=== PATIENT | male | born 1950 | race Caucasian/White ===

== ENCOUNTER 2018-01-15 11:02 | Inpatient (IN) | payer MEDICARE ==
--- NOTE | 2018-01-15 11:24 | ED ---
Shortness of Breath - HPI Summary HPI Summary: This pt is a 67 y/o male presenting to [facility] referred from pulmonology c/o worsening SOB and weight gain. Pt reports he has chronic SOB but this worsening episode began about 3 weeks ago. He additionally notes chills and white clear phlegm. Pt states he has gained around 50 lbs over the last 4-6 weeks (was 482 lbs and now is 530 lbs). Denies fever, cough, chest pain. SOB is aggravated with lying down and it is alleviated with sitting down. Pt states he sleeps sitting in a recliner at night. Pt is currently on 2- 3L of [place] O2 at home at all times. He takes Lasix 40 mg once a day. He has had tests done to be fitted for a BiPAP. His PCP is Dr. Tidwell. - History of Current Complaint Chief Complaint: EDShortnessOfBreath Time Seen by Provider: 01/15/18 11:15 Hx Obtained From: Patient Onset/Duration: Lasting Days, Still Present Timing: Constant Current Severity: Severe Dyspnea At: Rest Aggrevating Factors: Recumbent Position Alleviating Factors: Upright Position Associated Signs & Symptoms: Negative - Allergy/Home Medications Allergies/Adverse Reactions: Allergies Allergy/AdvReac Type Severity Reaction Status Date / Time canagliflozin Allergy Unknown Verified 01/15/18 11:26 Reaction Details Sulfa (Sulfonamide Allergy Unknown Verified 01/15/18 11:26 Antibiotics) Reaction Details Home Medications: Home Medications Albuterol HFA INHALER* [Ventolin HFA Inhaler*] 2 puff INH Q4H PRN 01/15/18 [ History Confirmed 01/15/18] Multivitamins/Minerals TAB* [Theragran/minerals TAB*] 1 tab PO DAILY 01/15/18 [ History Confirmed 01/15/18] Potassium Chlor TAB* [Klor Con ER TAB*] 20 meq PO QAM 01/15/18 [History Confirmed 01/15/18] Ramipril CAP* [Altace CAP*] 5 mg PO QAM 01/15/18 [History Confirmed 01/15/18] glipiZIDE [Glipizide ER] 10 mg PO QAM 01/15/18 [History Confirmed 01/15/18] PMH/Surg Hx/FS Hx/Imm Hx Endocrine/Hematology History: Reports: Hx Diabetes - type 2 Cardiovascular History: Reports: Hx Congestive Heart Failure, Hx Hypertension Respiratory History: Reports: Hx Chronic Obstructive Pulmonary Disease (COPD) History: Denies: Hx Acute Renal Failure, Hx Chronic Renal Failure - Surgical History Surgery Procedure, Year, and Place: Abd surgery on 08/03/14 Infectious Disease History: No Infectious Disease History: Denies: Traveled Outside the [place] in Last 30 Days - Family History Known Family History: Negative: Renal Disease - Social History Alcohol Use: None Substance Use Type: Reports: None Smoking Status (MU): Never Smoked Tobacco Review of Systems Constitutional: Other - weight gain Positive: Chills. Negative: Fever Negative: Chest Pain Positive: Shortness Of Breath. Negative: Cough Skin: Negative Neurological: Negative All Other Systems Reviewed And Are Negative: Yes Physical Exam - Summary Physical Exam Summary: VITAL SIGNS: Reviewed. GENERAL: Patient is an obese male currently on 2L of NC O2. HEAD AND FACE: No signs of trauma. No ecchymosis, hematomas or skull depressions. No sinus tenderness. EYES: PERRLA, EOMI x 2, No injected conjunctiva, no nystagmus. EARS: Hearing grossly intact. Ear canals and tympanic membranes are within normal limits. MOUTH: Oropharynx within normal limits. NECK: Supple, trachea is midline, no adenopathy, no JVD, no carotid bruit, no c- spine tenderness, neck with full ROM. CHEST: Symmetric, no tenderness at palpation LUNGS: Decreased breath sounds bilaterally especially at the bases of the lungs. CVS: Regular rate and rhythm, S1 and S2 present, no murmurs or gallops appreciated. Distant heart sounds. ABDOMEN: Soft, non-tender. No signs of distention. No rebound no guarding, and no masses palpated. Bowel sounds are normal. EXTREMITIES: FROM in all major joints, no cyanosis or clubbing. Pt has 4+ edema. NEURO: Alert and oriented x 3. No acute neurological deficits. Speech is normal and follows commands. SKIN: Dry and warm Triage Information Reviewed: Yes Vital Signs On Initial Exam: Initial Vitals Temp Pulse Resp BP Pulse Ox 98.4 F 79 18 163/55 98 01/15/18 11:08 01/15/18 11:08 01/15/18 11:08 01/15/18 11:08 01/15/18 11:08 Vital Signs Reviewed: Yes Diagnostics - Vital Signs Vital Signs Temp Pulse Resp BP Pulse Ox 01/15/18 11:08 98.4 F 79 18 163/55 98 - Laboratory Result Diagrams: 01/15/18 11:55 01/15/18 11:55 Lab Statement: Any lab studies that have been ordered have been reviewed, and results considered in the medical decision making process. - Radiology Chest XR Xray Interpretation: No Acute Changes - IMPRESSION: Cardiomegaly and likely prominent vascular markings due to body habitus. No definite pneumonia. Dr. López has reviewed this radiology report. Radiology Interpretation Completed By: Radiologist - EKG 11:36 Cardiac Rate: NL - at 74 bpm EKG Rhythm: Sinus Rhythm EKG Interpretation: RBBB. Left ventricular hypertrophy. - Additional Comments Diagnostic Additional Comments: Venous Doppler Study, bilateral lower extremities IMPRESSION: No right lower extremity deep vein thrombosis. No left lower extremity deep vein thrombosis. Dr. López has reviewed this radiology report. Course/Dx - Course Assessment/Plan: This patient is a 67-year-old male who has past medical history significant for morbid obesity, fluid retention, dyslipidemia, chronic pain, hypertension, and COPD. The patient presents to the emergency room with a chief complaint of having shortness of breath and bilateral extremity edema. He reports that in the last 3 weeks he has gained 53 pounds. He also reports that he takes Lasix however it is not helping. Test results without any significant abnormality except for slight anemia, carbon dioxide of 35, glucose 132. Chest x-ray impression, cardiomegaly and likely prominent vascular markings due to his body habitus. No definite pneumonia. Bilateral lower extremity ultrasound negative for DVT. Because of the bilateral lower extremity edema I gave the patient Lasix 40 mg IV. I believe that the patient would benefit from diuresis since he has gained 53 pounds. Therefore I discussed my physical exam and findings with Dr. Currie who is the hospitalist and he accepted the patient for admission. Patient is hemodynamically stable alert and oriented 3. - Diagnoses Provider Diagnoses: Bilateral lower extremity edema - Physician Notifications Discussed Care of Patient With: Frank Currie Time Discussed With Above Provider: 12:37 Instructed by Provider To: Admit As Inpatient Discharge - Sign-Out/Discharge Documenting (check all that apply): Patient Departure - Admit to [facility] - Discharge Plan Condition: Stable Disposition: ADMITTED TO [facility] - Billing Disposition and Condition Condition: STABLE Disposition: Admitted to [facility] - Attestation Statements Document Initiated by Stephibmadeleine: Yes Documenting Scribe: Eryn Park Provider For Whom Yulia is Documenting (Include Credential): Arnulfo López MD Scribe Attestation: Eryn Sandhu, scribed for Arnulfo López MD on 01/16/18 at 0811. Scribe Documentation Reviewed: Yes Provider Attestation: The documentation as recorded by the stephibEryn salvador accurately reflects the service I personally performed and the decisions made by me, Arnulfo López MD
[2018-01-15 12:12] LABS: ABS Basophils 0 10^3/ul (0-0.2); ABS Eosinophils 0.2 10^3/ul (0-0.6); ABS Lymphocytes 1.1 10^3/ul (1.0-4.8); ABS Monocytes 0.9 10^3/ul (0-0.8); ABS Nucleated RBC 0 10^3/ul; Eosinophil % 3.2 % (0-6); Hematocrit 41 % (42-52); Hemoglobin 13.7 g/dl (14.0-18.0); Lymphocyte % 17.7 % (25-47); Mean Corpuscular HGB Conc 34 g/dl (31-36); Mean Corpuscular Hemoglobin 33 pg (27-31); Mean Corpuscular Volume 99 fL (80-94); Mean Platelet Volume 8.1 um3 (7.4-10.4); Nucleated Red Blood Cells % 0.1; Platelet Count 120 10^3/ul (150-450); Red Blood Count 4.12 10^6/ul (4.00-5.40); Red Cell Distribution Width 14 % (10.5-15); White Blood Count 6.2 10^3/ul (3.5-10.8)
--- OUTSIDE RECORDS SUMMARY | 2018-01-15 12:13 | XMS REPORT ---
:1950 External Reference #:[id number] Author Organization [email or web address] Address [address] [place] [address] [place] [address] Phone [phone] Care Team Providers Name Role Phone Kolton Tidwell MD Primary Care Physician Unavailable Payers Type Date Identification Numbers Payment Provider Subscriber Medicare Primary Policy Number: [id number] Medicare Diego Levy PayID: [id number] [facility] [address] [place] [address] Problems Description No Information Family History Date Family Member(s) Problem(s) Comments General Hypertension General Diabetes General Congestive Heart Failure (CHF) General Macular degeneration Father Hypertension Father Diabetes Mother Diabetes Mother due to CHF () First Brother 62 First Brother due to Diabetes () First Brother due to Cancer () Social History Type Date Description Comments Marital Status Lives With Occupation Retired Occupation disabled Occupation [employer] business 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 Cigarette Use Never Smoked Cigarettes ETOH Use Denies alcohol use Smoking Patient has never smoked Recreational Drug Use Never Used Drugs Daily Caffeine Consumes on average 1 cup of Sometimes 2 regular coffee per day Daily Caffeine Occasional iced tea Unsweetened Exercise Type/Frequency Does not exercise General Hx Text Do you follow a special diet: no regular Do you have problems with snoring,daytime : yes fatigue, occasional snoring Allergies, Adverse Reactions, Alerts Date Description Reaction Status Severity Comments 03/29/2017 Sulfa Antibiotics active 04/15/2017 Canagliflozin Urticaria, dizzy active 04/15/2017 Glipizide Urticaria, headache, inactive Moderate to Severe eye problem, breathing problem Medications Medication Date Status Form Strength Qnty SIG Indications Ordering Provider Isosorbide 04/15 Active Tablets 60mg 90tab take one R07.9 Benoit S. Mononitrate ER /2017 ER 24HR s by mouth Meyer, once daily DO FACC in the morning Symbicort 03/27 Active Aerosol 80-4.5mcg 2 puff Unknown /2016 /Act twice a day Nystatin Active Cream [id number] topically Unknown / t/GM twice a day as needed Atorvastatin Active Tablets 40mg 1 by mouth Unknown Calcium /0000 every day in the evening Proventil HFA Active Aerosol 108(90Bas inhale two Unknown / e) puffs by mcg/Act mouth four times a day as needed Ramipril Active Capsules 5mg 1 by mouth Unknown / every day in the morning Vitamin C Active Capsules 500mg 1 by mouth Unknown / every day in the evening Ropinirole HCL Active Tablets 0.5mg 1 tablet Unknown / daily in the evening Protonix Active Packet 40mg 1 tab by Unknown /0000 mouth every day in the morning Multivitamin Adult Active Tablets 1 by mouth Unknown / every day in the evening Tamsulosin HCL Active Capsules 0.4mg 1 by mouth Unknown /0000 every day in the evening Hydrocodone Active Tablets 10-325mg take 1 Unknown Bitartrate/Acetamin /0000 tablet po ophen every 4 to 6 hours prn Alprazolam Active Tablets 0.5mg take 1 Unknown /0000 Dispers tablet po every 4 hours as need Loratadine Active Tablets 10mg 1 by mouth Unknown /0000 every day in the morning Aspirin Adult Low Active Tablets 81mg 1 by mouth Unknown Dose /0000 DR every day Fluoxetine HCL Active Tablets 20mg 1 by mouth Unknown (PMDD) /0000 every day Am Glipizide XL Active Tablets 10mg 1 by mouth Unknown /0000 ER 24HR daily in the morning Furosemide Active Tablets 40mg 1 by mouth Unknown /0000 every day as needed Potassium Chloride Active Tablets 20Meq Take One Unknown Brenda ER / ER Tablet By Mouth Every Day in the morning Zolpidem Tartrate Active Tablets 5mg take 1 Unknown /0000 tablet by mouth at bedtime as needed -- maximum daily dose of 1 per day Bydureon Hx Pen 2mg inject 2 Unknown /0000 mg sc - weekly 11/07 Zinc 00 Hx 50mg 1 caplet Unknown /0000 po daily - 05/24 Hydrochlorothiazide Hx Tablets 25mg 1 by mouth Unknown /0000 every day - 11/24 Glipizide ER Hx Tablets 10mg Unknown /0000 ER 24HR - 04/14 Iron 00 Hx Tablets 240(27Fe) 1 by mouth Unknown /0000 mg every day - PM 05/14 Vital Signs Date Vital Result Comment 01/15/2018 Height 71 inches 5'11" Weight 532.00 lb Heart Rate 76 /min BP Systolic Sitting 126 mmHg BP Diastolic Sitting 62 mmHg Respiratory Rate 14 /min O2 % BldC Oximetry 93 % on 2L BMI (Body Mass Index) 74.2 kg/m2 11/28/2017 Height 71 inches 5'11" Weight 486.00 lb Heart Rate 74 /min BP Systolic Sitting 120 mmHg Lue large cuff BP Diastolic Sitting 82 mmHg Lue large cuff Respiratory Rate 16 /min O2 % BldC Oximetry 95 % BMI (Body Mass Index) 67.8 kg/m2 11/25/2017 Height 71 inches 5'11" Weight 482.00 lb Per pt, pt on scooter Heart Rate 74 /min BP Systolic Sitting 134 mmHg R forearm reg cuff BP Diastolic Sitting 76 mmHg R forearm reg cuff Respiratory Rate 14 /min O2 % BldC Oximetry 93 % On Ra BMI (Body Mass Index) 67.2 kg/m2 Neck Circumference in inches 20.5 06/03/2017 Height 71 inches 5'11" Weight 444.00 lb Per patient Heart Rate 84 /min BP Systolic Sitting 122 mmHg Rfa lrg cuff BP Diastolic Sitting 78 mmHg Rfa lrg cuff Respiratory Rate 18 /min BMI (Body Mass Index) 61.9 kg/m2 04/15/2017 Heart Rate 86 /min BP Systolic 170 mmHg Rue lrg cuff BP Diastolic 70 mmHg Rue lrg cuff BP Systolic Sitting 142 mmHg Lue lrg cuff BP Diastolic Sitting 62 mmHg Lue lrg cuff BP Systolic Standing 126 mmHg Lue lrg cuff BP Diastolic Standing 60 mmHg Lue lrg cuff Respiratory Rate 18 /min Results Description No Information Procedures Date CPT Code Description Status 11/27/2017 15128 Sleep Study Unattended,HRT Rate,Oxygen Sat,Resp Completed Effort/Airflow 05/15/2017 56862 Myocardial Perfusion Imaging Tomographic (Spect) Completed Multiple Studies 04/22/2017 56051 Treadmill Interp/Report Only Completed 04/22/2017 74280 Stress Test Supervsn W/Out I/R Completed 04/15/2017 42025 EKG Tracing & Interpretation Completed Encounters Type Date Location Provider CPT E/M Dx Office Visit 01/15/2018 [facility] [address] G47.33 10:00a [facility] E66.2 I50.9 Office Visit 11/28/2017 9:15a [facility] [place] [address] G47.33 [facility] E66.2 Office Visit 11/25/2017 9:30a [facility] [place] [address] R06.83 [facility] R40.0 R09.02 E66.01 Z68.44 Z99.81 Office Visit 06/03/2017 2:40p [facility] 86656 R07.9 [facility] FACC E66.01 I10 R06.02 E78.5 E11.69 I45.2 Office Visit 04/15/2017 3:00p [facility] [address] R07.9 [facility] FACC E66.01 E11.69 I10 E78.5 R06.02 R94.31 Office Visit 09/14/2014 1:32p [facility] DELFIN Malin 96247 536.42 Hospitalists Plan of Care Future Appointment(s):02/28/2018 9:30 am - Tina Alvares MD at [facility]01/15/2018 - Tina Alvares MDG47.33 Obstructive sleep apnea (adult) (pediatric)New Orders:Sleep-HomecareFollow up:6 ttidxW34.2 Morbid (severe) obesity with alveolar [id number] Heart failure, unspecified
[2018-01-15 12:27] LABS: EGFR Non-African American 76.5 (>60)
[2018-01-15] MEDS ORDERED: Furosemide IV* 10 MG/ML VIAL (40 MG) IV SLOW PU ONE (12:35)
--- NOTE | 2018-01-15 12:39 | RAD ---
Indication: Shortness of breath. 2 views the chest and shape cardiomegaly. Prominent interstitial markings are noted likely due to body habitus. No definite pleural fluid, pneumonia or pneumothorax is noted. IMPRESSION: Cardiomegaly and likely prominent vascular markings due to body habitus. No definite pneumonia.
--- NOTE | 2018-01-15 13:56 | RAD ---
HISTORY: B/L LE edema COMPARISONS: None relevant TECHNIQUE: Multiple transverse and longitudinal ultrasound images were obtained of the bilateral lower extremities from the level of the common femoral vein inferiorly through to the infrapopliteal veins using grayscale, color Doppler, and spectral Doppler imaging with and without compression and with augmentation. FINDINGS: The study is limited by patient body habitus. VEINS: The venous system of the bilateral lower extremities is compressible throughout its course, with normal flow on color Doppler imaging and normal response to augmentation on spectral Doppler imaging. SOFT TISSUES: Unremarkable. OTHER FINDINGS: None. IMPRESSION: NO RIGHT LOWER EXTREMITY DEEP VEIN THROMBOSIS. NO LEFT LOWER EXTREMITY DEEP VEIN THROMBOSIS.
[2018-01-15 14:25] LABS: Urine Appearance Clear; Urine Blood Negative (Negative); Urine Color Straw; Urine Ketones Negative (Negative); Urine Protein Negative (Negative); Urine Specific Gravity 1.006 (1.010-1.030); Urine Urobilinogen Negative (Negative)
[2018-01-15] MEDS ORDERED: Albuterol 2.5 MG/3 ML NEB.SOL* (0.083%) INH PRN (14:46)
[2018-01-15] MEDS ORDERED: Dextrose 50% Syringe 50 ML* 25 GM/50 ML SYRINGE IV PUSH PRN (14:49)
[2018-01-15] MEDS ORDERED: Nystatin CREAM* 30 GM TOPICAL PRN (14:50)
[2018-01-15] MEDS ORDERED: ALPRAZolam TAB* 0.5 MG PO PRN (14:50)
[2018-01-15] MEDS: Hydrocodone/Acetamin 10/325 1 TAB PO PRN (16:45)
[2018-01-15] MEDS: Insulin LISPRO* 1 UNITS UNIT SUBCUT SCH ×2 (17:02→21:41)
[2018-01-15] MEDS: Atorvastatin* 40 MG TAB PO SCH (17:32)
[2018-01-15] MEDS: Furosemide IV* 10 MG/ML 10 ML VIAL (100 MG) IV SCH (17:32)
--- NOTE | 2018-01-15 20:29 | HP ---
CC: Dr. Tidwell; Dr. Alvares; Dr. Benoit Meyer; Dr. Carlitos Mercado; Olvin Og NP * HISTORY AND PHYSICAL: DATE OF ADMISSION: 01/15/18 PRIMARY CARE PROVIDER: Dr. Tidwell. PRECISION HONER: Dr. Alvares. RICE DRYER MECHANIC: Dr. Benoit Meyer. ATTENDING PHYSICIAN: Dr. Carlitos Mercado * (report dictated by Dori Burns NP). CHIEF COMPLAINT: 1. Lower extremity edema. 2. Worsening shortness of breath. HISTORY OF PRESENT ILLNESS: Mr. Levy is a 67-year-old male with a past medical history of diabetes mellitus, type 2; CHF; hypertension; COPD; super morbid obesity; obstructive sleep apnea; restless legs syndrome; BPH; lymphedema ; chronic back pain; pulmonary hypertension; and hypoventilation syndrome, who presents to the emergency room today after being referred by Dr. Alvares's office. He was seen in her office this morning as he was supposed to start on BiPAP today, though he and his noted that he has had increasing shortness of breath and increasing leg edema in recent weeks. He has reportedly gained 50 pounds over the last 6 weeks. He notes that during this time, his shortness of breath, which is chronic, has been significantly worse and the severity of this shortness of breath has correlated with the increasing edema. He also reports occasional chills, though no fever, and occasional coughing with exertion with a small amount of white sputum. He reports that the shortness of breath is worse with lying, alleviated with sitting. He also notes that he becomes dizzy when lying down and has had difficulty sleeping. Of note, he does sleep in a recliner and is on 2 L of oxygen at baseline. He and his report that both his legs and his abdomen appear to be more edematous and the patient reports some generalized weakness stating that his legs feel "heavy." He was hospitalized at [facility] in September for 1 night for similar symptoms, at which point, he started Lasix 40 mg daily, which he states he has been taking religiously. He does also report some worsening of his chronic back pain and occasional double vision on waking that lasts no longer than 1 to 2 minutes , though no actual changes in vision. In the emergency room, he received 1 dose of Lasix 40 mg IV. He is currently on 3 L of oxygen and he had a chest x-ray that showed cardiomegaly, but no definite acute findings. Because of his worsening edema and shortness of breath , the hospitalist service was asked to evaluate for admission. PAST MEDICAL HISTORY: 1. Diabetes mellitus, type 2. 2. Congestive heart failure. 3. Hypertension. 4. COPD. 5. Super morbid obesity. 6. Obstructive sleep apnea (has not yet started BiPAP). 7. Restless legs syndrome. 8. BPH. 9. Lymphedema. 10. Back pain. 11. Pulmonary hypertension. 12. Hypoventilation syndrome. PAST SURGICAL HISTORY: 1. Multiple abdominal surgeries in 2015 (the patient states 10) due to a perforated peptic ulcer and subsequent complication. 2. Hernia repair. HOME MEDICATIONS: 1. Multivitamin 1 tab p.o. daily. 2. Ascorbic acid 500 mg p.o. daily. 3. Loratadine 10 mg p.o. daily. 4. Aspirin 81 mg p.o. daily. 5. Nystatin cream 1 application topical b.i.d. p.r.n. 6. Hydrocodone/acetaminophen 10/325 mg 1 tab p.o. q.4 hours p.r.n. 7. Requip 0.5 mg p.o. at bedtime. 8. Alprazolam 0.5 mg p.o. q.4 hours p.r.n. 9. Tamsulosin 0.4 mg p.o. daily. 10. Lipitor 40 mg p.o. daily. 11. Pantoprazole 40 mg p.o. daily. 12. Imdur 60 mg p.o. daily. 13. Fluoxetine 20 mg p.o. daily. 14. Glipizide 10 mg p.o. daily. 15. Ramipril 5 mg p.o. daily. 16. Potassium chloride 20 mEq p.o. daily. 17. Symbicort 80/4.5 two puffs b.i.d. 18. Albuterol MDI 2 puffs q.4 hours p.r.n. ALLERGIES: SULFA (hives) and INVOKANA (rash). FAMILY HISTORY: The patient's mother at 74 of congestive heart failure. The patient's father at 95 of sepsis. The patient's brother at 62 of cancer, unknown type. Mother, father, and brother also had diabetes mellitus, type 2. SOCIAL HISTORY: The patient denies any tobacco, alcohol, or recreational drug use. 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 He lives at home with his , Camila, who will be his surrogate decision maker in the event he is unable to make decisions for himself. REVIEW OF SYSTEMS: I performed a 14-point review of systems. All pertinent positives and negatives are mentioned in the history of present illness. Remaining review of systems is negative. PHYSICAL EXAMINATION GENERAL APPEARANCE: The patient is a morbidly obese white male, sitting in bed , in no acute distress, appears stated age. VITAL SIGNS: Temperature 98.4, heart rate 72, respiratory rate 17, oxygen saturation 96% on 3 L nasal cannula, blood pressure 140/61. HEENT: Visual castro grossly intact. Pupils equal, round, and reactive to light and accommodation. Extraocular movements intact. Hearing grossly intact. Mucous membranes moist without erythema or exudate. NECK: Full range of motion. Trachea midline. No lymphadenopathy. RESPIRATORY: Chest with symmetrical expansion. No deformities on the posterior chest wall. Lung sounds with fine crackles in bilateral bases, otherwise clear to auscultation throughout. CARDIOVASCULAR: Regular rate and rhythm. No murmurs, rubs, or gallops. No JVD. ABDOMEN: Large. Soft, nontender. Bowel sounds normoactive x4. Significant old scarring across span of the abdomen. EXTREMITIES: There is +2 pitting edema to the bilateral lower legs. Legs are slightly tender to palpation. No significant discoloration. DP pulses are 1+ and symmetric. Sensation intact. MUSCULOSKELETAL: There is no clubbing or cyanosis noted. The patient exhibits good strength in all extremities. NEUROLOGICAL: Cranial nerves II through XII grossly intact. The patient is alert and oriented x4. PSYCH: The patient is calm and cooperative. SKIN: Grossly intact. DIAGNOSTIC STUDIES/LAB DATA: WBC is 6.2, RBC is 4.12, hemoglobin 13.7, hematocrit 41, platelets 120. Sodium 141, potassium 4.2, chloride 100, carbon dioxide 35, BUN 15, creatinine 0.98, glucose 132, lactate 1.4. Troponin 0.00. BNP 31. No acute findings on urinalysis. Chest x-ray read as cardiomegaly and likely permanent vascular markings due to body habitus, no definite pneumonia. Bilateral lower extremity ultrasound read as no right or left lower extremity deep vein thrombosis. EKG shows sinus rhythm with a rate of 74 with left ventricular hypertrophy. ASSESSMENT AND PLAN: Mr. Levy is a 67-year-old male with past medical history significant for diabetes mellitus, type 2; congestive heart failure; hypertension; chronic obstructive pulmonary disease; super morbid obesity; obstructive sleep apnea; restless legs syndrome; benign prostatic hyperplasia; lymphedema; pulmonary hypertension; hypoventilation syndrome; and back pain, who presents to the emergency room with concerns for increasing lower extremity edema and worsening shortness of breath over the last 6 weeks and was found to be in congestive heart failure exacerbation. The patient will be admitted inpatient for the followin. Congestive heart failure exacerbation. It appears as though the patient is in right-sided congestive heart failure as he does have a history of pulmonary hypertension. His BNP is only 31, although this is likely falsely low due to his obesity. We will diurese him with Lasix 80 mg IV b.i.d. for the time being. I will place him on a 1.5 L fluid restriction. I will check 2 more [address] I will place him on daily weights and strict I's and O's. I have requested records from his September 2017 hospitalization at [facility] during which time it appears he had an echocardiogram, although the findings are unclear. We will also repeat an echo here. I do not feel we need to consult Cardiology at this time, but we may need to if we are unable to diurese him effectively. 2. Diabetes mellitus, type 2. The patient's last A1c at his primary from 08/19 was 7.7%. It appears he is moderately well controlled. I will hold his glipizide at this point and place him on fingersticks a.c. and h.s. as well as sliding scale insulin for BMI greater than 30. 3. Hypertension. Blood pressure appears to be controlled in the emergency room. I will continue his ramipril. 4. Obstructive sleep apnea. The patient has just been recently diagnosed with obstructive sleep apnea and has completed a sleep study. He saw Dr. Alvares this morning with plan to pear picker his BiPAP machine later today. We will start that in the hospital today with a hospital unit. I have ordered settings per Dr. Alvares's note: BiPAP with an IPAP of 14 and EPAP of 10. 5. Lymphedema. The patient reports using a leg compression device at home. I will order him SCDs for use in the hospital. 6. Morbid obesity. BMI 70. The patient has been counseled on his weight. 7. Restless legs syndrome. Continue Requip. 8. Benign prostatic hyperplasia. Continue Flomax. 9. Hypoventilation syndrome. As above. 10. Pulmonary hypertension. As above. 11. Back pain. Continue [place]. 12. Code status is full code. 13. DVT prophylaxis. On the DVT Risk Assessment, the patient scores a 4 putting him at high risk. I will place him on subcu heparin as well as the SCDs mentioned above. TIME SPENT: Time for this admission was approximately 80 minutes, greater than half of that was spent with the patient and caregiver discussing medications, past medical history, events leading up to his arrival today and performing the physical examination. The case has been reviewed with my attending, Dr. Mercado, who agrees with the plan of care. DORI UBRNS, SECURITY SUPERVISOR [id number]/CPS #: [id number] JEANNIE
[2018-01-15] MEDS ORDERED: Morphine VIAL* 4 MG/ML VIAL (1 ml vial) IV ONE (20:31)
[2018-01-15] MEDS: Ropinirole TAB* 0.5 MG TAB PO SCH (21:40)
[2018-01-15] MEDS: Heparin VIAL(*) 5000 UNITS/ML VIAL (FIVE THOUSAND) SUBCUT SCH (21:44)
[2018-01-15] MEDS: ceFAZolin 2 GM PREMIX in ORs 2 GM/50 ML BAG IVPB SCH (21:49)
--- NOTE | 2018-01-15 23:58 | HP ---
H&P (Free Text) History and Physical: 67 yo male PMH super morbid obesity, obesity hypoventilation syndrome, chronic hypoxic respiratory failure, JO ANN presenting with 50lb weight gain in 6 weeks despite lasix 40mg po daily. 2+ pitting edema, orthopnea and increased oxygen requirement likely secondary to acute congestive heart failure exacerbation. Aggressive diuresis, strict io, daily weights. Repeat ECHO or obtain from OSH. Full code. inpatient status given anticipating several days of diuresis. Agree with H&P including assessment and plan of Dori Burns RHEUMATOLOGY NURSE.
[2018-01-16] MEDS: ceFAZolin 2 GM PREMIX in ORs 2 GM/50 ML BAG IVPB SCH ×3 (05:00→20:47)
[2018-01-16] MEDS: Heparin VIAL(*) 5000 UNITS/ML VIAL (FIVE THOUSAND) SUBCUT SCH ×3 (05:21→23:29)
[2018-01-16] MEDS: Furosemide IV* 10 MG/ML 10 ML VIAL (100 MG) IV SCH ×2 (07:24→16:28)
[2018-01-16] MEDS: CMC:Pantoprazole TAB (NF) 40 MG TAB PO SCH (07:24)
[2018-01-16] MEDS: Hydrocodone/Acetamin 10/325 1 TAB PO PRN ×2 (07:24→20:37)
[2018-01-16] MEDS: Aspirin EC TAB* 81 MG TAB.EC PO SCH (07:24)
[2018-01-16] MEDS: Multivitamins/Minerals TAB PO SCH (07:24)
[2018-01-16] MEDS: Ascorbic Acid TAB* 500 MG PO SCH (07:24)
[2018-01-16] MEDS: Isosorbide Mononitrate ER TAB* 60 MG PO SCH (07:25)
[2018-01-16] MEDS: Potassium Chlor TAB* 20 MEQ TAB.ER PO SCH (07:25)
[2018-01-16] MEDS: Tamsulosin CAP* 0.4 MG PO SCH (07:25)
[2018-01-16] MEDS: FLUoxetine CAP* 20 MG PO SCH (07:25)
[2018-01-16] MEDS: Ramipril CAP* 5 MG PO SCH (07:25)
[2018-01-16] MEDS: Cetirizine* 10 MG TAB PO SCH (07:25)
[2018-01-16] MEDS: Insulin LISPRO* 1 UNITS UNIT SUBCUT SCH ×4 (07:39→20:38)
[2018-01-16 08:19] LABS: ABS Basophils 0.1 10^3/ul (0-0.2); ABS Eosinophils 0.2 10^3/ul (0-0.6); ABS Lymphocytes 1.1 10^3/ul (1.0-4.8); ABS Monocytes 0.8 10^3/ul (0-0.8); ABS Neutrophils 2.7 10^3/ul (1.5-7.7); ABS Nucleated RBC 0 10^3/ul; Hematocrit 42 % (42-52); Hemoglobin 14.2 g/dl (14.0-18.0); Lymphocyte % 22.8 % (25-47); Mean Corpuscular HGB Conc 34 g/dl (31-36); Mean Corpuscular Hemoglobin 34 pg (27-31); Mean Corpuscular Volume 99 fL (80-94); Mean Platelet Volume 7.7 um3 (7.4-10.4); Nucleated Red Blood Cells % 0.1; Platelet Count 116 10^3/ul (150-450); Red Cell Distribution Width 14 % (10.5-15); White Blood Count 4.8 10^3/ul (3.5-10.8)
[2018-01-16 08:40] LABS: EGFR Non-African American 71.5 (>60)
[2018-01-16] MEDS ORDERED: Perflutren Lipid Microsphere* 3 ML VIAL ONE (08:55)
--- NOTE | 2018-01-16 12:22 | ECHO ---
Patient: DAYRON NAIK [facility] Rec#: [id number] : 1950 Date: 01/16/2018 Age: 67y Height: 180 cm / 70.9 in Weight: 235 kg / 517.9 lbs Sex: M BSA: 3.2 Room#: 453 Admit Date#: 01/15/2018 Type: Inpatient Referring: Dori Burns Reading: Dylon Jerry MD Agriculture Intern: Heather Mahajan RN RDCS CC: Kolton Tidwell MD Transthoracic Echocardiogram Indication: CHF BP: 127/55 HR: 66 Rhythm: NSR Findings History: HTN, DM, CHF, COPD, super morbid obesity, JO ANN, hypoventilation syndrome, PHTN. Technical Comments: The study is technically limited due to patient body habitus. Left Ventricle: The left ventricular chamber size is normal. Moderate concentric left ventricular hypertrophy is observed. Global left ventricular wall motion and contractility are within normal limits. There is normal left ventricular systolic function. The estimated ejection fraction is 60-65%. There is a left ventricular septal wall motion abnormality observed, possibly due to the presence of a right bundle branch block. Abnormal left ventricular diastolic function is observed. Abnormal left ventricular diastolic filling is observed, consistent with impaired relaxation. Left Atrium: The left atrial chamber size is normal. Right Ventricle: The right ventricle is not well visualized. The right ventricle is mildly dilated. The right ventricular global systolic function is mildly to moderately reduced. Right Atrium: The right atrium is not well visualized. Aortic Valve: The aortic valve structure is not well visualized. The aortic valve leaflets are mildly thickened. There is no evidence of aortic regurgitation. There is no evidence of aortic stenosis. Mitral Valve: The mitral valve leaflets are mildly thickened. There is no evidence of mitral regurgitation. There is no evidence of mitral stenosis. Tricuspid Valve: The tricuspid valve structure is not well visualized. There is no evidence of tricuspid valve regurgitation. Pulmonic Valve: The pulmonic valve structure is not well visualized. There is no evidence of pulmonic regurgitation. There is no pulmonic stenosis. Pericardium: There is no significant pericardial effusion. A pericardial fat pad is visualized. Aorta: There is no dilatation of the ascending aorta. There is no dilatation of the aortic arch. There is mild dilatation of the aortic root. Pulmonary Artery: The main pulmonary artery is not well visualized. Venous: The venous system is not well visualized. The inferior vena cava is not visualized. Contrast: Definity was used to optimize study. A total of 7 ml of Definity was given IV. Summary: There was not any prior study for comparison. Conclusions The study is technically limited due to patient body habitus. Moderate concentric left ventricular hypertrophy is observed. The estimated ejection fraction is 60-65%. There is a left ventricular septal wall motion abnormality observed, possibly due to the presence of a right bundle branch block. Abnormal left ventricular diastolic filling is observed, consistent with impaired relaxation. The aortic valve leaflets are mildly thickened. There is mild dilatation of the aortic root. The right ventricular global systolic function is mildly to moderately reduced. The right ventricle is mildly dilated. No significant valvular dysfunction. Measurements Name Value Normal Range RVIDd (AP) 2D 3.1 cm (0.9 - 2.6) IVSd (2D) 1.7 cm (0.6 - 1) LVPWd (2D) 1.4 cm (0.6 - 1) LVIDd (2D) 4.7 cm (3.6 - 5.4) Aortic Annulus 2.4 cm (1.4 - 2.6) Ao root diameter (2D) 3.6 cm (2.1 - 3.5) Ascending Ao 3.2 cm (2.1 - 3.4) Aortic arch 2.6 cm (1.8 - 3.4) LA dimension (AP) 2D 3.6 cm (2.3 - 3.8) LAd ISD 4CH 6 cm (2.9 - 5.3) LA ISD 4CH W 4.7 cm (2.5 - 4.5) Name Value Normal Range LA ESV BP (A/L) index 30.3 ml/m2 - Name Value Normal Range MV E-wave Vmax 1 m/sec - MV deceleration time 183 msec - MV A-wave Vmax 0.84 m/sec - LV septal e' Vmax 0.08 m/sec - LV lateral e' Vmax 0.11 m/sec - LV E:e' septal ratio 12.5 ratio - LV E:e' lateral ratio 9.1 ratio - Name Value Normal Range AV Vmax 1.5 m/sec - AV VTI 33.8 cm - AV peak gradient 9 mmHg - AV mean gradient 5 mmHg - LVOT Vmax 1.2 m/sec - LVOT VTI 27.2 cm - LVOT peak gradient 6 mmHg - LVOT mean gradient 3 mmHg - RUBEN Vmax 0.85 m/sec - Name Value Normal Range PV Vmax 0.99 m/sec -
[2018-01-16] MEDS: Morphine INJ* 2 MG/ML 1 ML SYRINGE (TWO MG - NEW SYRINGE VERSION) IV PRN ×2 (15:20→23:29)
[2018-01-16] MEDS: Gabapentin CAP(*) 100 MG PO SCH ×2 (16:03→20:37)
[2018-01-16] MEDS: Atorvastatin* 40 MG TAB PO SCH (16:28)
--- NOTE | 2018-01-16 18:23 | PN ---
Subjective Date of Service: 01/16/18 Interval History: Pt seen and examined. Meds and labs reviewed. There were earlier reports that pt may have expressed some SI last night. This was clarified to pt in presence of and med student Margarito where pt mentioned he does not have SI/HI CC: 910 Chronic back pain. ROS: Denied MONTEZ/dizziness, F/C, N/V, CP, SOB, increased cough, sputum production , abd pain, diarrhea, constipation, dysuria, myalgias, arthralgias, throat pain , and new skin lesions. The rest of the 14 point ROS are unremarkable. PHYSICAL EXAM: GEN APPEARANCE: Awake, not in acute distress HEENT: NC/AT, PERRLA, moist oral mucosa, (-) throat erythema NECK: Soft, supple, (-) cervical LAD, (-)JVD HEART: S1S2 WNL, RRR, No MRG CHEST: CTA, BL, GAE, No W/R/R ABD: Soft, ND/NT, NABS 4x Q EXT: No C/C/BLLE 3+--pt and mentions this has improved SKIN: Warm to touch PSYCH: No active psychosis, hallucinations, depression, SI/HI Objective Active Medications: Acetaminophen (Tylenol Tab*) 975 mg PO BID [facility] Hydrocodone Bitart/Acetaminophen ([place] 10/325 (Nf)) 1 tab PO Q4HR PRN PRN Reason: PAIN Last Admin: 01/16/18 07:24 Dose: 1 tab Albuterol (Ventolin 2.5 Mg/3 Ml Neb.Malia*) 2.5 mg INH Q2H PRN PRN Reason: SOB/WHEEZING Alprazolam (Xanax Tab*) 0.5 mg PO Q4H PRN PRN Reason: ANXIETY Last Admin: 01/16/18 03:10 Dose: 0.5 mg Ascorbic Acid (Vitamin C Tab*) 500 mg PO DAILY [facility] Last Admin: 01/16/18 07:24 Dose: 500 mg Aspirin (Aspirin Ec Tab*) 81 mg PO DAILY [facility] Last Admin: 01/16/18 07:24 Dose: 81 mg Atorvastatin Calcium (Lipitor*) 40 mg PO QPM [facility] Last Admin: 01/16/18 16:28 Dose: 40 mg Cetirizine HCl (Zyrtec*) 10 mg PO DAILY [facility] Last Admin: 01/16/18 07:25 Dose: 10 mg Dextrose (D50w Syringe 50 Ml*) 12.5 gm IV PUSH .FOR FS < 60 - SS PRN PRN Reason: FS < 60 Fluoxetine HCl (Prozac Cap*) 20 mg PO QAM [facility] Last Admin: 01/16/18 07:25 Dose: 20 mg Furosemide (Lasix Iv*) 80 mg IV 0800,1700 [facility] Last Admin: 01/16/18 16:28 Dose: 80 mg Gabapentin (Neurontin Cap(*)) 200 mg PO TID [facility] Last Admin: 01/16/18 16:03 Dose: 200 mg Heparin Sodium (Porcine) (Heparin Vial(*)) 5,000 units SUBCUT Q8HR [facility] Last Admin: 01/16/18 14:06 Dose: 5,000 units Cefazolin Sodium/Dextrose (Kefzol 2 Gm Premix(*)) 2 gm in 50 mls @ 100 mls/hr IVPB Q8H [facility] Last Admin: 01/16/18 12:28 Dose: 100 mls/hr Insulin Human Lispro (Humalog*) 0 units SUBCUT ACHS [facility]; Protocol Last Admin: 01/16/18 16:28 Dose: 3 units Isosorbide Mononitrate (Imdur Er Tab*) 60 mg PO DAILY [facility] Last Admin: 01/16/18 07:25 Dose: 60 mg Morphine Sulfate (Morphine Inj ((Syringe))*) 0.5 mg IV Q6H PRN PRN Reason: PAIN Stop: 01/17/18 15:01 Last Admin: 01/16/18 15:20 Dose: 0.5 mg Multivitamins/Minerals (Theragran/Minerals Tab*) 1 tab PO DAILY [facility] Last Admin: 01/16/18 07:24 Dose: 1 tab Nystatin (Nystatin Cream*) 1 applic TOPICAL BID PRN PRN Reason: SKIN Pantoprazole Sodium (Protonix Tab (Nf)) 40 mg PO DAILY [facility] Last Admin: 01/16/18 07:24 Dose: 40 mg Potassium Chloride (Klor Con Er Tab*) 20 meq PO QAM [facility] Last Admin: 01/16/18 07:25 Dose: 20 meq Ramipril (Altace Cap*) 5 mg PO QAM [facility] Last Admin: 01/16/18 07:25 Dose: 5 mg Ropinirole HCl (Requip Tab*) 0.5 mg PO BEDTIME [facility] Last Admin: 01/15/18 21:40 Dose: 0.5 mg Tamsulosin HCl (Flomax Cap*) 0.4 mg PO DAILY [facility] Last Admin: 01/16/18 07:25 Dose: 0.4 mg Vital Signs - 8 hr 01/16/18 01/16/18 01/16/18 11:02 11:38 15:20 Temperature 97.5 F 98.1 F Pulse Rate 75 69 Respiratory 18 18 18 Rate Blood Pressure 149/55 117/67 (mmHg) O2 Sat by Pulse 98 97 Oximetry 01/16/18 01/16/18 16:03 16:17 Temperature Pulse Rate Respiratory 18 18 Rate Blood Pressure (mmHg) O2 Sat by Pulse Oximetry Oxygen Devices in Use Now: Nasal Cannula Result Diagrams: 01/16/18 08:01 01/16/18 08:01 Assess/Plan/Problems-Billing Assessment: - Patient Problems (1) CHF (congestive heart failure) Current Visit: Yes Status: Acute Code(s): I50.9 - HEART FAILURE, UNSPECIFIED SNOMED Code(s): 63965952 Comment: -Continue aggressive diuresis -Pt advised life-style modifications and to track is sodium intake to <1.5 g/ day but not less than 1 g/day (2) Diabetes 1.5, managed as type 2 Current Visit: Yes Status: Acute Code(s): E10.9 - TYPE 1 DIABETES MELLITUS WITHOUT COMPLICATIONS SNOMED Code(s): 136066772 Comment: -Well controlled -Continue ISS (3) Hypertension Current Visit: Yes Status: Acute Code(s): I10 - ESSENTIAL (PRIMARY) HYPERTENSION SNOMED Code(s): 99380759 Comment: -Well-controlled -Continue current regimen (4) RLS (restless legs syndrome) Current Visit: Yes Status: Acute Comment: -Continue Ropinorole (5) DVT prophylaxis Current Visit: Yes Status: Acute Code(s): WST8993 - SNOMED Code(s): 080079984 Comment: -Continue Heparin SQ Status and Disposition: -For PT eval
[2018-01-16] MEDS: Acetaminophen TAB* 325 MG PO SCH (20:38)
[2018-01-16] MEDS: Ropinirole TAB* 0.5 MG TAB PO SCH (20:38)
[2018-01-17] MEDS: Heparin VIAL(*) 5000 UNITS/ML VIAL (FIVE THOUSAND) SUBCUT SCH ×2 (05:22→14:14)
[2018-01-17] MEDS: ceFAZolin 2 GM PREMIX in ORs 2 GM/50 ML BAG IVPB SCH ×2 (05:23→12:19)
[2018-01-17] MEDS: Insulin LISPRO* 1 UNITS UNIT SUBCUT SCH ×3 (08:06→17:27)
[2018-01-17] MEDS: FLUoxetine CAP* 20 MG PO SCH (08:07)
[2018-01-17] MEDS: Acetaminophen TAB* 325 MG PO SCH (08:07)
[2018-01-17] MEDS: Furosemide IV* 10 MG/ML 10 ML VIAL (100 MG) IV SCH (08:07)
[2018-01-17] MEDS: Gabapentin CAP(*) 100 MG PO SCH ×2 (08:08→14:13)
[2018-01-17] MEDS: Ascorbic Acid TAB* 500 MG PO SCH (08:08)
[2018-01-17] MEDS: Aspirin EC TAB* 81 MG TAB.EC PO SCH (08:08)
[2018-01-17] MEDS: Potassium Chlor TAB* 20 MEQ TAB.ER PO SCH (08:08)
[2018-01-17] MEDS: Multivitamins/Minerals TAB PO SCH (08:08)
[2018-01-17] MEDS: Isosorbide Mononitrate ER TAB* 60 MG PO SCH (08:08)
[2018-01-17] MEDS: CMC:Pantoprazole TAB (NF) 40 MG TAB PO SCH (08:09)
[2018-01-17] MEDS: Cetirizine* 10 MG TAB PO SCH (08:09)
[2018-01-17] MEDS: Ramipril CAP* 5 MG PO SCH (08:09)
[2018-01-17] MEDS: Tamsulosin CAP* 0.4 MG PO SCH (08:09)
[2018-01-17] MEDS: Atorvastatin* 40 MG TAB PO SCH (17:27)
[2018-01-17 18:01] VITALS: BP 139/60
[2018-01-17] MEDS ORDERED: ceFAZolin* 2 GM in NS 100 MLS Q8HR IVPB SCH (21:00)
--- NOTE | 2018-01-17 22:33 | DS ---
CC: Dr. Carlitos Mercado; Dr. López; Dr. Kolton Tidwell DISCHARGE SUMMARY: DATE OF ADMISSION: DATE OF DISCHARGE: 01/17/18 DISCHARGE DIAGNOSES: 1. Congestive heart failure exacerbation, diastolic dysfunction with an ejection fraction of 60 to 6 5%. 2. Left medial thigh cellulitis, mild, improved. 3. Diabetes mellitus, type 2, well controlled. 4. Hypertension, well controlled. 5. History of restless leg syndrome, well controlled. 6. History of chronic back pain, chronic pain uncontrolled, which has improved with addition of dipesh pentin. DISCHARGE MEDICATIONS: As follows: 1. Alprazolam 0.5 mg p.o. q.4 p.r.n. 2. Ascorbic acid 500 mg p.o. daily. 3. Aspirin 81 mg p.o. daily. 4. Atorvastatin 40 mg p.o. q.p.m. 5. Fluoxetine 20 mg p.o. q.p.m. 6. Hydrocodone/acetaminophen 10/325 p.o. q.4 p.r.n. 7. Isosorbide mononitrate 60 mg p.o. daily. 8. Loratadine 10 mg p.o. daily. 9. Multivitamins one tab p.o. daily. 10. Nystatin cream 1 application topically b.i.d. 11. Pantoprazole 40 mg p.o. daily. 12. Potassium chloride 20 mEq p.o. q.a.m. 13. Ramipril 5 mg p.o. q.a.m. 14. Ropinirole 0.5 mg p.o. q.h.s. 15. Tamsulosin 0.4 mg p.o. daily. 16. Albuterol HFA inhaler 2 puffs inhalation q.4 p.r.n. 17. Symbicort 80/4.5 mcg 2 puffs inhalation b.i.d. 18. Doxycycline 100 mg p.o. b.i.d. for 10 days. 19. Gabapentin 200 mg p.o. t.i.d. 20. Floranex 2 tablets p.o. daily. 21. Metformin 1000 mg p.o. b.i.d. 22. Metolazone 5 mg p.o. daily. 23. Torsemide 40 mg p.o. daily. HISTORY OF PRESENT ILLNESS/HOSPITAL COURSE: The patient is a 67-year-old gentleman with hi story of diabetes mellitus, CHF, hypertension, COPD, and morbid obesity, who presented to the emergen cy room on 01/15/18, after being referred by Dr. Alvares's office. He was seen in her office in the [facility] after just completing a sleep study, which he qualified for, for BiPAP at 14/10 q.h.s. and at that time the recommendation was for him to be at 2 L. In the office, he reportedly had gained 50 po unds over the last 6 weeks and presented with severe lower extremity edema at 4+. Although despite t his, his presenting BNP was only 31 likely due to the diastolic failure instead of the systolic failu re and more right- sided than left-sided. He has had history of dyspnea on exertion and orthopnea, w hich is consistent with CHF exacerbation per clinical criteria despite having normal BNP. He was agg ressively diuresed for 2 days in the hospital and prior to leaving the hospital, he had an ambulatory sats done, which would require him to be at least 6 L of nasal cannula that we will defer titration to either Dr. Alvares's office or his PCP's office. He did well, ambulating at 6 L with 91% or above saturation and ambulation. The patient has been evaluated by physical therapy and the patient and wi fe at bedside although initially had some reservations of him not being discharged to rehab. A reassessment of physical therapy confirms that the patient does not need rehabilitation, but may need BNS and home PT. He had been advised to follow up and/or call his PCP within 3 days post discharge. He was also advise d that if his symptoms resume or develop any new onset or feeling unwell for any reason, to call his PCP first and if his PCP cannot entertain him due to scheduling issues alone, to call care connect in if his issue is nonemergent. He was advised to call my office regarding any questions, concerns , or further clarifications regarding his discharge plans and/or prescriptions and to take his prescr iptions as prescribed. PHYSICAL EXAMINATION: Reveals the most recent vital signs of records with blood pressure of 143/77, 98.4 degrees Fahrenheit, 69 beats per minute heart rate, 19 per minute respiratory rate, saturating a t 98% at room air. General Appearance: The patient is awake, alert, and oriented x3, not in acute d istress, morbidly obese. HEENT: Normocephalic, atraumatic. PERRLA. Extraocular muscles intact. Ne gative for icterus. Moist oral mucosa. Negative throat erythema. Neck is soft, supple with no cerv ical lymphadenopathy. No JVD. Heart: S1, S2 within normal limits. Regular rate and rhythm. No mur murs, rubs, and gallops. Chest: Clear to auscultation bilaterally. Good air entry. No wheezes, ra les, or rhonchi. Abdomen: Soft, nondistended, nontender. Normoactive bowel sounds x4. Extremities: With 3+ bilateral lower extremity edema. He mentions that he also has history of lymphedema and is currently slowly getting back to his baseline. Psychiatric: No active psychosis, depression, suicida l or homicidal ideations. Skin: Warm to touch. TIME SPENT: The total time spent evaluating the patient, reviewing pertinent data and appropriate do cumentation is 50 minutes. [id number]/[facility] #: [id number]
--- NOTE | 2018-01-17 23:40 | DS ---
DISCHARGE SUMMARY: DATE OF SERVICE: 01/17/18 ADDENDUM: DISCHARGE MEDICATIONS: Please replace metformin with glipizide 10 mg p.o. daily. HISTORY OF PRESENT ILLNESS/NARRATIVE: The patient clarified that he has been tried on metformin in t he past, but has had severe diarrhea with it and hence was placed back on glipizide. Of note, the pa salvador had been on glipizide for many years until it was thought that he may be allergic to this, whic h was momentarily discontinued and had been placed back by his primary care physician and has done we ll with glipizide. [id number]/[facility] #: [id number]
== END 2018-01-17 18:21 | disposition home or self-care (01) | DRG 292 ==
LOC: ED 11:02 → MEDTELE 14:56
PROVIDERS: ADMIT Internal Medicine; ATTEND Student in an Organized Health Care Education/Training Program
PROC: 5A09357 Assistance with Respiratory Ventilation, Less than 24 Consecutive Hours, Continuous Positive Airway Pressure (ICD-10-PCS; principal; 2018-01-17)
DX: I11.0 Hypertensive heart disease with heart failure (principal); E66.2 Morbid (severe) obesity with alveolar hypoventilation; J96.11 Chronic respiratory failure with hypoxia; L03.116 Cellulitis of left lower limb; Z68.45 Body mass index [BMI] 70 or greater, adult; I50.33 Acute on chronic diastolic (congestive) heart failure; E11.9 Type 2 diabetes mellitus without complications; E78.5 Hyperlipidemia, unspecified; G89.29 Other chronic pain; J44.9 Chronic obstructive pulmonary disease, unspecified; G25.81 Restless legs syndrome; M54.9 Dorsalgia, unspecified; I27.20 Pulmonary hypertension, unspecified; H53.2 Diplopia; Z82.49 Family history of ischemic heart disease and other diseases of the circulatory system; Z88.8 Allergy status to other drugs, medicaments and biological substances; Z88.2 Allergy status to sulfonamides; Z83.3 Family history of diabetes mellitus; Z80.9 Family history of malignant neoplasm, unspecified; Z79.84 Long term (current) use of oral hypoglycemic drugs; Z79.82 Long term (current) use of aspirin
CPT/HCPCS: 36415; 71046; 80048; 80053; 81003; 82550; 82553; 83605; 83880; 84484; 85025; 86140; 93005; 93306; 93970; 94660; 99284; A9270-GY; C8929; G8978-GP-CI; G8979-GP-CI; G8980-GP-CI; J0690; J1644; J1940; J2270

== ENCOUNTER 2019-04-18 12:44 | Inpatient (IN) | payer MEDICARE ==
--- NOTE | 2019-04-18 13:06 | ED ---
Lower Extremity - HPI Summary HPI Summary: This patient is a 69 year old male with a Hx of CHF and COPD presenting to [facility] with a chief complaint of inability to ambulate secondary to bilateral lower extremity edema. The patient lost his balance and fell and was unable to get up. He noticed he had a lot more fluid in his legs than normal and had difficulty with his ambulation. He states he fell at home and was uable to get up so he called EMS. EMS was able to get him off the floor but he felt that he would not be able to safely ambulate at home so he decided to come to ED. He state he fractured 3 toes on his left foot one month ago 2/2 mechanical fall. He reports increased back pain after his fall in his lower back. No new focal weakness. Complaint w medications. - History of Current Complaint Stated Complaint: UNABLE TO AMBULATE PER EMS Time Seen by Provider: 04/18/19 12:54 Hx Obtained From: Patient Mechanism Of Injury: Fall From A Standing Position - Allergies/Home Medications Allergies/Adverse Reactions: Allergies Allergy/AdvReac Type Severity Reaction Status Date / Time canagliflozin Allergy Unknown Verified 01/15/18 11:26 Reaction Details Sulfa (Sulfonamide Allergy Unknown Verified 01/15/18 11:26 Antibiotics) Reaction Details Home Medications: Home Medications Insulin GLARGINE(*) [Lantus(*)] 50 units SUBCUT DAILY 04/18/19 [History Confirmed 04/18/19] Oxybutynin Chloride 5 mg PO DAILY 04/18/19 [History Confirmed 04/18/19] PMH/Surg Hx/FS Hx/Imm Hx Endocrine/Hematology History: Reports: Hx Diabetes - type 2, Hx Anemia Cardiovascular History: Reports: Hx Congestive Heart Failure, Hx Hypercholesterolemia, Hx Hypertension Respiratory History: Reports: Hx Chronic Obstructive Pulmonary Disease (COPD), Other Respiratory Problems/Disorders - PARALYZED DIAPHRAM ( LEFT) PER PT. / MULTIPLE ABD SURGERIES GI History: Reports: Hx Gastroesophageal Reflux Disease, Hx Gastrointestinal Bleed, Other GI Disorders - gastric ulcer perf, multiple feeding tubes, infections post surgery History: Denies: Hx Acute Renal Failure, Hx Chronic Renal Failure Musculoskeletal History: Reports: Hx Arthritis Sensory History: Reports: Hx Contacts or Glasses, Hx Hearing Problem Denies: Hx Hearing Aid Opthamlomology History: Reports: Hx Contacts or Glasses Psychiatric History: Reports: Hx Anxiety - Surgical History Surgery Procedure, Year, and Place: Abd surgery on 08/03/14 - Family History Known Family History: Negative: Renal Disease - Social History Alcohol Use: None Substance Use Type: Reports: None Smoking Status (MU): Never Smoked Tobacco Review of Systems Negative: Fever Positive: Edema - Making him unable to ambulate, Other - Back pain All Other Systems Reviewed And Are Negative: Yes Physical Exam - Summary Physical Exam Summary: Constitutional: Morbidly Obese Male Skin: Warm, Dry, scant erythema of shins HENT: Normocephalic; Atraumatic. Dry mucous membranes. Eyes: Conjunctiva normal Neck: Musculoskeletal ROM normal neck. (-) JVD, (-) Stridor, (-) Nuchal rigidity Cardio: Rhythm regular, rate normal, Heart sounds normal; Intact distal pulses; Radial pulses are 2+ and symmetric. (-) Murmur Pulmonary/Chest wall: Effort normal. (-) Respiratory distress, (-) Wheezes, (-) Rales Abd: Soft, (-) tenderness, (-) Guarding, (-) Rebound. Multiple old scars. Pitting edema to the lower abdomen. Musculoskeletal: 3+ edema at the bilateral lower extremities, left greater than right. Tenderness over the L toes 3/4/5. Lymph: (-) Cervical adenopathy Neuro: Alert, Oriented x3 Psych: Mood and affect Normal Triage Information Reviewed: Yes Vital Signs Reviewed: Yes Procedures - Sedation Patient Received Moderate/Deep Sedation with Procedure: No Diagnostics - Laboratory Result Diagrams: 04/18/19 15:43 04/18/19 15:42 Lab Statement: Any lab studies that have been ordered have been reviewed, and results considered in the medical decision making process. - Radiology Lumbar Spine XR Radiology Interpretation Completed By: Radiologist Summary of Radiographic Findings: 1. No displaced fracture by radiograph. 2. Multilevel spondylosis as above. ED Provider has reviewed this report. CXR Radiology Interpretation Completed By: Radiologist Summary of Radiographic Findings: 1. Low lung volume selevation of left hemidiaphragm. 2. No new airspace opacification. 3. Cardiomegaly. ED Provider has reviewed this report. - EKG 1307 Cardiac Rate: NL - 83 BPM EKG Rhythm: Sinus Rhythm EKG Comparison: No Significant Change Summary of EKG Findings: RBBB, LAFB. When compared to 01/15/18, there is no significant changed. ED Provider has reviewed and interpreted this EKG. Lower Extremity Course/Dx - Course Course Of Treatment: 69 -year-old male with a history of CHF, morbid obesity presents with mechanical fall and LE edema. Physical exam morbidly obese male, tenderness of the lower back, significant edema to the legs and lower abdomen. Suspect CHF exacerbation. We'll check labs, x-rays of chest and lumbar spine. on torsemide 40 PO, given 80 lasix IV. XR w/o fracture but patient unable to ambulate given significant swelling in LE. Plan for admit to [facility] [place], diuresis and possible PT/OT. - Diagnoses Provider Diagnoses: CHF (congestive heart failure), Fall Discharge ED - Sign-Out/Discharge Documenting (check all that apply): Patient Departure - Admission, accepted by Dr. Wesley, Hospitalist - Discharge Plan Condition: Stable Disposition: ADMITTED TO [facility] - Billing Disposition and Condition Condition: STABLE Disposition: Admitted to [facility] - Attestation Statements Document Initiated by Yulia: Yes Documenting Scribe: Bry Cuadra Provider For Whom Yulia is Documenting (Include Credential): Barry Jack MD Scribe Attestation: IBry, scribed for Barry Jack MD on 04/19/19 at 1103. Scribe Documentation Reviewed: Yes Provider Attestation: The documentation as recorded by the Bry thibodeaux accurately reflects the service I personally performed and the decisions made by , Barry Jack MD Status of Scribe Document: Viewed
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
[2019-04-18 15:13] LABS: Troponin I 0.01 ng/mL (<0.03)
[2019-04-18 15:24] LABS: CO2 Carbon Dioxide 24 mmol/L (22-32); Calcium 8.5 mg/dL (8.6-10.3); Chloride 98 mmol/L (101-111); Sodium 137 mmol/L (135-145)
[2019-04-18 15:29] LABS: Alkaline Phosphatase 43 U/L (34-104); BUN/Creatinine Ratio 19.1 (8-20); Blood Urea Nitrogen 21 mg/dL (6-24); EGFR African American 80.5 (>60); EGFR Non-African American 66.6 (>60); Glucose 163 mg/dL (70-100)
[2019-04-18] MEDS ORDERED: Furosemide IV* 10 MG/ML 10 ML VIAL (100 MG) IV ONE (15:36)
[2019-04-18 15:41] LABS: Anion Gap 15 mmol/L (2-11)
[2019-04-18 15:42] LABS: ALT QNS U/L (7-52); Total Protein QNS g/dL (6.4-8.9)
[2019-04-18 15:56] LABS: ABS Eosinophils 0.1 10^3/ul (0-0.6); Eosinophil % 1.4 %; Hematocrit 36 % (42-52); Hemoglobin 12.6 g/dL (14.0-18.0); Lymphocyte % 9.9 %; Mean Corpuscular HGB Conc 35 g/dL (31-36); Mean Corpuscular Hemoglobin 34 pg (27-31); Mean Corpuscular Volume 99 fL (80-94); Mean Platelet Volume 7.2 fL (7.4-10.4); Platelet Count 150 10^3/uL (150-450); Red Blood Count 3.65 10^6 /uL (4.18-5.48); Red Cell Distribution Width 14 % (10-15); White Blood Count 10.3 10^3/uL (3.5-10.8)
[2019-04-18 16:08] LABS: Potassium Redraw 3.7 mmol/L (3.5-5.0)
[2019-04-18 16:14] LABS: Total Protein 6.8 g/dL (6.4-8.9)
[2019-04-18] MEDS ORDERED: Albuterol HFA INHALER* 8 gm MDI INH PRN (17:35)
[2019-04-18] MEDS ORDERED: Ondansetron INJ* 2 MG/ML VIAL IV PRN (17:40)
[2019-04-18] MEDS ORDERED: Ketorolac INJ* 30 MG/ML 1 ML VIAL IV PUSH ONE (17:54)
[2019-04-18] MEDS ORDERED: Morphine 4 MG/ML VIAL (1 ml) 4 MG/ML VIAL IV ONE (18:13)
[2019-04-18] MEDS ORDERED: Dextrose 50% VIAL 50 ml IV PUSH PRN (18:16)
[2019-04-18] MEDS ORDERED: Ketorolac INJ* 30 MG/ML 1 ML VIAL ONE (19:46)
--- NOTE | 2019-04-18 20:29 | HP ---
CC: Dr. Tidwell; Dr. Alvares; Dr. Benoit Meyer * MEDICINE HISTORY AND PHYSICAL: DATE OF ADMISSION: 04/18/19 PROVIDER: Shannon Taylor NP ATTENDING PHYSICIAN: Dr. Savanah Wesley * (dictated by Shannon Taylor NP). PRIMARY CARE PROVIDER: Dr. Tidwell. OUTPATIENT DATA PROCESSING MECHANIC: Dr. Alvares. OUTPATIENT BRAND INSPECTOR: Dr. Benoit Meyer. CHIEF COMPLAINT: Fall, inability to ambulate, bilateral lower extremity edema. HISTORY OF PRESENT ILLNESS: Mr. Levy is a 69-year-old male who was brought in by EMS services following a fall today where he attempted to get out of his recliner in order to change clothes. He went to sit on a different chair, but lost his balance. He states that he fell backwards, may have twisted his back and fell down and was unable to get off of the floor independently. He reports severe back pain and required assistance from the EMT and firefighters to get up and was transported subsequently to the hospital for further evaluation. He does report right foot pain as well where he tore a part of his toe during the course of the fall. He states that he was able to move the left leg, but the right leg was difficult to move into a position to help him stand. Denies any pain in the leg currently. He does report that he previously had a bariatric lift chair, but this is broken and he has been having difficulty getting it fixed to help him with his day-to-day activities. He does report he has home services through [facility] where he receives nursing, PT and OT, although he recently was discharged from OT services. He utilizes a walker at baseline. He reports that this is his fourth fall since June. He had 2 falls since February including the one today as well as one in September where he had a head injury. He feels like he has progressively been weakening. He also reports that his bilateral lower extremities have been becoming progressively larger and more full of fluid. Of note, he did last fall on 03/02/19 and he reports that at that time he significantly injured his left foot and has 3 toes with multiple fractures and sustained multiple skin tears at that time, which are healing. Here in the ER, Mr. Levy had evaluation, which included x-rays of the lumbar spine which do not show any displaced fractures, but did show multilevel spondylosis. His EKG showed sinus rhythm with right bundle branch block and left anterior fascicular block, but no significant ST or T-wave changes. He did receive 80 mg of IV Lasix and has just started to have some diuresis. Given his concern for fluid overload as well as recurrent falls and weakness, Hospital Medicine was consulted for admission. PAST MEDICAL HISTORY: 1. Congestive heart failure. 2. COPD. 3. Chronic hypoxic respiratory failure, chronically on 3 L nasal cannula, which he increases to 5 L when he is participating in activity. 4. Obesity hypoventilation syndrome. 5. Type 2 diabetes, on insulin. 6. Anemia. 7. Obstructive sleep apnea, on BiPAP. 8. Restless legs syndrome. 9. BPH. 10. Lymphedema. 11. Hypertension. 12. Hypercholesterolemia. 13. GERD. 14. Chronic back pain. 15. Super morbid obesity. PAST SURGICAL HISTORY: Includes multiple abdominal surgeries in 2014. He does report a history of panniculectomy as well as perforated peptic ulcer with complications and hernia repair with complications. He has had two bowel resections and he reports at least 10 abdominal surgeries. HOME MEDICATIONS: 1. Glipizide 10 mg daily. 2. Furosemide 40 mg daily. 3. Tamsulosin 0.4 mg daily. 4. Ropinirole 0.5 mg at bedtime. 5. Ramipril 5 mg q.a.m. 6. Potassium chloride 20 mEq q.a.m. 7. Pantoprazole 40 mg daily. 8. Xylocaine 1 application topical b.i.d. p.r.n. 9. Multivitamin 1 tab daily. 10. Zaroxolyn 5 mg daily. 11. Loratadine 10 mg daily. 12. Floranex 2 chews daily. 13. Imdur ER 60 mg daily. 14. Clifton 10/325 one tab q.4 hours p.r.n. 15. Fluoxetine 20 mg q.a.m. 16. Symbicort 80/4.5 two puffs inhaled b.i.d. 17. Atorvastatin 40 mg q.p.m. 18. Aspirin 81 mg daily. 19. Ascorbic acid 500 mg daily. 20. Albuterol inhaler 2 puffs inhaled q.4 hours p.r.n. 21. Alprazolam 0.5 mg q.4 hours p.r.n. 22. Insulin glargine 50 units subcu daily. 23. Oxybutynin 5 mg ER 1 tab daily. ALLERGIES: Include CANAGLIFLOZIN and SULFA. FAMILY HISTORY: The patient's mother of congestive heart failure. Father of sepsis. His brother of cancer at age 62. Mother, father and brother also had diabetes type 2. SOCIAL HISTORY: He denies any history of tobacco, alcohol, or recreational drug use. 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 Endorses asbestos exposure and secondhand smoke while working. He lives at home, again receives home nursing, PT and OT services through [facility]. He utilizes a walker and he lives with his , Camila, who is also his surrogate decision maker in the event of emergency or impaired capacity. REVIEW OF SYSTEMS: A 14-point review of systems was completed with the patient. All pertinent positives and negatives as per HPI. All those not mentioned are negative. PHYSICAL EXAMINATION GENERAL: This is a 69-year-old male seen lying in the ED stretcher, in no acute distress. VITAL SIGNS: Temperature 97.7, pulse rate 84, respiratory rate 20, blood pressure 147/66, and O2 saturation 98% on 3 L nasal cannula. HEENT: Head is atraumatic, normocephalic. Glasses in place. Pupils are equal , round, and reactive to light and accommodation. Extraocular movements are intact. Oral mucosa is somewhat dry. NECK: Supple with full range of motion. No JVD noted. LUNGS: Clear to auscultation anteriorly. Unable to have the patient roll in the stretcher due to body habitus. CARDIAC: Regular rate and rhythm. Normal S1, S2 heart sounds. No murmur appreciated. Extremities are edematous with pitting edema. There is brisk capillary refill. ABDOMEN: Soft, nontender. There are multiple abdominal scars. Bowel sounds are present. MUSCULOSKELETAL: No clubbing or cyanosis. NEURO: He is alert and oriented x3. Speech is clear. No focal deficits noted. SKIN: There are some chronic stasis changes of the lower extremities. There is old bleeding noted to the toes of the left foot. On the right foot, there is dry blood that was relatively recent, most notably to the right fifth toe. The toenail appears to have been removed. Bleeding has stopped. No tenderness with palpation of the toe joint. DIAGNOSTIC STUDIES/LAB DATA: CBC: WBC 10.3, hemoglobin 12.6, hematocrit 36, platelet count 150,000. CMP: Sodium 137, potassium 3.7, chloride 98, carbon dioxide 24, BUN 21, creatinine 1.10, glucose 163, calcium 8.5, total bilirubin 0.7, AST 29, ALT 20, alk phos 43. Troponin 0.01. BNP 47. Total protein 6.8, albumin 3.0. Chest x-ray shows low lung volume and elevation of the left hemidiaphragm, no new airspace opacification and cardiomegaly. Lumbar x-ray and EKG as per above. Old medical records were reviewed. ASSESSMENT AND PLAN: This is a 69-year-old gentleman with a past medical history significant for type 2 diabetes, congestive heart failure, hypertension , chronic obstructive pulmonary disease, obstructive sleep apnea, restless legs syndrome, benign prostatic hypertrophy, lymphedema, pulmonary hypertension, hypoventilation syndrome, back pain and super morbid obesity, who presents today with concerns for increased lower extremity edema, weakness and recurrent falls. He will be admitted to inpatient for the followin. Congestive heart failure exacerbation. His BNP is reading at 47, although this may be possibly low due to his BMI. We will continue diuresis with Lasix 80 mg IV and I will order tomorrow's dose and give him b.i.d. dosing and any further IV diuretics I will defer to his provider tomorrow. He is denying chest pain. Initial troponin was negative. We will monitor daily weights and I' s and O's. Plan is for fluid restriction. He is on his baseline oxygen. He is not in any distress. At this point in time, we will start with Lasix and continue from there. 2. Back pain. Lumbar spine x-rays are negative for an acute fracture. We will give him Toradol and morphine x1 dose to help with pain, and he can continue on his Clifton as per his home dosing. 3. Weakness and recurrent falls. He is obviously deconditioned and would likely benefit from consideration of short-term rehab. I will order PT and OT consults, and he will be up with assistance only. 4. Type 2 diabetes. He is on Lantus 50 units and glipizide at home. There is no A1c on record. We will add one to his ER labs. We will drop his Lantus down to 40 units as he is here in the hospital and assess his control. We will also add lispro sliding scale insulin and hold his home glipizide, and he can resume this on discharge. 5. Hypertension. Appears to be well controlled at this time. Continue home ramipril. 6. Obstructive sleep apnea. He is on BiPAP at home, which we will continue here in the hospital. 7. Lymphedema. He has not been using his leg compression devices due to recent wounds. We can resume these once the skin integrity is improved in his lower extremities, and he should continue his leg pumps at home when discharged. 8. Restless legs syndrome. Continue ropinirole. 9. Benign prostatic hypertrophy. Continue Flomax. 10. Hypoventilation syndrome. Continue respiratory support with oxygen and BiPAP. 11. Gastroesophageal reflux disease. Continue pantoprazole. 12. FEN: He is ordered a consistent carbohydrate diet. 13. DVT prophylaxis: Subcu heparin. 14. Code status: He is a full code. TIME SPENT: Approximately 70 minutes were spent on this admission with greater than half that time spent [id number] with the patient obtaining history and physical, performing physical examination, and reviewing the plan of care. Plan of care was also reviewed with my attending, Dr. Wesley, who is in agreement. [place]ANNON [place]AYL[place] NP [id number]/CPS #: [id number] JEANNIE
[2019-04-18] MEDS: Insulin LISPRO* 1 UNITS UNIT SUBCUT SCH (23:05)
[2019-04-18] MEDS: Atorvastatin* 40 MG TAB PO SCH (23:06)
[2019-04-18] MEDS: ALPRAZolam TAB* 0.5 MG PO PRN (23:06)
[2019-04-18] MEDS: Hydrocodone/Acetamin 10/325 1 TAB PO PRN (23:06)
[2019-04-18] MEDS: Ropinirole TAB* 0.5 MG TAB PO SCH (23:06)
[2019-04-18] MEDS: Heparin VIAL(*) 5000 UNITS/ML VIAL (FIVE THOUSAND) SUBCUT SCH (23:07)
[2019-04-19] MEDS: Hydrocodone/Acetamin 10/325 1 TAB PO PRN ×2 (04:41→20:42)
[2019-04-19] MEDS: Mometasone/Formoter 100/5 MDI INH SCH ×2 (06:33→08:21)
[2019-04-19] MEDS: Heparin VIAL(*) 5000 UNITS/ML VIAL (FIVE THOUSAND) SUBCUT SCH ×3 (06:58→22:21)
[2019-04-19] MEDS: Insulin GLARGINE(*) 1 UNITS UNIT SUBCUT SCH (08:01)
[2019-04-19] MEDS: Metolazone TAB* 5 MG PO SCH ×2 (08:02→09:48)
[2019-04-19] MEDS: Acetaminophen TAB* 325 MG PO PRN ×3 (08:02→17:09)
[2019-04-19] MEDS: Insulin LISPRO* 1 UNITS UNIT SUBCUT SCH ×4 (08:02→22:21)
[2019-04-19] MEDS: Tamsulosin CAP* 0.4 MG PO SCH (09:46)
[2019-04-19] MEDS: Furosemide IV* 10 MG/ML VIAL (40 MG) IV SLOW PU SCH ×2 (09:46→13:54)
[2019-04-19] MEDS: FLUoxetine CAP* 20 MG PO SCH (09:46)
[2019-04-19] MEDS: Aspirin EC TAB* 81 MG TAB.EC PO SCH (09:46)
[2019-04-19] MEDS: Multivitamins/Minerals TAB PO SCH (09:47)
[2019-04-19] MEDS: Ascorbic Acid TAB* 500 MG PO SCH (09:47)
[2019-04-19] MEDS: Isosorbide Mononitrate ER TAB* 60 MG PO SCH (09:47)
[2019-04-19] MEDS: Ramipril CAP* 5 MG PO SCH (09:47)
[2019-04-19] MEDS: Oxybutynin TAB* 5 MG PO SCH (09:47)
[2019-04-19] MEDS: Potassium Chlor TAB* 20 MEQ TAB.ER PO SCH (09:47)
[2019-04-19] MEDS: Cetirizine* 10 MG TAB PO SCH (09:47)
[2019-04-19] MEDS: NON FORMULARY MED* (L. Acidophilus/L.Bulgaricus [Floranex Tablet] 2 CHW) PO SCH (09:48)
[2019-04-19] MEDS: Pantoprazole TAB * 40 MG TAB PO SCH (09:48)
--- NOTE | 2019-04-19 12:32 | PN ---
Subjective Date of Service: 04/19/19 Interval History: Patient seen at bedside. Stated he did not sleep well last night because he did not have his cpap and because his back hurt him. Has baseline 4/10 pain to his back. Currently rates pain at 2/10. Slightly short of breath at rest. Stated his legs looks bigger than they usually do. Family History: Unchanged from Admission Social History: Unchanged from Admission Past Medical History: Unchanged from Admission Objective Active Medications: Acetaminophen (Tylenol Tab*) 650 mg PO Q4H PRN PRN Reason: MILD PAIN or TEMP > 100.4 Last Admin: 04/19/19 08:02 Dose: 650 mg Hydrocodone Bitart/Acetaminophen ([place] 10/325 (Nf)) 1 tab PO Q4HR PRN PRN Reason: PAIN Last Admin: 04/19/19 04:41 Dose: 1 tab Albuterol (Ventolin Hfa Inhaler*) 2 puff INH Q4H PRN PRN Reason: SHORTNESS OF BREATH Alprazolam (Xanax Tab*) 0.5 mg PO Q4H PRN PRN Reason: ANXIETY Last Admin: 04/18/19 23:06 Dose: 0.5 mg Ascorbic Acid (Vitamin C Tab*) 500 mg PO DAILY [facility] Last Admin: 04/19/19 09:47 Dose: 500 mg Aspirin (Aspirin Ec Tab*) 81 mg PO DAILY [facility] Last Admin: 04/19/19 09:46 Dose: 81 mg Atorvastatin Calcium (Lipitor*) 40 mg PO QPM [facility] Last Admin: 04/18/19 23:06 Dose: 40 mg Cetirizine HCl (Zyrtec*) 10 mg PO DAILY [facility] Last Admin: 04/19/19 09:47 Dose: 10 mg Dextrose (Dextrose 50% Vial 50 Ml*) 25 ml IV PUSH .FOR FS < 60 - SS PRN PRN Reason: FS < 60 Fluoxetine HCl (Prozac Cap*) 20 mg PO QAM [facility] Last Admin: 04/19/19 09:46 Dose: 20 mg Furosemide (Lasix Iv*) 80 mg IV SLOW PU BID@0800,1400 [facility] Stop: 04/19/19 14:01 Last Admin: 04/19/19 09:46 Dose: 80 mg Heparin Sodium (Porcine) (Heparin Vial(*)) 5,000 units SUBCUT Q8HR [facility] Last Admin: 04/19/19 06:58 Dose: 5,000 units Insulin Glargine (Lantus(*)) 40 units SUBCUT Q24H [facility] Last Admin: 04/19/19 08:01 Dose: 40 units Insulin Human Lispro (Humalog*) 0 units SUBCUT AC [facility]; Protocol Last Admin: 04/19/19 08:02 Dose: 3 units Isosorbide Mononitrate (Imdur Er Tab*) 60 mg PO DAILY [facility] Last Admin: 04/19/19 09:47 Dose: 60 mg Metolazone (Zaroxolyn Tab*) 5 mg PO DAILY [facility] Last Admin: 04/19/19 09:48 Dose: Not Given Mometasone Furoate/Formoterol Fumar (Dulera 100/5 Mdi*) 2 puff INH BID [facility] Last Admin: 04/19/19 08:21 Dose: 2 puff Multivitamins/Minerals (Theragran/Minerals Tab*) 1 tab PO DAILY [facility] Last Admin: 04/19/19 09:47 Dose: 1 tab Non-Formulary Medication (L. Acidophilus/L.Bulgaricus [Floranex Tablet]) 2 chw PO DAILY [facility] Last Admin: 04/19/19 09:48 Dose: Not Given Ondansetron HCl (Zofran Inj*) 4 mg IV Q6H PRN PRN Reason: NAUSEA/VOMITING Oxybutynin Chloride (Ditropan Tab*) 5 mg PO DAILY [facility] Last Admin: 04/19/19 09:47 Dose: 5 mg Pantoprazole Sodium (Protonix Tab*) 40 mg PO DAILY [facility] Last Admin: 04/19/19 09:48 Dose: 40 mg Potassium Chloride (Klor Con Er Tab*) 20 meq PO QAM [facility] Last Admin: 04/19/19 09:47 Dose: 20 meq Ramipril (Altace Cap*) 5 mg PO QAM [facility] Last Admin: 04/19/19 09:47 Dose: 5 mg Ropinirole HCl (Requip Tab*) 0.5 mg PO BEDTIME [facility] Last Admin: 04/18/19 23:06 Dose: 0.5 mg Tamsulosin HCl (Flomax Cap*) 0.4 mg PO DAILY [facility] Last Admin: 04/19/19 09:46 Dose: 0.4 mg Vital Signs - 8 hr 04/19/19 04/19/1904/19/19 04:41 04:42 06:58 Temperature Pulse Rate Respiratory 16 16 16 Rate Blood Pressure (mmHg) O2 Sat by Pulse Oximetry 04/19/19 04/19/19 04/19/19 07:15 08:00 08:25 Temperature 97.2 F Pulse Rate 82 81 Respiratory 20 20 15 Rate Blood Pressure 137/47 (mmHg) O2 Sat by Pulse 100 99 Oximetry Oxygen Devices in Use Now: Nasal Cannula Appearance: Obese gentlemen in mild distress. Eyes: No Scleral Icterus, PERRLA Ears/Nose/Mouth/Throat: NL Teeth, Lips, Gums, Clear Oropharnyx, Mucous Membranes Moist Neck: NL Appearance and Movements; NL JVP Respiratory: Symmetrical Chest Expansion and Respiratory Effort, Clear to Auscultation Cardiovascular: NL Sounds; No Murmurs; No JVD, RRR, No Edema, - - Chest tender to palpation. Abdominal: NL Sounds; No Tenderness; No Distention Lymphatic: No Cervical Adenopathy Extremities: No Clubbing, Cyanosis, - - +4 non-pitting edema to bilateral lower extremities. Skin: No Rash or Ulcers, No Nodules or Sclerosis, - - Left lower anterior blake reddened, no open area or weeping noted. Neurological: Alert and Oriented x 3 Lines/Tubes/Other Access: Clean, Dry and Intact Peripheral IV Result Diagrams: 04/19/19 13:30 04/19/19 13:30 Assess/Plan/Problems-Billing Assessment: This is a 69 yo male with a PMH significant for CHF, COPD and DM2 who was admitted 02/16/19 for fall and CHF exacerbation. Will require subacute rehab. - Patient Problems (1) Acute exacerbation of CHF (congestive heart failure) Current Visit: Yes Status: Acute Code(s): I50.9 - HEART FAILURE, UNSPECIFIED SNOMED Code(s): 550998776 Comment: -BNP was 47. However, swelling to bilateral lower extremities worsened, increasingly short of breath at rest. -Daily weights ordered. Diuresed with metazalone and furosemide. Will recheck electrolytes and I+O's again tomorrow. Restart torsemide tomorrow at increased dose of 60mg from his usual 40mg. Continue metazalone. -Continue isosorbide and ASA. (2) Fall Current Visit: Yes Status: Acute Comment: -Originally fell on 03/02/19, breaking three toes to left foot. Fell again on 04/18/19 without any injury. -Due to deconditioning, PT/OT ordered. PMRU consult placed. Will need short term rehab which he and his is understanding of. -Lumbar xray negative for any fractures. (3) Diabetes type 2, controlled Current Visit: Yes Status: Acute Code(s): E11.9 - TYPE 2 DIABETES MELLITUS WITHOUT COMPLICATIONS SNOMED Code(s): 11179043 Comment: -Awaiting Hgb A1C, difficulty drawing labs due to lack of veins. -Continue blood glucose checks ACHS with sliding scale lispro and scheduled lantus. -Consistent carb diet. (4) Hypertension Current Visit: No Status: Acute Code(s): I10 - ESSENTIAL (PRIMARY) HYPERTENSION SNOMED Code(s): 22312960 Comment: -Well controlled. Continue ramipril, furosemide, potassium, and metazolone. (5) RLS (restless legs syndrome) Current Visit: No Status: Acute Comment: -Continue Ropinorole (6) Obstructive sleep apnea Current Visit: Yes Status: Acute Code(s): G47.33 - OBSTRUCTIVE SLEEP APNEA ( ADULT) (PEDIATRIC) SNOMED Code(s): 61206912 Comment: -May use home CPAP. (7) BPH (benign prostatic hyperplasia) Current Visit: Yes Status: Acute Code(s): N40.0 - BENIGN PROSTATIC HYPERPLASIA WITHOUT LOWER URINRY TRACT SYMP SNOMED Code(s): 081815092 Comment: -Continue tamsulosin. (8) Chronic back pain Current Visit: Yes Status: Acute Code(s): M54.9 - DORSALGIA, UNSPECIFIED; G89.29 - OTHER CHRONIC PAIN SNOMED Code(s): 405016194 Comment: -No fractures noted after fall. Continue hydrocodone and tylenol. (9) Anxiety Current Visit: Yes Status: Acute Code(s): F41.9 - ANXIETY DISORDER, UNSPECIFIED SNOMED Code(s): 06904583 Comment: -States he feels somewhat anxious. Continue alprazolam and fluoxitine. (10) Overactive bladder Current Visit: Yes Status: Acute Code(s): N32.81 - OVERACTIVE BLADDER SNOMED Code(s): 309263133 Comment: -Continue oxybutynin. (11) GERD (gastroesophageal reflux disease) Current Visit: Yes Status: Acute Code(s): K21.9 - GASTRO-ESOPHAGEAL REFLUX DISEASE WITHOUT ESOPHAGITIS SNOMED Code(s): 399864998 Comment: -No current signs or symptoms. Continue pantoprazole. (12) COPD (chronic obstructive pulmonary disease) Current Visit: Yes Status: Acute Code(s): J44.9 - CHRONIC OBSTRUCTIVE PULMONARY DISEASE, UNSPECIFIED SNOMED Code(s): 02367254 Comment: -No signs of exacerbation. Normally wears 3L via nc at all times, will bump it up to 5L during activity. -Continue albuterol, dulera, and cetirizine. (13) DVT prophylaxis Current Visit: No Status: Acute Code(s): ZFE9798 - SNOMED Code(s): 883608591 Comment: -Continue Heparin SQ (14) Full code status Current Visit: Yes Status: Acute Code(s): Z78.9 - OTHER SPECIFIED HEALTH STATUS SNOMED Code(s): 798600286 Status and Disposition: Condition: Fair Disposition: Admit inpatient, awaiting STR placement. Attending: Savanah Wesley
[2019-04-19 13:41] LABS: ABS Eosinophils 0.1 10^3/ul (0-0.6); ABS Lymphocytes 1.1 10^3/ul (1.0-4.8); ABS Neutrophils 4.6 10^3/ul (1.5-7.7); Eosinophil % 2.2 %; Hematocrit 34 % (42-52); Hemoglobin 11.6 g/dL (14.0-18.0); Lymphocyte % 16.3 %; Mean Corpuscular HGB Conc 34 g/dL (31-36); Mean Corpuscular Hemoglobin 34 pg (27-31); Mean Corpuscular Volume 99 fL (80-94); Mean Platelet Volume 7.4 fL (7.4-10.4); Nucleated Red Blood Cells % 0.1; Platelet Count 138 10^3/uL (150-450); Red Blood Count 3.47 10^6 /uL (4.18-5.48); Red Cell Distribution Width 14 % (10-15); White Blood Count 6.9 10^3/uL (3.5-10.8)
[2019-04-19 14:00] LABS: BUN/Creatinine Ratio 16.8 (8-20); Calcium 8.6 mg/dL (8.6-10.3); EGFR African American 73.6 (>60); EGFR Non-African American 60.8 (>60); Potassium 3.5 mmol/L (3.5-5.0)
[2019-04-19] MEDS: Atorvastatin* 40 MG TAB PO SCH (17:11)
[2019-04-19] MEDS: Ropinirole TAB* 0.5 MG TAB PO SCH (20:42)
[2019-04-19] MEDS: ALPRAZolam TAB* 0.5 MG PO PRN (20:42)
[2019-04-19] MEDS: Nystatin TOP POWDER* 15 GM BTL TOPICAL SCH (22:27)
[2019-04-20] MEDS: Hydrocodone/Acetamin 10/325 1 TAB PO PRN ×3 (02:53→21:34)
[2019-04-20] MEDS: Acetaminophen TAB* 325 MG PO PRN (05:03)
[2019-04-20] MEDS: Heparin VIAL(*) 5000 UNITS/ML VIAL (FIVE THOUSAND) SUBCUT SCH ×3 (05:15→21:35)
[2019-04-20 07:06] LABS: BUN/Creatinine Ratio 15.9 (8-20); Calcium 8.6 mg/dL (8.6-10.3); EGFR Non-African American 51.2 (>60); Potassium 3.3 mmol/L (3.5-5.0)
[2019-04-20] MEDS: Mometasone/Formoter 100/5 MDI INH SCH ×3 (07:11→21:37)
[2019-04-20 08:55] LABS: Magnesium 1.1 mg/dL (1.9-2.7)
[2019-04-20] MEDS ORDERED: Torsemide TAB* 20 MG PO SCH (09:00)
[2019-04-20] MEDS ORDERED: Magnesium Sulf 4 GM/100 ML IV* 4,000 MG/100 ML BAG IVPB ONE (09:02)
[2019-04-20] MEDS ORDERED: Potassium Chlor TAB* 20 MEQ TAB.ER PO ONE (09:02)
[2019-04-20] MEDS: Insulin GLARGINE(*) 1 UNITS UNIT SUBCUT SCH (09:17)
[2019-04-20] MEDS: Insulin LISPRO* 1 UNITS UNIT SUBCUT SCH ×4 (09:17→21:35)
[2019-04-20] MEDS: Nystatin TOP POWDER* 15 GM BTL TOPICAL SCH ×2 (09:18→21:34)
[2019-04-20] MEDS: Torsemide TAB* 20 MG PO SCH (09:18)
[2019-04-20] MEDS: Isosorbide Mononitrate ER TAB* 60 MG PO SCH (09:19)
[2019-04-20] MEDS: glipiZIDE TAB.XL* 5 MG PO SCH (09:19)
[2019-04-20] MEDS: Ascorbic Acid TAB* 500 MG PO SCH (09:19)
[2019-04-20] MEDS: Ramipril CAP* 5 MG PO SCH (09:19)
[2019-04-20] MEDS: Aspirin EC TAB* 81 MG TAB.EC PO SCH (09:19)
[2019-04-20] MEDS: Oxybutynin TAB* 5 MG PO SCH (09:19)
[2019-04-20] MEDS: Pantoprazole TAB * 40 MG TAB PO SCH (09:19)
[2019-04-20] MEDS: Potassium Chlor TAB* 20 MEQ TAB.ER PO SCH (09:19)
[2019-04-20] MEDS: Tamsulosin CAP* 0.4 MG PO SCH (09:19)
[2019-04-20] MEDS: Cetirizine* 10 MG TAB PO SCH (09:19)
[2019-04-20] MEDS: FLUoxetine CAP* 20 MG PO SCH (09:19)
[2019-04-20] MEDS: Multivitamins/Minerals TAB PO SCH (09:19)
[2019-04-20] MEDS: NON FORMULARY MED* (L. Acidophilus/L.Bulgaricus [Floranex Tablet] 2 CHW) PO SCH (09:20)
--- NOTE | 2019-04-20 10:00 | PN ---
Subjective Date of Service: 04/20/19 Interval History: Patient seen at bedside. Stated he slept better last night because he had his home cpap. Not as short of breath as he was yesterday at rest. He is concerned that he is not making as much urine after diuresis as he has in the past and that he feels his legs still appear more edematous than normal. Family had brought in his lymphedema leg pumps from home which he stated he intended to use 3-4 times today. Unable to tolerate more than 30 minutes on the pump last night because of the pain it created in his right 5th toe where is nail got ripped prior to admission. Suggested he premedicate with pain medication. Family History: Unchanged from Admission Social History: Unchanged from Admission Past Medical History: Unchanged from Admission Objective Active Medications: Acetaminophen (Tylenol Tab*) 650 mg PO Q4H PRN PRN Reason: MILD PAIN or TEMP > 100.4 Last Admin: 04/20/19 05:03 Dose: 650 mg Hydrocodone Bitart/Acetaminophen ([place] 10/325 (Nf)) 1 tab PO Q4HR PRN PRN Reason: PAIN Last Admin: 04/20/19 02:53 Dose: 1 tab Albuterol (Ventolin Hfa Inhaler*) 2 puff INH Q4H PRN PRN Reason: SHORTNESS OF BREATH Alprazolam (Xanax Tab*) 0.5 mg PO Q4H PRN PRN Reason: ANXIETY Last Admin: 04/19/19 20:42 Dose: 0.5 mg Ascorbic Acid (Vitamin C Tab*) 500 mg PO DAILY [facility] Last Admin: 04/20/19 09:19 Dose: 500 mg Aspirin (Aspirin Ec Tab*) 81 mg PO DAILY [facility] Last Admin: 04/20/19 09:19 Dose: 81 mg Atorvastatin Calcium (Lipitor*) 40 mg PO QPM [facility] Last Admin: 04/19/19 17:11 Dose: 40 mg Cetirizine HCl (Zyrtec*) 10 mg PO DAILY [facility] Last Admin: 04/20/19 09:19 Dose: 10 mg Dextrose (Dextrose 50% Vial 50 Ml*) 25 ml IV PUSH .FOR FS < 60 - SS PRN PRN Reason: FS < 60 Fluoxetine HCl (Prozac Cap*) 20 mg PO QAM [facility] Last Admin: 04/20/19 09:19 Dose: 20 mg Glipizide (Glucotrol Xl*) 10 mg PO DAILY [facility] Last Admin: 04/20/19 09:19 Dose: 10 mg Heparin Sodium (Porcine) (Heparin Vial(*)) 5,000 units SUBCUT Q8HR [facility] Last Admin: 04/20/19 05:15 Dose: 5,000 units Heparin Sodium (Porcine) (Heparin Flush Picc/Ml/Cvc(*)) 1 - 3 ml FLUSH 0600, 1800 [facility]; Protocol Magnesium Sulfate (Magnesium Sulf 4 Gm/100 Ml Iv*) 4,000 mg in 100 mls @ 33.333 mls/hr IVPB ONCE ONE Stop: 04/20/19 12:01 Insulin Glargine (Lantus(*)) 40 units SUBCUT Q24H [facility] Last Admin: 04/20/19 09:17 Dose: 40 units Insulin Human Lispro (Humalog*) 0 units SUBCUT ACHS [facility]; Protocol Last Admin: 04/20/19 09:17 Dose: 6 units Isosorbide Mononitrate (Imdur Er Tab*) 60 mg PO DAILY [facility] Last Admin: 04/20/19 09:19 Dose: 60 mg Metolazone (Zaroxolyn Tab*) 5 mg PO DAILY [facility] Mometasone Furoate/Formoterol Fumar (Dulera 100/5 Mdi*) 2 puff INH BID [facility] Last Admin: 04/20/19 09:27 Dose: 2 puff Multivitamins/Minerals (Theragran/Minerals Tab*) 1 tab PO DAILY [facility] Last Admin: 04/20/19 09:19 Dose: 1 tab Non-Formulary Medication (L. Acidophilus/L.Bulgaricus [Floranex Tablet]) 2 chw PO DAILY [facility] Last Admin: 04/20/19 09:20 Dose: Not Given Nystatin (Nystatin Top Powder*) 1 applic TOPICAL BID [facility] Last Admin: 04/20/19 09:18 Dose: 1 applic Ondansetron HCl (Zofran Inj*) 4 mg IV Q6H PRN PRN Reason: NAUSEA/VOMITING Oxybutynin Chloride (Ditropan Tab*) 5 mg PO DAILY [facility] Last Admin: 04/20/19 09:19 Dose: 5 mg Pantoprazole Sodium (Protonix Tab*) 40 mg PO DAILY [facility] Last Admin: 04/20/19 09:19 Dose: 40 mg Potassium Chloride (Klor Con Er Tab*) 20 meq PO QAM [facility] Last Admin: 04/20/19 09:19 Dose: 20 meq Ramipril (Altace Cap*) 5 mg PO QAM [facility] Last Admin: 04/20/19 09:19 Dose: 5 mg Ropinirole HCl (Requip Tab*) 0.5 mg PO BEDTIME [facility] Last Admin: 04/19/19 20:42 Dose: 0.5 mg Tamsulosin HCl (Flomax Cap*) 0.4 mg PO DAILY [facility] Last Admin: 04/20/19 09:19 Dose: 0.4 mg Torsemide (Demadex*) 60 mg PO DAILY [facility] Last Admin: 04/20/19 09:18 Dose: 60 mg Vital Signs - 8 hr 04/20/19 04/20/19 04/20/19 02:53 03:09 05:03 Temperature 97.6 F Pulse Rate 77 Respiratory 14 20 20 Rate Blood Pressure 126/46 (mmHg) O2 Sat by Pulse 95 Oximetry 04/20/19 09:31 Temperature Pulse Rate 71 Respiratory 16 Rate Blood Pressure (mmHg) O2 Sat by Pulse 93 Oximetry Oxygen Devices in Use Now: Nasal Cannula Appearance: This is an obese gentleman seen sitting up in bed, no acute distress noted. Eyes: No Scleral Icterus, PERRLA Ears/Nose/Mouth/Throat: NL Teeth, Lips, Gums, Clear Oropharnyx, Mucous Membranes Moist Neck: NL Appearance and Movements; NL JVP, Trachea Midline Respiratory: Symmetrical Chest Expansion and Respiratory Effort, Clear to Auscultation, - - Difficult to auscultate bases due to body habitus, though no crackles heard. Cardiovascular: NL Sounds; No Murmurs; No JVD, - - non-pitting edema to bilateral legs. Abdominal: NL Sounds; No Tenderness; No Distention Lymphatic: No Cervical Adenopathy Extremities: No Clubbing, Cyanosis, - Skin: No Nodules or Sclerosis, - - [place] area of warm skin to anterior left lower extremity that is mor pink than yesterday though not tender to touch/ palpation. Neurological: Alert and Oriented x 3, NL Sensation Lines/Tubes/Other Access: Clean, Dry and Intact Other Access - Midline to right upper extremity Nutrition: Taking PO's Result Diagrams: 04/19/19 13:30 04/20/19 06:36 Assess/Plan/Problems-Billing Assessment: This is a 69 yo male with a PMH significant for CHF, COPD and DM2 who was admitted 02/16/19 for fall and CHF exacerbation. Will require subacute rehab. - Patient Problems (1) Acute on chronic diastolic (congestive) heart failure Current Visit: Yes Status: Acute Code(s): I50.33 - ACUTE ON CHRONIC DIASTOLIC (CONGESTIVE) HEART FAILURE SNOMED Code(s): 584314293 Comment: -BNP was 47. However, swelling to bilateral lower extremities worsened, increasingly short of breath at rest. -Daily weights. Starting PO torsemide at a higher dose today along with metazalone. Ordered one additional dose of IV furosemide. -Continue isosorbide and ASA. -Magnesium 1.1 and potassium 3.3. Repleted with magnesium 4mg IV and 40mEq potassium PO. No arrythmias noted on monitor, though t-waves peaked. Will recheck BMP in am. (2) Fall Current Visit: Yes Status: Acute Comment: -Originally fell on 03/02/19, breaking three toes to left foot. Fell again on 04/18/19 without any injury. -Due to deconditioning, PT/OT ordered. PMRU consult placed. Will need short term rehab which he and his is understanding of. -Lumbar xray negative for any fractures. (3) Diabetes type 2, controlled Current Visit: Yes Status: Acute Code(s): E11.9 - TYPE 2 DIABETES MELLITUS WITHOUT COMPLICATIONS SNOMED Code(s): 31072688 Comment: -Awaiting Hgb A1C, difficulty drawing labs due to lack of veins. -Continue blood glucose checks ACHS with sliding scale lispro and scheduled lantus. Restarted glipizide today. -Consistent carb diet. (4) Hypertension Current Visit: No Status: Acute Code(s): I10 - ESSENTIAL (PRIMARY) HYPERTENSION SNOMED Code(s): 44502167 Comment: -Well controlled. Continue ramipril, furosemide, potassium, and metazolone. (5) RLS (restless legs syndrome) Current Visit: No Status: Acute Comment: -Continue Ropinorole (6) Obstructive sleep apnea Current Visit: Yes Status: Acute Code(s): G47.33 - OBSTRUCTIVE SLEEP APNEA ( ADULT) (PEDIATRIC) SNOMED Code(s): 41757591 Comment: -May use home CPAP. (7) BPH (benign prostatic hyperplasia) Current Visit: Yes Status: Acute Code(s): N40.0 - BENIGN PROSTATIC HYPERPLASIA WITHOUT LOWER URINRY TRACT SYMP SNOMED Code(s): 045571779 Comment: -Continue tamsulosin. (8) Chronic back pain Current Visit: Yes Status: Acute Code(s): M54.9 - DORSALGIA, UNSPECIFIED; G89.29 - OTHER CHRONIC PAIN SNOMED Code(s): 066553316 Comment: -No fractures noted after fall. Continue hydrocodone and tylenol. (9) Anxiety Current Visit: Yes Status: Acute Code(s): F41.9 - ANXIETY DISORDER, UNSPECIFIED SNOMED Code(s): 92660789 Comment: -States he feels somewhat anxious. Continue alprazolam and fluoxitine. (10) Overactive bladder Current Visit: Yes Status: Acute Code(s): N32.81 - OVERACTIVE BLADDER SNOMED Code(s): 195012594 Comment: -Continue oxybutynin. (11) GERD (gastroesophageal reflux disease) Current Visit: Yes Status: Acute Code(s): K21.9 - GASTRO-ESOPHAGEAL REFLUX DISEASE WITHOUT ESOPHAGITIS SNOMED Code(s): 887806911 Comment: -No current signs or symptoms. Continue pantoprazole. (12) COPD (chronic obstructive pulmonary disease) Current Visit: Yes Status: Acute Code(s): J44.9 - CHRONIC OBSTRUCTIVE PULMONARY DISEASE, UNSPECIFIED SNOMED Code(s): 61640221 Comment: -No signs of exacerbation. Normally wears 3L via nc at all times, will bump it up to 5L during activity. -Continue albuterol, dulera, and cetirizine. Wearing 4L NC. (13) DVT prophylaxis Current Visit: No Status: Acute Code(s): XUH6482 - SNOMED Code(s): 052188355 Comment: -Continue Heparin SQ (14) Full code status Current Visit: Yes Status: Acute Code(s): Z78.9 - OTHER SPECIFIED HEALTH STATUS SNOMED Code(s): 389323848 Status and Disposition: Condition: Fair Disposition: Admit inpatient, awaiting STR placement. Attending: Maxi Martínez
[2019-04-20] MEDS: Metolazone TAB* 5 MG PO SCH (10:37)
[2019-04-20] MEDS ORDERED: Furosemide IV* 10 MG/ML 10 ML VIAL (100 MG) IV ONE (14:48)
[2019-04-20] MEDS: Atorvastatin* 40 MG TAB PO SCH (17:43)
[2019-04-20 19:15] LABS: Urine Appearance Clear; Urine Bilirubin Negative (Negative); Urine Blood Negative (Negative); Urine Color Yellow; Urine Glucose Negative (Negative); Urine Ketones Negative (Negative); Urine Nitrite Negative (Negative); Urine Protein Negative (Negative); Urine Specific Gravity 1.006 (1.010-1.030); Urine Urobilinogen Negative (Negative)
[2019-04-20] MEDS ORDERED: Polyethylene Glycol 3350* 17 GM PACKET PO PRN (20:20)
[2019-04-20] MEDS: ALPRAZolam TAB* 0.5 MG PO PRN (21:35)
[2019-04-20] MEDS: Ropinirole TAB* 0.5 MG TAB PO SCH (21:35)
[2019-04-21] MEDS: Hydrocodone/Acetamin 10/325 1 TAB PO PRN ×3 (04:17→22:16)
[2019-04-21] MEDS: Heparin VIAL(*) 5000 UNITS/ML VIAL (FIVE THOUSAND) SUBCUT SCH ×3 (05:50→22:02)
[2019-04-21 06:32] LABS: BUN/Creatinine Ratio 19.4 (8-20); Calcium 8.6 mg/dL (8.6-10.3); EGFR African American 70.1 (>60); Potassium 3.3 mmol/L (3.5-5.0)
[2019-04-21] MEDS: NON FORMULARY MED* (L. Acidophilus/L.Bulgaricus [Floranex Tablet] 2 CHW) PO SCH (07:48)
[2019-04-21] MEDS: Metolazone TAB* 5 MG PO SCH (08:02)
[2019-04-21] MEDS: Insulin LISPRO* 1 UNITS UNIT SUBCUT SCH ×4 (08:02→22:01)
[2019-04-21] MEDS: Insulin GLARGINE(*) 1 UNITS UNIT SUBCUT SCH (08:02)
[2019-04-21 08:10] LABS: Magnesium 1.4 mg/dL (1.9-2.7)
[2019-04-21] MEDS: Cetirizine* 10 MG TAB PO SCH (08:52)
[2019-04-21] MEDS: Pantoprazole TAB * 40 MG TAB PO SCH (08:52)
[2019-04-21] MEDS: Multivitamins/Minerals TAB PO SCH (08:52)
[2019-04-21] MEDS: Aspirin EC TAB* 81 MG TAB.EC PO SCH (08:52)
[2019-04-21] MEDS: Potassium Chlor TAB* 20 MEQ TAB.ER PO SCH (08:52)
[2019-04-21] MEDS: Tamsulosin CAP* 0.4 MG PO SCH (08:53)
[2019-04-21] MEDS: glipiZIDE TAB.XL* 5 MG PO SCH (08:53)
[2019-04-21] MEDS: Ascorbic Acid TAB* 500 MG PO SCH (08:53)
[2019-04-21] MEDS: Ramipril CAP* 5 MG PO SCH (08:53)
[2019-04-21] MEDS: Oxybutynin TAB* 5 MG PO SCH (08:53)
[2019-04-21] MEDS: Torsemide TAB* 20 MG PO SCH (08:53)
[2019-04-21] MEDS: Isosorbide Mononitrate ER TAB* 60 MG PO SCH (08:53)
[2019-04-21] MEDS: FLUoxetine CAP* 20 MG PO SCH (09:04)
[2019-04-21] MEDS ORDERED: Potassium Chlor TAB* 20 MEQ TAB.ER PO ONE (09:04)
[2019-04-21] MEDS: Mometasone/Formoter 100/5 MDI INH SCH ×2 (09:07→20:08)
[2019-04-21] MEDS: Nystatin TOP POWDER* 15 GM BTL TOPICAL SCH ×2 (09:11→22:02)
[2019-04-21] MEDS ORDERED: Magnesium Sulf 4 GM/100 ML IV* 4,000 MG/100 ML BAG IVPB ONE (09:30)
[2019-04-21] MEDS ORDERED: Magnesium Hydroxide LIQ* 30 ML UDC PO ONE (11:46)
[2019-04-21] MEDS ORDERED: Bisacodyl SUPP* 10 MG SUPP PR PRN (11:47)
[2019-04-21] MEDS: Polyethylene Glycol 3350* 17 GM PACKET PO SCH ×3 (12:48→22:20)
--- NOTE | 2019-04-21 15:42 | PN ---
Subjective Date of Service: 04/21/19 Interval History: Patient was evaluated at bedside. Breathing improved from yesterday. Bilateral lower extremities not as hard though still edematous. Patient stated he would continue to use his lymphedema leg pumps. Had gotten out of bed with physical therapy and taken a few steps at bedside. Does not feel short of breath at rest. Denies chest pain, palpitations, headaches, lightheadedness, dizziness, abdominal pain, nausea, vomiting. Family History: Unchanged from Admission Social History: Unchanged from Admission Past Medical History: Unchanged from Admission Objective Active Medications: Acetaminophen (Tylenol Tab*) 650 mg PO Q4H PRN PRN Reason: MILD PAIN or TEMP > 100.4 Last Admin: 04/20/19 05:03 Dose: 650 mg Hydrocodone Bitart/Acetaminophen ([place] 10/325 (Nf)) 1 tab PO Q4HR PRN PRN Reason: PAIN Last Admin: 04/21/19 09:10 Dose: 1 tab Albuterol (Ventolin Hfa Inhaler*) 2 puff INH Q4H PRN PRN Reason: SHORTNESS OF BREATH Alprazolam (Xanax Tab*) 0.5 mg PO Q4H PRN PRN Reason: ANXIETY Last Admin: 04/20/19 21:35 Dose: 0.5 mg Ascorbic Acid (Vitamin C Tab*) 500 mg PO DAILY [facility] Last Admin: 04/21/19 08:53 Dose: 500 mg Aspirin (Aspirin Ec Tab*) 81 mg PO DAILY [facility] Last Admin: 04/21/19 08:52 Dose: 81 mg Atorvastatin Calcium (Lipitor*) 40 mg PO QPM [facility] Last Admin: 04/20/19 17:43 Dose: 40 mg Bisacodyl (Dulcolax Supp*) 10 mg [place] DAILY PRN PRN Reason: CONSTIPATION Cetirizine HCl (Zyrtec*) 10 mg PO DAILY [facility] Last Admin: 04/21/19 08:52 Dose: 10 mg Dextrose (Dextrose 50% Vial 50 Ml*) 25 ml IV PUSH .FOR FS < 60 - SS PRN PRN Reason: FS < 60 Fluoxetine HCl (Prozac Cap*) 20 mg PO QAM [facility] Last Admin: 04/21/19 09:04 Dose: 20 mg Glipizide (Glucotrol Xl*) 10 mg PO DAILY [facility] Last Admin: 04/21/19 08:53 Dose: 10 mg Heparin Sodium (Porcine) (Heparin Vial(*)) 5,000 units SUBCUT Q8HR [facility] Last Admin: 04/21/19 14:33 Dose: 5,000 units Heparin Sodium (Porcine) (Heparin Flush Picc/Ml/Cvc(*)) 1 - 3 ml FLUSH 0600, 1800 [facility]; Protocol Last Admin: 04/21/19 05:50 Dose: 1 ml Insulin Glargine (Lantus(*)) 40 units SUBCUT Q24H [facility] Last Admin: 04/21/19 08:02 Dose: 40 units Insulin Human Lispro (Humalog*) 0 units SUBCUT ACHS [facility]; Protocol Last Admin: 04/21/19 12:48 Dose: 6 units Isosorbide Mononitrate (Imdur Er Tab*) 60 mg PO DAILY [facility] Last Admin: 04/21/19 08:53 Dose: 60 mg Metolazone (Zaroxolyn Tab*) 5 mg PO DAILY [facility] Last Admin: 04/21/19 08:02 Dose: 5 mg Mometasone Furoate/Formoterol Fumar (Dulera 100/5 Mdi*) 2 puff INH BID [facility] Last Admin: 04/21/19 09:07 Dose: 2 puff Multivitamins/Minerals (Theragran/Minerals Tab*) 1 tab PO DAILY [facility] Last Admin: 04/21/19 08:52 Dose: 1 tab Non-Formulary Medication (L. Acidophilus/L.Bulgaricus [Floranex Tablet]) 2 chw PO DAILY [facility] Last Admin: 04/21/19 07:48 Dose: Not Given Nystatin (Nystatin Top Powder*) 1 applic TOPICAL BID [facility] Last Admin: 04/21/19 09:11 Dose: 1 applic Ondansetron HCl (Zofran Inj*) 4 mg IV Q6H PRN PRN Reason: NAUSEA/VOMITING Oxybutynin Chloride (Ditropan Tab*) 5 mg PO DAILY [facility] Last Admin: 04/21/19 08:53 Dose: 5 mg Pantoprazole Sodium (Protonix Tab*) 40 mg PO DAILY [facility] Last Admin: 04/21/19 08:52 Dose: 40 mg Polyethylene Glycol/Electrolytes (Miralax*) 17 gm PO BID [facility] Last Admin: 04/21/19 12:48 Dose: 17 gm Potassium Chloride (Klor Con Er Tab*) 20 meq PO QAM [facility] Last Admin: 04/21/19 08:52 Dose: 20 meq Ramipril (Altace Cap*) 5 mg PO QAM [facility] Last Admin: 04/21/19 08:53 Dose: 5 mg Ropinirole HCl (Requip Tab*) 0.5 mg PO BEDTIME [facility] Last Admin: 04/20/19 21:35 Dose: 0.5 mg Tamsulosin HCl (Flomax Cap*) 0.4 mg PO DAILY [facility] Last Admin: 04/21/19 08:53 Dose: 0.4 mg Torsemide (Demadex*) 60 mg PO DAILY [facility] Last Admin: 04/21/19 08:53 Dose: 60 mg Vital Signs - 8 hr 04/21/19 04/21/19 04/21/19 08:05 09:10 11:10 Temperature 97.6 F Pulse Rate 78 Respiratory 20 20 20 Rate Blood Pressure 113/36 (mmHg) O2 Sat by Pulse 97 Oximetry Oxygen Devices in Use Now: Nasal Cannula Appearance: This is an obese gentleman seen resting in bed. No acute distress noted. Eyes: No Scleral Icterus, PERRLA Ears/Nose/Mouth/Throat: NL Teeth, Lips, Gums, Clear Oropharnyx, Mucous Membranes Moist Neck: NL Appearance and Movements; NL JVP, Trachea Midline Respiratory: Symmetrical Chest Expansion and Respiratory Effort, Clear to Auscultation, - - Slightly diminished throughout due to body habitus. Cardiovascular: NL Sounds; No Murmurs; No JVD, No Edema Abdominal: NL Sounds; No Tenderness; No Distention Lymphatic: No Cervical Adenopathy Extremities: No Clubbing, Cyanosis, - - +4 non-pitting edema to bilateral lower extremities, legs less hard than yesterday. Skin: No Rash or Ulcers, No Nodules or Sclerosis Lines/Tubes/Other Access: Clean, Dry and Intact Other Access - Midline to right upper extremity Result Diagrams: 04/19/19 13:30 04/21/19 06:00 Assess/Plan/Problems-Billing Assessment: This is a 69 yo male with a PMH significant for CHF, COPD and DM2 who was admitted 02/16/19 for fall and CHF exacerbation. Will require subacute rehab. - Patient Problems (1) Acute on chronic diastolic (congestive) heart failure Current Visit: Yes Status: Acute Code(s): I50.33 - ACUTE ON CHRONIC DIASTOLIC (CONGESTIVE) HEART FAILURE SNOMED Code(s): 769517291 Comment: -BNP was 48. No longer requires IV diuresis. Lungs clear though diminished, no longer short of breath at rest. Likely this happened as a result of a diet high in sodium including TV dinners and canned soup. -Daily weights. Continue torsemide and metazalone. -Continue isosorbide and ASA. -Magnesium 1.4 and potassium 3.3. Repleted with magnesium 4mg IV and 40mEq potassium PO. No arrythmias noted on monitor. Will recheck BMP and mag in am. -Mccloud had been placed for monitoring of I&O's yesterday. D/C in AM as we are no actively diuresing anymore. (2) Fall Current Visit: Yes Status: Acute Comment: -Originally fell on 03/02/19, breaking three toes to left foot. Fell again on 04/18/19 without any injury. -Due to deconditioning, PT/OT ordered. PMRU consult placed. Will need short term rehab which he and his is understanding of. -Lumbar xray negative for any fractures. (3) Diabetes type 2, controlled Current Visit: Yes Status: Acute Code(s): E11.9 - TYPE 2 DIABETES MELLITUS WITHOUT COMPLICATIONS SNOMED Code(s): 29255513 Comment: -Hgb A1C 8.9%. Will titrate lantus up. -Continue blood glucose checks ACHS with sliding scale lispro and scheduled lantus and glipizide -Consistent carb diet. (4) Hypertension Current Visit: No Status: Acute Code(s): I10 - ESSENTIAL (PRIMARY) HYPERTENSION SNOMED Code(s): 41785662 Comment: -Well controlled. Continue ramipril, torsemide, potassium, and metazolone. (5) RLS (restless legs syndrome) Current Visit: No Status: Acute Comment: -Continue Ropinorole (6) Obstructive sleep apnea Current Visit: Yes Status: Acute Code(s): G47.33 - OBSTRUCTIVE SLEEP APNEA ( ADULT) (PEDIATRIC) SNOMED Code(s): 35021576 Comment: -May use home CPAP. (7) BPH (benign prostatic hyperplasia) Current Visit: Yes Status: Acute Code(s): N40.0 - BENIGN PROSTATIC HYPERPLASIA WITHOUT LOWER URINRY TRACT SYMP SNOMED Code(s): 482505939 Comment: -Continue tamsulosin. (8) Chronic back pain Current Visit: Yes Status: Acute Code(s): M54.9 - DORSALGIA, UNSPECIFIED; G89.29 - OTHER CHRONIC PAIN SNOMED Code(s): 004386354 Comment: -No fractures noted after fall. Continue hydrocodone and tylenol. (9) Anxiety Current Visit: Yes Status: Acute Code(s): F41.9 - ANXIETY DISORDER, UNSPECIFIED SNOMED Code(s): 34483334 Comment: -Continue alprazolam and fluoxitine. (10) Overactive bladder Current Visit: Yes Status: Acute Code(s): N32.81 - OVERACTIVE BLADDER SNOMED Code(s): 144880583 Comment: -Continue oxybutynin. (11) GERD (gastroesophageal reflux disease) Current Visit: Yes Status: Acute Code(s): K21.9 - GASTRO-ESOPHAGEAL REFLUX DISEASE WITHOUT ESOPHAGITIS SNOMED Code(s): 802508171 Comment: -No current signs or symptoms. Continue pantoprazole. (12) COPD (chronic obstructive pulmonary disease) Current Visit: Yes Status: Acute Code(s): J44.9 - CHRONIC OBSTRUCTIVE PULMONARY DISEASE, UNSPECIFIED SNOMED Code(s): 29921019 Comment: -No signs of exacerbation. Normally wears 3L via nc at all times, will bump it up to 5L during activity. -Continue albuterol, dulera, and cetirizine. Wearing 4L NC. (13) DVT prophylaxis Current Visit: No Status: Acute Code(s): HCX4724 - SNOMED Code(s): 367689906 Comment: -Continue Heparin SQ (14) Full code status Current Visit: Yes Status: Acute Code(s): Z78.9 - OTHER SPECIFIED HEALTH STATUS SNOMED Code(s): 835769850 Status and Disposition: Condition: Fair Disposition: Admit inpatient, awaiting STR placement. Attending: Saritha Silva
[2019-04-21] MEDS: Atorvastatin* 40 MG TAB PO SCH (17:47)
[2019-04-21] MEDS: Ropinirole TAB* 0.5 MG TAB PO SCH (22:01)
[2019-04-22] MEDS: Heparin VIAL(*) 5000 UNITS/ML VIAL (FIVE THOUSAND) SUBCUT SCH ×3 (07:49→22:23)
[2019-04-22] MEDS ORDERED: Insulin GLARGINE(*) 1 UNITS UNIT SUBCUT SCH ×2 (08:00→21:00)
[2019-04-22] MEDS: Mometasone/Formoter 100/5 MDI INH SCH ×2 (08:01→21:20)
[2019-04-22 08:16] LABS: BUN/Creatinine Ratio 21.1 (8-20); Calcium 8.5 mg/dL (8.6-10.3); EGFR African American 70.8 (>60); EGFR Non-African American 58.5 (>60); Magnesium 1.7 mg/dL (1.9-2.7); Potassium 3.4 mmol/L (3.5-5.0)
[2019-04-22] MEDS: Insulin LISPRO* 1 UNITS UNIT SUBCUT SCH ×4 (09:38→22:23)
[2019-04-22] MEDS: NON FORMULARY MED* (L. Acidophilus/L.Bulgaricus [Floranex Tablet] 2 CHW) PO SCH (09:41)
[2019-04-22] MEDS: Potassium Chlor TAB* 20 MEQ TAB.ER PO SCH (09:42)
[2019-04-22] MEDS: Hydrocodone/Acetamin 10/325 1 TAB PO PRN ×2 (09:42→22:22)
[2019-04-22] MEDS: Torsemide TAB* 20 MG PO SCH (09:43)
[2019-04-22] MEDS: Ascorbic Acid TAB* 500 MG PO SCH (09:43)
[2019-04-22] MEDS: Isosorbide Mononitrate ER TAB* 60 MG PO SCH (09:43)
[2019-04-22] MEDS: Ramipril CAP* 5 MG PO SCH (09:43)
[2019-04-22] MEDS: glipiZIDE TAB.XL* 5 MG PO SCH (09:44)
[2019-04-22] MEDS: Cetirizine* 10 MG TAB PO SCH (09:44)
[2019-04-22] MEDS: Metolazone TAB* 5 MG PO SCH (09:44)
[2019-04-22] MEDS: Tamsulosin CAP* 0.4 MG PO SCH (09:44)
[2019-04-22] MEDS: Oxybutynin TAB* 5 MG PO SCH (09:44)
[2019-04-22] MEDS: FLUoxetine CAP* 20 MG PO SCH (09:44)
[2019-04-22] MEDS: Aspirin EC TAB* 81 MG TAB.EC PO SCH (09:44)
[2019-04-22] MEDS: Pantoprazole TAB * 40 MG TAB PO SCH (09:44)
[2019-04-22] MEDS: Multivitamins/Minerals TAB PO SCH (09:45)
[2019-04-22] MEDS: Polyethylene Glycol 3350* 17 GM PACKET PO SCH ×2 (09:46→22:23)
[2019-04-22] MEDS: Nystatin TOP POWDER* 15 GM BTL TOPICAL SCH ×2 (11:27→22:24)
[2019-04-22] MEDS ORDERED: Magnesium Sulf 4 GM/100 ML IV* 4,000 MG/100 ML BAG IVPB ONE (13:46)
[2019-04-22] MEDS ORDERED: Potassium Chlor TAB* 20 MEQ TAB.ER PO ONE (13:47)
[2019-04-22] MEDS: Atorvastatin* 40 MG TAB PO SCH (17:22)
--- NOTE | 2019-04-22 19:27 | PN ---
Subjective Date of Service: 04/22/19 Interval History: Sitting up in chair. Stated he was able to stand up from the bed without any trouble and walker into the bathroom with a walker and assistance. Denies shortness of breath at rest. He was pleased at how much less edematous his feet appeared. Family History: Unchanged from Admission Social History: Unchanged from Admission Past Medical History: Unchanged from Admission Objective Active Medications: Acetaminophen (Tylenol Tab*) 650 mg PO Q4H PRN PRN Reason: MILD PAIN or TEMP > 100.4 Last Admin: 04/20/19 05:03 Dose: 650 mg Hydrocodone Bitart/Acetaminophen ([place] 10/325 (Nf)) 1 tab PO Q4HR PRN PRN Reason: PAIN Last Admin: 04/22/19 09:42 Dose: 1 tab Albuterol (Ventolin Hfa Inhaler*) 2 puff INH Q4H PRN PRN Reason: SHORTNESS OF BREATH Alprazolam (Xanax Tab*) 0.5 mg PO Q4H PRN PRN Reason: ANXIETY Last Admin: 04/20/19 21:35 Dose: 0.5 mg Ascorbic Acid (Vitamin C Tab*) 500 mg PO DAILY [facility] Last Admin: 04/22/19 09:43 Dose: 500 mg Aspirin (Aspirin Ec Tab*) 81 mg PO DAILY [facility] Last Admin: 04/22/19 09:44 Dose: 81 mg Atorvastatin Calcium (Lipitor*) 40 mg PO QPM [facility] Last Admin: 04/22/19 17:22 Dose: 40 mg Bisacodyl (Dulcolax Supp*) 10 mg [place] DAILY PRN PRN Reason: CONSTIPATION Cetirizine HCl (Zyrtec*) 10 mg PO DAILY [facility] Last Admin: 04/22/19 09:44 Dose: 10 mg Dextrose (Dextrose 50% Vial 50 Ml*) 25 ml IV PUSH .FOR FS < 60 - SS PRN PRN Reason: FS < 60 Fluoxetine HCl (Prozac Cap*) 20 mg PO QAM [facility] Last Admin: 04/22/19 09:44 Dose: 20 mg Glipizide (Glucotrol Xl*) 10 mg PO DAILY [facility] Last Admin: 04/22/19 09:44 Dose: 10 mg Heparin Sodium (Porcine) (Heparin Vial(*)) 5,000 units SUBCUT Q8HR [facility] Last Admin: 04/22/19 12:51 Dose: 5,000 units Heparin Sodium (Porcine) (Heparin Flush Picc/Ml/Cvc(*)) 1 - 3 ml FLUSH 0600, 1800 [facility]; Protocol Last Admin: 04/22/19 17:38 Dose: Not Given Insulin Glargine (Lantus(*)) 50 units SUBCUT Q24H [facility] Last Admin: 04/22/19 09:39 Dose: 50 unit Insulin Human Lispro (Humalog*) 0 units SUBCUT ACHS [facility]; Protocol Last Admin: 04/22/19 17:22 Dose: 6 units Isosorbide Mononitrate (Imdur Er Tab*) 60 mg PO DAILY [facility] Last Admin: 04/22/19 09:43 Dose: 60 mg Metolazone (Zaroxolyn Tab*) 5 mg PO DAILY [facility] Last Admin: 04/22/19 09:44 Dose: 5 mg Mometasone Furoate/Formoterol Fumar (Dulera 100/5 Mdi*) 2 puff INH BID [facility] Last Admin: 04/22/19 08:01 Dose: 2 puff Multivitamins/Minerals (Theragran/Minerals Tab*) 1 tab PO DAILY [facility] Last Admin: 04/22/19 09:45 Dose: 1 tab Non-Formulary Medication (L. Acidophilus/L.Bulgaricus [Floranex Tablet]) 2 chw PO DAILY [facility] Last Admin: 04/22/19 09:41 Dose: Not Given Nystatin (Nystatin Top Powder*) 1 applic TOPICAL BID [facility] Last Admin: 04/22/19 11:27 Dose: 1 applic Ondansetron HCl (Zofran Inj*) 4 mg IV Q6H PRN PRN Reason: NAUSEA/VOMITING Oxybutynin Chloride (Ditropan Tab*) 5 mg PO DAILY [facility] Last Admin: 04/22/19 09:44 Dose: 5 mg Pantoprazole Sodium (Protonix Tab*) 40 mg PO DAILY [facility] Last Admin: 04/22/19 09:44 Dose: 40 mg Polyethylene Glycol/Electrolytes (Miralax*) 17 gm PO BID [facility] Last Admin: 04/22/19 09:46 Dose: 17 gm Potassium Chloride (Klor Con Er Tab*) 20 meq PO QAM [facility] Last Admin: 04/22/19 09:42 Dose: 20 meq Ramipril (Altace Cap*) 5 mg PO QAM [facility] Last Admin: 04/22/19 09:43 Dose: 5 mg Ropinirole HCl (Requip Tab*) 0.5 mg PO BEDTIME [facility] Last Admin: 04/21/19 22:01 Dose: 0.5 mg Tamsulosin HCl (Flomax Cap*) 0.4 mg PO DAILY [facility] Last Admin: 04/22/19 09:44 Dose: 0.4 mg Torsemide (Demadex*) 60 mg PO DAILY [facility] Last Admin: 04/22/19 09:43 Dose: 60 mg Vital Signs - 8 hr 04/22/19 04/22/19 04/22/19 11:45 12:52 15:15 Temperature 98 F 97.9 F Pulse Rate 74 74 Respiratory 20 18 17 Rate Blood Pressure 136/45 114/41 (mmHg) O2 Sat by Pulse 97 96 Oximetry Oxygen Devices in Use Now: Nasal Cannula, CPAP Appearance: This is an obese gentleman seen sitting up in a chair. No acute distress. Eyes: No Scleral Icterus, PERRLA Ears/Nose/Mouth/Throat: NL Teeth, Lips, Gums, Clear Oropharnyx, Mucous Membranes Moist Neck: NL Appearance and Movements; NL JVP, Trachea Midline Respiratory: Symmetrical Chest Expansion and Respiratory Effort, Clear to Auscultation Cardiovascular: NL Sounds; No Murmurs; No JVD, RRR, - - +3 non-pitting edema to bilateral lower extremities. Abdominal: NL Sounds; No Tenderness; No Distention Lymphatic: No Cervical Adenopathy Extremities: No Clubbing, Cyanosis, - - +3 non-pitting BLE edema Skin: No Rash or Ulcers, No Nodules or Sclerosis Neurological: Alert and Oriented x 3 Lines/Tubes/Other Access: Clean, Dry and Intact Peripheral IV Result Diagrams: 04/19/19 13:30 04/22/19 07:52 Assess/Plan/Problems-Billing Assessment: This is a 69 yo male with a PMH significant for CHF, COPD and DM2 who was admitted 02/16/19 for fall and CHF exacerbation. Will require subacute rehab. - Patient Problems (1) Acute on chronic diastolic (congestive) heart failure Current Visit: Yes Status: Acute Code(s): I50.33 - ACUTE ON CHRONIC DIASTOLIC (CONGESTIVE) HEART FAILURE SNOMED Code(s): 350889815 Comment: -BNP was 48. No longer requires IV diuresis. Lungs clear though diminished, no longer short of breath at rest. Likely this happened as a result of a diet high in sodium including TV dinners and canned soup. -Daily weights. Continue torsemide and metazalone. -Continue isosorbide and ASA. -Magnesium 1.4 and potassium 3.3. Repleted with magnesium 4mg IV and 40mEq potassium PO. No arrythmias noted on monitor. Will recheck BMP and mag in am. -Mccloud had been placed for monitoring of I&O's yesterday. D/C in AM as we are no actively diuresing anymore. (2) Fall Current Visit: Yes Status: Acute Comment: -Originally fell on 03/02/19, breaking three toes to left foot. Fell again on 04/18/19 without any injury. -Due to deconditioning, PT/OT ordered. PMRU consult placed. Will need short term rehab which he and his is understanding of. -Lumbar xray negative for any fractures. (3) Diabetes type 2, controlled Current Visit: Yes Status: Acute Code(s): E11.9 - TYPE 2 DIABETES MELLITUS WITHOUT COMPLICATIONS SNOMED Code(s): 10751766 Comment: -Hgb A1C 8.9%. Will titrate lantus up. -Continue blood glucose checks ACHS with sliding scale lispro and scheduled lantus and glipizide -Consistent carb diet. (4) Hypertension Current Visit: No Status: Acute Code(s): I10 - ESSENTIAL (PRIMARY) HYPERTENSION SNOMED Code(s): 17564631 Comment: -Well controlled. Continue ramipril, torsemide, potassium, and metazolone. (5) RLS (restless legs syndrome) Current Visit: No Status: Acute Comment: -Continue Ropinorole (6) Obstructive sleep apnea Current Visit: Yes Status: Acute Code(s): G47.33 - OBSTRUCTIVE SLEEP APNEA ( ADULT) (PEDIATRIC) SNOMED Code(s): 64491617 Comment: -May use home CPAP. (7) BPH (benign prostatic hyperplasia) Current Visit: Yes Status: Acute Code(s): N40.0 - BENIGN PROSTATIC HYPERPLASIA WITHOUT LOWER URINRY TRACT SYMP SNOMED Code(s): 084533123 Comment: -Continue tamsulosin. (8) Chronic back pain Current Visit: Yes Status: Acute Code(s): M54.9 - DORSALGIA, UNSPECIFIED; G89.29 - OTHER CHRONIC PAIN SNOMED Code(s): 177202210 Comment: -No fractures noted after fall. Continue hydrocodone and tylenol. (9) Anxiety Current Visit: Yes Status: Acute Code(s): F41.9 - ANXIETY DISORDER, UNSPECIFIED SNOMED Code(s): 92462299 Comment: -Continue alprazolam and fluoxitine. (10) Overactive bladder Current Visit: Yes Status: Acute Code(s): N32.81 - OVERACTIVE BLADDER SNOMED Code(s): 368859281 Comment: -Continue oxybutynin. (11) GERD (gastroesophageal reflux disease) Current Visit: Yes Status: Acute Code(s): K21.9 - GASTRO-ESOPHAGEAL REFLUX DISEASE WITHOUT ESOPHAGITIS SNOMED Code(s): 901590078 Comment: -No current signs or symptoms. Continue pantoprazole. (12) COPD (chronic obstructive pulmonary disease) Current Visit: Yes Status: Acute Code(s): J44.9 - CHRONIC OBSTRUCTIVE PULMONARY DISEASE, UNSPECIFIED SNOMED Code(s): 32549377 Comment: -No signs of exacerbation. Normally wears 3L via nc at all times, will bump it up to 5L during activity. -Continue albuterol, dulera, and cetirizine. Wearing 4L NC. (13) DVT prophylaxis Current Visit: No Status: Acute Code(s): CIC2066 - SNOMED Code(s): 959143229 Comment: -Continue Heparin SQ (14) Full code status Current Visit: Yes Status: Acute Code(s): Z78.9 - OTHER SPECIFIED HEALTH STATUS SNOMED Code(s): 499211170 Status and Disposition: Condition: Fair Disposition: Admit inpatient, awaiting STR placement. Attending: Saritha Silva
[2019-04-22] MEDS: Ropinirole TAB* 0.5 MG TAB PO SCH (22:22)
[2019-04-23] MEDS: Heparin VIAL(*) 5000 UNITS/ML VIAL (FIVE THOUSAND) SUBCUT SCH ×3 (05:59→22:24)
[2019-04-23 06:32] LABS: Calcium 8.9 mg/dL (8.6-10.3); EGFR African American 71.5 (>60); EGFR Non-African American 59.1 (>60); Magnesium 1.9 mg/dL (1.9-2.7); Potassium 3.6 mmol/L (3.5-5.0)
[2019-04-23] MEDS ORDERED: Insulin GLARGINE(*) 1 UNITS UNIT SUBCUT SCH (08:00)
[2019-04-23] MEDS: Mometasone/Formoter 100/5 MDI INH SCH ×2 (08:08→19:39)
[2019-04-23] MEDS ORDERED: Potassium Chloride* LIQUID 20 MEQ/15 ML UDC PO ONE (08:50)
[2019-04-23] MEDS ORDERED: Magnesium Sulfate 1 GM IV* 1 GM/100 ML BAG IV ONE (09:00)
[2019-04-23] MEDS: Polyethylene Glycol 3350* 17 GM PACKET PO SCH ×2 (09:57→20:59)
[2019-04-23] MEDS: Isosorbide Mononitrate ER TAB* 60 MG PO SCH (09:58)
[2019-04-23] MEDS: Torsemide TAB* 20 MG PO SCH (09:58)
[2019-04-23] MEDS: Ramipril CAP* 5 MG PO SCH (09:59)
[2019-04-23] MEDS: FLUoxetine CAP* 20 MG PO SCH (10:00)
[2019-04-23] MEDS: Cetirizine* 10 MG TAB PO SCH (10:01)
[2019-04-23] MEDS: Tamsulosin CAP* 0.4 MG PO SCH (10:01)
[2019-04-23] MEDS: Ascorbic Acid TAB* 500 MG PO SCH (10:01)
[2019-04-23] MEDS: Pantoprazole TAB * 40 MG TAB PO SCH (10:01)
[2019-04-23] MEDS: Multivitamins/Minerals TAB PO SCH (10:01)
[2019-04-23] MEDS: Oxybutynin TAB* 5 MG PO SCH (10:03)
[2019-04-23] MEDS: glipiZIDE TAB.XL* 5 MG PO SCH (10:03)
[2019-04-23] MEDS: Metolazone TAB* 5 MG PO SCH (10:03)
[2019-04-23] MEDS: Insulin LISPRO* 1 UNITS UNIT SUBCUT SCH ×5 (10:04→22:24)
[2019-04-23] MEDS: NON FORMULARY MED* (L. Acidophilus/L.Bulgaricus [Floranex Tablet] 2 CHW) PO SCH (10:04)
[2019-04-23] MEDS: Aspirin EC TAB* 81 MG TAB.EC PO SCH (10:06)
[2019-04-23] MEDS ORDERED: Potassium Chlor TAB* 20 MEQ TAB.ER PO ONE (10:25)
[2019-04-23] MEDS: Potassium Chlor TAB* 20 MEQ TAB.ER PO SCH (10:31)
[2019-04-23] MEDS: Nystatin TOP POWDER* 15 GM BTL TOPICAL SCH ×2 (10:34→20:59)
[2019-04-23 17:17] LABS: Folate 14.42 ng/mL (>3.99)
[2019-04-23] MEDS: Atorvastatin* 40 MG TAB PO SCH (18:00)
--- NOTE | 2019-04-23 18:39 | PN ---
Subjective Date of Service: 04/23/19 Interval History: Patient is feeling tired today. Patient states he slept well. Patient denies F/C , N/V, abdominal pain, diarrhea, dysuria, dizziness, or other pain. patient was able to get up to the chair with 2 person assist. Family History: Unchanged from Admission Social History: Unchanged from Admission Past Medical History: Unchanged from Admission Objective Active Medications: Acetaminophen (Tylenol Tab*) 650 mg PO Q4H PRN PRN Reason: MILD PAIN or TEMP > 100.4 Last Admin: 04/20/19 05:03 Dose: 650 mg Hydrocodone Bitart/Acetaminophen ([place] 10/325 (Nf)) 1 tab PO Q4HR PRN PRN Reason: PAIN Last Admin: 04/22/19 22:22 Dose: 1 tab Albuterol (Ventolin Hfa Inhaler*) 2 puff INH Q4H PRN PRN Reason: SHORTNESS OF BREATH Alprazolam (Xanax Tab*) 0.5 mg PO Q4H PRN PRN Reason: ANXIETY Last Admin: 04/20/19 21:35 Dose: 0.5 mg Ascorbic Acid (Vitamin C Tab*) 500 mg PO DAILY [facility] Last Admin: 04/23/19 10:01 Dose: 500 mg Aspirin (Aspirin Ec Tab*) 81 mg PO DAILY [facility] Last Admin: 04/23/19 10:06 Dose: 81 mg Atorvastatin Calcium (Lipitor*) 40 mg PO QPM [facility] Last Admin: 04/23/19 18:00 Dose: 40 mg Bisacodyl (Dulcolax Supp*) 10 mg NC DAILY PRN PRN Reason: CONSTIPATION Cetirizine HCl (Zyrtec*) 10 mg PO DAILY [facility] Last Admin: 04/23/19 10:01 Dose: 10 mg Dextrose (Dextrose 50% Vial 50 Ml*) 25 ml IV PUSH .FOR FS < 60 - SS PRN PRN Reason: FS < 60 Fluoxetine HCl (Prozac Cap*) 20 mg PO QAM [facility] Last Admin: 04/23/19 10:00 Dose: 20 mg Glipizide (Glucotrol Xl*) 10 mg PO DAILY [facility] Last Admin: 04/23/19 10:03 Dose: 10 mg Heparin Sodium (Porcine) (Heparin Vial(*)) 5,000 units SUBCUT Q8HR [facility] Last Admin: 04/23/19 12:54 Dose: 5,000 units Heparin Sodium (Porcine) (Heparin Flush Picc/Ml/Cvc(*)) 1 - 3 ml FLUSH 0600, 1800 [facility]; Protocol Last Admin: 04/23/19 18:00 Dose: 1 ml Insulin Glargine (Lantus(*)) 65 units SUBCUT Q24HR@0800 [facility] Insulin Human Lispro (Humalog*) 0 units SUBCUT ACHS [facility]; Protocol Last Admin: 04/23/19 18:04 Dose: 9 units Insulin Human Lispro (Humalog*) 5 units SUBCUT AC [facility] Last Admin: 04/23/19 18:02 Dose: 5 unit Isosorbide Mononitrate (Imdur Er Tab*) 60 mg PO DAILY [facility] Last Admin: 04/23/19 09:58 Dose: 60 mg Lactobacillus Rhamnosus (Lactobacillus Acidophilus*) 2 tab PO DAILY [facility] Metolazone (Zaroxolyn Tab*) 5 mg PO DAILY [facility] Last Admin: 04/23/19 10:03 Dose: 5 mg Mometasone Furoate/Formoterol Fumar (Dulera 100/5 Mdi*) 2 puff INH BID [facility] Last Admin: 04/23/19 08:08 Dose: 2 puff Multivitamins/Minerals (Theragran/Minerals Tab*) 1 tab PO DAILY [facility] Last Admin: 04/23/19 10:01 Dose: 1 tab Nystatin (Nystatin Top Powder*) 1 applic TOPICAL BID [facility] Last Admin: 04/23/19 10:34 Dose: 1 applic Ondansetron HCl (Zofran Inj*) 4 mg IV Q6H PRN PRN Reason: NAUSEA/VOMITING Oxybutynin Chloride (Ditropan Tab*) 5 mg PO DAILY [facility] Last Admin: 04/23/19 10:03 Dose: 5 mg Pantoprazole Sodium (Protonix Tab*) 40 mg PO DAILY [facility] Last Admin: 04/23/19 10:01 Dose: 40 mg Polyethylene Glycol/Electrolytes (Miralax*) 17 gm PO BID [facility] Last Admin: 04/23/19 09:57 Dose: 17 gm Potassium Chloride (Klor Con Er Tab*) 20 meq PO QAM [facility] Last Admin: 04/23/19 10:31 Dose: 20 meq Ramipril (Altace Cap*) 5 mg PO QAM [facility] Last Admin: 04/23/19 09:59 Dose: 5 mg Ropinirole HCl (Requip Tab*) 0.5 mg PO BEDTIME [facility] Last Admin: 04/22/19 22:22 Dose: 0.5 mg Tamsulosin HCl (Flomax Cap*) 0.4 mg PO DAILY [facility] Last Admin: 04/23/19 10:01 Dose: 0.4 mg Torsemide (Demadex*) 40 mg PO DAILY [facility] Vital Signs - 8 hr 04/23/19 04/23/19 11:47 15:26 Temperature 97.3 F 97.7 F Pulse Rate 77 77 Respiratory 16 20 Rate Blood Pressure 119/50 112/38 (mmHg) O2 Sat by Pulse 97 100 Oximetry Oxygen Devices in Use Now: Nasal Cannula Appearance: Patient is a 69yo male who appears stated age, is morbidly obese, and is sitting in the bed in NAD. Eyes: No Scleral Icterus, PERRLA Ears/Nose/Mouth/Throat: NL Teeth, Lips, Gums, Clear Oropharnyx Neck: NL Appearance and Movements; NL JVP, Trachea Midline Respiratory: Symmetrical Chest Expansion and Respiratory Effort, Clear to Auscultation Cardiovascular: NL Sounds; No Murmurs; No JVD, - - 3+ B/L LE edema. Abdominal: NL Sounds; No Tenderness; No Distention, No Hepatosplenomegaly Lymphatic: No Cervical Adenopathy Extremities: No Clubbing, Cyanosis Skin: No Nodules or Sclerosis, - - LE erythema. Neurological: Alert and Oriented x 3, NL Sensation, NL Muscle Strength and Tone , - - CN II-XII intact. Result Diagrams: 04/19/19 13:30 04/23/19 06:04 Assess/Plan/Problems-Billing Assessment: This is a 69 yo male with a PMH significant for CHF, COPD and DM2 who was admitted 02/16/19 for fall and CHF exacerbation who is improving. - Patient Problems (1) Acute exacerbation of CHF (congestive heart failure) Current Visit: Yes Status: Acute Code(s): I50.9 - HEART FAILURE, UNSPECIFIED SNOMED Code(s): 200981679 Comment: -BNP was 47. Clinically in HF exacerbation -Daily weights. Decreased back to home dose torsemide. -Continue isosorbide and ASA. - Continue Electrolyte replacement. (2) COPD (chronic obstructive pulmonary disease) Current Visit: Yes Status: Acute Code(s): J44.9 - CHRONIC OBSTRUCTIVE PULMONARY DISEASE, UNSPECIFIED SNOMED Code(s): 74836913 Comment: -No signs of exacerbation. Normally wears 3L via nc at all times, will bump it up to 5L during activity. -Continue albuterol, dulera, and cetirizine. Wearing 4L NC. (3) Anxiety Current Visit: Yes Status: Acute Code(s): F41.9 - ANXIETY DISORDER, UNSPECIFIED SNOMED Code(s): 98982958 Comment: -Continue alprazolam and fluoxetine. (4) BPH (benign prostatic hyperplasia) Current Visit: Yes Status: Acute Code(s): N40.0 - BENIGN PROSTATIC HYPERPLASIA WITHOUT LOWER URINRY TRACT SYMP SNOMED Code(s): 505318564 Comment: -Continue tamsulosin. (5) Chronic back pain Current Visit: Yes Status: Acute Code(s): M54.9 - DORSALGIA, UNSPECIFIED; G89.29 - OTHER CHRONIC PAIN SNOMED Code(s): 244255098 Comment: -No fractures noted after fall. Continue hydrocodone and tylenol. (6) Diabetes type 2, controlled Current Visit: Yes Status: Acute Code(s): E11.9 - TYPE 2 DIABETES MELLITUS WITHOUT COMPLICATIONS SNOMED Code(s): 11457669 Comment: -Hgb A1C 8.9%. Will titrate lantus up. -Continue blood glucose checks ACHS with sliding scale lispro and scheduled lantus and glipizide -Consistent carb diet. (7) Fall Current Visit: Yes Status: Acute Comment: -Originally fell on 03/02/19, breaking three toes to left foot. Fell again on without any injury. -Due to deconditioning, PT/OT ordered. PMRU consult placed. Will need short term rehab which he and his is understanding of. -Lumbar xray negative for any fractures. (8) GERD (gastroesophageal reflux disease) Current Visit: Yes Status: Acute Code(s): K21.9 - GASTRO-ESOPHAGEAL REFLUX DISEASE WITHOUT ESOPHAGITIS SNOMED Code(s): 624427514 Comment: -No current signs or symptoms. Continue pantoprazole. (9) Obstructive sleep apnea Current Visit: Yes Status: Acute Code(s): G47.33 - OBSTRUCTIVE SLEEP APNEA ( ADULT) (PEDIATRIC) SNOMED Code(s): 27503607 Comment: -May use home CPAP. (10) Overactive bladder Current Visit: Yes Status: Acute Code(s): N32.81 - OVERACTIVE BLADDER SNOMED Code(s): 021234626 Comment: -Continue oxybutynin. (11) Hypertension Current Visit: No Status: Acute Code(s): I10 - ESSENTIAL (PRIMARY) HYPERTENSION SNOMED Code(s): 00070909 Comment: -Well controlled. Continue ramipril, torsemide, potassium, and metazolone. (12) RLS (restless legs syndrome) Current Visit: No Status: Acute Comment: -Continue Ropinorole (13) DVT prophylaxis Current Visit: No Status: Acute Code(s): BBH6101 - SNOMED Code(s): 000312414 Comment: -Continue Heparin SQ Status and Disposition: Condition: Fair Disposition: Admit inpatient, awaiting STR placement.
[2019-04-23] MEDS: Hydrocodone/Acetamin 10/325 1 TAB PO PRN (20:58)
[2019-04-23] MEDS: Ropinirole TAB* 0.5 MG TAB PO SCH (20:59)
[2019-04-24] MEDS: Heparin VIAL(*) 5000 UNITS/ML VIAL (FIVE THOUSAND) SUBCUT SCH ×3 (05:26→21:24)
[2019-04-24] MEDS: Mometasone/Formoter 100/5 MDI INH SCH ×2 (09:50→20:37)
[2019-04-24] MEDS: Insulin LISPRO* 1 UNITS UNIT SUBCUT SCH ×7 (09:59→21:24)
[2019-04-24] MEDS: Insulin GLARGINE(*) 1 UNITS UNIT SUBCUT SCH (10:00)
[2019-04-24] MEDS: Ascorbic Acid TAB* 500 MG PO SCH (10:07)
[2019-04-24] MEDS: Lactobacillus Acidophilus* 1 TAB PO SCH (10:07)
[2019-04-24] MEDS: Ramipril CAP* 5 MG PO SCH (10:07)
[2019-04-24] MEDS: Torsemide TAB* 20 MG PO SCH (10:08)
[2019-04-24] MEDS: Multivitamins/Minerals TAB PO SCH (10:09)
[2019-04-24] MEDS: Oxybutynin TAB* 5 MG PO SCH (10:09)
[2019-04-24] MEDS: Metolazone TAB* 5 MG PO SCH (10:09)
[2019-04-24] MEDS: Cetirizine* 10 MG TAB PO SCH (10:09)
[2019-04-24] MEDS: Aspirin EC TAB* 81 MG TAB.EC PO SCH (10:09)
[2019-04-24] MEDS: FLUoxetine CAP* 20 MG PO SCH (10:09)
[2019-04-24] MEDS: Tamsulosin CAP* 0.4 MG PO SCH (10:10)
[2019-04-24] MEDS: Potassium Chlor TAB* 20 MEQ TAB.ER PO SCH (10:10)
[2019-04-24] MEDS: Pantoprazole TAB * 40 MG TAB PO SCH (10:10)
[2019-04-24] MEDS: glipiZIDE TAB.XL* 5 MG PO SCH (10:10)
[2019-04-24] MEDS: Isosorbide Mononitrate ER TAB* 60 MG PO SCH (10:10)
[2019-04-24] MEDS: Nystatin TOP POWDER* 15 GM BTL TOPICAL SCH ×2 (10:11→21:28)
[2019-04-24] MEDS: Hydrocodone/Acetamin 10/325 1 TAB PO PRN ×2 (10:29→21:24)
[2019-04-24] MEDS: Polyethylene Glycol 3350* 17 GM PACKET PO SCH ×2 (10:30→21:24)
[2019-04-24 12:01] LABS: ABS Eosinophils 0.2 10^3/ul (0-0.6); ABS Lymphocytes 1.1 10^3/ul (1.0-4.8); ABS Monocytes 0.7 10^3/ul (0-0.8); Eosinophil % 4.8 %; Hematocrit 32 % (42-52); Hemoglobin 10.9 g/dL (14.0-18.0); Lymphocyte % 20.9 %; Mean Corpuscular HGB Conc 34 g/dL (31-36); Mean Corpuscular Hemoglobin 34 pg (27-31); Mean Corpuscular Volume 99 fL (80-94); Mean Platelet Volume 7.4 fL (7.4-10.4); Platelet Count 154 10^3/uL (150-450); Red Blood Count 3.26 10^6 /uL (4.18-5.48); Red Cell Distribution Width 14 % (10-15); White Blood Count 5.1 10^3/uL (3.5-10.8)
[2019-04-24 12:32] LABS: BUN/Creatinine Ratio 21.7 (8-20); Calcium 8.6 mg/dL (8.6-10.3); EGFR African American 72.9 (>60); EGFR Non-African American 60.2 (>60); Magnesium 1.6 mg/dL (1.9-2.7); Potassium 3.8 mmol/L (3.5-5.0)
[2019-04-24] MEDS ORDERED: Magnesium Sulfate 2 GM IV* 2 GM/50 ML BAG IVPB ONE (13:49)
[2019-04-24] MEDS: Acetaminophen TAB* 325 MG PO PRN (16:28)
--- NOTE | 2019-04-24 17:22 | PN ---
Subjective Date of Service: 04/24/19 Family History: Unchanged from Admission Social History: Unchanged from Admission Past Medical History: Unchanged from Admission Objective Active Medications: Acetaminophen (Tylenol Tab*) 650 mg PO Q4H PRN PRN Reason: MILD PAIN or TEMP > 100.4 Last Admin: 04/24/19 16:28 Dose: 650 mg Hydrocodone Bitart/Acetaminophen ([place] 10/325 (Nf)) 1 tab PO Q4HR PRN PRN Reason: PAIN Last Admin: 04/24/19 10:29 Dose: 1 tab Albuterol (Ventolin Hfa Inhaler*) 2 puff INH Q4H PRN PRN Reason: SHORTNESS OF BREATH Alprazolam (Xanax Tab*) 0.5 mg PO Q4H PRN PRN Reason: ANXIETY Last Admin: 04/20/19 21:35 Dose: 0.5 mg Ascorbic Acid (Vitamin C Tab*) 500 mg PO DAILY [facility] Last Admin: 04/24/19 10:07 Dose: 500 mg Aspirin (Aspirin Ec Tab*) 81 mg PO DAILY [facility] Last Admin: 04/24/19 10:09 Dose: 81 mg Atorvastatin Calcium (Lipitor*) 40 mg PO QPM [facility] Last Admin: 04/23/19 18:00 Dose: 40 mg Bisacodyl (Dulcolax Supp*) 10 mg [place] DAILY PRN PRN Reason: CONSTIPATION Cetirizine HCl (Zyrtec*) 10 mg PO DAILY [facility] Last Admin: 04/24/19 10:09 Dose: 10 mg Dextrose (Dextrose 50% Vial 50 Ml*) 25 ml IV PUSH .FOR FS < 60 - SS PRN PRN Reason: FS < 60 Fluoxetine HCl (Prozac Cap*) 20 mg PO QAM [facility] Last Admin: 04/24/19 10:09 Dose: 20 mg Glipizide (Glucotrol Xl*) 10 mg PO DAILY [facility] Last Admin: 04/24/19 10:10 Dose: 10 mg Heparin Sodium (Porcine) (Heparin Vial(*)) 5,000 units SUBCUT Q8HR [facility] Last Admin: 04/24/19 12:58 Dose: 5,000 units Heparin Sodium (Porcine) (Heparin Flush Picc/Ml/Cvc(*)) 1 - 3 ml FLUSH 0600, 1800 [facility]; Protocol Last Admin: 04/24/19 05:27 Dose: 1 ml Insulin Glargine (Lantus(*)) 65 units SUBCUT Q24HR@0800 [facility] Last Admin: 04/24/19 10:00 Dose: 65 units Insulin Human Lispro (Humalog*) 0 units SUBCUT ACHS [facility]; Protocol Last Admin: 04/24/19 12:56 Dose: 6 units Insulin Human Lispro (Humalog*) 5 units SUBCUT AC [facility] Last Admin: 04/24/19 12:57 Dose: 5 unit Isosorbide Mononitrate (Imdur Er Tab*) 60 mg PO DAILY [facility] Last Admin: 04/24/19 10:10 Dose: 60 mg Lactobacillus Rhamnosus (Lactobacillus Acidophilus*) 2 tab PO DAILY [facility] Last Admin: 04/24/19 10:07 Dose: 2 tab Metolazone (Zaroxolyn Tab*) 5 mg PO DAILY [facility] Last Admin: 04/24/19 10:09 Dose: 5 mg Mometasone Furoate/Formoterol Fumar (Dulera 100/5 Mdi*) 2 puff INH BID [facility] Last Admin: 04/24/19 09:50 Dose: Not Given Multivitamins/Minerals (Theragran/Minerals Tab*) 1 tab PO DAILY [facility] Last Admin: 04/24/19 10:09 Dose: 1 tab Nystatin (Nystatin Top Powder*) 1 applic TOPICAL BID [facility] Last Admin: 04/24/19 10:11 Dose: 1 applic Ondansetron HCl (Zofran Inj*) 4 mg IV Q6H PRN PRN Reason: NAUSEA/VOMITING Oxybutynin Chloride (Ditropan Tab*) 5 mg PO DAILY [facility] Last Admin: 04/24/19 10:09 Dose: 5 mg Pantoprazole Sodium (Protonix Tab*) 40 mg PO DAILY [facility] Last Admin: 04/24/19 10:10 Dose: 40 mg Polyethylene Glycol/Electrolytes (Miralax*) 17 gm PO BID [facility] Last Admin: 04/24/19 10:30 Dose: 17 gm Potassium Chloride (Klor Con Er Tab*) 20 meq PO QAM [facility] Last Admin: 04/24/19 10:10 Dose: 20 meq Ramipril (Altace Cap*) 5 mg PO QAM [facility] Last Admin: 04/24/19 10:07 Dose: 5 mg Ropinirole HCl (Requip Tab*) 0.5 mg PO BEDTIME [facility] Last Admin: 04/23/19 20:59 Dose: 0.5 mg Tamsulosin HCl (Flomax Cap*) 0.4 mg PO DAILY [facility] Last Admin: 04/24/19 10:10 Dose: 0.4 mg Torsemide (Demadex*) 40 mg PO DAILY [facility] Last Admin: 04/24/19 10:08 Dose: 40 mg Vital Signs - 8 hr 04/24/19 04/24/19 04/24/19 10:00 10:29 11:15 Temperature 98 F Pulse Rate 75 Respiratory 18 18 20 Rate Blood Pressure 127/42 (mmHg) O2 Sat by Pulse 96 Oximetry 04/24/19 04/24/19 12:56 15:15 Temperature 98.2 F Pulse Rate 77 Respiratory 16 16 Rate Blood Pressure 153/55 (mmHg) O2 Sat by Pulse 94 Oximetry Oxygen Devices in Use Now: Nasal Cannula Result Diagrams: 04/24/19 11:50 04/24/19 11:50 Assess/Plan/Problems-Billing Assessment: This is a 69 yo male with a PMH significant for CHF, COPD and DM2 who was admitted 02/16/19 for fall and CHF exacerbation who is improving. - Patient Problems (1) Acute exacerbation of CHF (congestive heart failure) Current Visit: Yes Status: Acute Code(s): I50.9 - HEART FAILURE, UNSPECIFIED SNOMED Code(s): 539579951 Comment: -BNP was 47. Clinically in HF exacerbation -Daily weights. Decreased back to home dose torsemide. -Continue isosorbide and ASA. - Continue Electrolyte replacement. (2) COPD (chronic obstructive pulmonary disease) Current Visit: Yes Status: Acute Code(s): J44.9 - CHRONIC OBSTRUCTIVE PULMONARY DISEASE, UNSPECIFIED SNOMED Code(s): 96143308 Comment: -No signs of exacerbation. Normally wears 3L via nc at all times, will bump it up to 5L during activity. -Continue albuterol, dulera, and cetirizine. Wearing 4L NC. (3) Anxiety Current Visit: Yes Status: Acute Code(s): F41.9 - ANXIETY DISORDER, UNSPECIFIED SNOMED Code(s): 76425413 Comment: -Continue alprazolam and fluoxetine. (4) BPH (benign prostatic hyperplasia) Current Visit: Yes Status: Acute Code(s): N40.0 - BENIGN PROSTATIC HYPERPLASIA WITHOUT LOWER URINRY TRACT SYMP SNOMED Code(s): 241230668 Comment: -Continue tamsulosin. (5) Chronic back pain Current Visit: Yes Status: Acute Code(s): M54.9 - DORSALGIA, UNSPECIFIED; G89.29 - OTHER CHRONIC PAIN SNOMED Code(s): 841585342 Comment: -No fractures noted after fall. Continue hydrocodone and tylenol. (6) Diabetes type 2, controlled Current Visit: Yes Status: Acute Code(s): E11.9 - TYPE 2 DIABETES MELLITUS WITHOUT COMPLICATIONS SNOMED Code(s): 30433857 Comment: -Hgb A1C 8.9%. Will titrate lantus up. -Continue blood glucose checks ACHS with sliding scale lispro and scheduled lantus and glipizide -Consistent carb diet. (7) Fall Current Visit: Yes Status: Acute Comment: -Originally fell on 03/02/19, breaking three toes to left foot. Fell again on without any injury. -Due to deconditioning, PT/OT ordered. PMRU consult placed. Will need short term rehab which he and his is understanding of. -Lumbar xray negative for any fractures. (8) GERD (gastroesophageal reflux disease) Current Visit: Yes Status: Acute Code(s): K21.9 - GASTRO-ESOPHAGEAL REFLUX DISEASE WITHOUT ESOPHAGITIS SNOMED Code(s): 150932301 Comment: -No current signs or symptoms. Continue pantoprazole. (9) Obstructive sleep apnea Current Visit: Yes Status: Acute Code(s): G47.33 - OBSTRUCTIVE SLEEP APNEA ( ADULT) (PEDIATRIC) SNOMED Code(s): 64161061 Comment: -May use home CPAP. (10) Overactive bladder Current Visit: Yes Status: Acute Code(s): N32.81 - OVERACTIVE BLADDER SNOMED Code(s): 173104096 Comment: -Continue oxybutynin. (11) Hypertension Current Visit: No Status: Acute Code(s): I10 - ESSENTIAL (PRIMARY) HYPERTENSION SNOMED Code(s): 07916290 Comment: -Well controlled. Continue ramipril, torsemide, potassium, and metazolone. (12) RLS (restless legs syndrome) Current Visit: No Status: Acute Comment: -Continue Ropinorole (13) DVT prophylaxis Current Visit: No Status: Acute Code(s): PAU6658 - SNOMED Code(s): 422682598 Comment: -Continue Heparin SQ Status and Disposition: Condition: Fair Disposition: Admit inpatient, awaiting STR placement.
[2019-04-24] MEDS: Atorvastatin* 40 MG TAB PO SCH (17:36)
[2019-04-24] MEDS: Ropinirole TAB* 0.5 MG TAB PO SCH (21:24)
[2019-04-25] MEDS: Heparin VIAL(*) 5000 UNITS/ML VIAL (FIVE THOUSAND) SUBCUT SCH ×2 (05:39→14:30)
[2019-04-25] MEDS: Insulin LISPRO* 1 UNITS UNIT SUBCUT SCH ×4 (08:47→12:18)
[2019-04-25] MEDS: Insulin GLARGINE(*) 1 UNITS UNIT SUBCUT SCH (08:48)
[2019-04-25] MEDS: Lactobacillus Acidophilus* 1 TAB PO SCH (08:50)
[2019-04-25] MEDS: Torsemide TAB* 20 MG PO SCH (08:50)
[2019-04-25] MEDS: Metolazone TAB* 5 MG PO SCH (08:50)
[2019-04-25] MEDS: glipiZIDE TAB.XL* 5 MG PO SCH (08:50)
[2019-04-25] MEDS: Aspirin EC TAB* 81 MG TAB.EC PO SCH (08:50)
[2019-04-25] MEDS: Isosorbide Mononitrate ER TAB* 60 MG PO SCH (08:50)
[2019-04-25] MEDS: Ascorbic Acid TAB* 500 MG PO SCH (08:51)
[2019-04-25] MEDS: Potassium Chlor TAB* 20 MEQ TAB.ER PO SCH (08:51)
[2019-04-25] MEDS: Oxybutynin TAB* 5 MG PO SCH (08:51)
[2019-04-25] MEDS: Cetirizine* 10 MG TAB PO SCH (08:51)
[2019-04-25] MEDS: FLUoxetine CAP* 20 MG PO SCH (08:51)
[2019-04-25] MEDS: Tamsulosin CAP* 0.4 MG PO SCH (08:51)
[2019-04-25] MEDS: Pantoprazole TAB * 40 MG TAB PO SCH (08:51)
[2019-04-25] MEDS: Ramipril CAP* 5 MG PO SCH (08:54)
[2019-04-25] MEDS: Multivitamins/Minerals TAB PO SCH (08:55)
[2019-04-25] MEDS: Mometasone/Formoter 100/5 MDI INH SCH (08:57)
[2019-04-25] MEDS: Polyethylene Glycol 3350* 17 GM PACKET PO SCH (08:57)
[2019-04-25] MEDS: Hydrocodone/Acetamin 10/325 1 TAB PO PRN (09:41)
[2019-04-25] MEDS: Nystatin TOP POWDER* 15 GM BTL TOPICAL SCH (09:41)
[2019-04-25 11:58] VITALS: BP 155/50
[2019-04-25] MEDS: Acetaminophen TAB* 325 MG PO PRN (12:44)
--- NOTE | 2019-04-25 16:50 | DS ---
CC: Dr. Kolton Tidwell * DISCHARGE SUMMARY/ADMISSION HISTORY AND PHYSICAL TO SWING STATUS: DATE OF ADMISSION: 04/18/19 DATE OF TRANSITION TO SWING STATUS: 04/25/19 PRIMARY CARE PROVIDER: Dr. Kolton Tidwell. MY ATTENDING WHILE IN THE HOSPITAL: Dr. Liz Sexton.* (DICTATED BY DELFIN TREADWELL) CHIEF DIAGNOSIS MANAGED DURING THIS HOSPITALIZATION: Heart failure with preserved ejection fraction exacerbation, improved. SECONDARY DISCHARGE DIAGNOSES: 1. Chronic obstructive pulmonary disease with chronic hypoxic respiratory failure, on 3 L nasal cannula. 2. Obesity hypoventilation syndrome. 3. Type 2 diabetes mellitus. 4. Mild anemia. 5. Obstructive sleep apnea, compliant with BiPAP. 6. Restless legs syndrome. 7. Benign prostatic hypertrophy. 8. Lymphedema. 9. Hypertension. 10. Hypercholesterolemia. 11. Gastroesophageal reflux disease. 12. Chronic back pain. 13. Morbid obesity. STUDIES DONE WHILE IN THE HOSPITAL: Chest x-ray from 04/18/19 read as low lung volumes and elevation of the left hemidiaphragm, no new airspace opacification, cardiomegaly. Lumbar spine x-ray read as no displaced fracture by radiograph, multilevel spondylosis as above. INPATIENT MEDICATIONS AT THE TIME OF DISCHARGE: 1. Tylenol 650 mg p.o. q.4 hours as needed. 2. Albuterol 2 puffs inhalation q.4 hours as needed. 3. Ascorbic acid 500 mg p.o. daily. 4. Aspirin 81 mg p.o. daily. 5. Lipitor 40 mg p.o. daily. 6. Dulcolax 10 mg [place] daily as needed. 7. Cetirizine 10 mg p.o. daily. 8. Dextrose 25 g IV push as needed. 9. Fluoxetine 20 mg p.o. daily. 10. Glipizide 10 mg p.o. daily. 11. Heparin flush for midline. 12. Heparin subcu 5,000 units q.8 hours. 13. Insulin glargine 65 units subcutaneous q.24 hours. 14. Insulin lispro sliding scale. 15. Insulin lispro 5 units scheduled with meals. 16. Isosorbide mononitrate 60 mg p.o. daily. 17. Lactobacillus acidophilus 2 tabs p.o. daily. 18. Metolazone 5 mg p.o. daily. 19. Mometasone and formoterol 2 puffs inhalation b.i.d. 20. Multivitamin 1 tab p.o. daily. 21. Nystatin 1 application topical b.i.d. 22. Zofran 4 mg IV q.6 hours as needed. 23. Oxybutynin 5 mg p.o. daily. 24. Pantoprazole 40 mg p.o. daily. 25. Polyethylene glycol 17 g p.o. b.i.d. 26. Potassium chloride 20 mEq p.o. daily. 27. Ramipril 5 mg p.o. daily. 28. Ropinirole 0.5 mg p.o. at bedtime. 29. Tamsulosin 0.4 mg p.o. daily. 30. Torsemide 40 mg p.o. daily. 31. Alprazolam 0.5 mg p.o. q.4 hours as needed. 32. [place] 10/325 one tab p.o. q.4 hours as needed. HOSPITAL COURSE: This is a brief summary of the patient's presentation. For more details, please see the history and physical from Nella Tejada NP, on 04/18/19. In brief, the patient is a 69-year-old male with past medical history significant for the above, who presented to the emergency department with several days of worsening lower extremity edema, shortness of breath, and a fall with inability to get off the floor. In the emergency department, the patient had imaging and physical exam consistent with heart failure exacerbation. The patient was given IV Lasix and admitted to the hospital. The patient had his torsemide increased and had his metolazone continued. The patient diuresed very well with a persistently negative fluid balance totaling approximately 6 L and a 3-pound weight loss during this hospitalization. The patient was initially needing oxygen above his baseline rate at 4 to 5 L and was able to be weaned down to 3 L. The patient's creatinine was initially 1.1 and increased slightly to approximately 1.2 with diuresis. The patient worked with Physical Therapy and was found to have physical therapy needs. The patient had his electrolytes replaced due to diuresis as needed. An acceptable choice for the patient's rehab upon his hospitalization was unable to be found and the patient was stable and amenable for transition to swing status on 04/25/19 awaiting [facility] facility placement. PHYSICAL EXAM ON THE DAY OF DISCHARGE: General: The patient is a 69-year-old male, who appears older than stated age. He is morbidly obese and is sitting comfortably in bed, in no acute distress. Vital Signs: At the time of evaluation, temperature 97.5, pulse rate 70, respiratory rate 20, oxygen saturation 97% on 3 L, blood pressure 155/50. HEENT: Head normocephalic, atraumatic. Sclerae anicteric. No conjunctival injection. Nasal mucosa moist. Oral mucosa moist. No pharyngeal erythema, discharge, or exudate. Neck: Supple, nontender. No lymphadenopathy. Exam limited by body habitus. Cardiac: Regular rate and rhythm. No clicks, murmurs, gallops, or rubs. Pulses are 2 + in the bilateral dorsalis pedis, posterior tibialis, and radial areas. 3+ pitting edema in the bilateral lower extremities with slight erythema. No bilateral calf tenderness. Respiratory: Clear to auscultation bilaterally. No wheezes, rales or rhonchi. Good air exchange. Abdomen: Soft, nontender, nondistended. Bowel sounds present and normoactive in all 4 quadrants. No hepatosplenomegaly. No abdominal bruits auscultated. No hepatojugular reflux. Skin: Erythema as above, otherwise intact. Neuro: Cranial nerves II through XII intact. No focal deficits. Alert and oriented x3. Psychiatric: Pleasant and cooperative. DISCHARGE PLAN BY PROBLEM: 1. [id number] heart failure with preserved ejection fraction, improved. The patient has been reverted to his previous dosing of his home diuretics including 40 mg of torsemide daily and 5 mg of metolazone. The patient still has significant lymphedema, which is a chronic finding in his lower legs, but appears to be near his dry weight otherwise with regards to improvement in his lower extremity swelling and resolution of his pulmonary edema. The patient should continue with strict I's and O's and daily weights and should avoid high salt foods. The patient is on 1.5 L of fluid restriction, which he does not find burdensome and should continue on an ongoing basis. The patient should follow up with outpatient instrument checker. 2. Hypertension. Continue the patient's Imdur and diuretics as above as well as the patient's ramipril. The patient is currently generally normotensive. 3. Diabetes mellitus type 2. Continue the patient's long and short-acting insulin as well as glipizide. Continue aggressive addition of scheduled mealtime insulin based on the sliding scale results. 4. COPD. Continue the patient's Dulera and albuterol inhaler as needed. Consider addition of tiotropium outpatient and follow up with gis mapping technician. 5. Anxiety/depression. Continue the patient's Xanax, fluoxetine. 6. BPH. Continue the patient's Flomax. 7. Hyperlipidemia. Continue the patient's atorvastatin. CONDITION AT THE TIME OF DISCHARGE: Stable. DISPOSITION AT THE TIME OF DISCHARGE: Swing status. TIME SPENT: Approximately 60 minutes was spent on the discharge of this patient. DELFIN TREADWELL [id number]/CPS #: [id number]
== END 2019-04-25 14:00 | disposition swing bed (61) | DRG 292 ==
LOC: ED 12:44 → MEDTELE 17:40
PROVIDERS: ADMIT Internal Medicine; ATTEND Internal Medicine
DX: I11.0 Hypertensive heart disease with heart failure (principal); J96.11 Chronic respiratory failure with hypoxia; E66.2 Morbid (severe) obesity with alveolar hypoventilation; Z68.45 Body mass index [BMI] 70 or greater, adult; I50.33 Acute on chronic diastolic (congestive) heart failure; J44.9 Chronic obstructive pulmonary disease, unspecified; E11.9 Type 2 diabetes mellitus without complications; D64.9 Anemia, unspecified; G25.81 Restless legs syndrome; N40.0 Benign prostatic hyperplasia without lower urinary tract symptoms; I89.0 Lymphedema, not elsewhere classified; E78.00 Pure hypercholesterolemia, unspecified; K21.9 Gastro-esophageal reflux disease without esophagitis; G89.29 Other chronic pain; M54.9 Dorsalgia, unspecified; F41.9 Anxiety disorder, unspecified; F32.9 Major depressive disorder, single episode, unspecified; E78.5 Hyperlipidemia, unspecified; I45.10 Unspecified right bundle-branch block; I44.4 Left anterior fascicular block; M19.90 Unspecified osteoarthritis, unspecified site; N32.81 Overactive bladder; R29.6 Repeated falls; Z99.81 Dependence on supplemental oxygen; Z87.11 Personal history of peptic ulcer disease; Z88.2 Allergy status to sulfonamides; Z88.8 Allergy status to other drugs, medicaments and biological substances; Z79.82 Long term (current) use of aspirin; Z79.4 Long term (current) use of insulin; Z79.899 Other long term (current) drug therapy; Z28.21 Immunization not carried out because of patient refusal
CPT/HCPCS: 36415; 71045; 72110; 80048; 80053; 81003; 82607; 82746; 83036; 83735; 83880; 84155; 84460; 84484; 85025; 93005; 94640; 94660; 99285; A9270-GY; G8978-GP-CM; G8979-GP-CK; J1644; J1885; J1940; J2270; J3475

== ENCOUNTER 2019-04-25 15:31 | Inpatient (IN) | payer MEDICARE ==
[2019-04-25] MEDS ORDERED: Nystatin CREAM* 15 GM TUBE TOPICAL PRN (15:50)
[2019-04-25] MEDS ORDERED: Albuterol HFA INHALER* 8 gm MDI INH PRN (15:50)
[2019-04-25] MEDS ORDERED: Acetaminophen TAB* 325 MG PO PRN (15:53)
[2019-04-25] MEDS ORDERED: Ondansetron INJ* 2 MG/ML VIAL IV PRN (15:53)
[2019-04-25] MEDS ORDERED: Dextrose 50% VIAL 50 ml IV PUSH PRN (15:57)
[2019-04-25] MEDS: Enoxaparin(*) 40 MG/0.4 ML SYR SUBCUT SCH (17:25)
[2019-04-25] MEDS: Atorvastatin* 40 MG TAB PO SCH (17:25)
[2019-04-25] MEDS: Insulin LISPRO* 1 UNITS UNIT SUBCUT SCH ×3 (17:25→21:33)
[2019-04-25] MEDS: Mometasone/Formoter 100/5 MDI INH SCH (21:04)
[2019-04-25] MEDS: Ropinirole TAB* 0.5 MG TAB PO SCH (21:32)
[2019-04-25] MEDS: HYDROcodone/ACETAMIN 5-325 MG* 1 TAB PO PRN (21:32)
[2019-04-25] MEDS: ALPRAZolam TAB* 0.5 MG PO PRN (23:47)
[2019-04-26 06:26] LABS: ABS Eosinophils 0.3 10^3/ul (0-0.6); ABS Monocytes 0.7 10^3/ul (0-0.8); ABS Neutrophils 2.5 10^3/ul (1.5-7.7); Eosinophil % 5.6 %; Hematocrit 31 % (42-52); Hemoglobin 10.8 g/dL (14.0-18.0); Lymphocyte % 23.2 %; Mean Corpuscular HGB Conc 34 g/dL (31-36); Mean Corpuscular Hemoglobin 34 pg (27-31); Mean Corpuscular Volume 98 fL (80-94); Mean Platelet Volume 7.2 fL (7.4-10.4); Nucleated Red Blood Cells % 0.1; Platelet Count 151 10^3/uL (150-450); Red Blood Count 3.19 10^6 /uL (4.18-5.48); Red Cell Distribution Width 14 % (10-15); White Blood Count 4.5 10^3/uL (3.5-10.8)
[2019-04-26 06:45] LABS: BUN/Creatinine Ratio 22.5 (8-20); Calcium 8.9 mg/dL (8.6-10.3); EGFR African American 72.9 (>60); EGFR Non-African American 60.2 (>60); Magnesium 1.6 mg/dL (1.9-2.7); Potassium 3.5 mmol/L (3.5-5.0)
[2019-04-26] MEDS: Mometasone/Formoter 100/5 MDI INH SCH ×2 (07:26→19:07)
[2019-04-26] MEDS ORDERED: Magnesium Sulfate IV* 3 GM in NS 0.9% 100 ML* 100 ML IVPB ONE (07:49)
[2019-04-26] MEDS: Magnesium Oxide TAB* 400 MG PO SCH (09:00)
[2019-04-26] MEDS: Lactobacillus Acidophilus* 1 TAB PO SCH (09:01)
[2019-04-26] MEDS: Cetirizine* 10 MG TAB PO SCH (09:01)
[2019-04-26] MEDS: Aspirin EC TAB* 81 MG TAB.EC PO SCH (09:01)
[2019-04-26] MEDS: Oxybutynin TAB* 5 MG PO SCH (09:02)
[2019-04-26] MEDS: Potassium Chlor TAB* 20 MEQ TAB.ER PO SCH (09:02)
[2019-04-26] MEDS: Ramipril CAP* 5 MG PO SCH (09:02)
[2019-04-26] MEDS: Ascorbic Acid TAB* 500 MG PO SCH (09:02)
[2019-04-26] MEDS: Pantoprazole TAB * 40 MG TAB PO SCH (09:02)
[2019-04-26] MEDS: Multivitamins/Minerals TAB PO SCH (09:02)
[2019-04-26] MEDS: Tamsulosin CAP* 0.4 MG PO SCH (09:02)
[2019-04-26] MEDS: Isosorbide Mononitrate ER TAB* 60 MG PO SCH (09:03)
[2019-04-26] MEDS: FLUoxetine CAP* 20 MG PO SCH (09:03)
[2019-04-26] MEDS: Torsemide TAB* 20 MG PO SCH (09:03)
[2019-04-26] MEDS: glipiZIDE TAB.XL* 5 MG PO SCH (09:03)
[2019-04-26] MEDS: Insulin GLARGINE(*) 1 UNITS UNIT SUBCUT SCH (09:05)
[2019-04-26] MEDS: Insulin LISPRO* 1 UNITS UNIT SUBCUT SCH ×7 (09:05→22:05)
[2019-04-26] MEDS: Metolazone TAB* 5 MG PO SCH (09:05)
[2019-04-26] MEDS: Enoxaparin(*) 40 MG/0.4 ML SYR SUBCUT SCH (17:14)
[2019-04-26] MEDS: Atorvastatin* 40 MG TAB PO SCH (18:22)
[2019-04-26] MEDS: Ropinirole TAB* 0.5 MG TAB PO SCH (22:04)
[2019-04-26] MEDS: HYDROcodone/ACETAMIN 5-325 MG* 1 TAB PO PRN (22:04)
[2019-04-26] MEDS: ALPRAZolam TAB* 0.5 MG PO PRN (22:04)
[2019-04-27] MEDS: HYDROcodone/ACETAMIN 5-325 MG* 1 TAB PO PRN ×2 (06:21→20:46)
[2019-04-27] MEDS: Mometasone/Formoter 100/5 MDI INH SCH ×2 (07:44→21:07)
[2019-04-27] MEDS: Insulin LISPRO* 1 UNITS UNIT SUBCUT SCH ×7 (08:57→20:42)
[2019-04-27] MEDS: Insulin GLARGINE(*) 1 UNITS UNIT SUBCUT SCH (08:57)
[2019-04-27] MEDS: Ascorbic Acid TAB* 500 MG PO SCH (08:58)
[2019-04-27] MEDS: Pantoprazole TAB * 40 MG TAB PO SCH (08:58)
[2019-04-27] MEDS: Torsemide TAB* 20 MG PO SCH (08:59)
[2019-04-27] MEDS: glipiZIDE TAB.XL* 5 MG PO SCH (08:59)
[2019-04-27] MEDS: Magnesium Oxide TAB* 400 MG PO SCH (08:59)
[2019-04-27] MEDS: Ramipril CAP* 5 MG PO SCH (09:00)
[2019-04-27] MEDS: Isosorbide Mononitrate ER TAB* 60 MG PO SCH (09:00)
[2019-04-27] MEDS: FLUoxetine CAP* 20 MG PO SCH (09:00)
[2019-04-27] MEDS: Lactobacillus Acidophilus* 1 TAB PO SCH (09:00)
[2019-04-27] MEDS: Oxybutynin TAB* 5 MG PO SCH (09:00)
[2019-04-27] MEDS: Potassium Chlor TAB* 20 MEQ TAB.ER PO SCH (09:00)
[2019-04-27] MEDS: Tamsulosin CAP* 0.4 MG PO SCH (09:00)
[2019-04-27] MEDS: Cetirizine* 10 MG TAB PO SCH (09:00)
[2019-04-27] MEDS: Aspirin EC TAB* 81 MG TAB.EC PO SCH (09:01)
[2019-04-27] MEDS: Metolazone TAB* 5 MG PO SCH (09:01)
[2019-04-27] MEDS: Multivitamins/Minerals TAB PO SCH (09:01)
[2019-04-27] MEDS: Enoxaparin(*) 40 MG/0.4 ML SYR SUBCUT SCH (17:32)
[2019-04-27] MEDS: Atorvastatin* 40 MG TAB PO SCH (17:32)
[2019-04-27] MEDS: Ropinirole TAB* 0.5 MG TAB PO SCH (20:41)
[2019-04-28 06:26] LABS: ABS Eosinophils 0.3 10^3/ul (0-0.6); ABS Lymphocytes 1.2 10^3/ul (1.0-4.8); ABS Monocytes 0.8 10^3/ul (0-0.8); ABS Neutrophils 2.3 10^3/ul (1.5-7.7); Hematocrit 34 % (42-52); Hemoglobin 11.6 g/dL (14.0-18.0); Mean Corpuscular HGB Conc 34 g/dL (31-36); Mean Corpuscular Hemoglobin 34 pg (27-31); Mean Corpuscular Volume 98 fL (80-94); Mean Platelet Volume 7.4 fL (7.4-10.4); Nucleated Red Blood Cells % 0.1; Platelet Count 155 10^3/uL (150-450); Red Blood Count 3.44 10^6 /uL (4.18-5.48); Red Cell Distribution Width 14 % (10-15); White Blood Count 4.6 10^3/uL (3.5-10.8)
[2019-04-28 07:03] LABS: BUN/Creatinine Ratio 22.7 (8-20); Calcium 9.3 mg/dL (8.6-10.3); EGFR African American 67.6 (>60); EGFR Non-African American 55.9 (>60); Magnesium 1.6 mg/dL (1.9-2.7); Potassium 3.4 mmol/L (3.5-5.0)
[2019-04-28] MEDS ORDERED: Magnesium Sulfate 2 GM IV* 2 GM/50 ML BAG IVPB ONE (07:28)
[2019-04-28] MEDS: Insulin LISPRO* 1 UNITS UNIT SUBCUT SCH ×7 (08:32→21:05)
[2019-04-28] MEDS: Pantoprazole TAB * 40 MG TAB PO SCH (08:58)
[2019-04-28] MEDS: glipiZIDE TAB.XL* 5 MG PO SCH (08:58)
[2019-04-28] MEDS: Multivitamins/Minerals TAB PO SCH (08:58)
[2019-04-28] MEDS: Ramipril CAP* 5 MG PO SCH (08:58)
[2019-04-28] MEDS: Metolazone TAB* 5 MG PO SCH (08:58)
[2019-04-28] MEDS: Ascorbic Acid TAB* 500 MG PO SCH (08:58)
[2019-04-28] MEDS: Insulin GLARGINE(*) 1 UNITS UNIT SUBCUT SCH (08:59)
[2019-04-28] MEDS: Potassium Chlor TAB* 20 MEQ TAB.ER PO SCH (09:00)
[2019-04-28] MEDS: Isosorbide Mononitrate ER TAB* 60 MG PO SCH (09:00)
[2019-04-28] MEDS: Torsemide TAB* 20 MG PO SCH (09:00)
[2019-04-28] MEDS: Magnesium Oxide TAB* 400 MG PO SCH (09:00)
[2019-04-28] MEDS: Tamsulosin CAP* 0.4 MG PO SCH (09:00)
[2019-04-28] MEDS: Cetirizine* 10 MG TAB PO SCH (09:00)
[2019-04-28] MEDS: Aspirin EC TAB* 81 MG TAB.EC PO SCH (09:00)
[2019-04-28] MEDS: Lactobacillus Acidophilus* 1 TAB PO SCH (09:00)
[2019-04-28] MEDS: Oxybutynin TAB* 5 MG PO SCH (09:00)
[2019-04-28] MEDS: FLUoxetine CAP* 20 MG PO SCH (09:00)
[2019-04-28] MEDS: HYDROcodone/ACETAMIN 5-325 MG* 1 TAB PO PRN ×2 (09:06→21:04)
[2019-04-28] MEDS: Mometasone/Formoter 100/5 MDI INH SCH ×2 (09:17→19:17)
[2019-04-28] MEDS: Enoxaparin(*) 40 MG/0.4 ML SYR SUBCUT SCH (14:38)
[2019-04-28] MEDS: Atorvastatin* 40 MG TAB PO SCH (16:59)
[2019-04-28] MEDS: Ropinirole TAB* 0.5 MG TAB PO SCH (21:05)
[2019-04-29] MEDS: ALPRAZolam TAB* 0.5 MG PO PRN (01:38)
[2019-04-29] MEDS: Mometasone/Formoter 100/5 MDI INH SCH ×2 (07:32→19:36)
[2019-04-29] MEDS: Insulin GLARGINE(*) 1 UNITS UNIT SUBCUT SCH (09:23)
[2019-04-29] MEDS: Insulin LISPRO* 1 UNITS UNIT SUBCUT SCH ×7 (09:24→20:41)
[2019-04-29] MEDS: Lactobacillus Acidophilus* 1 TAB PO SCH (09:24)
[2019-04-29] MEDS: Metolazone TAB* 5 MG PO SCH (09:24)
[2019-04-29] MEDS: Cetirizine* 10 MG TAB PO SCH (09:25)
[2019-04-29] MEDS: glipiZIDE TAB.XL* 5 MG PO SCH (09:25)
[2019-04-29] MEDS: Ramipril CAP* 5 MG PO SCH (09:25)
[2019-04-29] MEDS: Multivitamins/Minerals TAB PO SCH (09:25)
[2019-04-29] MEDS: Ascorbic Acid TAB* 500 MG PO SCH (09:25)
[2019-04-29] MEDS: FLUoxetine CAP* 20 MG PO SCH (09:25)
[2019-04-29] MEDS: Aspirin EC TAB* 81 MG TAB.EC PO SCH (09:25)
[2019-04-29] MEDS: Isosorbide Mononitrate ER TAB* 60 MG PO SCH (09:25)
[2019-04-29] MEDS: Magnesium Oxide TAB* 400 MG PO SCH (09:25)
[2019-04-29] MEDS: Tamsulosin CAP* 0.4 MG PO SCH (09:25)
[2019-04-29] MEDS: Oxybutynin TAB* 5 MG PO SCH (09:26)
[2019-04-29] MEDS: Torsemide TAB* 20 MG PO SCH (09:26)
[2019-04-29] MEDS: Pantoprazole TAB * 40 MG TAB PO SCH (09:26)
[2019-04-29] MEDS: Potassium Chlor TAB* 20 MEQ TAB.ER PO SCH (09:26)
[2019-04-29] MEDS: HYDROcodone/ACETAMIN 5-325 MG* 1 TAB PO PRN ×2 (16:17→20:40)
[2019-04-29] MEDS: Enoxaparin(*) 40 MG/0.4 ML SYR SUBCUT SCH (16:17)
[2019-04-29] MEDS: Atorvastatin* 40 MG TAB PO SCH (17:24)
[2019-04-29] MEDS: Ropinirole TAB* 0.5 MG TAB PO SCH (20:41)
[2019-04-30] MEDS: ALPRAZolam TAB* 0.5 MG PO PRN ×2 (02:52→14:14)
[2019-04-30] MEDS: HYDROcodone/ACETAMIN 5-325 MG* 1 TAB PO PRN ×2 (02:52→09:13)
[2019-04-30] MEDS: Mometasone/Formoter 100/5 MDI INH SCH (07:46)
[2019-04-30] MEDS: Insulin GLARGINE(*) 1 UNITS UNIT SUBCUT SCH (09:09)
[2019-04-30] MEDS: Insulin LISPRO* 1 UNITS UNIT SUBCUT SCH ×3 (09:09→13:06)
[2019-04-30] MEDS: Ramipril CAP* 5 MG PO SCH (09:12)
[2019-04-30] MEDS: Metolazone TAB* 5 MG PO SCH (09:12)
[2019-04-30] MEDS: Tamsulosin CAP* 0.4 MG PO SCH (09:12)
[2019-04-30] MEDS: Torsemide TAB* 20 MG PO SCH (09:12)
[2019-04-30] MEDS: Ascorbic Acid TAB* 500 MG PO SCH (09:12)
[2019-04-30] MEDS: Isosorbide Mononitrate ER TAB* 60 MG PO SCH (09:13)
[2019-04-30] MEDS: Lactobacillus Acidophilus* 1 TAB PO SCH (09:13)
[2019-04-30] MEDS: Oxybutynin TAB* 5 MG PO SCH (09:13)
[2019-04-30] MEDS: glipiZIDE TAB.XL* 5 MG PO SCH (09:13)
[2019-04-30] MEDS: Potassium Chlor TAB* 20 MEQ TAB.ER PO SCH (09:13)
[2019-04-30] MEDS: Pantoprazole TAB * 40 MG TAB PO SCH (09:13)
[2019-04-30] MEDS: Aspirin EC TAB* 81 MG TAB.EC PO SCH (09:13)
[2019-04-30] MEDS: FLUoxetine CAP* 20 MG PO SCH (09:13)
[2019-04-30] MEDS: Cetirizine* 10 MG TAB PO SCH (09:13)
[2019-04-30] MEDS: Multivitamins/Minerals TAB PO SCH (09:13)
[2019-04-30] MEDS: Magnesium Oxide TAB* 400 MG PO SCH (09:13)
[2019-04-30 10:34] VITALS: BP 132/54
--- NOTE | 2019-04-30 11:38 | DS ---
CC: Dr. Kolton Tidwell * DATE OF ADMISSION: 04/25/2019. DATE OF DISCHARGE: 04/30/2019. PRIMARY CARE PHYSICIAN: Dr. Kolton Tidwell. ATTENDING PHYSICIAN: Dr. Darnell Smyth * (dictated by DELFIN Chauhan). PRIMARY DIAGNOSIS: 1. Acute on chronic diastolic heart failure. SECONDARY DIAGNOSES: 1. COPD. 2. Chronic hypoxic respiratory failure one 3 liters NC at all times. 3. Obesity hypoventilation syndrome. 4. Diabetes mellitus type 2, insulin dependent. 5. Obstructive sleep apnea, BiPAP. 6. Hypertension. 7. Hyperlipidemia. 8. Morbid obesity. 9. Mild anemia. 10. Restless leg syndrome. 11. Benign prostatic hypertrophy. 12. Lymphedema. 13. GERD. 14. Chronic back pain. 15. Heart failure, preserved ejection fraction. DISCHARGE MEDICATIONS: Home Medications: 1. Albuterol HFA inhaler two puffs inhalation q.4 hours prn. 2. Alprazolam 0.5 mg p.o. q.4 hours prn. 3. Ascorbic acid 500 mg p.o. daily. 4. Aspirin 81 mg p.o. daily. 5. Atorvastatin 40 mg p.o. at bedtime. 6. Symbicort 80/4.5 two puffs inhalation b.i.d. 7. Fluoxetine 20 mg p.o. daily. 8. Glipizide 10 mg p.o. daily. 9. Hydrocodone/acetaminophen 10/325 one tab p.o. q.4 hours prn. 10. Isosorbide Mononitrate ER 60 mg p.o. daily. 11. Floranex tab two chews p.o. daily. 12. Loratadine 10 mg p.o. daily. 13. Metolazone 5 mg p.o. daily. 14. Multivitamin/minerals one tab p.o. daily. 15. Nystatin one application topically b.i.d. prn. 16. Oxybutynin 5 mg p.o. daily. 17. Pantoprazole 40 mg p.o. daily. 18. Potassium Chloride 20 mEq p.o. daily. 19. Ramipril 5 mg p.o. daily. 20. Ropinirole 0.5 mg p.o. at bedtime. 21. Tamsulosin 0.4 mg p.o. daily. 22. Torsemide 40 mg p.o. daily. Dunmor Medications: 1. Insulin Lispro 5 units subcu a.c. 2. Magnesium Oxide 800 mg p.o. daily. Changed Home Medications: 1. Insulin Glargine increased to 63 units subcu daily. HISTORY OF PRESENT ILLNESS/HOSPITAL COURSE: Mr. Levy is a 69-year-old male with a past medical history of heart failure, preserved ejection fraction, hypertension, hyperlipidemia, diabetes mellitus type 2 insulin dependent, COPD on 3 liters nasal cannula, obesity, and hypoventilation syndrome who presented to the ER on April 18 with complaints of shortness of breath, lower extremity edema, and recent fall. He was admitted to the hospital from April 18 to April 20. For full and complete details, please see the discharge summary dictated by DELFIN Waggoner. In short, the patient was admitted for this time with the diagnosis of acute exacerbation of heart failure with preserved ejection fraction. He was treated with IV Lasix and achieved a three pound weight loss during this time. His oxygen requirements decreased back to his baseline of 3 liters at the time of discharge. He was assessed by Physical Therapy and was found to be a candidate for snf facility and subacute rehab. He was transitioned to swing status from April 25 to April 30 while awaiting placement at a snf facility. During that time, the patient was continued on his home diuretics of Torsemide 40 and metolazone 5 with good results. He adhered to a heart-healthy, low salt diet and a 1.5 liter fluid restriction with good tolerance. His blood sugars were well-controlled with increase in Glargine to 63 units. He also received Glipizide 5 units a.c. in addition to sliding scale. At the time of discharge, Mr. Levy states he is tired. He is breathing "okay" and feels that he is back to baseline. He does complain of shortness of breath, but again feels he is back to baseline and is currently requiring his baseline 3 liters of oxygen. He states that the swelling in his lower extremities is "way better" and has returned to normal. He had a bowel movement yesterday. He complains of low back pain that he states is chronic and rated at 6/10 currently. Mr. Levy is stable for discharge to [facility]. Vital signs: Temperature 98.7 oral, heart rate 70, respiratory rate 20, oxygen saturation 97 percent, blood pressure 122/42. PHYSICAL EXAMINATION: General: Mr. Levy is a well-developed, well- nourished, obese, 69-year-old male who is lying in bed with the head of the bed elevated. He appears to be in no acute distress. He moves with some difficulty. HEENT: PERRL, EOMI. Sclerae is nonicteric. Hearing is grossly intact. Oral mucous membranes are mildly dry. There are no lesions. The pharynx is clear. The tongue is at midline. Palate elevates symmetrically. Cardiovascular: Regular rate and rhythm with S1, S2 present without murmurs, rubs, clicks, or gallops. There is no JVD. There is bilateral lower extremity lymphedema with trace pitting. Pulmonary: Symmetrical chest expansion without use of accessory muscles. Clear to auscultation bilaterally without rales, rhonchi, or wheeze. No digital clubbing or cyanosis. Abdomen: Obese. There is a large scar in the upper abdomen. Bowel sounds in all quadrants. Soft, nontender to palpation. Musculoskeletal: Upper extremities with full range of motion. Bilateral lower extremity with limited range of motion due to inability to fully flex the hips due to abdomen impeding movement. Neuro: The patient is awake. He is alert and oriented times three. Cranial nerves II through XII are grossly intact. Strength is 5/5 bilaterally in the upper and lower extremities. Founder [employer] Chief [employer] strength is equal. DISCHARGE PLAN: Mr. Levy will be discharged to [facility]. Medications as above. DIET: 1. Heart-healthy, avoid sodium. 2. 1.5 liter fluid restriction. CONDITION ON DISCHARGE: Fair. ACTIVITY: As tolerated. EDUCATION: 1. Follow-up with primary care provider at discharge from [facility]. 2. Follow-up with Pulmonology at discharge from [facility]. 3. Follow-up with Cardiology at discharge from [facility]. 4. Continue fingersticks a.c. and at bedtime. This is a summarized report of a complex medical history and hospital stay. For further details, please see the entire medical record. TIME SPENT: Approximately 35 minutes were spent on this discharge, greater than half that time was spent [id number] with the patient discussing discharge plans and instructions. NATHALIE ACKERMAN, DELFIN [id number]/[facility] #: [id number] JEANNIE
== END 2019-04-30 14:25 | DRG 292 ==
LOC: MEDTELE 15:31 → MED 04-27 19:50
PROVIDERS: ADMIT Internal Medicine; ATTEND Internal Medicine
DX: I11.0 Hypertensive heart disease with heart failure (principal); E66.2 Morbid (severe) obesity with alveolar hypoventilation; Z68.44 Body mass index [BMI] 60.0-69.9, adult; J96.11 Chronic respiratory failure with hypoxia; I50.33 Acute on chronic diastolic (congestive) heart failure; N40.0 Benign prostatic hyperplasia without lower urinary tract symptoms; K21.9 Gastro-esophageal reflux disease without esophagitis; E11.9 Type 2 diabetes mellitus without complications; G25.81 Restless legs syndrome; E78.00 Pure hypercholesterolemia, unspecified; I89.0 Lymphedema, not elsewhere classified; G89.29 Other chronic pain; M54.9 Dorsalgia, unspecified; J44.9 Chronic obstructive pulmonary disease, unspecified; F41.9 Anxiety disorder, unspecified; F32.9 Major depressive disorder, single episode, unspecified; E78.5 Hyperlipidemia, unspecified; D64.9 Anemia, unspecified; Z99.81 Dependence on supplemental oxygen; Z79.82 Long term (current) use of aspirin; Z79.899 Other long term (current) drug therapy; Z79.4 Long term (current) use of insulin
CPT/HCPCS: 36415; 80048; 83735; 85025; 94640; A9270-GY; G8978-GP-CK; G8979-GP-CI; J1650; J3475

== ENCOUNTER 2019-05-24 17:11 | Inpatient (IN) | payer MEDICARE ==
--- NOTE | 2019-05-24 17:34 | ED ---
Shortness of Breath - HPI Summary HPI Summary: This pt is a 69 Y/O M with a CC of SOB that started yesterday. He states that he takes 3 L while at home due to a Hx of COPD. He states that he has had a fever at 101.7 F with a productive cough and nausea. He states that his cough produces yellow sputum and he is currently having episodes of hematuria. He states that he has a bad headache. He rates his headache a 10/10 in severity. He denies any CP, diarrhea, and vomiting. He has no aggravating or alleviating factors. He has a PMHx of kidney stones, COPD, Type 2 diabetes, and CHF. - History of Current Complaint Chief Complaint: EDShortnessOfBreath Time Seen by Provider: 05/24/19 17:24 Hx Obtained From: Patient Onset/Duration: Sudden Onset, Lasting Days - 1, Still Present Timing: Constant Current Severity: Mild Dyspnea At: Rest Aggravating Factors: Nothing Alleviating Factors: Nothing Associated Signs & Symptoms: Negative - CP, diarrhea, and vomiting, Cough ( Productive) - yellow sputum, Fever - 101.7 F Related History: Obesity - Allergy/Home Medications Allergies/Adverse Reactions: Allergies Allergy/AdvReac Type Severity Reaction Status Date / Time canagliflozin Allergy Unknown Verified 01/15/18 11:26 Reaction Details Sulfa (Sulfonamide Allergy Unknown Verified 01/15/18 11:26 Antibiotics) Reaction Details PMH/Surg Hx/FS Hx/Imm Hx Previously Healthy: Yes Endocrine/Hematology History: Reports: Hx Diabetes - type 2, Hx Anemia Cardiovascular History: Reports: Hx Congestive Heart Failure, Hx Hypercholesterolemia, Hx Hypertension Respiratory History: Reports: Hx Asthma, Hx Chronic Obstructive Pulmonary Disease (COPD), Other Respiratory Problems/Disorders - PARALYZED DIAPHRAM ( LEFT ) PER PT. / MULTIPLE ABD SURGERIES GI History: Reports: Hx Gastroesophageal Reflux Disease, Hx Gastrointestinal Bleed, Other GI Disorders - gastric ulcer perf, multiple feeding tubes, infections post surgery History: Denies: Hx Acute Renal Failure, Hx Chronic Renal Failure Musculoskeletal History: Reports: Hx Arthritis Sensory History: Reports: Hx Hearing Problem Denies: Hx Contacts or Glasses, Hx Hearing Aid Opthamlomology History: Denies: Hx Contacts or Glasses Psychiatric History: Reports: Hx Anxiety - Cancer History Hx Chemotherapy: No Hx Radiation Therapy: No - Surgical History Surgical History: Yes Surgery Procedure, Year, and Place: Abd surgery on 08/03/14 Infectious Disease History: No Infectious Disease History: Denies: Traveled Outside the [place] in Last 30 Days - Family History Known Family History: Negative: Renal Disease - Social History Occupation: Retired Lives: Alone Alcohol Use: None Hx Substance Use: Yes Substance Use Type: Reports: Prescribed Substance Use Comment - Amount & Last Used: hydrocodone Hx Tobacco Use: No Smoking Status (MU): Never Smoked Tobacco Review of Systems Positive: Fever - 101.7 F Negative: Chest Pain Positive: Shortness Of Breath, Cough - productive, yellpw sputum Positive: Nausea. Negative: Vomiting, Diarrhea Positive: hematuria Positive: Headache All Other Systems Reviewed And Are Negative: Yes Physical Exam - Summary Physical Exam Summary: VITAL SIGNS: Reviewed. GENERAL: Morbidly obese male on 2 L without respiratory distress who is lying comfortable in the stretcher. Patient is not in any acute respiratory distress. HEAD AND FACE: No signs of trauma. No ecchymosis, hematomas or skull depressions. No sinus tenderness. EYES: PERRLA, EOMI x 2, No injected conjunctiva, no nystagmus. EARS: Hearing grossly intact. Ear canals and tympanic membranes are within normal limits. MOUTH: Oropharynx within normal limits. NECK: Supple, trachea is midline, no adenopathy, no JVD, no carotid bruit, no c- spine tenderness, neck with full ROM. CHEST: Symmetric, no tenderness at palpation LUNGS: Diffuse bilateral wheezing, crackles on the base of the lungs. No wheezing. CVS: Regular rate and rhythm, S1 and S2 present, no murmurs or gallops appreciated. ABDOMEN: Soft, non-tender. No signs of distention. No rebound no guarding, and no masses palpated. Bowel sounds are normal. EXTREMITIES: FROM in all major joints, 2+ pitting edema in lower extremities. no cyanosis or clubbing. NEURO: Alert and oriented x 3. No acute neurological deficits. Speech is normal and follows commands. SKIN: Dry and warm Triage Information Reviewed: Yes Vital Signs On Initial Exam: Initial Vitals Temp Pulse Resp BP Pulse Ox 99.6 F 87 25 137/45 95 05/24/19 17:17 05/24/19 17:17 05/24/19 17:17 05/24/19 17:17 05/24/19 17:17 Vital Signs Reviewed: Yes Procedures - Sedation Patient Received Moderate/Deep Sedation with Procedure: No Diagnostics - Vital Signs Vital Signs Temp Pulse Resp BP Pulse Ox 05/24/19 17:17 99.6 F 87 25 137/45 95 - Laboratory Result Diagrams: 05/24/19 17:24 05/24/19 17:24 Lab Statement: Any lab studies that have been ordered have been reviewed, and results considered in the medical decision making process. - Radiology CXR Radiology Interpretation Completed By: ED Physician Summary of Radiographic Findings: Nothing of the L node, questionable R lower lobe infiltrate. Pending offical review. - EKG 1731 Cardiac Rate: NL - 92 BPM EKG Rhythm: Sinus Rhythm ST Segment: Normal EKG Comparison: No Significant Change - 04/18/19 Summary of EKG Findings: An EKG at 1731 reveals NSR 92 BPM with a RBBB, nml intervals. No STEMI. No acute changes from 04/18/19. Interpreted by Dr. López, 04/2020 1733. Course/Dx - Diagnoses Provider Diagnoses: COPD exacerbation, PNA (pneumonia) - Physician Notifications Discussed Care of Patient With: Sarithaeber Silva Time Discussed With Above Provider: 18:38 Instructed by Provider To: Admit As Inpatient Admit/Transition Orders Completed By ED Provider: Yes Discharge ED - Sign-Out/Discharge Documenting (check all that apply): Patient Departure - admitted - Discharge Plan Condition: Stable Disposition: ADMITTED TO [facility] Referrals: Kolton Tidwell MD [Primary Care Provider] - - Attestation Statements Document Initiated by Scribe: Yes Documenting Scribe: Melvin Krishnamurthy Provider For Whom Scribe is Documenting (Include Credential): Arnulfo López MD Scribe Attestation: Melvin Sandhu, scribed for Arnulfo López MD on 05/24/19 at 1837. Status of Scribe Document: Ready
[2019-05-24] MEDS ORDERED: methylPREDNISolone 125 MG* 2 ML VIAL IV ONE (17:38)
[2019-05-24] MEDS ORDERED: Albuterol/Ipratropium NEB.SOL* Albuterol 2.5 MG/Ipratropium 0.5 MG 3 ML INH ONE (17:38)
[2019-05-24 18:13] LABS: ABS Lymphocytes 0.5 10^3/ul (1.0-4.8); ABS Neutrophils 6.6 10^3/ul (1.5-7.7); Eosinophil % 0.2 %; Hematocrit 39 % (42-52); Hemoglobin 13.5 g/dL (14.0-18.0); Lymphocyte % 6.5 %; Mean Corpuscular HGB Conc 35 g/dL (31-36); Mean Corpuscular Hemoglobin 33 pg (27-31); Mean Corpuscular Volume 95 fL (80-94); Mean Platelet Volume 7.7 fL (7.4-10.4); Platelet Count 141 10^3/uL (150-450); Red Blood Count 4.04 10^6 /uL (4.18-5.48); Red Cell Distribution Width 15 % (10-15); White Blood Count 8.2 10^3/uL (3.5-10.8)
[2019-05-24 18:30] LABS: ALT 41 U/L (7-52); AST 38 U/L (13-39); Albumin 3.6 g/dL (3.2-5.2); Albumin/Globulin Ratio 0.9 (1-3); Alkaline Phosphatase 59 U/L (34-104); Anion Gap 10 mmol/L (2-11); BUN/Creatinine Ratio 28.9 (8-20); Blood Urea Nitrogen 48 mg/dL (6-24); C Reactive Protein 82.46 mg/L (<8.01); CO2 Carbon Dioxide 29 mmol/L (22-32); Calcium 9.3 mg/dL (8.6-10.3); Chloride 92 mmol/L (101-111); Creatine Kinase 130 U/L (10-223); EGFR African American 50.1 (>60); EGFR Non-African American 41.4 (>60); Globulin 4.2 g/dL (2-4); Glucose 215 mg/dL (70-100); Potassium 3.1 mmol/L (3.5-5.0); Sodium 131 mmol/L (135-145); Total Protein 7.8 g/dL (6.4-8.9)
[2019-05-24] MEDS ORDERED: Potassium Chlor TAB* 20 MEQ TAB.ER PO ONE ×2 (18:34→21:00)
[2019-05-24 18:35] LABS: CKMB ng/mL 0.7 ng/mL (0.6-6.3)
[2019-05-24] MEDS ORDERED: cefTRIAXone(*) 1 GM in NS 0.9% 50 ML* 50 ML IVPB ONE (18:35)
[2019-05-24] MEDS ORDERED: Azithromycin 500 mg/250 ml NS 500 MG/250 ML BAG IVPB ONE (18:36)
[2019-05-24 18:38] LABS: Troponin I 0.04 ng/mL (<0.03)
[2019-05-24] MEDS ORDERED: Aspirin 81 mg CHEW TAB* 81 MG TAB.CHEW PO ONE (18:42)
[2019-05-24 18:55] LABS: Magnesium 1.5 mg/dL (1.9-2.7)
[2019-05-24] MEDS ORDERED: NS 0.9% 1000 ML** 2,000 ML IV ONE (19:03)
[2019-05-24] MEDS ORDERED: Magnesium Sulf 4 GM/100 ML IV* 4,000 MG/100 ML BAG IVPB ONE (19:23)
[2019-05-24] MEDS ORDERED: HYDROcodone/ACETAMIN 5-325 MG* 1 TAB PO PRN (19:26)
[2019-05-24] MEDS ORDERED: Albuterol HFA INHALER* 8 gm MDI INH PRN (19:29)
[2019-05-24] MEDS ORDERED: Acetaminophen TAB* 325 MG PO PRN (20:01)
[2019-05-24] MEDS ORDERED: PROCHLORPERAZINE INJ 5 MG/ML 2 ML VIAL IV PRN (20:04)
[2019-05-24 20:44] LABS: Troponin I 0.03 ng/mL (<0.03)
[2019-05-24] MEDS: ALPRAZolam TAB* 0.5 MG PO PRN (21:10)
[2019-05-24] MEDS: HYDROcodone/ACETAMIN 5-325 MG* 1 TAB PO PRN (21:10)
[2019-05-24] MEDS: Enoxaparin(*) 40 MG/0.4 ML SYR SUBCUT SCH (21:12)
[2019-05-24 21:40] LABS: Influenza A Molecular NEGATIVE (Negative); Influenza B Molecular NEGATIVE (Negative)
[2019-05-24] MEDS: Albuterol/Ipratropium NEB.SOL* Albuterol 2.5 MG/Ipratropium 0.5 MG 3 ML INH SCH (23:05)
[2019-05-24] MEDS: Mometasone/Formoter 100/5 MDI INH SCH (23:10)
[2019-05-24 23:43] LABS: Urine Appearance Cloudy; Urine Bilirubin Negative (Negative); Urine Blood 2+ (Negative); Urine Color Yellow; Urine Glucose Negative (Negative); Urine Ketones Negative (Negative); Urine Nitrite Positive (Negative); Urine Protein Negative (Negative); Urine Specific Gravity 1.008 (1.010-1.030); Urine Urobilinogen Negative (Negative)
--- NOTE | 2019-05-24 23:45 | HP ---
ADMISSION HISTORY AND PHYSICAL: DATE OF ADMISSION: 05/24/19 PRIMARY CARE PHYSICIAN: Dr. Tidwell. PROVIDER: Saroj Lao NP ATTENDING PHYSICIAN: Dr. Patel.* (DICTATED BY SAROJ LAO NP) CHIEF COMPLAINT: Shortness of breath, fever, productive cough. HISTORY OF PRESENT ILLNESS: This is a 69-year-old male with a past medical history significant for CHF, COPD, and diabetes, type 2, who presented to the emergency room today for a 1-day history of shortness of breath, productive cough producing yellow sputum, weakness, and fatigue. Of note, he passed a kidney stone on Saturday with dry heaves before and continued dry heaves up until today. On this past 05/19/19, he returned home from several weeks' stay at [facility] after having been admitted to [facility] from 04/18/19 through 04/30/19 after having fallen with weakness and bilateral lower extremity edema. He was not sure of any sick contacts, but he did note that some of his therapists at [facility] were coughing in his room, but otherwise, no overly sick contacts. In the emergency room, labs were drawn, chest x-ray was done. He received azithromycin, ceftriaxone through the IV. 2 L of normal saline was ordered. He also received 324 of aspirin and DuoNeb treatment and methylprednisolone after which, he stated he felt mildly better. His breathing was less labored. He did state that he was in 10/10 pain to his back and his neck as he has chronic back pain that was exacerbated by the ambulance ride. Hospitalists were asked to evaluate the patient for admission. PAST MEDICAL HISTORY: CHF with preserved ejection fraction of 60% to 65% on an echo from 2018; COPD, on 3 to 5 L depending on his activity level; obesity with hypoventilation syndrome; diabetes, type 2; anemia; obstructive sleep apnea with CPAP; restless legs syndrome; lymphedema; hypercholesterolemia; GERD; chronic back pain; nephrolithiasis. PAST SURGICAL HISTORY: Panniculectomy; repair of peptic ulcer with complications; hernia repair with complications; at least 2 bowel resections, but overall a total of over 10 separate abdominal surgeries. MEDICATIONS: Home medications: 1. Glipizide 10 mg p.o. daily. 2. Torsemide 40 mg p.o. daily. 3. Tamsulosin 0.4 mg p.o. daily. 4. Ropinirole 0.5 mg p.o. at bedtime. 5. Ramipril 5 mg p.o. q.a.m. 6. Potassium chloride 20 mEq p.o. q.a.m. 7. Pantoprazole 40 mg p.o. daily. 8. Oxybutynin 5 mg p.o. daily. 9. Nystatin cream 1 topically b.i.d. p.r.n. 10. Multivitamin 1 tab p.o. daily. 11. Metolazone 5 mg p.o. daily. 12. Magnesium oxide 800 mg p.o. daily. 13. Loratadine 10 mg p.o. daily. 14. Acidophilus 2 chewable p.o. daily. 15. Isosorbide mononitrate 60 mg p.o. daily. 16. Insulin lispro 5 units subcu a.c. 17. Insulin glargine 63 units subcu daily. 18. Hydrocodone/acetaminophen 10/325 mg 1 p.o. q.4 hours p.r.n. 19. Fluoxetine 20 mg p.o. q.a.m. 20. Budesonide/formoterol 80/4.5 two puffs inhalation b.i.d. 21. Atorvastatin 40 mg p.o. q.p.m. 22. Aspirin 81 mg p.o. daily. 23. Ascorbic acid 500 mg p.o. daily. 24. Albuterol 2 puffs inhalation q.4 hours p.r.n. 25. Alprazolam 0.5 mg p.o. q.4 hours p.r.n. ALLERGIES: To CANAGLIFLOZIN and SULFA. FAMILY HISTORY: Significant for mother, father, and brother having diabetes, type 2. Mother due to congestive heart failure. Father secondary to sepsis. Brother secondary to cancer. SOCIAL HISTORY: Denies any tobacco, EtOH, or substance use. 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 He is and has 2 children. REVIEW OF SYSTEMS: A 14-point system review was performed, which was positive urinary incontinence. No appetite for the past few days with minimal fluid and food intake. Shortness of breath, productive cough with yellow sputum, fever, chills, headache, nausea, weakness, and fatigue. He is negative for chest pain , vomiting. PHYSICAL EXAMINATION GENERAL: This is a well-developed, morbidly obese gentleman seen resting in the stretcher, in mild distress. VITAL SIGNS: 99.6 Fahrenheit, 87 pulse, 25 respirations, 95% oxygen on 3 L, 137 /45 blood pressure. HEENT: Conjunctivae pink and moist. PERRLA. EOMs intact. Oropharynx clear. Mucous membranes dry. NECK: Obese and supple. RESPIRATORY: Lung sounds difficult to auscultate due to body habitus, though diminished in bilateral bases, on 3 L of oxygen via nasal cannula with no accessory muscle use noted. CARDIAC: S1, S2 present. Heart rate regular. No murmurs, gallops, or rubs appreciated. ABDOMEN: Large, soft, nontender, nondistended with normoactive bowel sounds x4. MUSCULOSKELETAL: No clubbing or cyanosis of the digits. Full range of motion of all extremities. He has moderate nonpitting edema to bilateral lower extremities, which are soft and supple, however, left is greater than right. NEURO: No focal deficits appreciated. Sensation intact to light touch. PSYCH: Alert and oriented x3. Thought content organized. SKIN: Noted red scaly patches to bilateral cheeks and nose. DIAGNOSTIC STUDIES/LAB DATA: Still awaiting Radiology reading of the chest x- ray. RBC 4.04, hemoglobin 13.5, hematocrit 39, MCV 95, MCH 33, platelet count 141. AB.52, CO2 of 32, PO2 of 136, HCO3 of 27.8, O2 saturation 100%, base excess 3.7. Sodium 131, potassium 3.1, chloride 92, BUN 48, creatinine 1.66, BUN/ creatinine ratio 28.9, GFR 41.4, glucose 215, lactic acid 2.3, magnesium 1.5. Total bilirubin 1.2. Troponin 0.04. C-reactive protein 82.46. B-natriuretic peptide 41. ASSESSMENT AND PLAN: My impression is this is a 69-year-old male with a past medical history significant for congestive heart failure, chronic obstructive pulmonary disease, and diabetes, type 2, who is admitted on 05/24/19 for sepsis secondary to pneumonia, possibly urosepsis. 1. Sepsis as evidenced by lactic acid greater than 2, respiratory rate of 25, still waiting official read of the chest x-ray. However, due to shortness of breath, productive cough, and initial fever, this is why I think this more likely due to pneumonia; however, the patient did pass a kidney stone at home on Saturday, so there is a possibility that this sepsis could also be secondary to a urinary tract infection. So, we will send urinalysis as well as check urine for legionella antigen and Streptococcus pneumoniae antigen. In the emergency room, he did receive ceftriaxone and azithromycin, which we will continue during his stay as well as Mucinex and prednisone. We will draw serial lactic acid at 8:30. However, the patient is normotensive, I do not believe that he will need any vasopressin. So, I feel that he is safe to be admitted to the floor. Due to the fact that the patient tends to become deconditioned quickly and recently came from rehab, I will order Physical Therapy to see him tomorrow. Please order DuoNeb as needed and we will do a burst dosing of prednisone of 40 mg daily for 5 days. 2. Electrolyte imbalances. Magnesium was 1.5, potassium 3.2. The patient chronically has issues with keeping these levels within normal limits. This is probably secondary to compromised kidney function. Ordered 4 g of IV magnesium with p.o. supplementation of potassium to follow. We will redraw BMP in the a.m. 3. Elevated troponin. Troponin is 0.04. EKG shows some ST depression. We will trend troponins every 3 hours until they decrease. I feel that this is likely secondary to ischemic demand. This should improve with IV fluids. We will recheck troponin and EKG at 2030. 4. Congestive heart failure with preserved ejection fraction. We should do daily weights. We will hold metolazone and torsemide as we are currently trying to rehydrate the patient. 5. Chronic obstructive pulmonary disease. Normally, he wears 3 L of oxygen at baseline, though we will increase it to 5 depending on the level of his activity. I do not believe that he is in acute exacerbation despite the presence of possible pneumonia, as he is not having any increased oxygen demand. Continue DuoNeb and cetirizine. 6. Obstructive sleep apnea. The patient is to continue using his home CPAP. 7. Chronic back pain. This is from a previous injury that has gone back years. He takes hydrocodone on an as needed basis at home. We will reorder for here. 8. Overactive bladder. According to his family members, this has progressively gotten worse in the past month where he will stand up and void sometimes without knowing that he has done so. We will continue the oxybutynin. He should follow up with Urology on an outpatient basis. However, family members told me that this is not something that he wishes to pursue. 9. Diabetes, type 2. His glucose was slightly elevated upon admission. We will continue his glipizide, Lantus, and lispro with fingersticks a.c. and h.s. and a consistent carb diet. 10. Hypercholesterolemia. We will continue atorvastatin. 11. Anxiety. Continue sertraline and alprazolam. 12. Restless legs syndrome. Continue Requip. 13. Gastroesophageal reflux disease. He has no signs or symptoms of indigestion at this time. Continue his Protonix. 14. Hypertension. Due to elevated creatinine function and blood pressure being within normal range, I am inclined to hold his ramipril until I see an increase in his creatinine or unless his blood pressure becomes out of control. I am also holding furosemide and metolazone due to rehydration attempts at the moment. 15. Coronary artery disease. Continue baby aspirin and isosorbide mononitrate. 16. Benign prostatic hyperplasia. Continue tamsulosin. 17. DVT prophylaxis. Initiated Lovenox. 18. Code status is full code. 19. Disposition is to admit inpatient to [address] [place] [address]. CONDITION: Guarded. TIME SPENT: Time spent on the patient is 60 minutes with half of that spent face- to-face. Plan of care was discussed with my attending and they agree. SAROJ LAO, LISA [id number]/[facility] #: [id number] JEANNIE
[2019-05-24 23:50] LABS: Urine Bacteria Absent (Absent); Urine Red Blood Cell 2+(6-10/hpf) (Absent); Urine White Blood Cell 3+(>20/hpf) (Absent)
[2019-05-25] MEDS: Ropinirole TAB* 0.5 MG TAB PO SCH ×2 (00:20→21:05)
[2019-05-25] MEDS: guaiFENesin ER TAB 600 MG PO SCH ×3 (00:20→21:05)
[2019-05-25] MEDS: NS 0.9% 1000 ML** 1,000 ML IV SCH ×2 (00:20→13:00)
[2019-05-25] MEDS: Albuterol/Ipratropium NEB.SOL* Albuterol 2.5 MG/Ipratropium 0.5 MG 3 ML INH SCH ×2 (03:10→07:37)
[2019-05-25 05:55] LABS: Hematocrit 35 % (42-52); Hemoglobin 12.6 g/dL (14.0-18.0); Mean Corpuscular HGB Conc 36 g/dL (31-36); Mean Corpuscular Hemoglobin 35 pg (27-31); Mean Corpuscular Volume 96 fL (80-94); Mean Platelet Volume 7.7 fL (7.4-10.4); Platelet Count 117 10^3/uL (150-450); Red Blood Count 3.63 10^6 /uL (4.18-5.48); Red Cell Distribution Width 15 % (10-15); White Blood Count 4.8 10^3/uL (3.5-10.8)
[2019-05-25 06:11] LABS: BUN/Creatinine Ratio 32.1 (8-20); Calcium 8.3 mg/dL (8.6-10.3); EGFR African American 53.8 (>60); EGFR Non-African American 44.5 (>60); Potassium 3.5 mmol/L (3.5-5.0)
[2019-05-25] MEDS ORDERED: Insulin LISPRO* 1 UNITS UNIT SUBCUT SCH (07:30)
[2019-05-25] MEDS: Mometasone/Formoter 100/5 MDI INH SCH ×2 (07:36→20:11)
[2019-05-25] MEDS ORDERED: Dextrose 50% VIAL 50 ml IV PUSH PRN (08:08)
[2019-05-25] MEDS: Insulin LISPRO* 1 UNITS UNIT SUBCUT SCH ×4 (08:45→21:09)
[2019-05-25] MEDS: Insulin GLARGINE(*) 1 UNITS UNIT SUBCUT SCH (08:46)
[2019-05-25] MEDS: Isosorbide Mononitrate ER TAB* 60 MG PO SCH (08:47)
[2019-05-25] MEDS: glipiZIDE TAB.XL* 5 MG PO SCH (08:47)
[2019-05-25] MEDS: Cetirizine* 10 MG TAB PO SCH (08:48)
[2019-05-25] MEDS: Tamsulosin CAP* 0.4 MG PO SCH (08:49)
[2019-05-25] MEDS: Pantoprazole TAB * 40 MG TAB PO SCH (08:49)
[2019-05-25] MEDS: Lactobacillus Acidophilus* 1 TAB PO SCH (08:49)
[2019-05-25] MEDS: Ascorbic Acid TAB* 500 MG PO SCH (08:49)
[2019-05-25] MEDS: FLUoxetine CAP* 20 MG PO SCH (08:50)
[2019-05-25] MEDS: Multivitamins/Minerals TAB PO SCH (08:50)
[2019-05-25] MEDS: Potassium Chlor TAB* 20 MEQ TAB.ER PO SCH ×3 (08:50→21:47)
[2019-05-25] MEDS: Magnesium Oxide TAB* 400 MG PO SCH (08:50)
[2019-05-25] MEDS: Aspirin EC TAB* 81 MG TAB.EC PO SCH (08:50)
[2019-05-25] MEDS: Oxybutynin XL TAB* 5 MG PO SCH (08:53)
[2019-05-25] MEDS ORDERED: Ramipril CAP* 5 MG PO SCH (09:00)
[2019-05-25] MEDS ORDERED: Insulin GLARGINE(*) 1 UNITS UNIT SUBCUT SCH (09:00)
[2019-05-25] MEDS ORDERED: Albuterol/Ipratropium NEB.SOL* Albuterol 2.5 MG/Ipratropium 0.5 MG 3 ML INH PRN (09:15)
[2019-05-25] MEDS: HYDROcodone/ACETAMIN 5-325 MG* 1 TAB PO PRN ×2 (13:05→21:24)
[2019-05-25] MEDS: Atorvastatin* 40 MG TAB PO SCH (17:27)
[2019-05-25] MEDS: cefTRIAXone(*) 1 GM in NS 0.9% 50 ML* 50 ML IVPB SCH (17:27)
[2019-05-25] MEDS: Azithromycin 500 mg/250 ml NS 500 MG/250 ML BAG IVPB SCH (18:21)
--- NOTE | 2019-05-25 20:21 | PN ---
Subjective Date of Service: 05/25/19 Interval History: Drowsy this afternoon after hydrocodone administration, falling asleep during conversation, though easily arousable. Shortness of breath present though improving. Denies fever, chills, lightheadedness, chest pain, palpitations, abdominal pain, nausea, vomiting, issues moving bowel or bladder. Family History: Unchanged from Admission Social History: Unchanged from Admission Past Medical History: Unchanged from Admission Objective Active Medications: Acetaminophen (Tylenol Tab*) 650 mg PO Q4H PRN PRN Reason: MILD PAIN or TEMP > 100.4 Hydrocodone Bitart/Acetaminophen ([place] 5-325 Tab*) 2 tab PO Q4H PRN PRN Reason: PAIN - SEVERE Last Admin: 05/25/19 13:05 Dose: 2 tab Hydrocodone Bitart/Acetaminophen ([place] 5-325 Tab*) 1 tab PO Q4H PRN PRN Reason: PAIN - MODERATE Last Admin: 05/25/19 00:21 Dose: 1 tab Albuterol/Ipratropium (Duoneb (Albuterol 2.5 Mg/Ipratropium 0.5 Mg)) 1 neb INH [id number] AWAKE PRN PRN Reason: SOB/WHEEZING Alprazolam (Xanax Tab*) 0.5 mg PO Q4H PRN PRN Reason: ANXIETY Last Admin: 05/24/19 21:10 Dose: 0.5 mg Ascorbic Acid (Vitamin C Tab*) 500 mg PO DAILY [facility] Last Admin: 05/25/19 08:49 Dose: 500 mg Aspirin (Aspirin Ec Tab*) 81 mg PO DAILY [facility] Last Admin: 05/25/19 08:50 Dose: 81 mg Atorvastatin Calcium (Lipitor*) 40 mg PO QPM [facility] Last Admin: 05/25/19 17:27 Dose: 40 mg Cetirizine HCl (Zyrtec*) 10 mg PO DAILY [facility] Last Admin: 05/25/19 08:48 Dose: 10 mg Dextrose (Dextrose 50% Vial 50 Ml*) 25 ml IV PUSH .FOR FS < 60 - SS PRN PRN Reason: FS < 60 Enoxaparin Sodium (Lovenox(*)) 40 mg SUBCUT Q24H [facility] Last Admin: 05/24/19 21:12 Dose: 40 mg Fluoxetine HCl (Prozac Cap*) 20 mg PO QAM [facility] Last Admin: 05/25/19 08:50 Dose: 20 mg Glipizide (Glucotrol Xl*) 10 mg PO DAILY [facility] Last Admin: 05/25/19 08:47 Dose: 10 mg Guaifenesin (Mucinex*) 600 mg PO BID [facility] Last Admin: 05/25/19 08:47 Dose: 600 mg Sodium Chloride (Ns 0.9% 1000 Ml) 1,000 mls @ 100 mls/hr IV PER RATE [facility] Last Admin: 05/25/19 13:00 Dose: 100 mls/hr Azithromycin (Zithromax 500 Mg/250 Ml) 500 mg in 250 mls @ 250 mls/hr IVPB Q24H [facility] Last Admin: 05/25/19 18:21 Dose: 250 mls/hr Ceftriaxone Sodium 1 gm/ (Sodium Chloride) 50 mls @ 100 mls/hr IVPB Q24H [facility] Last Admin: 05/25/19 17:27 Dose: 100 mls/hr Insulin Glargine (Lantus(*)) 70 units SUBCUT DAILY [facility] Last Admin: 05/25/19 08:46 Dose: 70 unit Insulin Human Lispro (Humalog*) 0 units SUBCUT ACHS [facility]; Protocol Last Admin: 05/25/19 17:26 Dose: 15 unit Isosorbide Mononitrate (Imdur Er Tab*) 60 mg PO DAILY [facility] Last Admin: 05/25/19 08:47 Dose: 60 mg Lactobacillus Rhamnosus (Lactobacillus Acidophilus*) 2 tab PO DAILY [facility] Last Admin: 05/25/19 08:49 Dose: 2 tab Magnesium Oxide (Magox 400 Tab*) 800 mg PO DAILY [facility] Last Admin: 05/25/19 08:50 Dose: 800 mg Mometasone Furoate/Formoterol Fumar (Dulera 100/5 Mdi*) 2 puff INH BID [facility] Last Admin: 05/25/19 07:36 Dose: Not Given Multivitamins/Minerals (Theragran/Minerals Tab*) 1 tab PO DAILY [facility] Last Admin: 05/25/19 08:50 Dose: 1 tab Oxybutynin Chloride (Ditropan Xl Tab*) 5 mg PO DAILY [facility] Last Admin: 05/25/19 08:53 Dose: 5 mg Pantoprazole Sodium (Protonix Tab*) 40 mg PO DAILY [facility] Last Admin: 05/25/19 08:49 Dose: 40 mg Potassium Chloride (Klor Con Er Tab*) 20 meq PO QAM [facility] Last Admin: 05/25/19 08:50 Dose: 20 meq Prednisone (Deltasone 20 Mg Tab) 40 mg PO DAILY [facility] Stop: 05/30/19 08:59 Last Admin: 05/25/19 08:48 Dose: 40 mg Prochlorperazine Edisylate (Compazine Inj*) 5 mg IV Q6H PRN PRN Reason: NAUSEA/VOMITING Ropinirole HCl (Requip Tab*) 0.5 mg PO BEDTIME [facility] Last Admin: 05/25/19 00:20 Dose: 0.5 mg Tamsulosin HCl (Flomax Cap*) 0.4 mg PO DAILY [facility] Last Admin: 05/25/19 08:49 Dose: 0.4 mg Vital Signs - 8 hr 05/25/19 05/25/19 05/25/19 13:05 15:05 15:41 Temperature 97.5 F Pulse Rate 65 Respiratory 22 18 20 Rate Blood Pressure 105/41 (mmHg) O2 Sat by Pulse 98 Oximetry Oxygen Devices in Use Now: CPAP Appearance: Well developed obese gentleman seen resting in bed, no acute distress. Eyes: No Scleral Icterus, PERRLA Ears/Nose/Mouth/Throat: NL Teeth, Lips, Gums, Clear Oropharnyx, Mucous Membranes Moist Neck: NL Appearance and Movements; NL JVP, Trachea Midline Respiratory: Symmetrical Chest Expansion and Respiratory Effort, - - Difficult to auscultate due to body habitus, diminished in bases. Cardiovascular: NL Sounds; No Murmurs; No JVD, RRR, No Edema Abdominal: NL Sounds; No Tenderness; No Distention Lymphatic: No Cervical Adenopathy Extremities: No Edema, No Clubbing, Cyanosis Skin: No Rash or Ulcers, No Nodules or Sclerosis Neurological: Alert and Oriented x 3 Lines/Tubes/Other Access: Clean, Dry and Intact Peripheral IV Result Diagrams: 05/25/19 05:40 05/25/19 05:40 Microbiology and Other Data: Microbiology 05/24/19 17:24 Aerobic Blood Culture - Preliminary Blood Venous Anaerobic Blood Culture - Preliminary No Growth Day 1 05/24/19 23:25 Legionella Urinary Antigen - Final Urine Negative Legionella Antigen 05/24/19 23:25 Streptococcus pneumoniae Ag Screen - Final Urine Negative S. pneumo Antigen Assess/Plan/Problems-Billing Assessment: This is a 69 year old man with a past medical history of HTN, CHF, and COPD who was admitted on 05/24/19 for sepsis secondary to pneumonia and UTI. - Patient Problems (1) UTI (urinary tract infection) Current Visit: Yes Status: Acute Comment: -Urine positive for UTI, awaiting micro. Continue ceftriaxone. Is asymptomatic, could have played a part in his admitting sepsis. (2) Pneumonia Current Visit: Yes Status: Acute Code(s): J18.9 - PNEUMONIA, UNSPECIFIED ORGANISM SNOMED Code(s): 124796602 Comment: -Admitted with sepsis secondary to pneumonia. Was short of breath, coughing with yellow sputum production. Sepsis resolving. Lactic acid below 2. -Urine legionella and strep pneumonia negative. -Continue ceftriaxone and azithromycin. -Continue mucinex and nebs prn. (3) Elevated troponin Current Visit: Yes Status: Acute Code(s): R79.89 - OTHER SPECIFIED ABNORMAL FINDINGS OF BLOOD CHEMISTRY SNOMED Code(s): 003867194 Comment: -Mildly bumped, likely secondary to deman ischemia. Has trended down. EKG unremarkable. (4) Electrolyte abnormality Current Visit: Yes Status: Acute Code(s): E87.8 - OTH DISORDERS OF ELECTROLYTE AND FLUID BALANCE, NEC SNOMED Code(s): 202547786 Comment: -Potassium increased to 3.5 today. Ideally would likt to keep levels above 4, ordered another 40meQ once tonight. (5) HLD (hyperlipidemia) Current Visit: Yes Status: Acute Code(s): E78.5 - HYPERLIPIDEMIA, UNSPECIFIED SNOMED Code(s): 55725396 Comment: -Continue atorvastatin. (6) CAD (coronary artery disease) Current Visit: Yes Status: Acute Code(s): I25.10 - ATHSCL HEART DISEASE OF [place] CORONARY ARTERY W/O ANG PCTRS SNOMED Code(s): 53543027 Comment: -Continue aspirin. No current signs or symptoms of ACS. (7) Anxiety Current Visit: No Status: Acute Code(s): F41.9 - ANXIETY DISORDER, UNSPECIFIED SNOMED Code(s): 69735247 Comment: -Continue alprazolam and fluoxetine. (8) BPH (benign prostatic hyperplasia) Current Visit: No Status: Acute Code(s): N40.0 - BENIGN PROSTATIC HYPERPLASIA WITHOUT LOWER URINRY TRACT SYMP SNOMED Code(s): 494824387 Comment: -Continue tamsulosin. (9) CHF (congestive heart failure) Current Visit: No Status: Acute Code(s): I50.9 - HEART FAILURE, UNSPECIFIED SNOMED Code(s): 79702741 Comment: -Not in exacerbation. Metolazone and toresemide held due to need for rehydration secondary to sepsis. (10) COPD (chronic obstructive pulmonary disease) Current Visit: No Status: Acute Code(s): J44.9 - CHRONIC OBSTRUCTIVE PULMONARY DISEASE, UNSPECIFIED SNOMED Code(s): 09413955 Comment: -No signs of exacerbation. Normally wears 3L via nc at all times, will bump it up to 5L during activity. -Continue duonebs, cetirizine and dulera. Wearing 3L NC currently. (11) Chronic back pain Current Visit: No Status: Acute Code(s): M54.9 - DORSALGIA, UNSPECIFIED; G89.29 - OTHER CHRONIC PAIN SNOMED Code(s): 695240613 Comment: - Continue hydrocodone. (12) Diabetes type 2, controlled Current Visit: No Status: Acute Code(s): E11.9 - TYPE 2 DIABETES MELLITUS WITHOUT COMPLICATIONS SNOMED Code(s): 52335175 Comment: -Continue blood glucose checks ACHS with sliding scale lispro and scheduled lantus and glipizide -Consistent carb diet. (13) GERD (gastroesophageal reflux disease) Current Visit: No Status: Acute Code(s): K21.9 - GASTRO-ESOPHAGEAL REFLUX DISEASE WITHOUT ESOPHAGITIS SNOMED Code(s): 373405606 Comment: -No current signs or symptoms. Continue pantoprazole. (14) Hypertension Current Visit: No Status: Acute Code(s): I10 - ESSENTIAL (PRIMARY) HYPERTENSION SNOMED Code(s): 04174699 Comment: -Blood pressures labile between 100-140's. Continuing to hold ramipril, toresemide, potassium, metazolone. (15) Obstructive sleep apnea Current Visit: No Status: Acute Code(s): G47.33 - OBSTRUCTIVE SLEEP APNEA ( ADULT) (PEDIATRIC) SNOMED Code(s): 94647734 Comment: -May use home CPAP. (16) Overactive bladder Current Visit: No Status: Acute Code(s): N32.81 - OVERACTIVE BLADDER SNOMED Code(s): 315792301 Comment: -Continue oxybutynin. (17) RLS (restless legs syndrome) Current Visit: No Status: Acute Comment: -Continue Ropinorole (18) DVT prophylaxis Current Visit: No Status: Acute Code(s): GDS1301 - SNOMED Code(s): 853218528 Comment: -Continue lovenox. (19) Full code status Current Visit: No Status: Acute Code(s): Z78.9 - OTHER SPECIFIED HEALTH STATUS SNOMED Code(s): 348294388
[2019-05-25] MEDS ORDERED: Potassium Chlor TAB* 20 MEQ TAB.ER PO ONE (20:50)
[2019-05-25] MEDS ORDERED: Potassium Chlor TAB* 20 MEQ TAB.ER PO SCH (21:00)
[2019-05-25] MEDS: Enoxaparin(*) 40 MG/0.4 ML SYR SUBCUT SCH (21:09)
[2019-05-25] MEDS: ALPRAZolam TAB* 0.5 MG PO PRN (21:24)
[2019-05-26] MEDS: NS 0.9% 1000 ML** 1,000 ML IV SCH (01:26)
[2019-05-26 06:49] LABS: BUN/Creatinine Ratio 34.9 (8-20); Calcium 8.1 mg/dL (8.6-10.3); EGFR African American 56.8 (>60); EGFR Non-African American 46.9 (>60); Potassium 3.6 mmol/L (3.5-5.0)
[2019-05-26] MEDS: Insulin LISPRO* 1 UNITS UNIT SUBCUT SCH ×4 (08:35→21:11)
[2019-05-26] MEDS: guaiFENesin ER TAB 600 MG PO SCH ×2 (08:36→21:11)
[2019-05-26] MEDS: Aspirin EC TAB* 81 MG TAB.EC PO SCH (08:36)
[2019-05-26] MEDS: Ascorbic Acid TAB* 500 MG PO SCH (08:36)
[2019-05-26] MEDS: Insulin GLARGINE(*) 1 UNITS UNIT SUBCUT SCH (08:36)
[2019-05-26] MEDS: Cetirizine* 10 MG TAB PO SCH (08:37)
[2019-05-26] MEDS: Oxybutynin XL TAB* 5 MG PO SCH (08:37)
[2019-05-26] MEDS: Pantoprazole TAB * 40 MG TAB PO SCH (08:37)
[2019-05-26] MEDS: Magnesium Oxide TAB* 400 MG PO SCH (08:37)
[2019-05-26] MEDS: Isosorbide Mononitrate ER TAB* 60 MG PO SCH (08:37)
[2019-05-26] MEDS: Multivitamins/Minerals TAB PO SCH (08:38)
[2019-05-26] MEDS: Tamsulosin CAP* 0.4 MG PO SCH (08:38)
[2019-05-26] MEDS: glipiZIDE TAB.XL* 5 MG PO SCH (08:38)
[2019-05-26] MEDS: Lactobacillus Acidophilus* 1 TAB PO SCH (08:38)
[2019-05-26] MEDS: FLUoxetine CAP* 20 MG PO SCH (08:39)
[2019-05-26] MEDS: Potassium Chlor TAB* 20 MEQ TAB.ER PO SCH (08:39)
[2019-05-26] MEDS: Mometasone/Formoter 100/5 MDI INH SCH ×2 (09:02→21:29)
[2019-05-26] MEDS ORDERED: Albuterol/Ipratropium NEB.SOL* Albuterol 2.5 MG/Ipratropium 0.5 MG 3 ML INH PRN ×2 (10:57→13:37)
[2019-05-26] MEDS ORDERED: Albuterol/Ipratropium NEB.SOL* Albuterol 2.5 MG/Ipratropium 0.5 MG 3 ML INH SCH (11:00)
[2019-05-26] MEDS ORDERED: Magnesium Hydroxide LIQ* 30 ML UDC PO PRN (11:03)
[2019-05-26] MEDS: Atorvastatin* 40 MG TAB PO SCH (17:15)
[2019-05-26] MEDS: cefTRIAXone(*) 1 GM in NS 0.9% 50 ML* 50 ML IVPB SCH (17:15)
[2019-05-26] MEDS: Azithromycin 500 mg/250 ml NS 500 MG/250 ML BAG IVPB SCH (17:54)
--- NOTE | 2019-05-26 20:23 | PN ---
Subjective Date of Service: 05/26/19 Interval History: Patient's calls the nursing staff to express that patient made verbal comment about suicide to her yesterday. She reports he said "I wish I were with my mom and brother" who are . I discussed this with the patient and he tells me he has multiple reasons to live including enjoying car racing and watching his grandchildren grow up. He endorses that he feels passively suicidal when feeling unwell, and feels better mentally today than yesterday. Does agree to increasing antidepressant dose. Denies active SI/HI. Otherwise denies dyspnea at rest or with exertion, chest pain, fever/chills, abd pain, dysuria. Patient notes that his primarily helps him at home and she is out of town until 05/18/2019. Family History: Unchanged from Admission Social History: Unchanged from Admission Past Medical History: Unchanged from Admission Objective Active Medications: Acetaminophen (Tylenol Tab*) 650 mg PO Q4H PRN PRN Reason: MILD PAIN or TEMP > 100.4 Hydrocodone Bitart/Acetaminophen ([place] 5-325 Tab*) 1 tab PO Q4H PRN PRN Reason: PAIN - SEVERE Albuterol/Ipratropium (Duoneb (Albuterol 2.5 Mg/Ipratropium 0.5 Mg)) 1 neb INH Q4H PRN PRN Reason: scheduled tx not indicated Albuterol/Ipratropium (Duoneb (Albuterol 2.5 Mg/Ipratropium 0.5 Mg)) 1 neb INH [id number] AWAKE PRN PRN Reason: scheduled tx not indicated Alprazolam (Xanax Tab*) 0.5 mg PO Q4H PRN PRN Reason: ANXIETY Last Admin: 05/25/19 21:24 Dose: 0.5 mg Ascorbic Acid (Vitamin C Tab*) 500 mg PO DAILY [facility] Last Admin: 05/26/19 08:36 Dose: 500 mg Aspirin (Aspirin Ec Tab*) 81 mg PO DAILY [facility] Last Admin: 05/26/19 08:36 Dose: 81 mg Atorvastatin Calcium (Lipitor*) 40 mg PO QPM [facility] Last Admin: 05/26/19 17:15 Dose: 40 mg Cetirizine HCl (Zyrtec*) 10 mg PO DAILY [facility] Last Admin: 05/26/19 08:37 Dose: 10 mg Dextrose (Dextrose 50% Vial 50 Ml*) 25 ml IV PUSH .FOR FS < 60 - SS PRN PRN Reason: FS < 60 Enoxaparin Sodium (Lovenox(*)) 40 mg SUBCUT Q24H [facility] Last Admin: 05/25/19 21:09 Dose: 40 mg Fluoxetine HCl (Prozac Cap*) 20 mg PO QAM [facility] Last Admin: 05/26/19 08:39 Dose: 20 mg Guaifenesin (Mucinex*) 600 mg PO BID [facility] Last Admin: 05/26/19 08:36 Dose: 600 mg Azithromycin (Zithromax 500 Mg/250 Ml) 500 mg in 250 mls @ 250 mls/hr IVPB Q24H [facility] Last Admin: 05/26/19 17:54 Dose: 250 mls/hr Ceftriaxone Sodium 1 gm/ (Sodium Chloride) 50 mls @ 100 mls/hr IVPB Q24H [facility] Last Admin: 05/26/19 17:15 Dose: 100 mls/hr Insulin Glargine (Lantus(*)) 70 units SUBCUT DAILY [facility] Last Admin: 05/26/19 08:36 Dose: 70 unit Insulin Human Lispro (Humalog*) 0 units SUBCUT ACHS [facility]; Protocol Last Admin: 05/26/19 17:13 Dose: 12 unit Isosorbide Mononitrate (Imdur Er Tab*) 60 mg PO DAILY [facility] Last Admin: 05/26/19 08:37 Dose: 60 mg Lactobacillus Rhamnosus (Lactobacillus Acidophilus*) 2 tab PO DAILY [facility] Last Admin: 05/26/19 08:38 Dose: 2 tab Magnesium Hydroxide (Milk Of Magnesia Liq*) 30 ml PO Q4H PRN PRN Reason: CONSTIPATION Magnesium Oxide (Magox 400 Tab*) 800 mg PO DAILY [facility] Last Admin: 05/26/19 08:37 Dose: 800 mg Mometasone Furoate/Formoterol Fumar (Dulera 100/5 Mdi*) 2 puff INH BID [facility] Last Admin: 05/26/19 09:02 Dose: 2 puff Multivitamins/Minerals (Theragran/Minerals Tab*) 1 tab PO DAILY [facility] Last Admin: 05/26/19 08:38 Dose: 1 tab Oxybutynin Chloride (Ditropan Xl Tab*) 5 mg PO DAILY [facility] Last Admin: 05/26/19 08:37 Dose: 5 mg Pantoprazole Sodium (Protonix Tab*) 40 mg PO DAILY [facility] Last Admin: 05/26/19 08:37 Dose: 40 mg Potassium Chloride (Klor Con Er Tab*) 20 meq PO QAM [facility] Last Admin: 05/26/19 08:39 Dose: 20 meq Prednisone (Deltasone 20 Mg Tab) 40 mg PO DAILY [facility] Stop: 05/30/19 08:59 Last Admin: 05/26/19 08:39 Dose: 40 mg Prochlorperazine Edisylate (Compazine Inj*) 5 mg IV Q6H PRN PRN Reason: NAUSEA/VOMITING Ropinirole HCl (Requip Tab*) 0.5 mg PO BEDTIME [facility] Last Admin: 05/25/19 21:05 Dose: 0.5 mg Tamsulosin HCl (Flomax Cap*) 0.4 mg PO DAILY [facility] Last Admin: 05/26/19 08:38 Dose: 0.4 mg Vital Signs - 8 hr 05/26/19 05/26/19 15:10 16:57 Temperature 97.4 F Pulse Rate 63 Respiratory 20 Rate Blood Pressure 154/62 (mmHg) O2 Sat by Pulse 95 100 Oximetry Oxygen Devices in Use Now: Nasal Cannula Appearance: Morbidly obese, white male, laying in chair, appearing comfortable and in NAD Eyes: No Scleral Icterus, - - PERRL Ears/Nose/Mouth/Throat: Mucous Membranes Moist Neck: Trachea Midline Respiratory: Symmetrical Chest Expansion and Respiratory Effort, Clear to Auscultation Cardiovascular: NL Sounds; No Murmurs; No JVD, RRR Abdominal: - - abd soft, nontender, nondistended Extremities: No Clubbing, Cyanosis, - - trace edema to bilateral LEs Skin: No Rash or Ulcers Neurological: Alert and Oriented x 3 Result Diagrams: 05/25/19 05:40 05/26/19 06:17 Microbiology and Other Data: Microbiology 05/24/19 17:24 Aerobic Blood Culture - Preliminary Blood Venous Anaerobic Blood Culture - Preliminary No Growth Day 1 05/24/19 23:25 Legionella Urinary Antigen - Final Urine Negative Legionella Antigen 05/24/19 23:25 Streptococcus pneumoniae Ag Screen - Final Urine Negative S. pneumo Antigen Assess/Plan/Problems-Billing Assessment: This is a 69 year old man with a past medical history of HTN, CHF, and COPD who was admitted on 05/24/19 for sepsis secondary to pneumonia and UTI. - Patient Problems (1) UTI (urinary tract infection) Current Visit: Yes Status: Acute Comment: -Urine positive for GNR, likely E. coli given bacteremia as discussed below -has been on empiric abx with ceftriaxone, will continue; awaiting S&S -afebrile, no leukocytosis (2) Pneumonia Current Visit: Yes Status: Acute Code(s): J18.9 - PNEUMONIA, UNSPECIFIED ORGANISM SNOMED Code(s): 750754477 Comment: -Admitted with sepsis secondary to pneumonia. Was short of breath, coughing with yellow sputum production. Sepsis signs resolved. -Urine legionella and strep pneumonia negative. -Continue ceftriaxone and azithromycin. -Continue mucinex and nebs prn (3) Bacteremia Current Visit: Yes Status: Acute Code(s): R78.81 - BACTEREMIA SNOMED Code( s): 2462524 Comment: -blood culture today positive for E. coli, likely source is UTI -continue ceftriaxone, awaiting S&S -no leukocytosis, afebrile (4) Acute and chronic respiratory failure Current Visit: Yes Status: Acute Code(s): J96.20 - ACUTE AND CHR RESP FAILURE, UNSP W HYPOXIA OR HYPERCAPNIA SNOMED Code(s): 22297937 Comment: -COPD exacerbation in setting of PNA -continue prednisone and nebs -respiratory status back to baseline (5) Heart failure with preserved ejection fraction Current Visit: Yes Status: Acute Code(s): I50.30 - UNSPECIFIED DIASTOLIC ( CONGESTIVE) HEART FAILURE SNOMED Code(s): 970781475 Comment: -HFrEF on echo in the past -does have chronic LE edema reportedly related to lymphedema (6) Diabetes mellitus type 2 in obese Current Visit: Yes Status: Acute Code(s): E11.69 - TYPE 2 DIABETES MELLITUS WITH OTHER SPECIFIED COMPLICATION; E66.9 - OBESITY, UNSPECIFIED SNOMED Code(s) : 49048473 Comment: -continue glargine 70U daily and lispro SS (7) Chronic back pain Current Visit: No Status: Acute Code(s): M54.9 - DORSALGIA, UNSPECIFIED; G89.29 - OTHER CHRONIC PAIN SNOMED Code(s): 421707953 Comment: - Continue hydrocodone (8) Obstructive sleep apnea Current Visit: No Status: Acute Code(s): G47.33 - OBSTRUCTIVE SLEEP APNEA ( ADULT) (PEDIATRIC) SNOMED Code(s): 84700980 Comment: - home CPAP (9) Depression Current Visit: Yes Status: Acute Code(s): F32.9 - MAJOR DEPRESSIVE DISORDER , SINGLE EPISODE, UNSPECIFIED SNOMED Code(s): 03023133 Comment: -made passive suicide comment to yesterday. Today has no active SI or HI and in fact states he wishes to live and notes multiple reasons why -increasing fluoxetine and needs outpatient f/u (10) Overactive bladder Current Visit: No Status: Acute Code(s): N32.81 - OVERACTIVE BLADDER SNOMED Code(s): 793282657 Comment: -Continue oxybutynin (11) DVT prophylaxis Current Visit: No Status: Acute Code(s): GXR2436 - SNOMED Code(s): 844996518 Comment: -Continue lovenox (12) Full code status Current Visit: No Status: Acute Code(s): Z78.9 - OTHER SPECIFIED HEALTH STATUS SNOMED Code(s): 443077439 Status and Disposition: ordering OT to evaluate further disposition needs, awaiting sensitivities and remains inpatient
[2019-05-26] MEDS ORDERED: Potassium Chlor TAB* 20 MEQ TAB.ER PO ONE (20:24)
[2019-05-26] MEDS: Enoxaparin(*) 40 MG/0.4 ML SYR SUBCUT SCH (21:11)
[2019-05-26] MEDS: Ropinirole TAB* 0.5 MG TAB PO SCH (21:11)
[2019-05-26] MEDS: ALPRAZolam TAB* 0.5 MG PO PRN (22:21)
[2019-05-26] MEDS: HYDROcodone/ACETAMIN 5-325 MG* 1 TAB PO PRN (22:22)
[2019-05-27 06:58] LABS: BUN/Creatinine Ratio 37.4 (8-20); Calcium 8.4 mg/dL (8.6-10.3); EGFR African American 65.8 (>60); EGFR Non-African American 54.4 (>60); Potassium 3.7 mmol/L (3.5-5.0)
[2019-05-27] MEDS: Mometasone/Formoter 100/5 MDI INH SCH ×2 (08:16→19:52)
[2019-05-27] MEDS: Insulin LISPRO* 1 UNITS UNIT SUBCUT SCH ×4 (09:06→20:38)
[2019-05-27] MEDS: Aspirin EC TAB* 81 MG TAB.EC PO SCH (09:06)
[2019-05-27] MEDS: Insulin GLARGINE(*) 1 UNITS UNIT SUBCUT SCH (09:06)
[2019-05-27] MEDS: HYDROcodone/ACETAMIN 5-325 MG* 1 TAB PO PRN ×2 (09:07→19:30)
[2019-05-27] MEDS: Oxybutynin XL TAB* 5 MG PO SCH (09:07)
[2019-05-27] MEDS: Multivitamins/Minerals TAB PO SCH (09:07)
[2019-05-27] MEDS: Lactobacillus Acidophilus* 1 TAB PO SCH (09:07)
[2019-05-27] MEDS: guaiFENesin ER TAB 600 MG PO SCH ×2 (09:07→20:38)
[2019-05-27] MEDS: Isosorbide Mononitrate ER TAB* 60 MG PO SCH (09:07)
[2019-05-27] MEDS: Ascorbic Acid TAB* 500 MG PO SCH (09:07)
[2019-05-27] MEDS: Magnesium Oxide TAB* 400 MG PO SCH (09:07)
[2019-05-27] MEDS: FLUoxetine CAP* 20 MG PO SCH (09:07)
[2019-05-27] MEDS: Pantoprazole TAB * 40 MG TAB PO SCH (09:07)
[2019-05-27] MEDS: Tamsulosin CAP* 0.4 MG PO SCH (09:07)
[2019-05-27] MEDS: Cetirizine* 10 MG TAB PO SCH (09:07)
[2019-05-27] MEDS: Potassium Chlor TAB* 20 MEQ TAB.ER PO SCH (09:07)
[2019-05-27] MEDS: Atorvastatin* 40 MG TAB PO SCH (17:19)
[2019-05-27] MEDS: cefTRIAXone(*) 1 GM in NS 0.9% 50 ML* 50 ML IVPB SCH (17:19)
[2019-05-27] MEDS: Azithromycin 500 mg/250 ml NS 500 MG/250 ML BAG IVPB SCH (18:11)
--- NOTE | 2019-05-27 18:27 | PN ---
Subjective Date of Service: 05/27/19 Interval History: Patient feeling improved today. He did well with physical therapy and occupational therapy. He is excited to tell me he put his shorts on without help for the first time in many years. He denies SOB at rest or with exertion, chest pain, fever/chills, abd pain, dysuria. Family History: Unchanged from Admission Social History: Unchanged from Admission Past Medical History: Unchanged from Admission Objective Active Medications: Acetaminophen (Tylenol Tab*) 650 mg PO Q4H PRN PRN Reason: MILD PAIN or TEMP > 100.4 Hydrocodone Bitart/Acetaminophen ([place] 5-325 Tab*) 1 tab PO Q4H PRN PRN Reason: PAIN - SEVERE Last Admin: 05/27/19 09:07 Dose: 1 tab Albuterol/Ipratropium (Duoneb (Albuterol 2.5 Mg/Ipratropium 0.5 Mg)) 1 neb INH Q4H PRN PRN Reason: scheduled tx not indicated Albuterol/Ipratropium (Duoneb (Albuterol 2.5 Mg/Ipratropium 0.5 Mg)) 1 neb INH [id number] AWAKE PRN PRN Reason: scheduled tx not indicated Alprazolam (Xanax Tab*) 0.5 mg PO Q4H PRN PRN Reason: ANXIETY Last Admin: 05/26/19 22:21 Dose: 0.5 mg Ascorbic Acid (Vitamin C Tab*) 500 mg PO DAILY [facility] Last Admin: 05/27/19 09:07 Dose: 500 mg Aspirin (Aspirin Ec Tab*) 81 mg PO DAILY [facility] Last Admin: 05/27/19 09:06 Dose: 81 mg Atorvastatin Calcium (Lipitor*) 40 mg PO QPM [facility] Last Admin: 05/27/19 17:19 Dose: 40 mg Cetirizine HCl (Zyrtec*) 10 mg PO DAILY [facility] Last Admin: 05/27/19 09:07 Dose: 10 mg Dextrose (Dextrose 50% Vial 50 Ml*) 25 ml IV PUSH .FOR FS < 60 - SS PRN PRN Reason: FS < 60 Enoxaparin Sodium (Lovenox(*)) 40 mg SUBCUT Q24H [facility] Last Admin: 05/26/19 21:11 Dose: 40 mg Fluoxetine HCl (Prozac Cap*) 40 mg PO QAM [facility] Last Admin: 05/27/19 09:07 Dose: 40 mg Guaifenesin (Mucinex*) 600 mg PO BID [facility] Last Admin: 05/27/19 09:07 Dose: 600 mg Azithromycin (Zithromax 500 Mg/250 Ml) 500 mg in 250 mls @ 250 mls/hr IVPB Q24H [facility] Last Admin: 05/27/19 18:11 Dose: 250 mls/hr Ceftriaxone Sodium 1 gm/ (Sodium Chloride) 50 mls @ 100 mls/hr IVPB Q24H [facility] Last Admin: 05/27/19 17:19 Dose: 100 mls/hr Insulin Glargine (Lantus(*)) 70 units SUBCUT DAILY [facility] Last Admin: 05/27/19 09:06 Dose: 70 unit Insulin Human Lispro (Humalog*) 0 units SUBCUT ACHS [facility]; Protocol Last Admin: 05/27/19 17:19 Dose: 9 unit Isosorbide Mononitrate (Imdur Er Tab*) 60 mg PO DAILY [facility] Last Admin: 05/27/19 09:07 Dose: 60 mg Lactobacillus Rhamnosus (Lactobacillus Acidophilus*) 2 tab PO DAILY [facility] Last Admin: 05/27/19 09:07 Dose: 2 tab Magnesium Hydroxide (Milk Of Magnesia Liq*) 30 ml PO Q4H PRN PRN Reason: CONSTIPATION Last Admin: 05/27/19 09:07 Dose: 30 ml Magnesium Oxide (Magox 400 Tab*) 800 mg PO DAILY [facility] Last Admin: 05/27/19 09:07 Dose: 800 mg Mometasone Furoate/Formoterol Fumar (Dulera 100/5 Mdi*) 2 puff INH BID [facility] Last Admin: 05/27/19 08:16 Dose: 2 puff Multivitamins/Minerals (Theragran/Minerals Tab*) 1 tab PO DAILY [facility] Last Admin: 05/27/19 09:07 Dose: 1 tab Oxybutynin Chloride (Ditropan Xl Tab*) 5 mg PO DAILY [facility] Last Admin: 05/27/19 09:07 Dose: 5 mg Pantoprazole Sodium (Protonix Tab*) 40 mg PO DAILY [facility] Last Admin: 05/27/19 09:07 Dose: 40 mg Potassium Chloride (Klor Con Er Tab*) 20 meq PO QAM [facility] Last Admin: 05/27/19 09:07 Dose: 20 meq Prednisone (Deltasone 20 Mg Tab) 40 mg PO DAILY [facility] Stop: 05/30/19 08:59 Last Admin: 05/27/19 09:06 Dose: 40 mg Prochlorperazine Edisylate (Compazine Inj*) 5 mg IV Q6H PRN PRN Reason: NAUSEA/VOMITING Ropinirole HCl (Requip Tab*) 0.5 mg PO BEDTIME [facility] Last Admin: 05/26/19 21:11 Dose: 0.5 mg Tamsulosin HCl (Flomax Cap*) 0.4 mg PO DAILY [facility] Last Admin: 05/27/19 09:07 Dose: 0.4 mg Vital Signs - 8 hr 05/27/19 05/27/19 05/27/19 11:30 11:39 15:50 Temperature 97.3 F 97.8 F Pulse Rate 63 70 Respiratory 20 18 20 Rate Blood Pressure 145/60 155/56 (mmHg) O2 Sat by Pulse 98 99 Oximetry Oxygen Devices in Use Now: Nasal Cannula Appearance: Morbidly obese, white male, sitting in chair, appearing comfortable and in NAD Eyes: No Scleral Icterus, - - PERRL Ears/Nose/Mouth/Throat: Mucous Membranes Moist Neck: Trachea Midline Respiratory: Symmetrical Chest Expansion and Respiratory Effort, Clear to Auscultation Cardiovascular: RRR Abdominal: - - abd soft Extremities: No Clubbing, Cyanosis, - - trace edema in bilateral LEs Skin: No Rash or Ulcers Neurological: Alert and Oriented x 3, NL Muscle Strength and Tone Result Diagrams: 05/25/19 05:40 05/27/19 06:26 Microbiology and Other Data: Microbiology 05/24/19 17:24 Aerobic Blood Culture - Preliminary Blood Venous Anaerobic Blood Culture - Preliminary No Growth Day 1 05/24/19 23:25 Legionella Urinary Antigen - Final Urine Negative Legionella Antigen 05/24/19 23:25 Streptococcus pneumoniae Ag Screen - Final Urine Negative S. pneumo Antigen Assess/Plan/Problems-Billing Assessment: This is a 69 year old man with a past medical history of HTN, CHF, and COPD who was admitted on 05/24/19 for sepsis secondary to pneumonia and UTI. - Patient Problems (1) UTI (urinary tract infection) Current Visit: Yes Status: Acute Comment: -Urine culture positive for E. coli -continue ceftriaxone -afebrile, no leukocytosis (2) Pneumonia Current Visit: Yes Status: Acute Code(s): J18.9 - PNEUMONIA, UNSPECIFIED ORGANISM SNOMED Code(s): 604355846 Comment: -Admitted with sepsis secondary to pneumonia. Was short of breath, coughing with yellow sputum production. Sepsis signs resolved. -Urine legionella and strep pneumonia negative. -Continue ceftriaxone and azithromycin (today is last day of 500mg azithromycin) -Continue mucinex and nebs prn (3) Bacteremia Current Visit: Yes Status: Acute Code(s): R78.81 - BACTEREMIA SNOMED Code( s): 2689076 Comment: -blood culture today positive for E. coli, likely source is UTI -continue ceftriaxone, sensitive -no leukocytosis, afebrile (4) Acute and chronic respiratory failure Current Visit: Yes Status: Acute Code(s): J96.20 - ACUTE AND CHR RESP FAILURE, UNSP W HYPOXIA OR HYPERCAPNIA SNOMED Code(s): 35804008 Comment: -COPD exacerbation in setting of PNA -continue prednisone and nebs -respiratory status back to baseline (5) Heart failure with preserved ejection fraction Current Visit: Yes Status: Acute Code(s): I50.30 - UNSPECIFIED DIASTOLIC ( CONGESTIVE) HEART FAILURE SNOMED Code(s): 920406033 Comment: -HFrEF on echo in the past -does have chronic LE edema reportedly related to lymphedema (6) Diabetes mellitus type 2 in obese Current Visit: Yes Status: Acute Code(s): E11.69 - TYPE 2 DIABETES MELLITUS WITH OTHER SPECIFIED COMPLICATION; E66.9 - OBESITY, UNSPECIFIED SNOMED Code(s) : 40454477 Comment: -continue glargine 70U daily and lispro SS (7) Chronic back pain Current Visit: No Status: Acute Code(s): M54.9 - DORSALGIA, UNSPECIFIED; G89.29 - OTHER CHRONIC PAIN SNOMED Code(s): 521082632 Comment: - Continue hydrocodone (8) Obstructive sleep apnea Current Visit: No Status: Acute Code(s): G47.33 - OBSTRUCTIVE SLEEP APNEA ( ADULT) (PEDIATRIC) SNOMED Code(s): 22190763 Comment: - home CPAP (9) Depression Current Visit: Yes Status: Acute Code(s): F32.9 - MAJOR DEPRESSIVE DISORDER , SINGLE EPISODE, UNSPECIFIED SNOMED Code(s): 25820071 Comment: -made passive suicide comment to 05/25/19. Today has no active SI or HI and in fact states he wishes to live and notes multiple reasons why -increasing fluoxetine and needs outpatient f/u (10) Overactive bladder Current Visit: No Status: Acute Code(s): N32.81 - OVERACTIVE BLADDER SNOMED Code(s): 550879965 Comment: -Continue oxybutynin (11) DVT prophylaxis Current Visit: No Status: Acute Code(s): GMT4525 - SNOMED Code(s): 486928751 Comment: -Continue lovenox (12) Full code status Current Visit: No Status: Acute Code(s): Z78.9 - OTHER SPECIFIED HEALTH STATUS SNOMED Code(s): 266032806 Status and Disposition: will be discharged tomorrow due to safety with home care with out of town
[2019-05-27] MEDS: Ropinirole TAB* 0.5 MG TAB PO SCH (20:38)
[2019-05-27] MEDS: Enoxaparin(*) 40 MG/0.4 ML SYR SUBCUT SCH (20:38)
[2019-05-27] MEDS: ALPRAZolam TAB* 0.5 MG PO PRN (23:02)
--- NOTE | 2019-05-28 05:03 | DS ---
CC: Dr. Tidwell * DISCHARGE SUMMARY: DATE OF ADMISSION: 05/24/19 ANTICIPATED DATE OF DISCHARGE: 05/28/19 PROVIDER: DELFIN Lyn PRIMARY CARE PROVIDER: Dr. Tidwell. ATTENDING PHYSICIAN WHILE IN THE HOSPITAL: Darnell Smyth MD * (dictated by DELFIN Lyn). PRIMARY DIAGNOSES: 1. Escherichia coli bacteremia secondary to urinary tract infection. 2. Urinary tract infection with Escherichia coli. 3. Pneumonia. 4. Chronic obstructive pulmonary disease exacerbation secondary to pneumonia. 5. Acute kidney injury likely related to acute illness, improved. 6. Sepsis secondary to pneumonia and urinary tract infection. 7. Minimally elevated troponin related to ischemic demand in the setting of acute infection. SECONDARY DIAGNOSES: 1. Diabetes mellitus, type 2. 2. Heart failure, preserved ejection fraction. 3. Chronic lymphedema. 4. Chronic obstructive pulmonary disease, requiring 3 to 5 L of oxygen at home depending on exertion. 5. Obesity hypoventilation syndrome. 6. Morbid obesity. 7. Obstructive sleep apnea with CPAP use. 8. Restless legs syndrome. 9. Hypercholesterolemia. 10. Gastroesophageal reflux disease. 11. Chronic back pain. 12. History of nephrolithiasis. 13. Overactive bladder. PERTINENT STUDIES: Chest x-ray showing low lung volumes with small left basilar infiltrate on 05/24/19. PERTINENT LAB DATA: The patient's white blood cell count on admission was 8.2. Lactic acid was 2.3 at admission and later corrected to 1.6. Troponin was 0.04 at admission which later down trended to 0.03. Urine culture positive for E. coli. Blood culture positive for E. coli. Both overall pansensitive except for resistant to ampicillin. Urine antigens for Strep pneumo and Legionella negative. Initial creatinine 1.66; creatinine on the date of discharge 1.31, which is near his baseline. HISTORY OF PRESENT ILLNESS/HOSPITAL COURSE: Diego Levy is a 69-year-old white male with past medical history significant for morbid obesity; heart failure with preserved ejection fraction; COPD, on 3 to 5 L of oxygen at home; diabetes mellitus, type 2; lymphedema; JO ANN, on CPAP; who presented to the emergency department due to shortness of breath and fever as well as cough. He had been recently discharged from [facility], where he was participating in subacute rehab and he did note to me that there were multiple sick contacts at this facility. For further details, please see history and physical for the details. Ultimately, the patient was admitted with signs of sepsis due to elevated lactic acid as well as tachypnea. His urinalysis was sent for culture and his chest x-ray did demonstrate an infiltrate, and therefore, he was started on empiric azithromycin and ceftriaxone for coverage of pneumonia. At this point, he has received 3 total doses of 500 mg of IV azithromycin, which is a complete regimen and he will be needing further days of cephalosporin coverage given that he was found to be bacteremic. His signs of sepsis did improve, additionally so did his signs of COPD exacerbation which is related to the pneumonia. He was initially requiring more oxygen at rest than his usual and this did improve, and ultimately, he was able to ambulate and rest with his earlier requirement. He was treated with steroids, nebulizers , and his normal home inhalers, and his lungs are clear by the day of discharge. Given that the patient did present with kidney injury, his home losartan and diuretics were held, and ultimately, his creatinine did improve to very close to his baseline. On the day of discharge, his creatinine is 1.31 and his baseline appears to be around 1.2. He was incidentally found to have a troponin elevated to 0.04 at admission, which was without any general symptoms or ischemic changes on EKG, and this is likely ischemic demand in the setting of acute infection and his troponin did downtrend. His oral home medication was held during his hospitalization. He did have some hyperglycemia initially and his insulin was increased, however, this was no longer a problem by the day of discharge. Ultimately, he was evaluated by both Physical Therapy and Occupational Therapy, who did determine him to be safe to go home by the afternoon of 05/27/19, however, due to safety of his return home with his family, I have dictated this discharge in advance for him to be discharged on 05/28/19. The patient's did express to nursing staff over the phone that her had made a passive suicidal comment to her. I did discuss this thoroughly with the patient and he had no active suicidal ideations or homicidal ideations. He does admit that he has passive suicidal thoughts when he is feeling more physically ill, and now that he was feeling more physically improved, he no longer had these thoughts. He did emphasize to me multiple reasons to live and that he wants to watch his grandchildren grow up and enjoys watching racing. He was agreeable to increasing his fluoxetine and he understood that it would be beneficial for him to follow up with this. He should have additional followup after this 1 week followup for further management of his antidepressant. DISCHARGE PLAN: Diet: Low-carb diet. Activity: The patient may return to normal activities as tolerated. The patient should follow up with his primary care provider within 1 week. At this time, it would be of benefit if his CBC is repeated as well as BMP to evaluate his low kidney function. He was advised to continue full prescription of his cefdinir. The patient was advised to please return to the emergency department should he experience any severe shortness of breath, chest pain, abdominal pain, low back pain, fever, chills, loss of consciousness, or other concerning symptoms. I do feel at this point given his improvement in his creatinine and BUN, I think it is reasonable to restart his diuretics and his ramipril; however, this should be monitored as previously mentioned. DISCHARGE MEDICATIONS: New Medications: 1. Prednisone 40 mg p.o. x1 day. 2. Fluoxetine 20 mg p.o. daily. 3. Cefdinir 300 mg p.o. b.i.d. x5 days. Continued Home Medications: 1. Xanax 0.5 mg p.o. q.4 hours p.r.n. anxiety. 2. Albuterol 2 puffs inhaled q.4 hours p.r.n. shortness of breath/wheezing. 3. Vitamin C 500 mg p.o. daily. 4. Aspirin 81 mg p.o. daily. 5. Lipitor 40 mg p.o. daily. 6. Symbicort 2 puffs inhaled b.i.d. 7. Hydrocodone 10 mg/acetaminophen 325 mg 1 tab p.o. q.4 hours p.r.n. pain. 8. Glargine 63 units subcu daily. 9. Lispro 5 units subcu a.c. 10. Imdur 60 mg daily. 11. Acidophilus p.o. daily. 12. Loratadine 10 mg p.o. daily. 13. Magnesium oxide 800 mg p.o. daily. 14. Metolazone 5 mg p.o. daily. 15. Multivitamin 1 tab p.o. daily. 16. Nystatin 1 application topically b.i.d. p.r.n. rash. 17. Pantoprazole 40 mg p.o. daily. 18. Potassium chloride 20 mEq p.o. daily. 19. Ramipril 5 mg p.o. daily. 20. Ropinirole 0.5 mg p.o. at bedtime. 21. Tamsulosin 0.4 mg p.o. daily. 22. Torsemide 40 mg p.o. daily. 23. Glipizide 10 mg p.o. daily. 24. Oxybutynin 5 mg p.o. daily. CONDITION ON DISCHARGE: Stable. DISPOSITION: Home. TIME SPENT: Approximately 45 minutes was spent on this discharge, approximately half that time was spent at bedside evaluating the patient and discussing the plan of care. DELFIN LYN [id number]/[facility] #: [id number] MTDD
[2019-05-28] MEDS: Insulin LISPRO* 1 UNITS UNIT SUBCUT SCH ×2 (07:51→12:37)
[2019-05-28] MEDS: Mometasone/Formoter 100/5 MDI INH SCH (08:10)
[2019-05-28] MEDS: Insulin GLARGINE(*) 1 UNITS UNIT SUBCUT SCH (08:24)
[2019-05-28] MEDS: FLUoxetine CAP* 20 MG PO SCH (08:25)
[2019-05-28] MEDS: guaiFENesin ER TAB 600 MG PO SCH (08:25)
[2019-05-28] MEDS: Ascorbic Acid TAB* 500 MG PO SCH (08:25)
[2019-05-28] MEDS: Aspirin EC TAB* 81 MG TAB.EC PO SCH (08:25)
[2019-05-28] MEDS: Oxybutynin XL TAB* 5 MG PO SCH (08:25)
[2019-05-28] MEDS: Potassium Chlor TAB* 20 MEQ TAB.ER PO SCH (08:25)
[2019-05-28] MEDS: Magnesium Oxide TAB* 400 MG PO SCH (08:25)
[2019-05-28] MEDS: Cetirizine* 10 MG TAB PO SCH (08:25)
[2019-05-28] MEDS: Lactobacillus Acidophilus* 1 TAB PO SCH (08:25)
[2019-05-28] MEDS: Isosorbide Mononitrate ER TAB* 60 MG PO SCH (08:25)
[2019-05-28] MEDS: Pantoprazole TAB * 40 MG TAB PO SCH (08:25)
[2019-05-28] MEDS: Multivitamins/Minerals TAB PO SCH (08:26)
[2019-05-28] MEDS: Tamsulosin CAP* 0.4 MG PO SCH (08:26)
[2019-05-28 11:54] VITALS: BP 154/46
== END 2019-05-28 16:25 | disposition home or self-care (01) | DRG 871 ==
LOC: ED 17:11 → MEDTELE 20:01
PROVIDERS: ADMIT Internal Medicine; ATTEND Internal Medicine
DX: A41.51 Sepsis due to Escherichia coli [E. coli] (principal); J18.9 Pneumonia, unspecified organism; J96.20 Acute and chronic respiratory failure, unspecified whether with hypoxia or hypercapnia; N39.0 Urinary tract infection, site not specified; J44.0 Chronic obstructive pulmonary disease with (acute) lower respiratory infection; J44.1 Chronic obstructive pulmonary disease with (acute) exacerbation; N17.9 Acute kidney failure, unspecified; I24.8 Other forms of acute ischemic heart disease; I50.32 Chronic diastolic (congestive) heart failure; E66.2 Morbid (severe) obesity with alveolar hypoventilation; Z68.44 Body mass index [BMI] 60.0-69.9, adult; E11.9 Type 2 diabetes mellitus without complications; I89.0 Lymphedema, not elsewhere classified; G25.81 Restless legs syndrome; E78.00 Pure hypercholesterolemia, unspecified; K21.9 Gastro-esophageal reflux disease without esophagitis; G89.29 Other chronic pain; M54.9 Dorsalgia, unspecified; N32.81 Overactive bladder; F41.9 Anxiety disorder, unspecified; I11.0 Hypertensive heart disease with heart failure; I25.10 Atherosclerotic heart disease of native coronary artery without angina pectoris; N40.0 Benign prostatic hyperplasia without lower urinary tract symptoms; M19.90 Unspecified osteoarthritis, unspecified site; H91.90 Unspecified hearing loss, unspecified ear; F32.9 Major depressive disorder, single episode, unspecified; Z28.21 Immunization not carried out because of patient refusal; Z99.81 Dependence on supplemental oxygen; Z87.442 Personal history of urinary calculi; Z79.899 Other long term (current) drug therapy; Z79.82 Long term (current) use of aspirin; Z79.4 Long term (current) use of insulin; Z79.51 Long term (current) use of inhaled steroids; Z88.8 Allergy status to other drugs, medicaments and biological substances; Z88.2 Allergy status to sulfonamides
CPT/HCPCS: 36415; 71045; 80048; 80053; 81003; 81015; 82550; 82553; 82803; 82947; 83605; 83735; 83880; 84484; 85025; 85027; 86140; 87040; 87077; 87086; 87186; 87899; 93005; 94640; 99283; A9270-GY; J0456; J0696; J1650; J2930; J3475; J7512

== ENCOUNTER 2019-07-13 11:36 | Inpatient (IN) | payer MEDICARE ==
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
--- OUTSIDE RECORDS SUMMARY | 2019-07-13 11:58 | XMS REPORT | Continuity of Care Document ---
:1950 External Reference #:[id number] Author Name Pamela Jensen (transmitted by agent of provider Evangelista Sow) Address [address] [place] [address] Care Team Providers Name Role Phone [facility], Care Team Information Staff Educator [facility] - Sleep Disorder Care Team Information Staff Educator [phone] Diagnostic HCP/LW on file Care Team Information Staff Educator Unavailable [facility] - Urology Care Team Information Staff Educator [phone] Visitng [facility] Care Team Information Staff Educator orders - Home Health Problems Active Problems [...] Medications SIG Qnty Indications Ordering Date Provider Potassium Chloride 1 tablet by mouth 90tabs E87.6 Silcoff, 06/09/2019 Brenda ER 3x/day; for Katty Hi 20Meq Tablets potassium ER replacement Fluoxetine HCL 1 by mouth every 90caps [...] Sulfate Inhale Two Puffs By 18units J45.20 Silcoff, 04/06/2019 HFA Mouth Every 4 Hours Katty Hi 108(90Base) as Needed For mcg/Act Aerosol Cough,Wheezing,For Shortness Of Breath Bariatric Drop Arm I89.0 Silcoff, 03/23/2019 Bedside Commode Katty Hi M54.5 R35.0 Bariatric Transfer Tub Bench I89.0 Kolton Tidwell M.D. 03/23/2019 M54.5 BD Uf Short Pen Use as Directed Once 100units E11.65 Kolton Tidwell, Needle [id number] Daily For Insulin M.D. Administration PT For [...] ; take 1/2 hour after torsemide Pen [place] use as directed 100units E11.65 Kolton Tidwell, [...] Kolton Tidwell, 09/08/2017 (Portable) activity M.D. R06.00 Shingrix administer 2 doses as 2units Z23 Kolton Tidwell, 08/19/2017 50mcg directed, per cdc M.D. Suspension Rec guidelines Oxygen NC o2 via nc at 2L to R09.02 Kolton Tidwell, 08/19/2017 keep o2 sat >90%, M.D. portable for use w/ activity. R06.00 Glipizide ER take one tablet by 90tabs [...] To Affected 90units L30.4 Kolton Tidwell, 02/11/2017 [id number]/GM Area(S) In Abdominal M.D. Cream Skin Folds [...] his glucometer QS E11.9 Kolton Tidwell, 03/27/2010 M.Woody Freestyle Lancets test as directed up 200units E11.9 Kolton Tidwell, to 4 times a day M.DElzbieta Lymphedema Elastic please measure and 6pairs I89.0 Kolton Tidwell, 2008 Support Stockings dispense M.D. History Medications Levofloxacin 1 by mouth every 10tabs N39.0 Diann, 06/16/2019 - 500mg day for UTI Katty Hi 06/26/2019 Tablets (possible kidney infection) Fluoxetine HCL 1 by mouth every F34.1 Unknown 05/28/2019 - (PMDD) day 06/05/2019 20mg Tablets Insulin Lispro (1 5 units subcu Unknown 04/25/2019 - Unit Dial) before meals 06/05/2019 100Unit/ML Solution Pen-Inject Potassium Chloride 1 tablet by mouth 60tabs E87.6 Silcoshawna, 03/27/2019 - Brenda ER 2x/day; for Katty Hi 06/09/2019 20Meq potassium Tablets ER replacement Surgical Boot, Diann, 03/25/2019 - Opened Toe (Size Katty Hi 06/04/2019 XL), For L Foot Basaglar Kwikpen inject 40-80 units 30ml E11.65 [place]a, 03/13/2019 - once a day, at Katty Hi 04/25/2019 100Unit/ML Solution same time every Pen-Inject day, for blood sugar control Amoxicillin/Clavula 1 twice a day x 10 20tabs [place], 03/09/2019 - iveth Potassium days to prevent Katty Hi 05/19/2019 infection toes 875-125mg Tablets Cephalexin 1 qid 10d for 40tabs S91.115A [place]a, 03/07/2019 - 500mg infection left Katty Hi 03/07/2019 Tablets toes Basaglar Kwikpen inject 40 units E11.65 Silcoff, 03/05/2019 - once a day, at Katty Hi 03/13/2019 100Unit/ML Solution same time every Pen-Inject day, for blood sugar control Medications Administered in Office Medication [...] CPT Code Status Date Vaccine Lot # [id number] Given 03/05/2019 Influenza Vaccine, Inactivated, Subunit, [id number] Adjuvanted, For Intrmusc 47355 Given 06/06/2018 Shingrix Zoster (Shingles) Vaccine (HZV) Recomb,Subnit,Adjuvanted 83515 Given 03/07/2018 Shingrix Zoster (Shingles) Vaccine (HZV) Recomb,Subnit,Adjuvanted 66899 Given 03/07/2018 Influenza Vaccine Split Virus Preservative Free Im Use (hi-dose) 95619 Given 05/20/2017 Pneumococcal Immunization [id number] 88900 Given 03/26/2017 Influenza Vaccine Split Virus Preservative Free Im [id number] Use (hi-dose) 63600 Given 04/23/2016 Prevnar 13 [id number] 24265 Given 01/23/2016 Influenza Virus Vaccine, Quadrivalent, Split, [id number] Preservative Free U-Flu Given 02/21/2015 Influenza,Unspecified 42088 Given 03/29/2014 Flu, Split Virus 3Yrs 68087 Given 01/22/2013 Zostavax 35445 Given 01/22/2013 Flu, Split Virus 3Yrs [id number] 17661 Given 01/07/2012 Flu, Split Virus 3Yrs [id number] 24100 Given 04/02/2011 Flu, Split Virus 3Yrs 64336 Given 03/15/2010 Flu, Split Virus 3Yrs 75449 Given 12/22/2009 Pneumococcal Immunization [id number] 72138 Given 12/22/2009 Adacel or Boostrix, TDaP [id number] 82459 Given 05/26/2009 Flu, Split Virus 3Yrs 77846 Given 02/17/2007 Flu, Split Virus 3Yrs [id number] 43529 Given 11/15/2006 Td Immunization [id number] 59482 Given 03/25/2006 Flu, Split Virus 3Yrs [id number] 53360 Given 02/05/2005 Flu, Split Virus 3Yrs 48958 Given 02/19/2004 Flu, Split Virus 3Yrs 37209 Given 03/01/2003 Flu, Split Virus 3Yrs 41188 Given 05/22/1999 Pneumococcal Immunization Vital Signs Date Vital Result Comment 06/05/2019 1:44pm BP Systolic 130 mmHg BP Diastolic 58 mmHg Heart Rate 83 /min O2 % BldC Oximetry 93 % 3L via NC 03/09/2019 6:34pm Body Temperature 98.0 F Results Test Acquired Date Facility Test Result H/L Range Note Urine Micro Inhouse 06/15/2019 In House Ua WBC TNTC 1 Ua RBC TNTC Ua Casts - Ua Epi - Ua Other - Ua Glucose - Ua Bilirubin - Ua Ketones - Ua Specific [place] 1.010 Ua Blood lg Ua PH 5.0 Ua Protein - Ua Urobilinogen - Ua Nitrite - Ua Leukocytes lg Culture Urine 06/15/2019 In House Colonies confluent growt Inhouse BMP W/Egfr 06/08/2019 [facility] Sodium 134 mmol/L Low 135-145 [phone] Potassium 3.1 mmol/L 3.5-5.0 Chloride 93 mmol/L Low 101-111 Co2 Carbon Dioxide 31 mmol/L Normal 22-32 Anion Gap 10 mmol/L Normal 2-11 Glucose 254 mg/dL High 70-100 Blood Urea Nitrogen 37 mg/dL High 6-24 Creatinine 1.37 mg/dL High 0.67-1.17 BUN/Creatinine Ratio 27.0 High 8-20 Calcium 9.0 mg/dL Normal 8.6-10.3 Egfr Non- 51.7 >60 Egfr 62.5 >60 2 Urine Micro Inhouse 06/05/2019 In House Ua WBC 6-8 3 Ua RBC 10-12 Ua Casts - Ua Epi 0-2 Ua Other - Ua Glucose - Ua Bilirubin - Ua Ketones - Ua Specific [place] 1.015 Ua Blood 2+ Ua PH 5.0 Ua Protein - Ua Urobilinogen - Ua Nitrite - Ua Leukocytes tr Urine Microalbumin 06/05/2019 [facility] Ur Microalbumin 24.8 mg/L Random [phone] (mg/L) Urine Creatinine 181.28 mg/dL Urine Microalbumin/Creatinine 13.6 Normal <31 Laboratory test 06/05/2019 In House Hemoglobin A1c 6.8 finding Laboratory test 05/24/2019 [facility] Blood Culture SEE RESULT 4 finding [phone] BELOW Influenza A & B 05/24/2019 [facility] Flu AB Disclaimer (SEE NOTE) 5 Request [phone] Influenza A Molecular NEGATIVE Negative Influenza B Molecular NEGATIVE Negative 6 Laboratory test 05/24/2019 [facility] Troponin-I 0.04 Critical <0.03 7 finding [phone] (TnI) ng/mL high Lactic Acid 2.3 mmol/L Critical high 0.5-2.0 8 Magnesium 1.5 mg/dL Low 1.9-2.7 CKMB 05/24/2019 [facility] CKMB ng/mL 0.7 ng/mL Normal 0.6-6.3 [phone] Laboratory test 05/24/2019 [facility] Creatine 130 U/L Normal 10-223 finding [phone] Kinase(CK) C Reactive Protein 82.46 mg/L High <8.01 Comp Metabolic Panel 05/24/2019 [facility] Sodium 131 mmol/L Low 135- 145 [phone] Potassium 3.1 mmol/L Low 3.5-5.0 Chloride 92 [...] Egfr Non- 41.4 >60 Egfr 50.1 >60 9 Laboratory test 05/24/2019 [facility] B-Type 41 pg/mL <=100 finding [phone] Natriuretic Peptide BNP CBC Auto Diff 05/24/2019 [facility] White Blood 8.2 Normal 3.5-10.8 [phone] Count 10^3/uL Red Blood Count 4.04 10^6/uL Low 4.18-5.48 [...] % Nucleated Red Blood Cells % 0.0 Arterial Blood Gas 05/24/2019 [facility] Fio2 3 [phone] PH Arterial 7.52 High 7.35-7.45 Pco2 Arterial 32 mmHg Low 35-45 Po2 Arterial 136 mmHg High 80-100 O2 Saturation Arterial 100.0 % High 94.0-98.0 Base Excess Arterial 3.7 mmol/L High -2.0-2.0 10 Hco3 Arterial 27.8 mmol/L Normal 19-31 Laboratory test 05/24/2019 [facility] Lactic Acid 1.6 mmol/L Normal 0.5-2.0 11 finding [phone] Troponin-I (TnI) 0.03 ng/mL Critical high <0.03 12 Laboratory test 04/18/2019 [facility] B-Type 47 pg/mL <=100 finding [phone] Natriuretic Peptide BNP CBC Auto Diff 04/18/2019 [facility] White Blood 10.3 Normal 3.5-10.8 [phone] Count 10^3/uL Red Blood Count 3.65 10^6/uL Low 4.18-5.48 [...] Cells % 0.0 Comp Metabolic Panel 04/18/2019 [facility] Sodium 137 mmol/L Normal 135-145 [phone] Chloride 98 mmol/L Low 101-111 Co2 Carbon Dioxide 24 mmol/L Normal 22-32 Calcium 8.5 mg/dL Low 8.6-10.3 13 Albumin 3.0 g/dL Low 3.2-5.2 14 Total Bilirubin 0.70 mg/dL Normal 0.2-1.0 15 Glucose 163 mg/dL High 70-100 16 Blood Urea Nitrogen 21 mg/dL Normal 6-24 17 Creatinine 1.10 mg/dL Normal 0.67-1.17 18 BUN/Creatinine Ratio 19.1 Normal 8-20 Alkaline Phosphatase 43 U/L Normal 34-104 19 Egfr Non- 66.6 >60 Egfr 80.5 >60 20 Potassium TNP mmol/L 3.5-5.0 21 Anion Gap 15 mmol/L High 2-11 Ast TNP U/L 13-39 22 Total Protein QNS g/dL 6.4-8.9 Globulin TNP g/dL 2-4 Albumin/Globulin Ratio TNP 1-3 Alt QNS U/L 7-52 Laboratory test 04/18/2019 [facility] Troponin-I 0.01 ng/mL <0.03 23 finding [phone] (TnI) Laboratory test 04/18/2019 [facility] Potassium 3.7 mmol/L Normal 3.5 -5.0 finding [phone] Redraw Total Protein 6.8 g/dL Normal 6.4-8.9 Alt (SGPT) 20 U/L Normal Ast Redraw 29 U/L Normal 13-39 Lipid Panel 03/26/2019 [facility] Triglycerides 145 mg/dL 24, 25 [phone] Cholesterol 174 mg/dL 26 HDL Cholesterol 54.0 mg/dL 27 LDL Cholesterol 91 mg/dL 28 Laboratory test 03/26/2019 [facility] Alt (SGPT) 27 U/L Normal - 29 finding [phone] Basic Metabolic 03/26/2019 [facility] Sodium 136 mmol/L Normal 135- 145 Panel [phone] Potassium 3.0 mmol/L Low 3.5-5.0 Chloride 93 mmol/L Low 101-111 Co2 Carbon Dioxide 35 mmol/L High 22-32 Anion Gap 8 mmol/L Normal 2-11 Glucose 256 mg/dL High 70-100 Blood Urea Nitrogen 28 mg/dL High 6-24 Creatinine 1.30 mg/dL High 0.67-1.17 BUN/Creatinine Ratio 21.5 High 8-20 Calcium 9.0 mg/dL Normal 8.6-10.3 Egfr Non- 54.9 >60 Egfr 66.4 >60 30 Laboratory test finding 03/05/2019 In House Glucose Quantitative 318 1 void, turbid, franki 2 Because ethnic data is not always readily [...] 15-29 5 Kidney failure <15 (or dialysis) 3 void, clear, dark gold 4 SEE RESULT BELOW Name: DAYRON LEVY : [address]: Darnell Smyth MD Acct: [id number] Unit: [id number] AGE: 69 Location: [place] [address] Re05/24/19 Dis: 05/28/19 SEX: M Status: DIS IN SPEC: [id number] SANTIAGO: 05/24/19-[address] [facility] [address]: Arnulfo López MD REQ: [id number] RECD: 05/24/19-1805 STATUS: COMP RICARDO DR: Kolton Tidwell MD _ SOURCE: BLOOD,VENO SPDESC: ORDERED: Blood Cult COMMENTS: Verbal to [id number] by [id number] at 1027 on 05/25/19. Results read back [...] CONTINUED ON NEXT PAGE DEPARTMENT OF PATHOLOGY, [address] [place] [address] Suraj Machado M.D. Director [facility] # [id number] Specimen: [id number] Collected: 05/24/19 Received: 05/24/19 (Continued) Procedure Result Reported Site Aerobic Culture Bottle Final (continued) Contact the Microbiology Department for any additional antibiotic reporting. Anaerobic Culture Bottle Final 05/29/19- 1806 ML No Growth Day 5 * ML - Main Lab . END OF REPORT DEPARTMENT OF PATHOLOGY, [address] [place] [address] Suraj Machado M.D. Director [facility] # [id number] 5 Suboptimal collection technique may reduce sensitivity of test. Refer to the [facility] Test Catalog for collection information: [email or web address] As with all diagnostic procedures, the laboratory results obtained should be used in conjunction with other clinical information available to the physician, including confirmation by another method, as applicable. 6 Linen Room Custodian: [id number] 7 Result TnIDx:0.04 Called to [employer] at: 18:36:34 by:[id number] Read back by: [id number] Troponin-I testing on Plasma Separator Tubes (PST) has a known false positive rate of 0.20-0.40%. All positive troponins reflex immediately to secondary confirmatory testing. Using the [employer] DxI 800 Access Immunoassay systems, the 99th percentile upper reference limit was demonstrated to be < 0.03 ng/mL. 8 Critical Result LACT:2.3 Called to [id number] at: 18:36:50 by:[id number] Read back by:[id number] [facility] Severe Sepsis and Septic Shock Management Bundle Measure requires all lactic acids initially measuring >2.0 mmol/L be repeated. 9 Because ethnic data is not always readily [...] 15-29 5 Kidney failure <15 (or dialysis) 10 Reference ranges based on room air. 11 [facility] Severe Sepsis and Septic Shock Management Bundle Measure requires all lactic acids initially measuring >2.0 mmol/L be repeated. 12 Result TnIDx:0.03 Called to [id number] at: 20:42:56 by:[id number] Read back by: [id number] Troponin-I testing on Plasma Separator Tubes (PST) has a known false positive rate of 0.20-0.40%. All positive troponins reflex immediately to secondary confirmatory testing. Using the [employer] DxI 800 Access Immunoassay systems, the 99th percentile upper reference limit was demonstrated to be < 0.03 ng/mL. 13 Specimen hemolyzed. Result may not be valid. 14 Specimen hemolyzed. Result may not be valid. 15 Specimen hemolyzed. Result may not be valid. 16 Specimen hemolyzed. Result may not be valid. 17 Specimen hemolyzed. Result may not be valid. 18 Specimen hemolyzed. Result may not be valid. 19 Specimen hemolyzed. Result may not be valid. 20 Because ethnic data is not always readily [...] 15-29 5 Kidney failure <15 (or dialysis) 21 Specimen Hemolyzed. Result may not be valid. Unable to report test result due to hemolysis. 22 Unable to report test result due to hemolysis. 23 Troponin-I testing on Plasma Separator Tubes (PST) has a known false positive rate of 0.20-0.40%. All positive troponins reflex immediately to secondary confirmatory testing. Using the [employer] Access Immunoassay systems, the 99th percentile upper reference limit was demonstrated to be < 0.03 ng/mL. 24 [id number] 25 Desirable: <150 Borderline High: 150-199 High: 200-499 Very High: >500 26 Desirable: <200 Borderline High: 200-239 High: >239 27 Low: <40 Desirable: 40-60 High: >60 28 Desirable: <100 Near Optimal: 100-129 Borderline High: 130-159 High: 160-189 Very High: >189 29 [id number] 30 Because ethnic data is not always readily [...] dialysis) Procedures Date Code Description Status 06/05/2019 926751997 Diabetic Foot Exam Completed 03/05/2018 218870708 Diabetic Retinal Eye Exam Completed 12/08/2009 59697137 Colonoscopy Completed Medical Devices Description No Information Available Encounters Type Date Location Provider Dx Diagnosis Office Visit 06/05/2019 Main Office Kolton Tidwell, E11.65 Type 2 diabetes 1:15p M.D. mellitus with hyperglycemia Z79.4 assisted (current) use of insulin Z79.84 assisted (current) use of oral hypoglycemic drugs I89.0 [...] Office Visit 03/05/2019 10:20a Main Office Alyson Cruz, E11.65 Type 2 diabetes P.A. mellitus with hyperglycemia S91.115A Lac w/o fb of left lesser toe(s) w/o damage to nail, init I89.0 Lymphedema, not elsewhere classified M79.672 Pain in left foot Z23 Encounter for immunization Assessments Date Code Description Provider 06/15/2019 R31.0 Gross hematuria Kolton Tidwell M.D. 06/05/2019 E11.65 Type 2 diabetes mellitus with hyperglycemia Kolton Tidwell M.D. 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 [...] 03/07/2019 I89.0 Lymphedema, not elsewhere classified Alyson Cruz, P.A. 03/07/2019 M79.672 Pain in left foot Alyson [place], P.A. 03/05/2019 E11.65 Type 2 diabetes mellitus with hyperglycemia Alyson Cruz , P.A. 03/05/2019 S91.115A Laceration without foreign body of left Alyson [place], P.A. lesser toe(s) without damage to nail, initial encounter 03/05/2019 I89.0 Lymphedema, not elsewhere classified Alyson Couchle, P.A. 03/05/2019 M79.672 Pain in left foot Alyson Couchle, P.A. 03/05/2019 Z23 Encounter for immunization Jung Jensen.A. Plan of Treatment Future Appointment(s):08/04/2019 11:15 am - Kolton Tidwell M.D. at Main Office Functional Status Description No Information Available Mental Status Description No Information Available Referrals Description No Information Available
--- OUTSIDE RECORDS SUMMARY | 2019-07-13 11:58 | XMS REPORT | Continuity of Care Document ---
:1950 External Reference #:[id number] Author Name Pamela Jensen (transmitted by agent of provider Evangelista Sow) Address [address] [place] [address] Care Team Providers Name Role Phone [facility] - Spec/Tech, Care Team Information [facility] - Sleep Disorder Care Team Information [employer] Chief [phone] Diagnostic HCP/LW on file Care Team Information [employer] Chief Unavailable [facility] Urology Care Team Information [employer] Chief [phone] [facility] Care Team Information [employer] Chief [phone] orders - Home Health Problems Active Problems [...] Directed Once 100units E11.65 Kolton Tidwell, Needle [id number] Daily For Insulin M.D. Administration PT For [...] ; take 1/2 hour after torsemide Pen [place] use as directed 100units E11.65 Kolton Tidwell, [...] o2 via nc at 2L to R09.02 Kloton Tidwell, 08/19/2017 keep o2 sat >90%, M.D. [...] To Affected 90units L30.4 Kolton Tidwell, 02/11/2017 [id number]/GM Area(S) In Abdominal M.D. Cream Skin Folds [...] CPT Code Status Date Vaccine Lot # [id number] Given 03/05/2019 Influenza Vaccine, Inactivated, Subunit, [id number] Adjuvanted, For Intrmusc 17709 Given 06/06/2018 Shingrix Zoster (Shingles) Vaccine (HZV) Recomb,Subnit,Adjuvanted 06180 Given 03/07/2018 Shingrix Zoster (Shingles) Vaccine (HZV) Recomb,Subnit,Adjuvanted 37564 Given 03/07/2018 Influenza Vaccine Split Virus Preservative Free Im Use (hi-dose) 24389 Given 05/20/2017 Pneumococcal Immunization [id number] 42286 Given 03/26/2017 Influenza Vaccine Split Virus Preservative Free Im [id number] Use (hi-dose) 60983 Given 04/23/2016 Prevnar 13 [id number] 71306 Given 01/23/2016 Influenza Virus Vaccine, Quadrivalent, Split, [id number] Preservative Free U-Flu Given 02/21/2015 Influenza,Unspecified 29868 Given 03/29/2014 Flu, Split Virus 3Yrs 68465 Given 01/22/2013 Zostavax 58793 Given 01/22/2013 Flu, Split Virus 3Yrs [id number] 69510 Given 01/07/2012 Flu, Split Virus 3Yrs [id number] 55992 Given 04/02/2011 Flu, Split Virus 3Yrs 92003 Given 03/15/2010 Flu, Split Virus 3Yrs 84379 Given 12/22/2009 Pneumococcal Immunization [id number] 25489 Given 12/22/2009 Adacel or Boostrix, TDaP [id number] 43175 Given 05/26/2009 Flu, Split Virus 3Yrs 68268 Given 02/17/2007 Flu, Split Virus 3Yrs [id number] 16774 Given 11/15/2006 Td Immunization [id number] 57383 Given 03/25/2006 Flu, Split Virus 3Yrs [id number] 50761 Given 02/05/2005 Flu, Split Virus 3Yrs 76281 Given 02/19/2004 Flu, Split Virus 3Yrs 45047 Given 03/01/2003 Flu, Split Virus 3Yrs 05727 Given 05/22/1999 Pneumococcal Immunization Vital Signs Date [...] Bilirubin - Ua Ketones - Ua Specific Tarkio 1.010 Ua Blood lg Ua PH 5.0 Ua Protein - Ua Urobilinogen - Ua Nitrite - Ua Leukocytes lg Culture Urine 06/15/2019 In House Colonies confluent growt Inhouse BMP W/Egfr 06/08/2019 [facility] Sodium 134 mmol/L Low 135-145 [phone] Potassium 3.1 mmol/L 3.5-5.0 Chloride 93 mmol/L [...] Bilirubin - Ua Ketones - Ua Specific Tarkio 1.015 Ua Blood 2+ Ua PH 5.0 Ua Protein - Ua Urobilinogen - Ua Nitrite - Ua Leukocytes tr Urine Microalbumin 06/05/2019 [facility] Ur Microalbumin 24.8 mg/L Random [phone] (mg/L) Urine Creatinine 181.28 mg/dL Urine Microalbumin/Creatinine 13.6 Normal <31 Laboratory test 06/05/2019 In House Hemoglobin A1c 6.8 finding Laboratory test 05/24/2019 [facility] Blood Culture SEE RESULT 4 finding [phone] BELOW Influenza A & B 05/24/2019 [facility] Flu AB Disclaimer (SEE NOTE) 5 Request [phone] Influenza A Molecular NEGATIVE Negative Influenza B Molecular NEGATIVE Negative 6 Laboratory test 05/24/2019 [facility] Troponin-I 0.04 Critical <0.03 7 finding [phone] (TnI) ng/mL high Lactic Acid 2.3 mmol/L Critical high 0.5-2.0 8 Magnesium 1.5 mg/dL Low 1.9-2.7 CKMB 05/24/2019 [facility] CKMB ng/mL 0.7 ng/mL Normal 0.6-6.3 [phone] Laboratory test 05/24/2019 [facility] Creatine 130 U/L Normal 10-223 finding [phone] Kinase(CK) C Reactive Protein 82.46 mg/L High <8.01 Comp Metabolic Panel 05/24/2019 [facility] Sodium 131 mmol/L Low 135- 145 [phone] Potassium 3.1 mmol/L Low 3.5-5.0 Chloride 92 [...] Egfr 50.1 >60 9 Laboratory test 05/24/2019 [facility] B-Type 41 pg/mL <=100 finding [phone] Natriuretic Peptide BNP CBC Auto Diff 05/24/2019 [facility] White Blood 8.2 Normal 3.5-10.8 [phone] Count 10^3/uL Red Blood Count 4.04 10^6/uL [...] Cells % 0.0 Arterial Blood Gas 05/24/2019 [facility] Fio2 3 [phone] PH Arterial 7.52 High 7.35-7.45 Pco2 Arterial 32 mmHg Low 35-45 Po2 Arterial 136 mmHg High 80-100 O2 Saturation Arterial 100.0 % High 94.0-98.0 Base Excess Arterial 3.7 mmol/L High -2.0-2.0 10 Hco3 Arterial 27.8 mmol/L Normal 19-31 Laboratory test 05/24/2019 [facility] Lactic Acid 1.6 mmol/L Normal 0.5-2.0 11 finding [phone] Troponin-I (TnI) 0.03 ng/mL Critical high <0.03 12 Laboratory test 04/18/2019 [facility] B-Type 47 pg/mL <=100 finding [phone] Natriuretic Peptide BNP CBC Auto Diff 04/18/2019 [facility] White Blood 10.3 Normal 3.5-10.8 [phone] Count 10^3/uL Red Blood Count 3.65 10^6/uL [...] Cells % 0.0 Comp Metabolic Panel 04/18/2019 [facility] Sodium 137 mmol/L Normal 135-145 [phone] Chloride 98 mmol/L Low 101-111 Co2 Carbon [...] Alt QNS U/L 7-52 Laboratory test 04/18/2019 [facility] Troponin-I 0.01 ng/mL <0.03 23 finding [phone] (TnI) Laboratory test 04/18/2019 [facility] Potassium 3.7 mmol/L Normal 3.5 -5.0 finding [phone] Redraw Total Protein 6.8 g/dL Normal 6.4-8.9 Alt (SGPT) 20 U/L Normal Ast Redraw 29 U/L Normal 13-39 Lipid Panel 03/26/2019 [facility] Triglycerides 145 mg/dL 24, 25 [phone] Cholesterol 174 mg/dL 26 HDL Cholesterol 54.0 mg/dL 27 LDL Cholesterol 91 mg/dL 28 Laboratory test 03/26/2019 [facility] Alt (SGPT) 27 U/L Normal - 29 finding [phone] Basic Metabolic 03/26/2019 [facility] Sodium 136 mmol/L Normal 135- 145 Panel [phone] Potassium 3.0 mmol/L Low 3.5-5.0 Chloride 93 [...] [address]: Darnell Smyth MD Acct: [id number] Unit: [id number] AGE: 69 Location: [place] [address] Re05/24/19 Dis: 05/28/19 SEX: M Status: DIS IN SPEC: [id number] SANTIAGO: 05/24/19-172 [facility] DR: Arnulfo López MD REQ: [id number] RECD: 05/24/19-1805 STATUS: COMP RICARDO DR: Kolton Tidwell MD _ SOURCE: BLOOD,VENO SPDESC: ORDERED: Blood Cult COMMENTS: Verbal to [id number] by [id number] at 1027 on 05/25/19. Results read back [...] CONTINUED ON NEXT PAGE DEPARTMENT OF PATHOLOGY, [address] [place] [address] Suraj Machado M.D. Director [facility] # [id number] Specimen: [id number] Collected: 05/24/19 Received: 05/24/19 (Continued) Procedure Result Reported Site Aerobic Culture Bottle Final (continued) Contact the Microbiology Department for any additional antibiotic reporting. Anaerobic Culture Bottle Final 05/29/19- 1806 ML No Growth Day 5 * ML - Main Lab . END OF REPORT DEPARTMENT OF PATHOLOGY, [address] [place] [address] Suraj Machado M.D. Director [facility] # [id number] 5 Suboptimal collection technique may reduce sensitivity of test. Refer to the [facility] Test Catalog for collection information: [email or web address] As with all diagnostic procedures, the laboratory results obtained should be used in conjunction with other clinical information available to the physician, including confirmation by another method, as applicable. 6 Store Facility Technician: [id number] 7 Result TnIDx:0.04 Called to [employer] at: 18:36:34 by:[id number] Read back by: [id number] Troponin-I testing on Plasma Separator Tubes (PST) has a known false positive rate of 0.20-0.40%. All positive troponins reflex immediately to secondary confirmatory testing. Using the [employer] DxI 800 Access Immunoassay systems, the 99th percentile upper reference limit was demonstrated to be < 0.03 ng/mL. 8 Critical Result LACT:2.3 Called to [id number] at: 18:36:50 by:[id number] Read back by:[email or web address] [facility] Severe Sepsis and Septic Shock Management Bundle [...] Reference ranges based on room air. 11 [facility] Severe Sepsis and Septic Shock Management Bundle Measure requires all lactic acids initially measuring >2.0 mmol/L be repeated. 12 Result TnIDx:0.03 Called to [id number] at: 20:42:56 by:[id number] Read back by: [id number] Troponin-I testing on Plasma Separator Tubes (PST) has a known false positive rate of 0.20-0.40%. All positive troponins reflex immediately to secondary confirmatory testing. Using the [employer] DxI 800 Access Immunoassay systems, the 99th [...] immediately to secondary confirmatory testing. Using the [employer] Access Immunoassay systems, the 99th percentile upper reference limit was demonstrated to be < 0.03 ng/mL. 24 [id number] 25 Desirable: <150 Borderline High: 150-199 High: 200-499 Very High: >500 26 Desirable: <200 Borderline High: 200-239 High: >239 27 Low: <40 Desirable: 40-60 High: >60 28 Desirable: <100 Near Optimal: 100-129 Borderline High: 130-159 High: 160-189 Very High: >189 29 [id number] 30 Because ethnic data is not always [...] dialysis) Procedures Date Code Description Status 06/05/2019 686988092 Diabetic Foot Exam Completed 03/05/2018 728916133 Diabetic Retinal Eye Exam Completed 12/08/2009 29298477 Colonoscopy Completed Medical Devices Description No Information Available Encounters Type Date Location Provider Dx Diagnosis Office Visit 06/05/2019 Main Office Kolton Tidwell, E11.65 Type 2 diabetes 1:15p M.D. mellitus with hyperglycemia Z79.4 jail (current) use of insulin Z79.84 jail (current) use of oral hypoglycemic drugs I89.0 [...] with hyperglycemia Kolton Tidwell M.D. 06/05/2019 Z79.4 crisis counselor (current) use of insulin Kolton Tidwell M.D. 06/05/2019 Z79.84 crisis counselor (current) use of oral Kolton Tidwell M.D. [...] 03/07/2019 M79.672 Pain in left foot Alyson [place], P.A. 03/05/2019 E11.65 Type 2 diabetes mellitus with hyperglycemia Alyson [place] , P.A. 03/05/2019 S91.115A Laceration without foreign body of left Alyson [place], P.A. lesser toe(s) without damage to nail, [...]
--- NOTE | 2019-07-13 12:00 | ED ---
Respiratory - HPI Summary HPI Summary: This patient is a 69 y/o male, with hx of CHF, COPD, asthma, presenting to [facility] via EMS for shortness of breath x2 days. Patient notes for the past two days he has felt short of breath with a productive cough with yellow/clear sputum,. He reports this morning he began to have brown sputum. He states he has left sided rib pain secondary to coughing. Denies any fever, chills, or chest pain. Additionally, patient reports he has been having dark bloody stools for the past 2 days. Denies taking any anticoagulants. Per EMS, pt was saturating at 84% on 3L at home. Patient last had a colonoscopy in 2013 and states "they" lost his polyps and wanted him to go back but didn't. Patient reports he had a grapefruit sized ulcer that perforated in his stomach in July 2014. Home Medications Medication Instructions Recorded Confirmed Type LoraTADine TAB(NF) [Claritin 10 MG 10 mg PO DAILY 09/14/14 07/13/19 History TAB(NF)] Pantoprazole TAB * [Protonix TAB*] 40 mg PO DAILY 09/14/14 07/13/19 History ALPRAZolam TAB* [Xanax TAB*] 0.5 mg PO Q4H PRN 04/19/17 07/13/19 History Ascorbic Acid TAB* [Vitamin C 500 mg PO DAILY 04/19/17 07/13/19 History TAB*] Aspirin EC TAB* [Ecotrin EC Low 81 mg PO DAILY 04/19/17 07/13/19 History Dose 81 MG*] Atorvastatin* [Lipitor 40 MG*] 40 mg PO QPM 04/19/17 07/13/19 History Budesonide/Formote 80/4.5(NF) 2 puff INH BID 04/19/17 07/13/19 History [Symbicort 80/4.5 (NF)] Hydrocodone/Acetaminophen 1 tab PO Q4HR PRN MDD 6 tabs 04/19/17 07/13/19 History [Hydrocodone-Acetamin 10-325 mg] Isosorbide Mononitrate ER TAB* 60 mg PO DAILY 04/19/17 07/13/19 History [Imdur ER TAB*] Nystatin CREAM* [Nystatin Cream*] 1 applic TOPICAL TID PRN 04/19/17 07/13/19 History Ropinirole TAB* [Requip TAB*] 0.5 mg PO BEDTIME 04/19/17 07/13/19 History Tamsulosin CAP* [Flomax CAP*] 0.4 mg PO DAILY 04/19/17 07/13/19 History Albuterol HFA INHALER* [Ventolin 2 puff INH Q4H PRN 01/15/18 07/13/19 History HFA Inhaler*] Multivitamins/Minerals TAB* 1 tab PO DAILY 01/15/18 07/13/19 History [Theragran/minerals TAB*] Potassium Chlor TAB* [Potassium 20 meq PO DAILY 01/15/18 07/13/19 History Chlor TAB 20 MEQ*] Ramipril CAP* [Altace CAP*] 5 mg PO QAM 01/15/18 07/13/19 History glipiZIDE [Glipizide ER] 10 mg PO DAILY #30 tab.er.24 01/17/18 07/13/19 Rx Fluoxetine HCl 40 mg PO DAILY #30 capsule 05/27/19 07/13/19 Rx Insulin Glargine,Hum.rec.anlog 30 units SUBCUT DAILY 07/13/19 07/13/19 History [Basaglar Kwikpen 100 inuts/ml 3 ml x 5 Pens] L. Acidophilus/L.bulgaricus 1 tab PO BID 07/13/19 07/13/19 History [Floranex Tablet] Magnesium Oxide TAB* [MagOx 400 800 mg PO BID 07/13/19 07/13/19 History TAB*] Torsemide TAB* [Demadex 20 MG*] 40 mg PO QAM 07/13/19 07/13/19 History - History of Current Complaint Chief Complaint: EDUpperRespComplaint Stated Complaint: LOW OXYGEN SATURATION PER Hx Obtained From: Patient Onset/Duration: Lasting Days, Still Present Current Severity: Moderate Pain Intensity: 6 Character: Cough (Productive) Sputum Color: Yellow, Brown Aggravating Factor(s): Nothing Alleviating Factor(s): Nothing Associated Signs and Symptoms: SOB, Edema - Allergy/Home Medications Allergies/Adverse Reactions: Allergies Allergy/AdvReac Type Severity Reaction Status Date / Time canagliflozin Allergy Unknown Verified 01/15/18 11:26 Reaction Details Sulfa (Sulfonamide Allergy Unknown Verified 01/15/18 11:26 Antibiotics) Reaction Details Home Medications: Home Medications LoraTADine TAB(NF) [Claritin 10 MG TAB(NF)] 10 mg PO DAILY 09/14/14 [History Confirmed 07/13/19] Pantoprazole TAB * [Protonix TAB*] 40 mg PO DAILY 09/14/14 [History Confirmed ] ALPRAZolam TAB* [Xanax TAB*] 0.5 mg PO Q4H PRN 04/19/17 [History Confirmed 07/12] Ascorbic Acid TAB* [Vitamin C TAB*] 500 mg PO DAILY 04/19/17 [History Confirmed 07/13/19] Aspirin EC TAB* [Ecotrin EC Low Dose 81 MG*] 81 mg PO DAILY 04/19/17 [History Confirmed 07/13/19] Atorvastatin* [Lipitor 40 MG*] 40 mg PO QPM 04/19/17 [History Confirmed 07/13/19 ] Budesonide/Formote 80/4.5(NF) [Symbicort 80/4.5 (NF)] 2 puff INH BID 04/19/17 [ History Confirmed 07/13/19] Hydrocodone/Acetaminophen [Hydrocodone-Acetamin 10-325 mg] 1 tab PO Q4HR PRN MDD 6 tabs 04/19/17 [History Confirmed 07/13/19] Isosorbide Mononitrate ER TAB* [Imdur ER TAB*] 60 mg PO DAILY 04/19/17 [History Confirmed 07/13/19] Nystatin CREAM* [Nystatin Cream*] 1 applic TOPICAL TID PRN 04/19/17 [History Confirmed 07/13/19] Ropinirole TAB* [Requip TAB*] 0.5 mg PO BEDTIME 04/19/17 [History Confirmed 07/02] Tamsulosin CAP* [Flomax CAP*] 0.4 mg PO DAILY 04/19/17 [History Confirmed ] Albuterol HFA INHALER* [Ventolin HFA Inhaler*] 2 puff INH Q4H PRN 01/15/18 [ History Confirmed 07/13/19] Multivitamins/Minerals TAB* [Theragran/minerals TAB*] 1 tab PO DAILY 01/15/18 [ History Confirmed 07/13/19] Potassium Chlor TAB* [Potassium Chlor TAB 20 MEQ*] 20 meq PO DAILY 01/15/18 [ History Confirmed 07/13/19] Ramipril CAP* [Altace CAP*] 5 mg PO QAM 01/15/18 [History Confirmed 07/13/19] glipiZIDE [Glipizide ER] 10 mg PO DAILY #30 tab.er.24 01/17/18 [Rx Confirmed 07/02] Fluoxetine HCl 40 mg PO DAILY #30 capsule 05/27/19 [Rx Confirmed 07/13/19] Insulin Glargine,Hum.rec.anlog [Basaglar Kwikpen 100 inuts/ml 3 ml x 5 Pens] 30 units SUBCUT DAILY 07/13/19 [History Confirmed 07/13/19] L. Acidophilus/L.bulgaricus [Floranex Tablet] 1 tab PO BID 07/13/19 [History Confirmed 07/13/19] Magnesium Oxide TAB* [MagOx 400 TAB*] 800 mg PO BID 07/13/19 [History Confirmed 07/13/19] Torsemide TAB* [Demadex 20 MG*] 40 mg PO QAM 07/13/19 [History Confirmed ] PMH/Surg Hx/FS Hx/Imm Hx Endocrine/Hematology History: Reports: Hx Diabetes - type 2, Hx Anemia Cardiovascular History: Reports: Hx Congestive Heart Failure, Hx Hypercholesterolemia, Hx Hypertension Respiratory History: Reports: Hx Asthma, Hx Chronic Obstructive Pulmonary Disease (COPD) - 3-5L O2 via nc, Other Respiratory Problems/Disorders - PARALYZED DIAPHRAM ( LEFT) PER PT. / MULTIPLE ABD SURGERIES GI History: Reports: Hx Gastroesophageal Reflux Disease, Hx Gastrointestinal Bleed, Other GI Disorders - gastric ulcer perf, multiple feeding tubes, infections post surgery History: Denies: Hx Acute Renal Failure, Hx Chronic Renal Failure Musculoskeletal History: Reports: Hx Arthritis Sensory History: Reports: Hx Hearing Problem Denies: Hx Contacts or Glasses, Hx Hearing Aid Opthamlomology History: Denies: Hx Contacts or Glasses Psychiatric History: Reports: Hx Anxiety - Cancer History Hx Chemotherapy: No Hx Radiation Therapy: No - Surgical History Surgery Procedure, Year, and Place: Abd surgery on 08/03/14 Infectious Disease History: No Infectious Disease History: Denies: Traveled Outside the [place] in Last 30 Days - Family History Known Family History: Negative: Renal Disease - Social History Alcohol Use: None Hx Substance Use: Yes Substance Use Type: Reports: Prescribed Substance Use Comment - Amount & Last Used: hydrocodone Hx Tobacco Use: No Smoking Status (MU): Never Smoked Tobacco Review of Systems Negative: Fever Negative: Chest Pain Positive: Shortness Of Breath, Cough Gastrointestinal: Other - POSITIVE: bloody stools Musculoskeletal: Other - POSITIVE: pain on left sided ribs Positive: Edema - legs All Other Systems Reviewed And Are Negative: Yes Physical Exam - Summary Physical Exam Summary: VITAL SIGNS: Reviewed. GENERAL: Patient is a well-developed and obese male who is lying comfortable in the stretcher. Patient is not in any acute respiratory distress and is using oxygen via nasal cannula. He is able to speak in full sentences HEAD AND FACE: No signs of trauma. No ecchymosis, hematomas or skull depressions. No sinus tenderness. EYES: PERRLA, EOMI x 2, No injected conjunctiva, no nystagmus. EARS: Hearing grossly intact. Ear canals and tympanic membranes are within normal limits. MOUTH: Oropharynx within normal limits. NECK: Supple, trachea is midline, no adenopathy, no JVD, no carotid bruit, no c- spine tenderness, neck with full ROM. CHEST: Symmetric, no tenderness at palpation LUNGS: Decreased breath sounds. Some crackles in bases of the lungs. Patient on oxygen via nasal cannula. CVS: Regular rate and rhythm, S1 and S2 present, no murmurs or gallops appreciated. ABDOMEN: Soft, mild epigastric tenderness. No signs of distention. No rebound, no guarding, and no masses palpated. Bowel sounds are normal. EXTREMITIES: Bilateral lower extremity edema 2+. NEURO: Alert and oriented x 3. No acute neurological deficits. Speech is normal and follows commands. SKIN: Dry and warm Triage Information Reviewed: Yes Vital Signs On Initial Exam: Initial Vitals Temp Pulse Resp BP Pulse Ox 98.1 F 79 24 168/65 91 07/13/19 11:37 07/13/19 11:37 07/13/19 11:37 07/13/19 11:37 07/13/19 11:37 Vital Signs Reviewed: Yes Procedures - Sedation Patient Received Moderate/Deep Sedation with Procedure: No Diagnostics - Vital Signs Vital Signs Temp Pulse Resp BP Pulse Ox 07/13/19 11:48 83 138/65 97 07/13/19 11:47 78 95 07/13/19 11:37 98.1 F 79 24 168/65 91 - Laboratory Result Diagrams: 07/13/19 12:23 07/13/19 12:24 Lab Statement: Any lab studies that have been ordered have been reviewed, and results considered in the medical decision making process. - Radiology Chest XR Radiology Interpretation Completed By: Radiologist Summary of Radiographic Findings: IMPRESSION: Pulmonary vascular congestion. Dr. López has reviewed this report. - EKG 13:26 Cardiac Rate: NL - at 81 bpm EKG Rhythm: Sinus Rhythm EKG Comparison: No Significant Change - similar to prior on 05/28/19. Summary of EKG Findings: EKG at 1326 shows normal sinus rhythm at a rate of [address] elevations. Similar to prior EKG on 05/28/19. This EKG was interpreted and reviewed by ED physician. Disposition - Course Assessment/Plan: This patient is a 69 y/o male, with hx of CHF, COPD, asthma, presenting to [facility] via EMS for shortness of breath x2 days. Patient notes for the past two days he has felt short of breath with a productive cough with yellow/clear sputum,. He reports this morning he began to have brown sputum. He states he has left sided rib pain secondary to coughing. Denies any fever, chills, or chest pain. Additionally, patient reports he has been having dark bloody stools for the past 2 days. Denies taking any anticoagulants. Per EMS, pt was saturating at 84% on 3L at home. Patient last had a colonoscopy in 2013 and states "they" lost his polyps and wanted him to go back but didn't. Patient reports he had a grapefruit sized ulcer that perforated in his stomach in July 2014. In the ED course the patient was placed in a driver operator, IV access was obtained. Past medical records reviewed. Blood test w/o a significant abnormality except for hemoglobin 12.8 and hematocrit 37, platelets 138, potassium is 3.3, chloride 92, carbon dioxide is 34, BUN is 26, creatinine 1.2, glucose 247, lactic acid is 2.7, magnesium is 1.7, and CRP is 8.25. Guaiac is positive. Chest x-ray impression: Pulmonary vascular congestion. In the ED course the patient was given 1 dose of Protonix since the patient is complaining of black stools and the guaiac is positive. I discussed my physical exam and test results with Dr. Olvera from the hospitalist services and she agrees to admit the patient to her services. The patient is hemodynamically stable, alert and oriented x 3. - Diagnoses Provider Diagnoses: GI bleed, Lower extremity edema, Renal insufficiency - Physician Notifications Discussed Care Of Patient With: Gisela Olvera Time Discussed With Above Provider: 13:52 Instructed by Provider To: Other - Discussed the case with Dr. Olvera, hospitalist, who accepted the patient for admission. Discharge ED - Sign-Out/Discharge Documenting (check all that apply): Patient Departure - Admit to [facility] - Discharge Plan Condition: Stable Disposition: ADMITTED TO [facility] - Billing Disposition and Condition Condition: STABLE Disposition: Admitted to [facility] - Attestation Statements Document Initiated by Yulia: Yes Documenting Scribe: Eryn Park Provider For Whom Yulia is Documenting (Include Credential): Arnulfo López MD Scribe Attestation: I, Eryn Park, scribed for Arnulfo López MD on 07/13/19 at 2050. Scribe Documentation Reviewed: Yes Provider Attestation: The documentation as recorded by the Eryn thibodeaux accurately reflects the service I personally performed and the decisions made by me, Arnulfo López MD Status of Scribe Document: Viewed
[2019-07-13 12:35] LABS: ABS Eosinophils 0.4 10^3/ul (0-0.6); ABS Lymphocytes 1.1 10^3/ul (1.0-4.8); ABS Monocytes 0.8 10^3/ul (0-0.8); ABS Neutrophils 3.1 10^3/ul (1.5-7.7); Eosinophil % 7.4 %; Hematocrit 37 % (42-52); Hemoglobin 12.8 g/dL (14.0-18.0); Lymphocyte % 20.6 %; Mean Corpuscular HGB Conc 35 g/dL (31-36); Mean Corpuscular Hemoglobin 33 pg (27-31); Mean Corpuscular Volume 94 fL (80-94); Mean Platelet Volume 7.5 fL (7.4-10.4); Platelet Count 138 10^3/uL (150-450); Red Blood Count 3.93 10^6 /uL (4.18-5.48); Red Cell Distribution Width 15 % (10-15); White Blood Count 5.4 10^3/uL (3.5-10.8)
[2019-07-13 12:44] LABS: Activated Partial Thrombo Time 32.9 seconds (26.0-38.0); INR 1.16 (0.82-1.09)
[2019-07-13 12:52] LABS: Albumin 3.3 g/dL (3.2-5.2); Albumin/Globulin Ratio 0.9 (1-3); BUN/Creatinine Ratio 21.7 (8-20); C Reactive Protein 8.25 mg/L (<8.01); Calcium 9.7 mg/dL (8.6-10.3); EGFR African American 72.9 (>60); EGFR Non-African American 60.2 (>60); Globulin 3.7 g/dL (2-4); Magnesium 1.7 mg/dL (1.9-2.7); Potassium 3.3 mmol/L (3.5-5.0); Total Bilirubin 0.8 mg/dL (0.2-1.0)
[2019-07-13] MEDS ORDERED: Magnesium Oxide TAB* 400 MG PO ONE (13:28)
[2019-07-13] MEDS ORDERED: Potassium Chlor TAB* 20 MEQ TAB.ER PO ONE (13:28)
[2019-07-13] MEDS ORDERED: Pantoprazole IV* 40 MG IV ONE (13:32)
[2019-07-13 14:02] LABS: Urine Appearance Clear; Urine Bilirubin Negative (Negative); Urine Blood 1+ (Negative); Urine Color Yellow; Urine Glucose Negative (Negative); Urine Ketones Negative (Negative); Urine Nitrite Negative (Negative); Urine Protein Negative (Negative); Urine Specific Gravity 1.006 (1.010-1.030); Urine Urobilinogen Negative (Negative)
[2019-07-13 14:08] LABS: Urine Bacteria Absent (Absent); Urine Red Blood Cell 2+(6-10/hpf) (Absent); Urine Squamous Epithelial Cell Present (Absent); Urine White Blood Cell Trace(0-5/hpf) (Absent)
[2019-07-13] MEDS ORDERED: Morphine 4 MG/ML VIAL (1 ml) 4 MG/ML VIAL IV ONE (14:08)
[2019-07-13] MEDS ORDERED: Acetaminophen TAB* 325 MG PO PRN (15:04)
[2019-07-13] MEDS ORDERED: Albuterol HFA INHALER* 8 gm MDI INH PRN (15:23)
[2019-07-13] MEDS ORDERED: Dextrose 50% Syringe 50 ML* 25 GM/50 ML SYRINGE IV PUSH PRN (15:45)
[2019-07-13] MEDS ORDERED: Enoxaparin(*) 40 MG/0.4 ML SYR SUBCUT SCH (16:00)
[2019-07-13] MEDS ORDERED: Furosemide IV* 10 MG/ML 10 ML VIAL (100 MG) IV SCH (16:00)
[2019-07-13] MEDS: Furosemide IV* 10 MG/ML 10 ML VIAL (100 MG) IV SCH (16:48)
[2019-07-13] MEDS: Atorvastatin* 40 MG TAB PO SCH (16:50)
[2019-07-13] MEDS: Insulin LISPRO* 1 UNITS UNIT SUBCUT SCH (17:41)
--- NOTE | 2019-07-13 18:58 | HP ---
CC: Kolton Tidwell MD * HISTORY AND PHYSICAL: DATE OF ADMISSION: 07/13/19 PRIMARY CARE PROVIDER: Kolton Tidwell MD. ATTENDING PHYSICIAN: Gisela Olvera DO * (dictated by DELFIN Chauhan). CHIEF COMPLAINT: 1. Shortness of breath, bilateral lower extremity edema. 2. Melena. HISTORY OF PRESENT ILLNESS: Mr. Levy is a 69-year-old male with past medical history of heart failure, preserved ejection fraction; diabetes mellitus , insulin- dependent; COPD; obstructive sleep apnea; obesity hypoventilation syndrome; anemia, who presented to the ER today with shortness of breath worsening in the last 4 days and bilateral lower extremity edema that has progressively worsened in the last 2 weeks. He reports that he also has associated dyspnea on exertion, reporting that with ambulation he had to turn his oxygen up to max for his home unit of 5 L. He always sleeps in a recliner for greater than 1 year and notes that he has no difficulty with sleeping. He does report a productive cough. He states that he had a fever, T-max 100.1 about 10 days ago with associated chills, sweats. He reports no sick contacts. He has not had a fever since. He takes his medications as prescribed. The patient also reports dark and tarry stools that began on Saturday. Since Saturday, he reports 1 more episode of melena that he reports with improved compared to his initial bowel movement Saturday but also notes that there was some geraldine blood in the toilet after his bowel movement. He does not use NSAIDs but does take aspirin daily. He has a history of peptic ulcer disease. In the ER, the patient received a full workup. Labs revealed an anemia consistent with his chronic anemia as well as thrombocytopenia, hypokalemia, hypomagnesemia. His creatinine is at baseline around 1.20. BUN is elevated but also at baseline. Lactic is elevated at 2.7. CRP is mildly elevated at 8.25. Stool for blood is positive. Chest x-ray reveals pulmonary edema and EKG reveals rate of 81 with T- wave inversions in V1, which are old without ST elevation or depression. In the ER, the patient received magnesium, morphine, pantoprazole, and potassium. The hospitalist team was asked to evaluate the patient for admission. PAST MEDICAL HISTORY: 1. Heart failure, preserved ejection fraction. Echo from January 2018 reveals an EF of 60% to 65%. 2. Diabetes mellitus, insulin-dependent. 3. Hyperlipidemia. 4. COPD, requiring 3 to 5 L oxygen at all times. 5. Obesity hypoventilation syndrome. 6. Obstructive sleep apnea, compliant with CPAP machine. 7. Anemia. 8. Restless leg syndrome. 9. GERD. 10. Chronic pain. 11. Nephrolithiasis. 12. Depression/anxiety. 13. Peptic ulcer disease. PAST SURGICAL HISTORY: Panniculectomy, hernia repair, bowel resection, multiple abdominal surgeries. HOME MEDICATIONS: 1. Albuterol HFA inhaler 2 puff inhalation q.4 hours p.r.n. 2. Alprazolam 0.5 mg p.o. q.4 hours p.r.n. 3. Ascorbic acid 500 mg p.o. daily. 4. Aspirin 81 mg p.o. daily. 5. Atorvastatin 40 mg p.o. at bedtime. 6. Budesonide/formoterol 2 puffs inhalation b.i.d. 7. Fluoxetine 40 mg p.o. daily. 8. Glipizide 10 mg p.o. daily. 9. Hydrocodone/acetaminophen 1 tab p.o. q.4 hours p.r.n., MDD 6 tabs. 10. Insulin glargine 63 units daily. 11. Isosorbide mononitrate 60 mg p.o. daily. 12. Floranex tablet, 1 tab p.o. b.i.d. 13. Loratadine 10 mg p.o. daily. 14. Magnesium oxide 800 mg p.o. b.i.d. 15. Multivitamin/minerals 1 tab p.o. daily. 16. Nystatin 1 application topically t.i.d. p.r.n. 17. Pantoprazole 40 mg p.o. daily. 18. Potassium chloride 20 mEq p.o. daily. 19. Ramipril 5 mg p.o. daily. 20. Ropinirole 0.5 mg p.o. at bedtime. 21. Tamsulosin 0.4 mg p.o. daily. 22. Torsemide 40 mg p.o. daily. DRUG ALLERGIES: SULFA, CANAGLIFLOZIN. FAMILY HISTORY: Mother has a past medical history of diabetes and from complications due to heart failure. Father had diabetes and from complications due to sepsis. Brother had diabetes, he from cancer, unsure what type of cancer. No family history of CVA. SOCIAL HISTORY: The patient denies current or former use of tobacco. He does not use alcohol or illicit drugs. 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 He is with 2 children. He lives with his . In the event that he is unable to make his own medical decision, he has appointed his Camila Levy to be his surrogate decision maker. REVIEW OF SYSTEMS: A 14-point review of systems has been performed and all the pertinent positives and negatives are in the HPI. All other systems are negative. PHYSICAL EXAMINATION GENERAL: Mr. Levy is a well-developed, well-nourished, morbidly obese, chronically ill-appearing older white male who is sitting upright in bed. He is breathing comfortably on 2 L of oxygen and appears to be in no acute distress , although he is mildly uncomfortable and frequently changing position and complains of chronic back pain. VITAL SIGNS: Temperature 98.1 oral, heart rate 81, respiratory rate 28, oxygen saturation 93% on 2 L, blood pressure 127/62. HEENT: PERRL, EOMI. Visual castro are grossly intact. Hearing is grossly intact. Oral mucous membranes are moist. There are no lesions. Pharynx is clear. The patient is edentulous with dentures in place. Tongue is at midline. Palate elevates symmetrically. PULMONARY: Symmetrical chest expansion without use of accessory muscles, supplemental oxygen in place. There are coarse bibasilar rales. No rhonchi or wheezes. There is mild tenderness to palpation at the left anterior chest wall. CARDIOVASCULAR: Regular rate and rhythm with S1, S2 present. There are no murmurs, rubs, clicks, or gallops. There is no JVD. There is 2+ pedal and 1+ pretibial bilateral edema. ABDOMEN: Bowel sounds in all quadrant. Soft, nontender to palpation. NEUROLOGIC: The patient is awake. He is alert and oriented x3 with cranial nerves II through XII grossly intact. DIAGNOSTIC STUDIES/LAB DATA: 1. CBC: WBC 5.4, hemoglobin 12.8, hematocrit 37, MCV 94, platelets 138. 2. CMP: Sodium 136, potassium 3.3, chloride 92, carbon dioxide 34, BUN 26, creatinine 1.20, glucose 247, lactic acid 2.7, magnesium 1.7. Troponin 0.01. CRP 8.25. 3. EK with T-wave inversions in V1, which are old. No ST elevation or depression. 4. Chest x-ray: Pulmonary vascular congestion. ASSESSMENT AND PLAN: Mr. Levy is a 69-year-old male with past medical history of heart failure, preserved ejection fraction; diabetes mellitus, insulin- dependent; chronic obstructive pulmonary disease; obesity hypoventilation syndrome; obstructive sleep apnea; anemia, who presented to the ER today with complaints of shortness of breath, bilateral lower extremity edema , and was found to have probable congestive heart failure exacerbation. He also reports melena with a positive stool for occult blood. The patient will be admitted for: 1. Heart failure with preserved ejection fraction with exacerbation. The patient reports worsening shortness of breath over 4 days and worsening bilateral lower extremity edema over approximately 2 weeks. His last echocardiogram from January 2018 reveals an ejection fraction of 60% to 65% and abnormal diastolic filling. He takes his torsemide 40 mg daily as directed. At this time, his torsemide will be discontinued, and he will be started on Lasix 60 mg IV 1 dose now, 1 dose in the morning. We will monitor intake, output, and daily weights. A low-sodium diet has been ordered. We will repeat his echocardiogram. 2. Gastrointestinal bleed. the patient presents with melena with some geraldine blood in his toilet today and positive stool for blood. He is mildly anemic, although he appears to be within his baseline. Gastroenterology has been notified and consulted. We are awaiting further recommendations. In the meantime, the patient has received a loading dose of pantoprazole and will be placed on IV pantoprazole b.i.d. 3. Electrolyte abnormalities. The patient's magnesium and potassium have been repleted. We will recheck these in the morning. 4. Lactic acidosis. The patient has a lactic acidosis of 2.7. He does not appear to be on any medications that might cause this. He is perfusing well. He is certainly not septic and does not appear to have an infectious process at this point. I am unsure what his lactic acidosis is due to. We will recheck this in the morning and continue to monitor for signs and symptoms of infection. 5. Hypertension: The patient's blood pressure is well controlled during his stay with systolic blood pressure 110 to 120s. At this time, I will hold the patient's ramipril. His isosorbide will be transitioned to short acting 5 t.i.d. so that there is room for increase in diuretics as needed. We will continue to monitor his blood pressure while on high doses of diuretics and monitor for need for re- addition of home antihypertensives. 6. Diabetes mellitus. The patient reports home dose of glargine 63 units daily. He also takes glipizide. His glipizide will be held. His glargine will be decreased to 40 units daily. He will also be placed on lispro sliding scale with fingersticks before meals. 7. Chronic obstructive pulmonary disease. The patient does not appear to be in exacerbation. He can continue his home supplemental oxygen. He will also continue his home Symbicort and albuterol HFA inhaler. 8. Obstructive sleep apnea. Continue CPAP machine. 9. Chronic pain. Continue hydrocodone. 10. Restless leg syndrome. Continue ropinirole. 11. Depression/anxiety. Continue home fluoxetine and alprazolam. 12. DVT prophylaxis: According to DVT Risk Assessment, the patient scores 4, placing him at high risk. Chemoprophylaxis will be held in the setting of possible gastrointestinal bleed. We will monitor for need for restart. 13. Code status: Full code. TIME SPENT: Approximately 65 minutes was spent on this admission, greater than half that time was spent [id number] with the patient obtaining history, performing physical, and reviewing the plan of care. The case has been discussed with my attending Dr. Olvera, who is in agreement with the plan of care. DELFIN GARCIA [id number]/[facility] #: [id number] JEANNIE
[2019-07-13] MEDS: Hydrocodone/Acetamin 10/325 MG 1 TAB PO PRN (18:59)
[2019-07-13] MEDS: Mometasone/Formoter 100/5 MDI INH SCH (19:24)
--- NOTE | 2019-07-13 19:31 | CONS ---
CONSULTATION REPORT: DATE OF CONSULT: 07/13/19 INDICATION: Anemia. NARRATIVE: Mr. Levy is a 69-year-old gentleman who presents to the emergency room with worsening shortness of breath and black and tarry stools. The patient states in 2014 he had an extremely large perforated gastric ulcer that required multiple surgeries. It appears most of this was done at [facility]. He tells me they never figured out why he had peptic ulcer. The patient states that he does have very mild epigastric pain, some nausea, no vomiting. He has been having black stools in addition to a little bit bright red blood. He is on pantoprazole every day. He denies any nonsteroidals other than aspirin 81 mg a day. He also has been having shortness of breath potentially related to an underlying pneumonia. He is being evaluated for that. PAST MEDICAL HISTORY: Also significant for congestive heart failure, COPD that does require oxygen, morbid obesity, diabetes, anemia, sleep apnea, restless legs, hypercholesterolemia, nephrolithiasis, GERD. PAST SURGICAL HISTORY: Includes peptic ulcer perforation, panniculectomy, hernia repair, two bowel resections. MEDICATIONS AT HOME: Include: 1. Xanax. 2. Albuterol. 3. Vitamin C. 4. Aspirin. 5. Lipitor. 6. Symbicort. 7. Hydrocodone. 8. Glargine. 9. Lispro. 10. Imdur. 11. Loratadine. 12. Mag. 13. Pantoprazole. 14. Ramipril. 15. Torsemide. 16. Glipizide. ALLERGIES: He is allergic to SULFA MEDICATIONS. FAMILY HISTORY: Type 2 diabetes, congestive heart failure. SOCIAL HISTORY: No tobacco or alcohol. REVIEW OF SYSTEMS: Twelve systems were reviewed and other than that mentioned in the HPI were unremarkable. PHYSICAL EXAM: Temperature is 98.1, blood pressure is 127/62, pulse is 81, O2 sat is 93% on room air, respiratory rate of 28. General: Chronically ill- appearing male, lying flat in bed, alert, oriented, pleasant, fluent. HEENT: Mucous membranes are moist without lesions, ulcers, or exudate. Neck is supple. Trachea is midline. Head is normocephalic, atraumatic. Heart: Regular rate and rhythm. Lungs: Coarse breath sounds bilaterally. Some rhonchi. Abdomen: Super morbidly obese. Multiple abdominal scars. Positive bowel sounds. Soft, nontender. Skin is warm and dry. LABORATORY DATA: Of note, white count is 5.4, hemoglobin of 12.8, platelet count of 138. INR is 1.16. BUN is 26 with a creatinine of 1.2. C-reactive protein is 8.25. ASSESSMENT AND PLAN: A 69-year-old gentleman with a history of perforated gastric ulcer in the past, who presents with melena, anemia, and concern for repeat peptic ulcer disease. He does take an aspirin every day. He will be started on an IV PPI. Additionally, if his pulmonary status does improve, hopefully we can attempt an EGD on Saturday. We will follow along. [id number]/[facility] #: [id number] GR[facility] SQUARE HOSPITALAlcides
[2019-07-13] MEDS: Ropinirole TAB* 0.5 MG TAB PO SCH (20:12)
[2019-07-13] MEDS: Pantoprazole IV* 40 MG IV SCH (20:13)
[2019-07-13] MEDS: Lactobacillus Acidophilus* 1 TAB PO SCH (20:13)
[2019-07-13] MEDS: Magnesium Oxide TAB* 400 MG PO SCH (20:13)
[2019-07-13] MEDS: ALPRAZolam TAB* 0.5 MG PO PRN (20:15)
[2019-07-14 06:09] LABS: ABS Eosinophils 0.5 10^3/ul (0-0.6); ABS Lymphocytes 1.5 10^3/ul (1.0-4.8); ABS Neutrophils 2.3 10^3/ul (1.5-7.7); Eosinophil % 9.2 %; Hematocrit 35 % (42-52); Hemoglobin 12.3 g/dL (14.0-18.0); Lymphocyte % 28.3 %; Mean Corpuscular HGB Conc 35 g/dL (31-36); Mean Corpuscular Hemoglobin 33 pg (27-31); Mean Corpuscular Volume 94 fL (80-94); Mean Platelet Volume 7.6 fL (7.4-10.4); Platelet Count 133 10^3/uL (150-450); Red Blood Count 3.72 10^6 /uL (4.18-5.48); Red Cell Distribution Width 15 % (10-15); White Blood Count 5.3 10^3/uL (3.5-10.8)
[2019-07-14 06:28] LABS: BUN/Creatinine Ratio 21.7 (8-20); Calcium 9.2 mg/dL (8.6-10.3); EGFR African American 72.9 (>60); EGFR Non-African American 60.2 (>60)
[2019-07-14] MEDS: Mometasone/Formoter 100/5 MDI INH SCH ×2 (08:26→19:34)
[2019-07-14] MEDS: Insulin LISPRO* 1 UNITS UNIT SUBCUT SCH ×3 (08:43→17:21)
[2019-07-14] MEDS ORDERED: Isosorbide Mononitrate ER TAB* 60 MG PO SCH ×2 (09:00)
[2019-07-14] MEDS ORDERED: Ramipril CAP* 5 MG PO SCH (09:00)
[2019-07-14 09:06] LABS: Magnesium 1.8 mg/dL (1.9-2.7)
[2019-07-14] MEDS ORDERED: Magnesium Sulfate 2 GM IV* 2 GM/50 ML BAG IVPB ONE (09:16)
[2019-07-14] MEDS: Furosemide IV* 10 MG/ML 10 ML VIAL (100 MG) IV SCH (10:27)
[2019-07-14] MEDS: ALPRAZolam TAB* 0.5 MG PO PRN (11:04)
[2019-07-14] MEDS: Hydrocodone/Acetamin 10/325 MG 1 TAB PO PRN (11:04)
[2019-07-14] MEDS ORDERED: Perflutren Lipid Microsphere* 3 ML VIAL ONE (11:13)
--- NOTE | 2019-07-14 11:53 | ECHO ---
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 *Referring Physician: * Liudmila MuhammadReading Physician: * Mike Bell MD Indications: Congestive Heart Failure. Edema. History: Congestive heart failure. Chronic obstructive pulmonary disease. Risk factors: Hypertension. Diabetes mellitus. Morbidly obese. Dyslipidemia. Conclusions Summary: - Left ventricle: Systolic function is normal. The estimated ejection fraction is 55-60%. Wall motion appears normal; there are no obvious regional wall motion abnormalities. - Right ventricle: Systolic function is normal. - Mitral valve: There is no significant regurgitation. - Aortic valve: There is no evidence of stenosis. - Tricuspid valve: There is no significant regurgitation. - Pulmonary arteries: Systolic pressure can not be accurately estimated. - Compared to study of 01/16/18, the left ventricle function and valves are the same. The right ventricle function is now normal. Study data: Transthoracic echocardiogram. Procedure: Transthoracic echocardiography was performed. Image quality was suboptimal. Intravenous Definity , 3 mlswas administered. Complete 2D, spectral Doppler, and color flow Doppler. Location: Bedside. Patient status: Inpatient. Patient room number: 440. Rhythm: Normal sinus rhythm. Findings Left ventricle: The cavity size is normal. Wall thickness is moderately increased. Systolic function is normal. The estimated ejection fraction is 55-60%. Wall motion appears normal; there are no obvious regional wall motion abnormalities. There is no consistent Doppler evidence of clinically significant diastolic dysfunction. Right ventricle: The cavity size is normal. Systolic function is normal. Left atrium: Not well visualized. The atrium appears normal in size. Right atrium: The atrium is mildly dilated. Mitral valve: The leaflets are normal thickness. There is no evidence of stenosis. There is no significant regurgitation. Aortic valve: The annulus is mildly calcified. The valve is probably trileaflet. The leaflets are mildly thickened. There is no evidence of stenosis. There is no significant regurgitation. Tricuspid valve: The leaflets are normal thickness. There is no evidence of stenosis. There is no significant regurgitation. Pulmonic valve: Not well visualized. There is no significant regurgitation. Aorta: Aortic root: The aortic root is mildly dilated. Ascending aorta: The ascending aorta is poorly visualized. Aortic arch: The aortic arch is poorly visualized. Pericardium: There is no significant pericardial effusion. Pulmonary arteries: Systolic pressure can not be accurately estimated. Systemic veins: Inferior vena cava: Not well visualized. Measurements Left ventricle Value Ref Aortic valve Value Ref MARK, LAX (L) 4.1 cm 4.2 - 5.8 Mariano diam, ED 2.5 cm -------- ESD, LAX 3.0 cm 2.5 - 4.0 Peak v, S 1.7 m/sec -------- FS, LAX 25 % 25 - 43 VTI, S 36.4 cm -------- PW, ED, LAX (H) 1.4 cm 0.6 - 1.0 Mean grad, S 6.0 mm Hg -------- E', lat mariano, TDI (L) 7.5 cm/sec >=10.0 Peak grad, S 12.0 mm Hg -------- E/e', lat mariano, 14 TDI Mitral valve Value Ref E', med mariano, TDI 7.1 cm/sec >=7.0 Peak E 1.04 m/sec -------- E/e', med mariano, 15 Peak A 1.11 m/sec --- ----- TDI Decel time 227 ms -------- E', avg, TDI 7.3 cm/sec Peak grad, D 4.3 mm Hg --- ----- E/e', avg, TDI 14 <=14 Peak E/A ratio 0.9 -------- LVOT Value Ref Pulmonic valve Value Ref Peak maru, S 0.93 m/sec Peak v, S 0.9 m/sec -------- Mean grad, S 2 mm Hg Peak grad, S 3.0 mm Hg -------- Ventricular septum Value Ref Aortic root Value Ref IVS, ED (H) 1.5 cm 0.6 - 1.0 Root diam 3.7 cm <4.9 Root max diam/bsa, (L) 1.2 cm/m^2 1.3 - Right ventricle Value Ref ED 2.1 MARK, LAX 2.9 cm Pulmonary veins Value Ref Left atrium Value Ref Peak v, S 0.51 m/sec -------- AP dim, ES 3.90 cm 3.00 - Peak v, D 0.59 m/sec -------- 4.00 Peak S/D ratio 0.9 -------- ML dim, A4C 3.9 cm A rev duration 129 ms -------- SI dim, A4C 6.5 cm Vol/bsa, ES, 1-p 21 ml/m^2 12 - 37 A4C Right atrium Value Ref SI dim, ES (H) 5.9 cm 3.4 - 5.3 ML dim, ES, A4C 4.2 cm 2.6 - 4.4 Estimated RAP 8 mm Hg Legend: (L) and (H) selina values outside specified reference range. Prepared and electronically signed by Mike Bell MD 07/14/2019 11:52
[2019-07-14] MEDS: Cetirizine* 10 MG TAB PO SCH (13:56)
[2019-07-14] MEDS: Magnesium Oxide TAB* 400 MG PO SCH ×2 (13:57→20:58)
[2019-07-14] MEDS: Lactobacillus Acidophilus* 1 TAB PO SCH ×2 (13:57→20:57)
[2019-07-14] MEDS: FLUoxetine CAP* 20 MG PO SCH (13:57)
[2019-07-14] MEDS: Isosorbide Dinitrate TAB* 5 MG PO SCH ×3 (13:57→21:00)
[2019-07-14] MEDS: Multivitamins/Minerals TAB PO SCH (13:58)
[2019-07-14] MEDS: Tamsulosin CAP* 0.4 MG PO SCH (13:58)
[2019-07-14] MEDS: Insulin GLARGINE(*) 1 UNITS UNIT SUBCUT SCH (14:13)
[2019-07-14] MEDS: Pantoprazole IV* 40 MG IV SCH ×2 (14:13→21:04)
--- NOTE | 2019-07-14 14:33 | PN ---
Subjective Date of Service: 07/14/19 Interval History: Mr. Levy states he feels " a little better" today. He c/o productive cough with yellow-brown sputum. Upon further questioning, it appears that his typically occurs after he swallows water and is associated with regurgitation. He denies dysphagia. He reports that SOB has improved some, but LE edema is unchanged. He reports no recent BM, therefore no recent melena. Objective Active Medications: Acetaminophen (Tylenol Tab*) 650 mg PO Q4H PRN PRN Reason: mild to moderate pain Hydrocodone Bitart/Acetaminophen ([place] 10/325 (Nf)) 1 tab PO Q4HR PRN PRN Reason: PAIN Last Admin: 07/14/19 11:04 Dose: 1 tab Albuterol (Ventolin Hfa Inhaler*) 2 puff INH Q4H PRN PRN Reason: SHORTNESS OF BREATH Alprazolam (Xanax Tab*) 0.5 mg PO Q4H PRN PRN Reason: ANXIETY Last Admin: 07/14/19 11:04 Dose: 0.5 mg Atorvastatin Calcium (Lipitor*) 40 mg PO QPM [facility] Last Admin: 07/13/19 16:50 Dose: 40 mg Cetirizine HCl (Zyrtec*) 10 mg PO DAILY [facility] Last Admin: 07/14/19 13:56 Dose: Not Given Dextrose (D50w Syringe 50 Ml*) 12.5 gm IV PUSH .FOR FS < 60 - SS PRN PRN Reason: FS < 60 Fluoxetine HCl (Prozac Cap*) 40 mg PO DAILY [facility] Last Admin: 07/14/19 13:57 Dose: Not Given Furosemide (Lasix Iv*) 60 mg IV DAILY [facility] Last Admin: 07/14/19 10:27 Dose: 60 mg Insulin Glargine (Lantus(*)) 32 units SUBCUT DAILY [facility] Last Admin: 07/14/19 14:13 Dose: 32 units Insulin Human Lispro (Humalog*) 0 units SUBCUT AC [facility]; Protocol Last Admin: 07/14/19 12:51 Dose: Not Given Isosorbide Dinitrate (Isordil Tab*) 5 mg PO TID [facility] Last Admin: 07/14/19 13:57 Dose: Not Given Lactobacillus Rhamnosus (Lactobacillus Acidophilus*) 1 tab PO BID [facility] Last Admin: 07/14/19 13:57 Dose: Not Given Magnesium Oxide (Magox 400 Tab*) 800 mg PO BID [facility] Last Admin: 07/14/19 13:57 Dose: Not Given Mometasone Furoate/Formoterol Fumar (Dulera 100/5 Mdi*) 2 puff INH BID [facility] Last Admin: 07/14/19 08:26 Dose: 2 puff Multivitamins/Minerals (Theragran/Minerals Tab*) 1 tab PO DAILY [facility] Last Admin: 07/14/19 13:58 Dose: Not Given Pantoprazole Sodium (Protonix Iv*) 40 mg IV BID [facility] Last Admin: 07/14/19 14:13 Dose: 40 mg Ropinirole HCl (Requip Tab*) 0.5 mg PO BEDTIME [facility] Last Admin: 07/13/19 20:12 Dose: 0.5 mg Tamsulosin HCl (Flomax Cap*) 0.4 mg PO DAILY [facility] Last Admin: 07/14/19 13:58 Dose: Not Given Vital Signs: Temp Pulse Resp BP Pulse Ox 98.1 F 72 18 143/47 97 07/14/19 10:53 07/14/19 10:53 07/14/19 14:15 07/14/19 10:53 07/14/19 10:53 Oxygen Devices in Use Now: Nasal Cannula Appearance: Mr. Levy is an obese, 69 yom who is sitting up in bed. He is breathing comfortably on supplemental O2 and appears to be in no acute distress. Eyes: No Scleral Icterus, PERRLA Ears/Nose/Mouth/Throat: NL Teeth, Lips, Gums, Clear Oropharnyx, - - dry oral mucosa Neck: NL Appearance and Movements; NL JVP, Trachea Midline Respiratory: Symmetrical Chest Expansion and Respiratory Effort, - - bibasilar fine rales without wheeze, rhonchi Cardiovascular: NL Sounds; No Murmurs; No JVD, RRR, - - 1+ pedal, trace pretibial edema Abdominal: NL Sounds; No Tenderness; No Distention, No Hepatosplenomegaly Extremities: No Edema, No Clubbing, Cyanosis Neurological: Alert and Oriented x 3 Result Diagrams: 07/14/19 05:44 07/14/19 05:44 Microbiology and Other Data: Microbiology 07/13/19 11:56 Urine Culture - Final Urine 07/13/19 11:55 Stool Occult Blood (BROCK) - Final Stool Assess/Plan/Problems-Billing Assessment: 69yom PMHx HFpEF, DM, COPD, JO ANN, OHS presents with b/l LE edema, SOB, rales on exam found to be in HF exacerbation; also c/o melena with suspect GIB with stable H/H. - Patient Problems (1) Acute on chronic diastolic (congestive) heart failure Comment: -presents with SOB, LE edema -appears to be in exacerbation -responding well to IV diuresis -continue lasix 60 BID and reassess tomorrow (holding torsemide) -continue I/O; negative fluid balance -daily weights -sodium restriction diet (2) GIB (gastrointestinal bleeding) Comment: -pt reports episodes of melena -FOB positive -GI consulting; thank you for recommendations -PPI BID IV -plan for EGD today (3) Cough Comment: -reports cough, but only post-swallowing -denies dysphagia -does not appear to be in COPD exacerbation- pulm exam without wheezing -low suspicion for pna- afebrile without leukocytosis -suspect GERD- already on PPI; add on famotidine -MANAGER RISK swallow eval ordered (4) Lactic acidosis Comment: -unsure cause -does not appear to be infectious -resolved without intervention (5) COPD (chronic obstructive pulmonary disease) Comment: -dose not appear to be in exacerbation, although with new onset cough (see above ) -continue nebulizers, inhalers, supplemental O2 at home dose (6) Hypertension Comment: -labile, SBP 100-150's -lasix 60 BID today and reassess in a.m. -isosorbide transitioned to short acting for increased flexibility with diuretics -holdin ramipril, torsemide -replace electrolytes as needed (7) Diabetes type 2, controlled Comment: -BG 170-200 -consistent carbs -continue Glargine at reduced dose of 32 in setting of NPO -lispro ss -hold glipizide (8) Obstructive sleep apnea Comment: -continue CPAP (9) Chronic back pain Comment: -continue hydrocodone (10) RLS (restless legs syndrome) Comment: -continue Ropinorole (11) Depression Comment: -continue fluoxetine (12) DVT prophylaxis Comment: -hold chemoprophylaxis in setting of GIB -SCDs from home (13) Full code status Status and Disposition: Inpatient. Discharge when stable.
[2019-07-14] MEDS ORDERED: Furosemide IV* 10 MG/ML 10 ML VIAL (100 MG) IV ONE (14:47)
[2019-07-14] MEDS ORDERED: Pantoprazole TAB * 40 MG TAB PO ONE (17:00)
[2019-07-14] MEDS: Atorvastatin* 40 MG TAB PO SCH (17:21)
[2019-07-14] MEDS: Potassium Chlor TAB* 20 MEQ TAB.ER PO SCH ×3 (17:40→21:08)
--- NOTE | 2019-07-14 19:33 | CONS ---
GASTROENTEROLOGY CONSULT FOLLOWUP: DATE: 07/30 INTERVAL DEVELOPMENT: This super morbidly obese 69-year-old man admitted with shortness of breath and having passed tarry stool, has been receiving pantoprazole twice a day IV. He has not had any abdominal pain or emesis or stool today. He has really had no stool at all. His vitals have been steady with most recent blood pressure 138/44, pulse 72. He has been basically confined to bed by his 471 pounds. Labs today showed hemoglobin 12.3 down from 12.8 similar to 12.6 at discharge . Platelets are 133 and BUN is 26. Basically, his baseline is going back to March 2019. He tells me that last week, he was feeling some burning pain in the epigastrium and then the next day saw some dark stool. His emphasized that it totally discolored the bowl. It had been a more impressive episode than a similar one 5 years ago. He tells me that 5 years ago, he had signs of bleeding, went directly to [facility] where he had the sequence of surgeries and then was in a rehab facility at [place] for a number of weeks and then was sent to [facility] where he spent 8 weeks. He then went back to [facility] where he had revision of a leaking gastrostomy tube and then some time after that had an intestinal resection or surgery lower down. Those records are not available IMPRESSION: As he has had no stool in close to a day, he clearly is not actively bleeding. The burning pain he felt indicates that whatever process is going on (gastric mucosal ulcer or an anastomotic ulcer or distal esophagitis) almost certainly has an acid peptic mechanism. Per his weight, pantoprazole 40 mg every morning is probably insufficient. No matter what the location or size of the peptic lesion that is responsible for this bleeding, the ultimate therapy is likely to be an increased amount of PPI and or temporary cessation of aspirin. Rather than subject him to the risk of anesthesia with the prospect that EGD is not likely to be therapeutic would double his pantoprazole to 40 in the morning, 40 at 5 p.m., 40 mg famotidine after dinner and restart his aspirin in 10 days. This plan can change if bleeding seems to reactivate. [id number]/[facility] #: [id number] [facility]
[2019-07-14] MEDS: Ropinirole TAB* 0.5 MG TAB PO SCH (20:58)
[2019-07-14] MEDS ORDERED: Famotidine TAB* 20 MG PO SCH (21:00)
[2019-07-15] MEDS: ALPRAZolam TAB* 0.5 MG PO PRN ×3 (00:24→21:15)
[2019-07-15] MEDS: Hydrocodone/Acetamin 10/325 MG 1 TAB PO PRN ×3 (00:24→21:15)
[2019-07-15] MEDS: Mometasone/Formoter 100/5 MDI INH SCH ×2 (07:34→20:04)
[2019-07-15 09:11] LABS: ABS Eosinophils 0.4 10^3/ul (0-0.6); ABS Lymphocytes 1.3 10^3/ul (1.0-4.8); ABS Monocytes 0.8 10^3/ul (0-0.8); ABS Neutrophils 2.3 10^3/ul (1.5-7.7); Eosinophil % 8.2 %; Hematocrit 38 % (42-52); Hemoglobin 13.1 g/dL (14.0-18.0); Mean Corpuscular HGB Conc 34 g/dL (31-36); Mean Corpuscular Hemoglobin 33 pg (27-31); Mean Corpuscular Volume 95 fL (80-94); Mean Platelet Volume 7.6 fL (7.4-10.4); Nucleated Red Blood Cells % 0.1; Platelet Count 135 10^3/uL (150-450); Red Blood Count 4.01 10^6 /uL (4.18-5.48); Red Cell Distribution Width 15 % (10-15); White Blood Count 4.9 10^3/uL (3.5-10.8)
[2019-07-15 09:33] LABS: BUN/Creatinine Ratio 21.4 (8-20); Calcium 9.6 mg/dL (8.6-10.3); EGFR African American 68.9 (>60); EGFR Non-African American 56.9 (>60); Magnesium 1.9 mg/dL (1.9-2.7); Potassium 3.4 mmol/L (3.5-5.0)
[2019-07-15] MEDS ORDERED: Potassium Chlor TAB* 20 MEQ TAB.ER PO ONE (09:46)
[2019-07-15] MEDS: Furosemide IV* 10 MG/ML 10 ML VIAL (100 MG) IV SCH (09:49)
[2019-07-15] MEDS: Isosorbide Dinitrate TAB* 5 MG PO SCH ×3 (09:50→21:09)
[2019-07-15] MEDS: Magnesium Oxide TAB* 400 MG PO SCH ×2 (09:50→21:09)
[2019-07-15] MEDS: FLUoxetine CAP* 20 MG PO SCH (09:50)
[2019-07-15] MEDS: Ramipril CAP* 5 MG PO SCH (09:51)
[2019-07-15] MEDS: Lactobacillus Acidophilus* 1 TAB PO SCH ×2 (09:51→21:08)
[2019-07-15] MEDS: Multivitamins/Minerals TAB PO SCH (09:52)
[2019-07-15] MEDS: Cetirizine* 10 MG TAB PO SCH (09:52)
[2019-07-15] MEDS: Tamsulosin CAP* 0.4 MG PO SCH (09:53)
[2019-07-15] MEDS: Insulin GLARGINE(*) 1 UNITS UNIT SUBCUT SCH (09:53)
[2019-07-15] MEDS: Pantoprazole TAB * 40 MG TAB PO SCH ×2 (09:53→21:08)
[2019-07-15] MEDS: Insulin LISPRO* 1 UNITS UNIT SUBCUT SCH ×3 (09:54→17:45)
--- NOTE | 2019-07-15 10:29 | PN ---
Subjective Date of Service: 07/15/19 Interval History: Mr. Levy reports continued cough without fever, chills. He reports cough occurs with or without fluids. He reports no BM recently, therefore no melena. He states that he is back to his baseline shortness of breath and LE edema is greatly improved. No other complaints at this time. Objective Active Medications: Acetaminophen (Tylenol Tab*) 650 mg PO Q4H PRN PRN Reason: mild to moderate pain Hydrocodone Bitart/Acetaminophen ([place] 10/325 (Nf)) 1 tab PO Q4HR PRN PRN Reason: PAIN Last Admin: 07/15/19 09:52 Dose: 1 tab Albuterol (Ventolin Hfa Inhaler*) 2 puff INH Q4H PRN PRN Reason: SHORTNESS OF BREATH Alprazolam (Xanax Tab*) 0.5 mg PO Q4H PRN PRN Reason: ANXIETY Last Admin: 07/15/19 09:51 Dose: 0.5 mg Atorvastatin Calcium (Lipitor*) 40 mg PO QPM [facility] Last Admin: 07/14/19 17:21 Dose: 40 mg Cetirizine HCl (Zyrtec*) 10 mg PO DAILY [facility] Last Admin: 07/15/19 09:52 Dose: 10 mg Dextrose (D50w Syringe 50 Ml*) 12.5 gm IV PUSH .FOR FS < 60 - SS PRN PRN Reason: FS < 60 Famotidine (Pepcid Tab*) 40 mg PO 2100 JIM Fluoxetine HCl (Prozac Cap*) 40 mg PO DAILY [facility] Last Admin: 07/15/19 09:50 Dose: 40 mg Furosemide (Lasix Iv*) 60 mg IV DAILY [facility] Last Admin: 07/15/19 09:49 Dose: 60 mg Furosemide (Lasix Iv*) 40 mg IV ONCE ONE Stop: 07/15/19 16:01 Insulin Glargine (Lantus(*)) 32 units SUBCUT DAILY [facility] Last Admin: 07/15/19 09:53 Dose: 32 units Insulin Human Lispro (Humalog*) 0 units SUBCUT AC [facility]; Protocol Last Admin: 07/15/19 09:54 Dose: 6 unit Isosorbide Dinitrate (Isordil Tab*) 5 mg PO TID [facility] Last Admin: 07/15/19 09:50 Dose: 5 mg Lactobacillus Rhamnosus (Lactobacillus Acidophilus*) 1 tab PO BID [facility] Last Admin: 07/15/19 09:51 Dose: 1 tab Magnesium Oxide (Magox 400 Tab*) 800 mg PO BID [facility] Last Admin: 07/15/19 09:50 Dose: 800 mg Mometasone Furoate/Formoterol Fumar (Dulera 100/5 Mdi*) 2 puff INH BID [facility] Last Admin: 07/15/19 07:34 Dose: 2 puff Multivitamins/Minerals (Theragran/Minerals Tab*) 1 tab PO DAILY [facility] Last Admin: 07/15/19 09:52 Dose: 1 tab Pantoprazole Sodium (Protonix Tab*) 40 mg PO BID [facility] Last Admin: 07/15/19 09:53 Dose: 40 mg Ramipril (Altace Cap*) 5 mg PO DAILY [facility] Last Admin: 07/15/19 09:51 Dose: 5 mg Ropinirole HCl (Requip Tab*) 0.5 mg PO BEDTIME [facility] Last Admin: 07/14/19 20:58 Dose: 0.5 mg Tamsulosin HCl (Flomax Cap*) 0.4 mg PO DAILY [facility] Last Admin: 07/15/19 09:53 Dose: 0.4 mg Vital Signs: Temp Pulse Resp BP Pulse Ox 97.8 F 70 18 163/57 93 07/15/19 07:35 07/15/19 07:35 07/15/19 09:52 07/15/19 07:35 07/15/19 07:35 Oxygen Devices in Use Now: Nasal Cannula Appearance: Mr. Levy is an older, obese male who is sitting up in his bed. He appears comfortable and in no acute distress. He is breathing comfortably on baseline supplemental O2. Eyes: No Scleral Icterus, PERRLA Ears/Nose/Mouth/Throat: NL Teeth, Lips, Gums, Clear Oropharnyx, Mucous Membranes Moist Neck: NL Appearance and Movements; NL JVP, Trachea Midline Respiratory: Symmetrical Chest Expansion and Respiratory Effort, - - bibasilar rales, L>R (patient rolled to L side) without wheeze, rhonchi Cardiovascular: NL Sounds; No Murmurs; No JVD, RRR, - - trace LE edema Abdominal: NL Sounds; No Tenderness; No Distention, No Hepatosplenomegaly Extremities: No Clubbing, Cyanosis Neurological: Alert and Oriented x 3 Result Diagrams: 07/15/19 08:39 07/15/19 08:39 Microbiology and Other Data: Microbiology 07/13/19 11:56 Urine Culture - Final Urine 07/13/19 11:55 Stool Occult Blood (BROCK) - Final Stool Assess/Plan/Problems-Billing Assessment: 69yom PMHx HFpEF, DM, COPD, JO ANN, OHS presents with b/l LE edema, SOB, rales on exam found to be in HF exacerbation; also c/o melena with suspect GIB with stable H/H. - Patient Problems (1) Acute on chronic diastolic (congestive) heart failure Comment: -presents with SOB, LE edema -appears to be in exacerbation -responding well to IV diuresis -continue lasix 60 BID today; will have 60 Lasix in a.m. (holding torsemide) -continue I/O; negative fluid balance -daily weights; appx 7# weight loss thus far -sodium restriction diet (2) GIB (gastrointestinal bleeding) Comment: -pt reports episodes of melena; none recently -FOB positive -H/H stable and trending up -GI consulting; thank you for recommendations -EGD not recommended; will continue BID PPI and bedtime famotidine; plan to restart asa in 10d -will continue to monitor for bleeding (3) Cough Comment: -reports productive cough x2 days -denies dysphagia -does not appear to be in COPD exacerbation- pulm exam without wheezing -low suspicion for pna- afebrile without leukocytosis -suspect GERD- already on PPI; now on famotidine as well, but with continued cough -POOL TABLE MECHANIC swallow eval ordered -CXR today unremarkable (4) COPD (chronic obstructive pulmonary disease) Comment: -dose not appear to be in exacerbation, although with new onset cough (see above ) -continue nebulizers, inhalers, supplemental O2 at home dose (5) Hypertension Comment: -labile, SBP 140-160's -lasix 60 BID today -isosorbide transitioned to short acting for increased flexibility with diuretics -restart ramipril today -replace electrolytes as needed (6) Diabetes type 2, controlled Comment: -a.m. BG 219, poor control -consistent carbs -increase glargine to 60 (home dose 70) -lispro ss -hold glipizide (7) Obstructive sleep apnea Comment: -continue CPAP (8) Chronic back pain Comment: -continue hydrocodone (9) RLS (restless legs syndrome) Comment: -continue Ropinorole (10) Depression Comment: -continue fluoxetine (11) DVT prophylaxis Comment: -hold chemoprophylaxis in setting of GIB -SCDs from home (12) Full code status Status and Disposition: Inpatient. Discharge when stable.
[2019-07-15] MEDS ORDERED: Furosemide IV* 10 MG/ML VIAL (40 MG) IV ONE (16:00)
[2019-07-15] MEDS: Atorvastatin* 40 MG TAB PO SCH (17:45)
[2019-07-15] MEDS: Ropinirole TAB* 0.5 MG TAB PO SCH (21:08)
[2019-07-15] MEDS: Famotidine TAB* 20 MG PO SCH (21:09)
[2019-07-16] MEDS: Mometasone/Formoter 100/5 MDI INH SCH ×2 (07:36→19:18)
[2019-07-16] MEDS: Furosemide IV* 10 MG/ML 10 ML VIAL (100 MG) IV SCH (08:34)
[2019-07-16] MEDS: Magnesium Oxide TAB* 400 MG PO SCH ×2 (08:35→20:46)
[2019-07-16] MEDS: Pantoprazole TAB * 40 MG TAB PO SCH ×2 (08:35→20:47)
[2019-07-16] MEDS: Insulin LISPRO* 1 UNITS UNIT SUBCUT SCH ×3 (08:35→17:16)
[2019-07-16] MEDS: Multivitamins/Minerals TAB PO SCH (08:35)
[2019-07-16] MEDS: Lactobacillus Acidophilus* 1 TAB PO SCH ×2 (08:35→20:46)
[2019-07-16] MEDS: Cetirizine* 10 MG TAB PO SCH (08:35)
[2019-07-16] MEDS: Ramipril CAP* 5 MG PO SCH (08:35)
[2019-07-16] MEDS: Hydrocodone/Acetamin 10/325 MG 1 TAB PO PRN ×2 (08:35→20:47)
[2019-07-16] MEDS: FLUoxetine CAP* 20 MG PO SCH (08:35)
[2019-07-16] MEDS: Tamsulosin CAP* 0.4 MG PO SCH (08:35)
[2019-07-16] MEDS: Isosorbide Dinitrate TAB* 5 MG PO SCH ×3 (08:39→20:47)
[2019-07-16] MEDS ORDERED: Insulin GLARGINE(*) 1 UNITS UNIT SUBCUT SCH (09:00)
[2019-07-16] MEDS: Atorvastatin* 40 MG TAB PO SCH (17:16)
--- NOTE | 2019-07-16 17:31 | PN ---
Subjective Date of Service: 07/16/19 Interval History: Mr. Levy states he is tired today. He has been up walking appx 5x today. He states that walking is going well. He needs to work on stairs prior to d/c. No other complaints today. Objective Active Medications: Acetaminophen (Tylenol Tab*) 650 mg PO Q4H PRN PRN Reason: mild to moderate pain Hydrocodone Bitart/Acetaminophen ([place] 10/325 (Nf)) 1 tab PO Q4HR PRN PRN Reason: PAIN Last Admin: 07/16/19 08:35 Dose: 1 tab Albuterol (Ventolin Hfa Inhaler*) 2 puff INH Q4H PRN PRN Reason: SHORTNESS OF BREATH Alprazolam (Xanax Tab*) 0.5 mg PO Q4H PRN PRN Reason: ANXIETY Last Admin: 07/15/19 21:15 Dose: 0.5 mg Atorvastatin Calcium (Lipitor*) 40 mg PO QPM [facility] Last Admin: 07/16/19 17:16 Dose: 40 mg Cetirizine HCl (Zyrtec*) 10 mg PO DAILY [facility] Last Admin: 07/16/19 08:35 Dose: 10 mg Dextrose (D50w Syringe 50 Ml*) 12.5 gm IV PUSH .FOR FS < 60 - SS PRN PRN Reason: FS < 60 Famotidine (Pepcid Tab*) 40 mg PO 2100 [facility] Last Admin: 07/15/19 21:09 Dose: 40 mg Fluoxetine HCl (Prozac Cap*) 40 mg PO DAILY [facility] Last Admin: 07/16/19 08:35 Dose: 40 mg Furosemide (Lasix Iv*) 60 mg IV DAILY [facility] Last Admin: 07/16/19 08:34 Dose: 60 mg Insulin Glargine (Lantus(*)) 56 units SUBCUT DAILY [facility] Last Admin: 07/16/19 08:35 Dose: 56 units Insulin Human Lispro (Humalog*) 0 units SUBCUT AC [facility]; Protocol Last Admin: 07/16/19 17:16 Dose: 12 unit Isosorbide Dinitrate (Isordil Tab*) 5 mg PO TID [facility] Last Admin: 07/16/19 13:33 Dose: 5 mg Lactobacillus Rhamnosus (Lactobacillus Acidophilus*) 1 tab PO BID [facility] Last Admin: 07/16/19 08:35 Dose: 1 tab Magnesium Oxide (Magox 400 Tab*) 800 mg PO BID [facility] Last Admin: 07/16/19 08:35 Dose: 800 mg Mometasone Furoate/Formoterol Fumar (Dulera 100/5 Mdi*) 2 puff INH BID [facility] Last Admin: 07/16/19 07:36 Dose: 2 puff Multivitamins/Minerals (Theragran/Minerals Tab*) 1 tab PO DAILY [facility] Last Admin: 07/16/19 08:35 Dose: 1 tab Pantoprazole Sodium (Protonix Tab*) 40 mg PO BID [facility] Last Admin: 07/16/19 08:35 Dose: 40 mg Ramipril (Altace Cap*) 5 mg PO DAILY [facility] Last Admin: 07/16/19 08:35 Dose: 5 mg Ropinirole HCl (Requip Tab*) 0.5 mg PO BEDTIME [facility] Last Admin: 07/15/19 21:08 Dose: 0.5 mg Tamsulosin HCl (Flomax Cap*) 0.4 mg PO DAILY [facility] Last Admin: 07/16/19 08:35 Dose: 0.4 mg Vital Signs: Temp Pulse Resp BP Pulse Ox 97.5 F 69 16 138/34 98 07/16/19 15:08 07/16/19 15:08 07/16/19 15:08 07/16/19 15:08 07/16/19 15:08 Oxygen Devices in Use Now: Nasal Cannula Appearance: Mr. Levy is an obese, older white male who is sitting up in chair with LE elevated. He appears to be in no acute distress. Eyes: No Scleral Icterus, PERRLA Ears/Nose/Mouth/Throat: NL Teeth, Lips, Gums, Clear Oropharnyx, Mucous Membranes Moist Neck: NL Appearance and Movements; NL JVP, Trachea Midline Respiratory: Symmetrical Chest Expansion and Respiratory Effort, - - bibasilar fine rales Cardiovascular: NL Sounds; No Murmurs; No JVD, RRR, - - trace b/l LE edema Abdominal: NL Sounds; No Tenderness; No Distention, No Hepatosplenomegaly Extremities: No Clubbing, Cyanosis Neurological: Alert and Oriented x 3 Result Diagrams: 07/15/19 08:39 07/15/19 08:39 Microbiology and Other Data: Microbiology 07/13/19 11:56 Urine Culture - Final Urine 07/13/19 11:55 Stool Occult Blood (BROCK) - Final Stool Assess/Plan/Problems-Billing Assessment: 69yom PMHx HFpEF, DM, COPD, JO ANN, OHS presents with b/l LE edema, SOB, rales on exam found to be in HF exacerbation; also c/o melena with suspect GIB with stable H/H. - Patient Problems (1) Acute on chronic diastolic (congestive) heart failure Comment: -presents with SOB, LE edema -appears to be in exacerbation -responding well to IV diuresis -continue lasix 60 BID today; will have 60 Lasix in a.m. and then likely able to restart torsemide -continue I/O; negative fluid balance -daily weights -sodium restriction diet (2) GIB (gastrointestinal bleeding) Comment: -pt reports episodes of melena; none recently -FOB positive -H/H stable and trending up -GI consulting; thank you for recommendations -EGD not recommended; will continue BID PPI and bedtime famotidine; plan to restart asa in 10d -will continue to monitor for bleeding (3) Cough Comment: -reports productive cough x2 days -denies dysphagia -does not appear to be in COPD exacerbation- pulm exam without wheezing -low suspicion for pna- afebrile without leukocytosis -suspect GERD- already on PPI; now on famotidine as well, but with continued cough -INTERNET MANAGER swallow eval ordered -CXR today unremarkable (4) COPD (chronic obstructive pulmonary disease) Comment: -dose not appear to be in exacerbation, although with new onset cough (see above ) -continue nebulizers, inhalers, supplemental O2 at home dose (5) Hypertension Comment: -labile, SBP 110-130's -lasix 60 once today -isosorbide transitioned to short acting for increased flexibility with diuretics; will transition to home dose at discharge -continue ramipril -replace electrolytes as needed (6) Diabetes type 2, controlled Comment: -a.m. BG 210-330, poor control -consistent carbs -increase glargine to 60 (home dose 70) -lispro ss -hold glipizide (7) Obstructive sleep apnea Comment: -continue CPAP (8) Chronic back pain Comment: -continue hydrocodone (9) RLS (restless legs syndrome) Comment: -continue Ropinorole (10) Depression Comment: -continue fluoxetine (11) DVT prophylaxis Comment: -hold chemoprophylaxis in setting of GIB -SCDs from home (12) Full code status Status and Disposition: Inpatient. Discharge when stable. Plan for stair with PT tomorrow to assess ability to return home.
[2019-07-16] MEDS: Famotidine TAB* 20 MG PO SCH (20:45)
[2019-07-16] MEDS: ALPRAZolam TAB* 0.5 MG PO PRN (20:46)
[2019-07-16] MEDS: Ropinirole TAB* 0.5 MG TAB PO SCH (20:46)
[2019-07-17 06:30] LABS: ABS Eosinophils 0.5 10^3/ul (0-0.6); ABS Lymphocytes 1.3 10^3/ul (1.0-4.8); ABS Monocytes 1.1 10^3/ul (0-0.8); ABS Neutrophils 2.6 10^3/ul (1.5-7.7); Eosinophil % 8.6 %; Hematocrit 35 % (42-52); Hemoglobin 12.2 g/dL (14.0-18.0); Lymphocyte % 23.1 %; Mean Corpuscular HGB Conc 35 g/dL (31-36); Mean Corpuscular Hemoglobin 33 pg (27-31); Mean Corpuscular Volume 94 fL (80-94); Mean Platelet Volume 7.9 fL (7.4-10.4); Nucleated Red Blood Cells % 0.1; Platelet Count 120 10^3/uL (150-450); Red Blood Count 3.73 10^6 /uL (4.18-5.48); Red Cell Distribution Width 15 % (10-15); White Blood Count 5.6 10^3/uL (3.5-10.8)
[2019-07-17 06:32] LABS: BUN/Creatinine Ratio 23.3 (8-20); Calcium 9.2 mg/dL (8.6-10.3); EGFR African American 72.9 (>60); EGFR Non-African American 60.2 (>60); Potassium 3.2 mmol/L (3.5-5.0)
[2019-07-17 08:30] LABS: Magnesium 1.9 mg/dL (1.9-2.7)
[2019-07-17] MEDS: Furosemide IV* 10 MG/ML 10 ML VIAL (100 MG) IV SCH (08:39)
[2019-07-17] MEDS: Insulin LISPRO* 1 UNITS UNIT SUBCUT SCH ×3 (08:39→16:28)
[2019-07-17] MEDS: Isosorbide Dinitrate TAB* 5 MG PO SCH ×3 (08:42→21:30)
[2019-07-17] MEDS: Ramipril CAP* 5 MG PO SCH (08:42)
[2019-07-17] MEDS: Lactobacillus Acidophilus* 1 TAB PO SCH ×2 (08:43→21:31)
[2019-07-17] MEDS: Cetirizine* 10 MG TAB PO SCH (08:43)
[2019-07-17] MEDS: Tamsulosin CAP* 0.4 MG PO SCH (08:43)
[2019-07-17] MEDS: Magnesium Oxide TAB* 400 MG PO SCH ×2 (08:43→21:32)
[2019-07-17] MEDS: Multivitamins/Minerals TAB PO SCH (08:43)
[2019-07-17] MEDS: Pantoprazole TAB * 40 MG TAB PO SCH ×2 (08:43→21:31)
[2019-07-17] MEDS: FLUoxetine CAP* 20 MG PO SCH (08:43)
[2019-07-17] MEDS ORDERED: Magnesium Sulfate 1 GM IV* 1 GM/100 ML BAG IV ONE (08:44)
[2019-07-17] MEDS ORDERED: Insulin GLARGINE(*) 1 UNITS UNIT SUBCUT SCH (09:00)
[2019-07-17] MEDS: Mometasone/Formoter 100/5 MDI INH SCH ×2 (09:17→20:12)
[2019-07-17] MEDS: Potassium Chlor TAB* 20 MEQ TAB.ER PO SCH ×2 (11:44→15:06)
[2019-07-17] MEDS ORDERED: Furosemide IV* 10 MG/ML 2 ML VIAL (20 MG) IV ONE (14:04)
[2019-07-17] MEDS: Atorvastatin* 40 MG TAB PO SCH (16:29)
--- NOTE | 2019-07-17 17:52 | PN ---
Subjective Date of Service: 07/17/19 Interval History: Patient coughing without sputum production. He feels like "he has something" in his chest with some tightness. Denies chest pain. Ambulated today, was able to go up stairs. Continues to be short of breath with exertion, on 5L via NC. Family History: Unchanged from Admission Social History: Unchanged from Admission Past Medical History: Unchanged from Admission Objective Active Medications: Acetaminophen (Tylenol Tab*) 650 mg PO Q4H PRN PRN Reason: mild to moderate pain Hydrocodone Bitart/Acetaminophen ([place] 10/325 (Nf)) 1 tab PO Q4HR PRN PRN Reason: PAIN Last Admin: 07/16/19 20:47 Dose: 1 tab Albuterol (Ventolin Hfa Inhaler*) 2 puff INH Q4H PRN PRN Reason: SHORTNESS OF BREATH Alprazolam (Xanax Tab*) 0.5 mg PO Q4H PRN PRN Reason: ANXIETY Last Admin: 07/16/19 20:46 Dose: 0.5 mg Atorvastatin Calcium (Lipitor*) 40 mg PO QPM [facility] Last Admin: 07/17/19 16:29 Dose: 40 mg Cetirizine HCl (Zyrtec*) 10 mg PO DAILY [facility] Last Admin: 07/17/19 08:43 Dose: 10 mg Dextrose (D50w Syringe 50 Ml*) 12.5 gm IV PUSH .FOR FS < 60 - SS PRN PRN Reason: FS < 60 Famotidine (Pepcid Tab*) 40 mg PO 2100 [facility] Last Admin: 07/16/19 20:45 Dose: 40 mg Fluoxetine HCl (Prozac Cap*) 40 mg PO DAILY [facility] Last Admin: 07/17/19 08:43 Dose: 40 mg Furosemide (Lasix Iv*) 60 mg IV DAILY [facility] Last Admin: 07/17/19 08:39 Dose: 60 mg Insulin Glargine (Lantus(*)) 68 units SUBCUT DAILY [facility] Insulin Human Lispro (Humalog*) 0 units SUBCUT AC [facility]; Protocol Last Admin: 07/17/19 16:28 Dose: 9 units Isosorbide Dinitrate (Isordil Tab*) 5 mg PO TID [facility] Last Admin: 07/17/19 15:06 Dose: 5 mg Lactobacillus Rhamnosus (Lactobacillus Acidophilus*) 1 tab PO BID [facility] Last Admin: 07/17/19 08:43 Dose: 1 tab Magnesium Oxide (Magox 400 Tab*) 800 mg PO BID [facility] Last Admin: 07/17/19 08:43 Dose: 800 mg Mometasone Furoate/Formoterol Fumar (Dulera 100/5 Mdi*) 2 puff INH BID [facility] Last Admin: 07/17/19 09:17 Dose: 2 puff Multivitamins/Minerals (Theragran/Minerals Tab*) 1 tab PO DAILY [facility] Last Admin: 07/17/19 08:43 Dose: 1 tab Pantoprazole Sodium (Protonix Tab*) 40 mg PO BID [facility] Last Admin: 07/17/19 08:43 Dose: 40 mg Ramipril (Altace Cap*) 5 mg PO DAILY [facility] Last Admin: 07/17/19 08:42 Dose: 5 mg Ropinirole HCl (Requip Tab*) 0.5 mg PO BEDTIME [facility] Last Admin: 07/16/19 20:46 Dose: 0.5 mg Tamsulosin HCl (Flomax Cap*) 0.4 mg PO DAILY [facility] Last Admin: 07/17/19 08:43 Dose: 0.4 mg Vital Signs - 8 hr 07/17/19 07/17/19 11:15 15:15 Temperature 97.5 F 97.3 F Pulse Rate 66 71 Respiratory 16 20 Rate Blood Pressure 136/41 123/47 (mmHg) O2 Sat by Pulse 99 96 Oximetry Oxygen Devices in Use Now: Nasal Cannula - 5L Appearance: This is a well developed, obese gentleman seen sitting up in a chair , no acute distress noted. Eyes: No Scleral Icterus, PERRLA Ears/Nose/Mouth/Throat: NL Teeth, Lips, Gums, Clear Oropharnyx, Mucous Membranes Moist Neck: NL Appearance and Movements; NL JVP, Trachea Midline Respiratory: Symmetrical Chest Expansion and Respiratory Effort, - - Crackles to bilateral bases. Cardiovascular: NL Sounds; No Murmurs; No JVD, RRR, No Edema Abdominal: NL Sounds; No Tenderness; No Distention Lymphatic: No Cervical Adenopathy Extremities: No Clubbing, Cyanosis, - - +1-2 pitting edema to bilateral lower extremities. Skin: No Rash or Ulcers, No Nodules or Sclerosis Neurological: Alert and Oriented x 3 Result Diagrams: 07/17/19 05:34 07/17/19 05:34 Microbiology and Other Data: Microbiology 07/13/19 11:56 Urine Culture - Final Urine 07/13/19 11:55 Stool Occult Blood (BROCK) - Final Stool Assess/Plan/Problems-Billing Assessment: 69yom PMHx HFpEF, DM, COPD, JO ANN, OHS presents with b/l LE edema, SOB, rales on exam found to be in HF exacerbation; also c/o melena with suspect GIB with stable H/H. - Patient Problems (1) Cough Current Visit: Yes Status: Acute Code(s): R05 - COUGH SNOMED Code(s): 68136560 Comment: -reports cough which is not productive today. -occasionally coughs after foods and thin liquids. -does not appear to be in COPD exacerbation- pulm exam without wheezing -low suspicion for pna- afebrile without leukocytosis -suspect GERD- already on PPI; now on famotidine as well, but with continued cough -LAUNDRY SUPERINTENDENT swallow eval revealed nothing significant. -CXR unremarkable (2) GIB (gastrointestinal bleeding) Current Visit: Yes Status: Acute Code(s): K92.2 - GASTROINTESTINAL HEMORRHAGE, UNSPECIFIED SNOMED Code(s): 79124309 Comment: -pt reports episodes of melena; none recently -FOB positive -H/H stable and trending up -GI consulting; thank you for recommendations -EGD not recommended; will continue BID PPI and bedtime famotidine; plan to restart asa in 10d -will continue to monitor for bleeding (3) Acute on chronic diastolic (congestive) heart failure Current Visit: No Status: Acute Code(s): I50.33 - ACUTE ON CHRONIC DIASTOLIC (CONGESTIVE) HEART FAILURE SNOMED Code(s): 253062103 Comment: -presents with SOB, LE edema -appears to be in exacerbation. Gained 2.6lbs today. -continue lasix 60mg daily. Gave an additional 20mg IV dose today. Hopefully will be able to restart PO torsemide tomorrow, though should be at a higher dose as he has been hospitalized for CHF exacerbation twice now within 3 months. -daily weights -sodium restriction diet (4) Anxiety Current Visit: No Status: Acute Code(s): F41.9 - ANXIETY DISORDER, UNSPECIFIED SNOMED Code(s): 12485383 Comment: -Continue alprazolam and fluoxetine. (5) BPH (benign prostatic hyperplasia) Current Visit: No Status: Acute Code(s): N40.0 - BENIGN PROSTATIC HYPERPLASIA WITHOUT LOWER URINRY TRACT SYMP SNOMED Code(s): 941331210 Comment: -Continue tamsulosin. (6) CAD (coronary artery disease) Current Visit: No Status: Acute Code(s): I25.10 - ATHSCL HEART DISEASE OF [place] CORONARY ARTERY W/O ANG PCTRS SNOMED Code(s): 50149914 Comment: - Aspirin on hold due to GI bleed. Will restart on 07/24. (7) COPD (chronic obstructive pulmonary disease) Current Visit: No Status: Acute Code(s): J44.9 - CHRONIC OBSTRUCTIVE PULMONARY DISEASE, UNSPECIFIED SNOMED Code(s): 64903784 Comment: - Does not appear to be in exacerbation - Continue nebulizers, inhalers, supplemental O2 at home dose (8) Chronic back pain Current Visit: No Status: Acute Code(s): M54.9 - DORSALGIA, UNSPECIFIED; G89.29 - OTHER CHRONIC PAIN SNOMED Code(s): 283733940 Comment: -continue hydrocodone (9) DVT prophylaxis Current Visit: No Status: Acute Code(s): FVH0504 - SNOMED Code(s): 118186710 Comment: -hold chemoprophylaxis in setting of GIB -SCDs from home (10) Depression Current Visit: No Status: Acute Code(s): F32.9 - MAJOR DEPRESSIVE DISORDER, SINGLE EPISODE, UNSPECIFIED SNOMED Code(s): 37545589 Comment: -continue fluoxetine (11) Diabetes type 2, controlled Current Visit: No Status: Acute Code(s): E11.9 - TYPE 2 DIABETES MELLITUS WITHOUT COMPLICATIONS SNOMED Code(s): 65901136 Comment: - Blood glucoses over the past day and a half have been poorly controlled, in the 200-300's. -consistent carb diet -increase glargine to 70units daily from 60. -lispro ss -hold glipizide (12) Electrolyte abnormality Current Visit: No Status: Acute Code(s): E87.8 - OTH DISORDERS OF ELECTROLYTE AND FLUID BALANCE, NEC SNOMED Code(s): 249741068 Comment: -Potassium was 3.2. Gave two doses of oral potassium. Magnesium also required supplementation. This is likely secondary to IV diuresis. (13) Full code status Current Visit: No Status: Acute Code(s): Z78.9 - OTHER SPECIFIED HEALTH STATUS SNOMED Code(s): 807991810 (14) GERD (gastroesophageal reflux disease) Current Visit: No Status: Acute Code(s): K21.9 - GASTRO-ESOPHAGEAL REFLUX DISEASE WITHOUT ESOPHAGITIS SNOMED Code(s): 061142208 Comment: -No current signs or symptoms. Continue pantoprazole. (15) HLD (hyperlipidemia) Current Visit: No Status: Acute Code(s): E78.5 - HYPERLIPIDEMIA, UNSPECIFIED SNOMED Code(s): 01282840 Comment: -Continue atorvastatin. (16) Hypertension Current Visit: No Status: Acute Code(s): I10 - ESSENTIAL (PRIMARY) HYPERTENSION SNOMED Code(s): 54072787 Comment: -labile, SBP 120's-150's -Received a total of 80mg IV lasix today. -isosorbide transitioned to short acting for increased flexibility with diuretics; will transition to home dose at discharge -continue ramipril -replace electrolytes as needed (17) Obstructive sleep apnea Current Visit: No Status: Acute Code(s): G47.33 - OBSTRUCTIVE SLEEP APNEA ( ADULT) (PEDIATRIC) SNOMED Code(s): 80051509 Comment: -continue CPAP (18) RLS (restless legs syndrome) Current Visit: No Status: Acute Comment: -continue Ropinorole Status and Disposition: Inpatient. Discharge when stable. Plan for stair with PT tomorrow to assess ability to return home. Attending: Rafiq Carter
[2019-07-17] MEDS: Famotidine TAB* 20 MG PO SCH (21:29)
[2019-07-17] MEDS: Ropinirole TAB* 0.5 MG TAB PO SCH (21:32)
[2019-07-17] MEDS: Hydrocodone/Acetamin 10/325 MG 1 TAB PO PRN (21:39)
[2019-07-18 05:42] LABS: ABS Eosinophils 0.4 10^3/ul (0-0.6); ABS Lymphocytes 1.4 10^3/ul (1.0-4.8); ABS Monocytes 1.2 10^3/ul (0-0.8); ABS Neutrophils 2.5 10^3/ul (1.5-7.7); Eosinophil % 7.9 %; Hematocrit 36 % (42-52); Hemoglobin 12.2 g/dL (14.0-18.0); Mean Corpuscular HGB Conc 34 g/dL (31-36); Mean Corpuscular Hemoglobin 32 pg (27-31); Mean Corpuscular Volume 95 fL (80-94); Mean Platelet Volume 7.5 fL (7.4-10.4); Nucleated Red Blood Cells % 0.2; Platelet Count 129 10^3/uL (150-450); Red Blood Count 3.77 10^6 /uL (4.18-5.48); Red Cell Distribution Width 15 % (10-15); White Blood Count 5.6 10^3/uL (3.5-10.8)
[2019-07-18 06:01] LABS: Calcium 9.6 mg/dL (8.6-10.3); EGFR African American 76.5 (>60); EGFR Non-African American 63.2 (>60); Potassium 3.5 mmol/L (3.5-5.0)
[2019-07-18 07:33] LABS: Magnesium 2.1 mg/dL (1.9-2.7)
[2019-07-18] MEDS: Mometasone/Formoter 100/5 MDI INH SCH ×2 (08:03→20:38)
[2019-07-18] MEDS: Isosorbide Dinitrate TAB* 5 MG PO SCH ×3 (08:55→21:44)
[2019-07-18] MEDS: Oxybutynin XL TAB* 5 MG PO SCH (08:56)
[2019-07-18] MEDS: FLUoxetine CAP* 20 MG PO SCH (08:57)
[2019-07-18] MEDS: Ramipril CAP* 5 MG PO SCH (08:58)
[2019-07-18] MEDS: Potassium Chlor TAB* 20 MEQ TAB.ER PO SCH ×3 (08:58→10:42)
[2019-07-18] MEDS: Magnesium Oxide TAB* 400 MG PO SCH ×2 (08:58→21:45)
[2019-07-18] MEDS: glipiZIDE TAB.XL* 5 MG PO SCH (08:59)
[2019-07-18] MEDS: Tamsulosin CAP* 0.4 MG PO SCH (09:00)
[2019-07-18] MEDS: Cetirizine* 10 MG TAB PO SCH (09:00)
[2019-07-18] MEDS: Pantoprazole TAB * 40 MG TAB PO SCH ×2 (09:00→21:45)
[2019-07-18] MEDS: Lactobacillus Acidophilus* 1 TAB PO SCH ×2 (09:00→21:44)
[2019-07-18] MEDS: Multivitamins/Minerals TAB PO SCH (09:00)
[2019-07-18] MEDS ORDERED: Insulin GLARGINE(*) 1 UNITS UNIT SUBCUT SCH (09:00)
[2019-07-18] MEDS: Insulin GLARGINE(*) 1 UNITS UNIT SUBCUT SCH (09:02)
[2019-07-18] MEDS: Insulin LISPRO* 1 UNITS UNIT SUBCUT SCH ×3 (09:03→16:52)
[2019-07-18] MEDS: Hydrocodone/Acetamin 10/325 MG 1 TAB PO PRN (09:03)
--- NOTE | 2019-07-18 09:05 | PN ---
Subjective Date of Service: 07/18/19 Interval History: Patient states he feels tired after not sleeping well last night due to repostioning and various disturbances. Is on 4L oxygen today, states that his shortness of breath is that same as it typically is. Reported feeling a tingling to left upper chest wall pain during repositioning this morning that was not accompanied by sSOB, lightheadedness, dizziness or palpitations. Reviewed telemetry, did note a lot of artifact and several PVC's. No nursing concerns. Family History: Unchanged from Admission Social History: Unchanged from Admission Past Medical History: Unchanged from Admission Objective Active Medications: Acetaminophen (Tylenol Tab*) 650 mg PO Q4H PRN PRN Reason: mild to moderate pain Hydrocodone Bitart/Acetaminophen (Matheny 10/325 (Nf)) 1 tab PO Q4HR PRN PRN Reason: PAIN Last Admin: 07/17/19 21:39 Dose: 1 tab Albuterol (Ventolin Hfa Inhaler*) 2 puff INH Q4H PRN PRN Reason: SHORTNESS OF BREATH Alprazolam (Xanax Tab*) 0.5 mg PO Q4H PRN PRN Reason: ANXIETY Last Admin: 07/16/19 20:46 Dose: 0.5 mg Atorvastatin Calcium (Lipitor*) 40 mg PO QPM [facility] Last Admin: 07/17/19 16:29 Dose: 40 mg Cetirizine HCl (Zyrtec*) 10 mg PO DAILY [facility] Last Admin: 07/17/19 08:43 Dose: 10 mg Dextrose (D50w Syringe 50 Ml*) 12.5 gm IV PUSH .FOR FS < 60 - SS PRN PRN Reason: FS < 60 Famotidine (Pepcid Tab*) 40 mg PO 2100 [facility] Last Admin: 07/17/19 21:29 Dose: 40 mg Fluoxetine HCl (Prozac Cap*) 40 mg PO DAILY [facility] Last Admin: 07/17/19 08:43 Dose: 40 mg Furosemide (Lasix Iv*) 60 mg IV BID [facility] Glipizide (Glucotrol Xl*) 10 mg PO DAILY [facility] Insulin Glargine (Lantus(*)) 70 units SUBCUT DAILY [facility] Insulin Human Lispro (Humalog*) 0 units SUBCUT AC [facility]; Protocol Last Admin: 07/17/19 16:28 Dose: 9 units Isosorbide Dinitrate (Isordil Tab*) 5 mg PO TID [facility] Last Admin: 07/18/19 08:55 Dose: 5 mg Lactobacillus Rhamnosus (Lactobacillus Acidophilus*) 1 tab PO BID [facility] Last Admin: 07/17/19 21:31 Dose: 1 tab Magnesium Oxide (Magox 400 Tab*) 800 mg PO BID [facility] Last Admin: 07/17/19 21:32 Dose: 800 mg Metolazone (Zaroxolyn Tab*) 5 mg PO BID [facility] Mometasone Furoate/Formoterol Fumar (Dulera 100/5 Mdi*) 2 puff INH BID [facility] Last Admin: 07/18/19 08:03 Dose: 2 puff Multivitamins/Minerals (Theragran/Minerals Tab*) 1 tab PO DAILY [facility] Last Admin: 07/17/19 08:43 Dose: 1 tab Oxybutynin Chloride (Ditropan Xl Tab*) 5 mg PO DAILY [facility] Pantoprazole Sodium (Protonix Tab*) 40 mg PO BID [facility] Last Admin: 07/17/19 21:31 Dose: 40 mg Potassium Chloride (Klor Con Er Tab*) 20 meq PO DAILY [facility] Potassium Chloride (Klor Con Er Tab*) 20 meq PO Q4H [facility] Stop: 07/18/19 11:01 Ramipril (Altace Cap*) 5 mg PO DAILY [facility] Last Admin: 07/17/19 08:42 Dose: 5 mg Ropinirole HCl (Requip Tab*) 0.5 mg PO BEDTIME [facility] Last Admin: 07/17/19 21:32 Dose: 0.5 mg Tamsulosin HCl (Flomax Cap*) 0.4 mg PO DAILY [facility] Last Admin: 07/17/19 08:43 Dose: 0.4 mg Vital Signs - 8 hr 07/18/19 07/18/19 03:43 07:15 Temperature 97.9 F 98.2 F Pulse Rate 87 72 Respiratory 17 18 Rate Blood Pressure 138/47 126/44 (mmHg) O2 Sat by Pulse 96 97 Oximetry Oxygen Devices in Use Now: Nasal Cannula - 4L Appearance: This is a well developed, obese gentleman seen resting in bed, no acute distress noted. Eyes: No Scleral Icterus, PERRLA Ears/Nose/Mouth/Throat: NL Teeth, Lips, Gums, Clear Oropharnyx, Mucous Membranes Moist Neck: NL Appearance and Movements; NL JVP, Trachea Midline Respiratory: Symmetrical Chest Expansion and Respiratory Effort, Clear to Auscultation Cardiovascular: NL Sounds; No Murmurs; No JVD, RRR, No Edema, - - Has no pitting edema. Skin to right leg feels firmer than the left and when compared to yesterday. Abdominal: NL Sounds; No Tenderness; No Distention Lymphatic: No Cervical Adenopathy Extremities: No Edema, No Clubbing, Cyanosis Skin: No Rash or Ulcers, No Nodules or Sclerosis Neurological: Alert and Oriented x 3 Lines/Tubes/Other Access: Clean, Dry and Intact Peripheral IV Result Diagrams: 07/18/19 05:23 07/18/19 05:23 Microbiology and Other Data: Microbiology 07/13/19 11:56 Urine Culture - Final Urine 07/13/19 11:55 Stool Occult Blood (BROCK) - Final Stool Assess/Plan/Problems-Billing Assessment: 69yom PMHx HFpEF, DM, COPD, JO ANN, OHS presents with b/l LE edema, SOB, rales on exam found to be in HF exacerbation; also c/o melena with suspect GIB with stable H/H. - Patient Problems (1) Cough Current Visit: Yes Status: Acute Code(s): R05 - COUGH SNOMED Code(s): 22050481 Comment: -reports occassional cough with clear/white sputum production. -occasionally coughs after foods and thin liquids. -does not appear to be in COPD exacerbation- pulm exam without wheezing -low suspicion for pna- afebrile without leukocytosis -suspect GERD- already on PPI; now on famotidine as well, but with continued cough -EP TECH swallow eval revealed nothing significant. -CXR unremarkable (2) GIB (gastrointestinal bleeding) Current Visit: Yes Status: Acute Code(s): K92.2 - GASTROINTESTINAL HEMORRHAGE, UNSPECIFIED SNOMED Code(s): 60641678 Comment: -pt reports episodes of melena; none recently -FOB positive -H/H stable and trending up -GI consulting; thank you for recommendations -EGD not recommended; will continue BID PPI and bedtime famotidine; plan to restart asa on 07/25/19 -will continue to monitor for bleeding (3) Acute on chronic diastolic (congestive) heart failure Current Visit: No Status: Acute Code(s): I50.33 - ACUTE ON CHRONIC DIASTOLIC (CONGESTIVE) HEART FAILURE SNOMED Code(s): 779665853 Comment: -presents with SOB, LE edema -appears to be in exacerbation. Gained 4.2 lbs today. -Increased lasix to 60mg BID with zaroxolyn to be given prior to each dose. When he transitions back to PO toresemide, he should be at a higher dose as he has been hospitalized for CHF exacerbation twice now within 3 months. -daily weights -sodium restriction diet (4) Anxiety Current Visit: No Status: Acute Code(s): F41.9 - ANXIETY DISORDER, UNSPECIFIED SNOMED Code(s): 02559614 Comment: -Continue alprazolam and fluoxetine. (5) BPH (benign prostatic hyperplasia) Current Visit: No Status: Acute Code(s): N40.0 - BENIGN PROSTATIC HYPERPLASIA WITHOUT LOWER URINRY TRACT SYMP SNOMED Code(s): 607246349 Comment: -Continue tamsulosin. (6) CAD (coronary artery disease) Current Visit: No Status: Acute Code(s): I25.10 - ATHSCL HEART DISEASE OF [place] CORONARY ARTERY W/O ANG PCTRS SNOMED Code(s): 14747228 Comment: - Aspirin on hold due to GI bleed. Will restart on 07/24. (7) COPD (chronic obstructive pulmonary disease) Current Visit: No Status: Acute Code(s): J44.9 - CHRONIC OBSTRUCTIVE PULMONARY DISEASE, UNSPECIFIED SNOMED Code(s): 14805161 Comment: - Does not appear to be in exacerbation - Continue nebulizers, inhalers, supplemental O2 at home dose (8) Chronic back pain Current Visit: No Status: Acute Code(s): M54.9 - DORSALGIA, UNSPECIFIED; G89.29 - OTHER CHRONIC PAIN SNOMED Code(s): 312879363 Comment: -continue hydrocodone (9) Depression Current Visit: No Status: Acute Code(s): F32.9 - MAJOR DEPRESSIVE DISORDER, SINGLE EPISODE, UNSPECIFIED SNOMED Code(s): 51890901 Comment: -continue fluoxetine (10) Diabetes type 2, controlled Current Visit: No Status: Acute Code(s): E11.9 - TYPE 2 DIABETES MELLITUS WITHOUT COMPLICATIONS SNOMED Code(s): 31522224 Comment: - Blood glucoses persist in the 200's. -consistent carb diet -increase glargine to 70units daily from 60. -lispro ss - Hold glipizide during CHF exacerbation. (11) Electrolyte abnormality Current Visit: No Status: Acute Code(s): E87.8 - OTH DISORDERS OF ELECTROLYTE AND FLUID BALANCE, NEC SNOMED Code(s): 390923695 Comment: -Potassium 3.5. Ordered two additional doses of oral potassium. Magnesium is at a normal level. This is likely secondary to IV diuresis. (12) HLD (hyperlipidemia) Current Visit: No Status: Acute Code(s): E78.5 - HYPERLIPIDEMIA, UNSPECIFIED SNOMED Code(s): 76628859 Comment: -Continue atorvastatin. (13) Hypertension Current Visit: No Status: Acute Code(s): I10 - ESSENTIAL (PRIMARY) HYPERTENSION SNOMED Code(s): 66428889 Comment: - Stabilizing at SBP 120's-130's -isosorbide transitioned to short acting for increased flexibility with diuretics; will transition to home dose at discharge -continue ramipril, furosemide -replace electrolytes as needed (14) Obstructive sleep apnea Current Visit: No Status: Acute Code(s): G47.33 - OBSTRUCTIVE SLEEP APNEA ( ADULT) (PEDIATRIC) SNOMED Code(s): 15506504 Comment: -continue CPAP (15) GERD (gastroesophageal reflux disease) Current Visit: No Status: Acute Code(s): K21.9 - GASTRO-ESOPHAGEAL REFLUX DISEASE WITHOUT ESOPHAGITIS SNOMED Code(s): 096405814 Comment: -No current signs or symptoms. Continue pantoprazole. (16) RLS (restless legs syndrome) Current Visit: No Status: Acute Comment: -continue Ropinorole (17) DVT prophylaxis Current Visit: No Status: Acute Code(s): EOL5941 - SNOMED Code(s): 267196711 Comment: -hold chemoprophylaxis in setting of GIB -SCDs from home (18) Full code status Current Visit: No Status: Acute Code(s): Z78.9 - OTHER SPECIFIED HEALTH STATUS SNOMED Code(s): 928000513 Status and Disposition: Inpatient. Discharge when stable. Plan for stair with PT tomorrow to assess ability to return home. Attending: Kassie Patel
[2019-07-18] MEDS: Metolazone TAB* 5 MG PO SCH ×2 (09:51→21:43)
[2019-07-18] MEDS: Furosemide IV* 10 MG/ML 10 ML VIAL (100 MG) IV SCH ×2 (10:42→22:25)
[2019-07-18] MEDS: Atorvastatin* 40 MG TAB PO SCH (16:52)
[2019-07-18] MEDS: Famotidine TAB* 20 MG PO SCH (21:44)
[2019-07-18] MEDS: Nystatin TOP POWDER* 15 GM BTL TOPICAL SCH (21:45)
[2019-07-18] MEDS: Ropinirole TAB* 0.5 MG TAB PO SCH (21:46)
[2019-07-19] MEDS: Metolazone TAB* 5 MG PO SCH ×2 (07:44→09:32)
[2019-07-19] MEDS: Mometasone/Formoter 100/5 MDI INH SCH (08:03)
[2019-07-19] MEDS: FLUoxetine CAP* 20 MG PO SCH (09:32)
[2019-07-19] MEDS: Ramipril CAP* 5 MG PO SCH (09:32)
[2019-07-19] MEDS: Magnesium Oxide TAB* 400 MG PO SCH (09:32)
[2019-07-19] MEDS: Pantoprazole TAB * 40 MG TAB PO SCH (09:33)
[2019-07-19] MEDS: Multivitamins/Minerals TAB PO SCH (09:33)
[2019-07-19] MEDS: Potassium Chlor TAB* 20 MEQ TAB.ER PO SCH (09:33)
[2019-07-19] MEDS: Lactobacillus Acidophilus* 1 TAB PO SCH (09:33)
[2019-07-19] MEDS: Isosorbide Dinitrate TAB* 5 MG PO SCH ×2 (09:33→13:25)
[2019-07-19] MEDS: Oxybutynin XL TAB* 5 MG PO SCH (09:33)
[2019-07-19] MEDS: glipiZIDE TAB.XL* 5 MG PO SCH (09:33)
[2019-07-19] MEDS: Cetirizine* 10 MG TAB PO SCH (09:33)
[2019-07-19] MEDS: Tamsulosin CAP* 0.4 MG PO SCH (09:33)
[2019-07-19] MEDS: Insulin LISPRO* 1 UNITS UNIT SUBCUT SCH ×2 (09:34→13:25)
[2019-07-19] MEDS: Insulin GLARGINE(*) 1 UNITS UNIT SUBCUT SCH (09:34)
[2019-07-19] MEDS: Nystatin TOP POWDER* 15 GM BTL TOPICAL SCH (09:34)
[2019-07-19] MEDS: Furosemide IV* 10 MG/ML 10 ML VIAL (100 MG) IV SCH (09:35)
[2019-07-19 10:05] LABS: ABS Eosinophils 0.4 10^3/ul (0-0.6); ABS Lymphocytes 1.2 10^3/ul (1.0-4.8); ABS Monocytes 0.9 10^3/ul (0-0.8); Eosinophil % 8.3 %; Hematocrit 34 % (42-52); Mean Corpuscular HGB Conc 35 g/dL (31-36); Mean Corpuscular Hemoglobin 33 pg (27-31); Mean Corpuscular Volume 94 fL (80-94); Mean Platelet Volume 7.4 fL (7.4-10.4); Nucleated Red Blood Cells % 0.1; Platelet Count 119 10^3/uL (150-450); Red Blood Count 3.67 10^6 /uL (4.18-5.48); Red Cell Distribution Width 15 % (10-15); White Blood Count 4.5 10^3/uL (3.5-10.8)
[2019-07-19 10:27] VITALS: BP 151/54
[2019-07-19] MEDS: Hydrocodone/Acetamin 10/325 MG 1 TAB PO PRN (10:28)
[2019-07-19 10:30] LABS: BUN/Creatinine Ratio 26.1 (8-20); Calcium 9.5 mg/dL (8.6-10.3); EGFR African American 73.6 (>60); EGFR Non-African American 60.8 (>60); Magnesium 1.9 mg/dL (1.9-2.7); Potassium 3.4 mmol/L (3.5-5.0)
[2019-07-19] MEDS ORDERED: Potassium Chlor TAB* 20 MEQ TAB.ER PO ONE (10:42)
--- NOTE | 2019-07-19 23:09 | DS ---
CC: Dr. Kolton Tidwell * DISCHARGE SUMMARY: DATE OF ADMISSION: 07/13/19 DATE OF DISCHARGE: 07/19/19 PRIMARY CARE PROVIDER: Kolton Tidwell MD CONSULTING PHYSICIANS: Dr. Caldwell; Dr. Fenton. ATTENDING PROVIDER: Kassie Patel MD * (DICTATED BY SAROJ LAO NP) PRIMARY DIAGNOSES: 1. Congestive heart failure exacerbation. 2. Gastrointestinal bleed. SECONDARY DIAGNOSES: 1. Hypertension. 2. Diabetes type 2. 3. Obstructive sleep apnea. 4. Chronic back pain. 5. Restless legs syndrome. 6. Depression. PROCEDURES: None. DIAGNOSTIC STUDIES AND LABORATORY DATA: 1. Transthoracic echocardiogram showed an ejection fraction of 55% to 60% with no obvious regional wall motion abnormalities and no valvular dysfunction. Chest x-ray on 07/15/19 showed stigmata of probable COPD, unchanged elevation of the left hemidiaphragm with basilar atelectasis. No superimposed acute cardiopulmonary process evident. 2. Chest x-ray on 07/13/19, it showed pulmonary vascular congestion. Pertinent lab data: RBCs 3.67, hemoglobin 12.2, hematocrit 34, MCH 33, platelet count 119. Chemistry; sodium 134, potassium 3.4, chloride 92, carbon dioxide 35, BUN 31, creatinine 1.19, BUN and creatinine ratio of 26.1, glucose 245, calcium 9.5, magnesium 1.9. Urine had 1+ blood, 2+ rbc's and squamous epithelial cells. Urine culture showed no growth of bacteria and 2 separate stool occult samples were positive for blood. HISTORY OF PRESENT ILLNESS/HOSPITAL COURSE: This is a 69-year-old male with past medical history significant for diabetes, COPD, obstructive sleep apnea, and GERD who came to the emergency room on 07/13/19 with shortness of breath, bilateral lower extremity edema, and melena. He had noticed worsening bilateral lower extremity edema over the last 2 weeks. and had noticed increasing shortness of breath in the past 4 days with worsening dyspnea upon exertion and he typically wears 3 to 5 L of oxygen via nasal cannula every day for his COPD. He had also reported having dark tarry stools that began on Saturday prior to his admission and that he had a total of 2 stools in which he had noted some dark red blood as well as geraldine red blood in the toilet. Of note , the patient was hospitalized 3 months ago for CHF exacerbation. In the emergency room, he had a full workup chest x-ray, labs were drawn, transthoracic echocardiogram was performed. He was determined to be in congestive heart failure and received IV diuretics. Dr. Fenton was consulted for the GI bleed who initially suggested a course of b.i.d. PPI as there was a concern for repeat of his peptic ulcer disease that could be causing melena. On 07/14/19, he received IV furosemide twice a day and Dr. Caldwell came to see him at that point because he has not had a bowel movement in a day and his H and H was stable rather than subjecting him to the risk of anesthesia with a prospect of possible complications related to his multiple comorbidities, it was decided to manage his GI bleed medically. Throughout his stay, he received PPI twice a day as well as famotidine at bedtime as it was felt that gastric irritation was likely the cause of the GI bleed. As far as his CHF exacerbation goes, he initially responded well to the IV diuresis and within the first couple of days was able to lose 7 pounds and he ambulated with physical therapy then between the and each day, he gained a total of over 6 pounds back. He had crackles in his bases and increased swelling in his bilateral lower extremities. Metolazone was added to the regime half hour prior to morning dose of Lasix and by today he was able to lose over 6 pounds, no longer had any crackles, his edema was improved, and his shortness of breath was resolved, and he was able to maintain oxygen at 4 L via nasal cannula, which is per his normal home routine. He had also worked with physical therapy and was able to ambulate multiple times around the unit and do stairs safely. He felt comfortable with being discharged home, particularly as his had just brought him a bariatric recliner that would effectively elevate his legs while he was sitting. REVIEW OF SYSTEMS: A 12-point system review was performed, which was positive for O2 dependence. However, negative for lightheadedness, dizziness, chest pain , palpitations, shortness of breath, abdominal pain, nausea, vomiting, issues moving his bowel or bladder. PHYSICAL EXAMINATION: Vital Signs: 97.8 Fahrenheit, 67 pulse, 20 respirations , 95% oxygen on 4 L and 151/54 blood pressure. General: This is a well developed, obese gentleman, seen sitting up in the chair, in no acute distress. HEENT: Conjunctivae pink and moist. PERRLA. EOMs intact. Oropharynx clear. Mucous membranes are moist. Neck is supple. Cardiac: S1, S2 present. Heart rate regular. No murmurs, gallops, or rubs appreciated. Lung sounds clear throughout bilaterally, posteriorly on 4 L oxygen via nasal cannula with no accessory muscle use noted. Abdomen: Soft, nontender, nondistended with positive bowel sounds x4. Musculoskeletal: No clubbing or cyanosis of the digits. He has lymphedema to bilateral lower extremities but no pitting edema as he had previously. Neurological: Sensation is intact to light touch. No focal deficits appreciated. Skin: He has a yeasty rash to his abdominal fold. Psych: He is alert and oriented x4. Thought content organized. DISCHARGE PLAN: He is to be discharged home with a diabetic, low-salt diet. Activity is as tolerated. He is to return to the hospital should he develop increasing shortness of breath and chest pain. PLAN FOR EACH CONDITION: 1. Congestive heart failure exacerbation. Due to the fact that this was the second admission for CHF exacerbation within the past 3 months, it is apparent that his dosing of torsemide at home is no longer sufficient. He states that when he takes his torsemide dosing at home, he has a varied response to it where sometimes he notices an increased amount of urination and sometimes he does not. The decision was made to increase his torsemide to 60 mg once a day and to take the metolazone 30 minutes prior. He was instructed to purchase a scale to weigh himself daily, which he stated he was already in the process of doing. If he gains 2 to 5 pounds in 1 day, he is to take an extra dose of torsemide that evening and reweigh himself in the morning. If his weight does not go down or he gains more than 5 pounds in 1 day, he is to his call primary care for further direction. He was also directed to avoid salty foods and I would appreciate Dr. Tidwell input as far as possible need for increase in his potassium regimen. 2. Gastrointestinal bleed. This was felt that it was likely secondary to recurrence of his peptic ulcer disease and was placed on twice a day Protonix. He is to take his second dose 1 hour prior to his dinner and then he is to take his Pepcid 1 hour after dinner. The decision was made to not scope the patient because his H and H was stable and the risk of complication of anesthesia was greater than the benefit. He is to follow up with Dr. Fenton within the next week and will hopefully be able to be weaned off of the twice a day dosing after 8 weeks. He understands that he is to return to the hospital should he notice increase in geraldine red blood in his stool as well as if he develops fatigue and increasing shortness of breath. 3. Hypertension. His blood pressures remained relatively controlled with blood pressures between 120s and 130s sometimes going up to 150s. He does have an opportunity for tighter hypertension control. I will continue his ramipril and torsemide with his potassium 20 mEq supplementation daily. 4. Diabetes type 2. His blood sugars have been high between 200 and 300. He had been initially started on 60 units of Lantus and I increased back up to his home dose of 70 units daily though his sugars still remain in the low 200s. He is to continue his Lantus and glipizide. 5. BPH. He is to continue his tamsulosin. 6. Coronary artery disease. He is to continue his aspirin and isosorbide. 7. Restless leg syndrome. Continue ropinirole. 8. COPD. He is to continue his albuterol inhaler and Symbicort inhaler. 9. Obstructive sleep apnea. Continue use of CPAP at home. 10. Chronic back pain. He is to continue hydrocodone. 11. Depression. He is to continue the fluoxetine and alprazolam as needed. 12. Candidal rash to abdominal fold. Continue using nystatin powder until it is gone. New medications upon discharge: 1. Torsemide 60 mg p.o. daily. 2. Famotidine 40 mg p.o. 1 hour after bedtime daily. 3. Pantoprazole 40 mg p.o. daily. 4. Nystatin powder 1 application topically b.i.d. Medications to continue upon discharge: 1. Oxybutynin 5 mg p.o. daily. 2. Metolazone 5 mg p.o. daily. 3. Hydrocodone/acetaminophen 10/325 one tab p.o. q.4 hours p.r.n., max daily dose of 6. 4. Alprazolam 0.5 mg p.o. q.4 hours p.r.n. 5. Acidophilus/bulgaricus 1 tab p.o. b.i.d. 6. Tamsulosin 0.4 mg p.o. daily. 7. Isosorbide mononitrate 60 mg p.o. daily. 8. Ropinirole 0.5 mg p.o. at bedtime. 9. Ramipril 5 mg p.o. q.a.m. 10. Ascorbic acid 500 mg p.o. daily. 11. Symbicort 80/4.5 two puffs inhalation b.i.d. 12. Atorvastatin 40 mg p.o. q.p.m. 13. Albuterol inhaler 2 puffs inhalation q.4 hours p.r.n. 14. Multivitamin 1 tab p.o. daily. 15. Loratadine 10 mg p.o. daily. 16. Aspirin 81 mg p.o. daily. 17. Glipizide 10 mg p.o. daily. 18. Potassium chloride 20 mEq p.o. daily. 19. Fluoxetine 40 mg p.o. daily. 20. Magnesium oxide 800 mg p.o. b.i.d. CONDITION: Upon discharge is stable. DISPOSITION: To home. TIME SPENT: Time spent on the patient is about 70 minutes with 50 of that spent [id number]. SAROJ LAO, KNOWLEDGE ANALYST [id number]/CPS #: [id number] [facility]
[2019-07-20] MEDS ORDERED: Torsemide TAB* 20 MG PO SCH (09:00)
== END 2019-07-19 17:20 | disposition home health service (06) | DRG 377 ==
LOC: ED 11:36 → MEDTELE 15:04
PROVIDERS: ADMIT Hospitalist; ATTEND Internal Medicine
DX: K27.4 Chronic or unspecified peptic ulcer, site unspecified, with hemorrhage (principal); I50.33 Acute on chronic diastolic (congestive) heart failure; E66.2 Morbid (severe) obesity with alveolar hypoventilation; E87.2 Acidosis; Z68.44 Body mass index [BMI] 60.0-69.9, adult; I11.0 Hypertensive heart disease with heart failure; J44.9 Chronic obstructive pulmonary disease, unspecified; E11.9 Type 2 diabetes mellitus without complications; G25.81 Restless legs syndrome; E78.00 Pure hypercholesterolemia, unspecified; K21.9 Gastro-esophageal reflux disease without esophagitis; G89.29 Other chronic pain; M54.9 Dorsalgia, unspecified; F32.9 Major depressive disorder, single episode, unspecified; F41.9 Anxiety disorder, unspecified; N40.0 Benign prostatic hyperplasia without lower urinary tract symptoms; I25.10 Atherosclerotic heart disease of native coronary artery without angina pectoris; E87.6 Hypokalemia; E78.5 Hyperlipidemia, unspecified; I49.3 Ventricular premature depolarization; M19.90 Unspecified osteoarthritis, unspecified site; H91.90 Unspecified hearing loss, unspecified ear; Z79.84 Long term (current) use of oral hypoglycemic drugs; Z90.49 Acquired absence of other specified parts of digestive tract; Z87.442 Personal history of urinary calculi; Z88.1 Allergy status to other antibiotic agents; Z99.81 Dependence on supplemental oxygen; Z87.11 Personal history of peptic ulcer disease; Z88.2 Allergy status to sulfonamides; Z28.21 Immunization not carried out because of patient refusal; Z79.82 Long term (current) use of aspirin; Z79.899 Other long term (current) drug therapy
CPT/HCPCS: 36415; 71046; 80048; 80053; 81003; 81015; 82272; 82550; 83605; 83690; 83735; 83880; 84484; 85025; 85610; 85730; 86140; 86850; 86900; 86901; 87086; 93005; 93306; 94640; 94660; 96374; 96375; 99284; A9270-GY; C8929; J1940; J2270; J3475

== ENCOUNTER 2021-01-18 11:51 | Inpatient (IN) ==
[2021-01-18] MEDS ORDERED: Albuterol HFA INHALER 8 gm MDI INH ONE (13:00)
[2021-01-18] MEDS ORDERED: methylPREDNISolone 125 mg 2 ML VIAL IV ONE (13:00)
[2021-01-18 13:06] LABS: Hematocrit 30 % (42-52); Hemoglobin 10.7 g/dL (14.0-18.0); Mean Corpuscular HGB Conc 35 g/dL (31-36); Mean Corpuscular Hemoglobin 34 pg (27-31); Mean Corpuscular Volume 96 fL (80-94); Mean Platelet Volume 6.9 fL (7.4-10.4); Platelet Count 202 10^3/uL (150-450); Red Blood Count 3.16 10^6 /uL (4.18-5.48); Red Cell Distribution Width 15 % (10-15); White Blood Count 21.9 10^3/uL (3.5-10.8)
[2021-01-18 13:14] LABS: Activated Partial Thrombo Time 30.1 seconds (26.0-38.0); INR 1.4 (0.86-1.15)
[2021-01-18] MEDS ORDERED: Azithromycin 500 mg/250 ml NS 500 MG/250 ML BAG IVPB ONE (13:14)
[2021-01-18] MEDS ORDERED: cefTRIAXone 1 gm/50 mL NS BAG 1 GM/50 ML BAG IV ONE (13:14)
[2021-01-18] MEDS ORDERED: NS 0.9% 1000 ml BAG 1,000 ML IV ONE (13:16)
[2021-01-18 13:21] LABS: Venous Bicarbonate HCO3 33.8 mmol/L (24-28)
[2021-01-18 13:25] LABS: ALT 21 U/L (7-52); AST 21 U/L (13-39); Albumin 2.8 g/dL (3.2-5.2); Albumin/Globulin Ratio 0.7 (1-3); Alkaline Phosphatase 65 U/L (35-149); Anion Gap 5 mmol/L (2-11); Blood Urea Nitrogen 61 mg/dL (6-24); C Reactive Protein 192.91 mg/L (<8.01); CO2 Carbon Dioxide 33 mmol/L (22-32); Calcium 8.4 mg/dL (8.6-10.3); Chloride 92 mmol/L (101-111); EGFR African American 22.9 (>60); EGFR Non-African American 18.9 (>60); Globulin 4.1 g/dL (2-4); Glucose 253 mg/dL (70-100); Potassium 4.3 mmol/L (3.5-5.0); Sodium 130 mmol/L (135-145); Total Protein 6.9 g/dL (6.4-8.9)
[2021-01-18 13:36] LABS: LDH 168 U/L (140-271)
[2021-01-18 13:43] LABS: Rapid COVID-19 Molecular Undetected (Undetected)
[2021-01-18 13:44] LABS: Influenza A Molecular Negative (Negative); Influenza B Molecular Negative (Negative)
[2021-01-18 13:49] LABS: Ferritin 359.8 ng/mL (24-336)
[2021-01-18 14:01] LABS: ABS Lymphocytes 0.6 10^3/ul (1.0-4.8); ABS Monocytes 3.4 10^3/ul (0-0.8); ABS Neutrophils 17.8 10^3/ul (1.5-7.7); Eosinophil % 0.2 %; Lymphocyte % 2.8 %
[2021-01-18] MEDS ORDERED: Albuterol HFA INHALER 8 gm MDI INH PRN (16:40)
[2021-01-18] MEDS ORDERED: Lactated Ringers 1000 ml BAG 1,000 ML IV ONE (17:30)
[2021-01-18] MEDS ORDERED: Enoxaparin 40 MG/0.4 ML SYR SUBCUT SCH (18:00)
[2021-01-18] MEDS ORDERED: ZOSYN 3.375 GM x ONE DOSE over 30 miuntes IV (18:30)
[2021-01-18 19:49] LABS: Troponin I 0.04 ng/mL (<0.03)
[2021-01-18] MEDS: Enoxaparin 40 MG/0.4 ML SYR SUBCUT SCH (19:49)
[2021-01-18] MEDS: Mometasone/Formoter 100/5 MDI INH SCH (20:58)
[2021-01-18] MEDS ORDERED: Zosyn per Pharmacy NOTE FOLLOW UP SCH (21:00)
[2021-01-18 22:45] LABS: Troponin I 0.03 ng/mL (<0.03)
[2021-01-19] MEDS: ZOSYN 3.375 GM Q8H per EXTENDED INFUSION IV SCH ×2 (03:59→08:35)
[2021-01-19 05:14] LABS: ABS Lymphocytes 0.5 10^3/ul (1.0-4.8); ABS Monocytes 1.4 10^3/ul (0-0.8); ABS Neutrophils 15.4 10^3/ul (1.5-7.7); Hematocrit 33 % (42-52); Hemoglobin 10.9 g/dL (14.0-18.0); Mean Corpuscular HGB Conc 33 g/dL (31-36); Mean Corpuscular Hemoglobin 33 pg (27-31); Mean Corpuscular Volume 101 fL (80-94); Mean Platelet Volume 7.2 fL (7.4-10.4); Nucleated Red Blood Cells % 0.1; Platelet Count 174 10^3/uL (150-450); Red Blood Count 3.26 10^6 /uL (4.18-5.48); Red Cell Distribution Width 16 % (10-15); White Blood Count 17.4 10^3/uL (3.5-10.8)
[2021-01-19 05:22] LABS: CO2 Carbon Dioxide 27 mmol/L (22-32); Calcium 7.9 mg/dL (8.6-10.3); Chloride 92 mmol/L (101-111); Sodium 127 mmol/L (135-145)
[2021-01-19 05:28] LABS: Blood Urea Nitrogen 69 mg/dL (6-24); EGFR African American 23.7 (>60); EGFR Non-African American 19.6 (>60); Glucose 343 mg/dL (70-100)
[2021-01-19 05:31] LABS: Anion Gap 8 mmol/L (2-11)
[2021-01-19] MEDS: Enoxaparin 40 MG/0.4 ML SYR SUBCUT SCH ×2 (06:32→17:27)
[2021-01-19] MEDS ORDERED: Dextrose 50% Syringe 50 ml 25 GM/50 ML SYRINGE IV PUSH PRN (07:14)
[2021-01-19] MEDS ORDERED: NS 0.9% 1000 ml BAG 1,000 ML IV ONE ×2 (07:16→13:28)
[2021-01-19] MEDS: Mometasone/Formoter 100/5 MDI INH SCH ×2 (07:58→19:57)
[2021-01-19] MEDS: Aspirin EC 81 mg TAB.EC (enteric coated) PO SCH (08:26)
[2021-01-19] MEDS: CMC:LoraTADine 10 mg TAB (NF) PO SCH (08:34)
[2021-01-19] MEDS ORDERED: Insulin GLARGINE 100 un/ml 10 ml VIAL SUBCUT SCH (09:00)
[2021-01-19] MEDS ORDERED: Lorazepam PYXIS KEY PRN (10:47)
[2021-01-19] MEDS ORDERED: LORazepam 2 mg VIAL 1 ml IV PUSH ONE (10:51)
[2021-01-19 11:35] LABS: Magnesium 2.3 mg/dL (1.9-2.7); Potassium Redraw 4.3 mmol/L (3.5-5.0)
[2021-01-19 13:19] LABS: Urine Appearance Turbid; Urine Bilirubin Negative (Negative); Urine Blood 3+ (Negative); Urine Color Amber; Urine Glucose 1+(50 mg/dL) (Negative); Urine Ketones Negative (Negative); Urine Nitrite Negative (Negative); Urine Protein 2+(100 mg/dL) (Negative); Urine Specific Gravity 1.014 (1.002-1.030); Urine Urobilinogen Negative (Negative)
[2021-01-19 13:31] LABS: Urine Bacteria 2+ (Absent); Urine Red Blood Cell 3+(>10/hpf) (Absent); Urine White Blood Cell 3+(>20/hpf) (Absent)
[2021-01-19 13:40] LABS: UR Microalbumin (mg/L) 224.8 mg/L; Urine Creatinine 94.56 mg/dL; Urine Creatinine Concentration 94.56 mg/dL; Urine Microalbumin/Creatinine 237.7 (<31)
[2021-01-19] MEDS: ceFAZolin 2 GM in NS PREMIX 2 GM/100 ML BAG IVPB SCH ×2 (14:39→22:22)
[2021-01-19 19:39] LABS: Calcium 8.1 mg/dL (8.6-10.3); Potassium 4.2 mmol/L (3.5-5.0)
[2021-01-19 19:45] LABS: EGFR African American 25.6 (>60); EGFR Non-African American 21.2 (>60)
[2021-01-20 05:10] LABS: Hematocrit 30 % (42-52); Hemoglobin 10.2 g/dL (14.0-18.0); Mean Corpuscular HGB Conc 34 g/dL (31-36); Mean Corpuscular Hemoglobin 33 pg (27-31); Mean Corpuscular Volume 96 fL (80-94); Platelet Count 198 10^3/uL (150-450); Red Blood Count 3.11 10^6 /uL (4.18-5.48); Red Cell Distribution Width 15 % (10-15); White Blood Count 16.6 10^3/uL (3.5-10.8)
[2021-01-20 05:25] LABS: ABS Lymphocytes 0.6 10^3/ul (1.0-4.8); ABS Monocytes 1.7 10^3/ul (0-0.8); ABS Neutrophils 14.1 10^3/ul (1.5-7.7); Eosinophil % 0.3 %; Lymphocyte % 3.8 %
[2021-01-20] MEDS: ceFAZolin 2 GM in NS PREMIX 2 GM/100 ML BAG IVPB SCH ×3 (05:30→23:00)
[2021-01-20] MEDS: Enoxaparin 40 MG/0.4 ML SYR SUBCUT SCH ×3 (05:30→16:34)
[2021-01-20 05:39] LABS: C Reactive Protein 206.29 mg/L (<8.01); Calcium 8.1 mg/dL (8.6-10.3); EGFR African American 29.1 (>60); EGFR Non-African American 24.1 (>60); Magnesium 2.5 mg/dL (1.9-2.7); Phosphorus 3.6 mg/dL (2.5-5.0); Potassium 4.2 mmol/L (3.5-5.0)
[2021-01-20] MEDS ORDERED: Insulin GLARGINE 100 un/ml 10 ml VIAL SUBCUT SCH (07:06)
[2021-01-20] MEDS ORDERED: HYDROmorphone 0.5 MG/0.5 ML SYRINGE IV PRN (07:42)
[2021-01-20] MEDS: Mometasone/Formoter 100/5 MDI INH SCH ×2 (07:53→21:11)
[2021-01-20] MEDS ORDERED: Famotidine IV 10 MG/ML 2 ml VIAL (20 mg) IV SLOW PU ONE (08:40)
[2021-01-20] MEDS ORDERED: DiMENhydriNATE IV 50 mg/ml 1 ml VIAL IV PUSH PRN (08:41)
[2021-01-20] MEDS ORDERED: fentaNYL 100 mcg/2 ml 50 MCG/ML VIAL IV PRN (08:41)
[2021-01-20] MEDS ORDERED: Naloxone 0.4 mg VIAL 0.4 mg/ml 1 ml VIAL IV PRN (08:41)
[2021-01-20] MEDS ORDERED: Midazolam 2 mg/2 ml VIAL 1 mg/ml 2 ml VIAL (2 mg) ONE (08:54)
[2021-01-20] MEDS ORDERED: fentaNYL 100 mcg/2 ml 50 MCG/ML VIAL ONE (08:54)
[2021-01-20] MEDS ORDERED: Lidocaine 4% TOPICAL 50 ML TOP.SOLN ONE (08:54)
[2021-01-20] MEDS ORDERED: Propofol 10 MG/ML 20 ML BTL ONE (08:54)
[2021-01-20] MEDS ORDERED: Insulin GLARGINE 100 un/ml 10 ml VIAL SUBCUT ONE (09:00)
[2021-01-20] MEDS ORDERED: Famotidine IV 10 MG/ML 2 ml VIAL (20 mg) ONE (09:12)
[2021-01-20] MEDS: CMC:LoraTADine 10 mg TAB (NF) PO SCH (12:09)
[2021-01-20] MEDS: Aspirin EC 81 mg TAB.EC (enteric coated) PO SCH (12:10)
[2021-01-20 16:25] LABS: Rapid COVID-19 Molecular Undetected (Undetected)
[2021-01-21 00:48] VITALS: BP 162/64
[2021-01-21] MEDS ORDERED: Insulin GLARGINE 100 un/ml 10 ml VIAL SUBCUT SCH (09:00)
== END 2021-01-21 00:50 | disposition short-term general hospital (02) | DRG 872 ==
LOC: ED 11:51 → MED 16:05
PROVIDERS: ADMIT Internal Medicine; ATTEND Internal Medicine
PROC: O.CATEE (2021-01-20 10:15)